=== PATIENT | male | born 1950 | race Caucasian/White ===

== ENCOUNTER 2020-07-20 08:09 | Outpatient (REF) | payer MEDICARE, SELFPAY ==
[2020-07-20 11:44] LABS: Alanine Aminotransferase 23 U/L (0-40); Albumin Level 4.3 g/dL (3.5-5.0); Alkaline Phosphatase 72 U/L (39-117); Anion Gap 12 (12-20); Aspartate Amino Transferase 20 U/L (5-37); Bilirubin Total 1.1 mg/dL (0.0-1.0); Blood Urea Nitrogen 13 mg/dL (9-16); Calcium 8.8 mg/dL (8.4-10.2); Carbon Dioxide 29 mmol/L (22-29); Chloride 104 mmol/L (96-108); Cholesterol 161 mg/dL; Estimated Glomerular Filt Rate > 60; Glucose Fasting 90 mg/dL (60-99); HDL Cholesterol 49 mg/dL; LDL Cholesterol Calculated 91 mg/dl; Potassium 4.4 mmol/l (3.3-5.1); Sodium 141 mmol/L (135-145); Triglycerides 107 mg/dL
== END 2020-07-20 08:10 | disposition home or self-care (01) ==
LOC: HO.HMGCLDS 08:09
PROVIDERS: PCP Nurse Practitioner Family; Visit Provider Nurse Practitioner Family
DX: Z00.00 Encounter for general adult medical examination without abnormal findings (principal)
CPT/HCPCS: 80053; 80061; 84443

== ENCOUNTER → 2020-11-26 09:51 | Outpatient (BNVA) | payer MEDICARE, SELFPAY | PROVIDERS: PCP Nurse Practitioner Family; Visit Provider Surgery Vascular Surgery | DX: I73.9 Peripheral vascular disease, unspecified (principal); I73.00 Raynaud's syndrome without gangrene | CPT/HCPCS: 99212 ==

== ENCOUNTER 2020-12-07 10:54 | Outpatient (REF) | payer MEDICARE, SELFPAY ==
--- NOTE | ~2020-12-07 | US_ITS ---
EXAMINATION: NONINVASIVE ASSESSMENT OF THE ARTERIES OF BOTH LOWER EXTREMITIES WITH PVR EXAM AND BILATERAL LOWER EXTREMITY DUPLEX CLINICAL INFORMATION: Peripheral vascular disease TECHNIQUE: Ankle pulse volume recordings, ankle pressure measurements and ankle brachial indices were obtained of the lower extremity arterial system bilaterally in addition to duplex Doppler techniques with wave form analysis and measurement of velocities in the common femoral, profunda femoral, superficial femoral, popliteal and tibial arteries. The study was performed only at rest. COMPARISON: None FINDINGS: a) AT REST: RIGHT LE. The right ankle-brachial index is: 1.27 2. Right ankle pressure: normal. 3. Right ankle PVR waveform: normal. 4. Right direct duplex Doppler findings: Normal * Common femoral artery: 89 cm/s, Diastolic flow reversal: Yes * Superficial femoral artery (proximal, mid, distal): 96, 105 and 75 cm/s, Diastolic flow reversal: Yes * Popliteal artery: 71 cm/s, Diastolic flow reversal: Yes * Posterior tibial artery: 82 cm/s, Diastolic flow reversal: Yes LEFT LE. The left ankle-brachial index is: 1.31 2. Left ankle pressure: normal. 3. Left ankle PVR waveform: normal. 4. Left direct duplex Doppler findings: Normal * Common femoral artery: 102 cm/s, Diastolic flow reversal: Yes * Superficial femoral artery (proximal, mid, distal): 90, 88 and 66 cm/s, Diastolic flow reversal: Yes * Popliteal artery: 66 cm/s, Diastolic flow reversal: Yes * Posterior tibial artery: 72 cm/s, Diastolic flow reversal: Yes DIONE Reference: * >0.97-1.25 = normal - no significant arterial disease * 0.75-0.96 = mild peripheral arterial disease * 0.5-0.74 = moderate peripheral arterial disease * <0.50 = severe peripheral arterial disease US/US arterial duplex LE BI IMPRESSION: Normal exam. There is no evidence of any hemodynamically significant lower extremity arterial disease by pressure, waveform or duplex Doppler criteria at rest.
--- NOTE | ~2020-12-07 | US_ITS ---
EXAMINATION: NONINVASIVE ASSESSMENT OF THE ARTERIES OF BOTH LOWER EXTREMITIES WITH PVR EXAM AND BILATERAL LOWER EXTREMITY DUPLEX CLINICAL INFORMATION: Peripheral vascular disease TECHNIQUE: Ankle pulse volume recordings, ankle pressure measurements and ankle brachial indices were obtained of the lower extremity arterial system bilaterally in addition to duplex Doppler techniques with wave form analysis and measurement of velocities in the common femoral, profunda femoral, superficial femoral, popliteal and tibial arteries. The study was performed only at rest. COMPARISON: None FINDINGS: a) AT REST: RIGHT LE. The right ankle-brachial index is: 1.27 2. Right ankle pressure: normal. 3. Right ankle PVR waveform: normal. 4. Right direct duplex Doppler findings: Normal * Common femoral artery: 89 cm/s, Diastolic flow reversal: Yes * Superficial femoral artery (proximal, mid, distal): 96, 105 and 75 cm/s, Diastolic flow reversal: Yes * Popliteal artery: 71 cm/s, Diastolic flow reversal: Yes * Posterior tibial artery: 82 cm/s, Diastolic flow reversal: Yes LEFT LE. The left ankle-brachial index is: 1.31 2. Left ankle pressure: normal. 3. Left ankle PVR waveform: normal. 4. Left direct duplex Doppler findings: Normal * Common femoral artery: 102 cm/s, Diastolic flow reversal: Yes * Superficial femoral artery (proximal, mid, distal): 90, 88 and 66 cm/s, Diastolic flow reversal: Yes * Popliteal artery: 66 cm/s, Diastolic flow reversal: Yes * Posterior tibial artery: 72 cm/s, Diastolic flow reversal: Yes DIONE Reference: * >0.97-1.25 = normal - no significant arterial disease * 0.75-0.96 = mild peripheral arterial disease * 0.5-0.74 = moderate peripheral arterial disease * <0.50 = severe peripheral arterial disease US/US DIONE complete IMPRESSION: Normal exam. There is no evidence of any hemodynamically significant lower extremity arterial disease by pressure, waveform or duplex Doppler criteria at rest.
== END 2020-12-07 10:55 | disposition home or self-care (01) ==
LOC: HO.US 10:54
PROVIDERS: Visit Provider Surgery Vascular Surgery
DX: I70.213 Atherosclerosis of native arteries of extremities with intermittent claudication, bilateral legs (principal)
CPT/HCPCS: 93923; 93925

== ENCOUNTER → 2020-12-22 09:13 | Outpatient (BNVA) | payer MEDICARE, SELFPAY | PROVIDERS: PCP Nurse Practitioner Family; Visit Provider Surgery Vascular Surgery | DX: I73.9 Peripheral vascular disease, unspecified (principal); I73.00 Raynaud's syndrome without gangrene | CPT/HCPCS: 99212 ==

== ENCOUNTER 2021-02-09 06:51 | Day surgery (SDC) | payer MEDICARE, SELFPAY ==
[2021-02-04 08:51] VITALS: BMI 29.9
--- NOTE | 2021-02-08 10:14 | HO.ANESPROP2 ---
Documented by User: Amanda De La Vega 02/08/21 10:26 HPI - Anesthesia Eval Consult details Narrative: 70yo M for Colonoscopy Eliquis for afib Loop recorder in situ PMFSH Active Problems Active Problems: All Active Problems (Updated 02/04/21 @ 08:50 by Meghan Mena) Physical exam (Acute) Dyslipidemia (Acute) Vascular disease, peripheral (Acute) Raynaud disease (Acute) Past Medical History Medical History (Updated 02/09/21 @ 07:40 by Maeve Reis) Cardiomyopathy COVID-19 vaccine administered Eczema NSVT (nonsustained ventricular tachycardia) Paroxysmal A-fib Syncope Family History Family History Father CAD (coronary artery disease) Type 2 diabetes mellitus Myocardial infarction Mother Breast cancer Surgical History Surgical History H/O colonoscopy History of carpal tunnel release History of colon resection History of loop recorder History of total hip replacement Melanoma Social History Social History Alcohol intake: never Smoking Status: Never smoker Use of substances other than those prescribed or required for medical reasons: No Have you been hit, kicked, punched, or otherwise hurt by someone within the past year? If so, by whom?: No Advance Directives Information Provided: No Recently lost weight without trying: No Eating poorly because of decreased appetite: No Nutrition Risks: No Nutritional Risk Poor oral hygiene: No Meds Allergies Allergy/AdvReac Type Severity Reaction Status Date / Time No Known Allergies Allergy Verified 02/09/21 07:01 Home Medications Medication Instructions Recorded Confirmed Last Taken Type apixaban 5 mg tablet 5 mg PO BID 07/13/20 02/03/21 02/06/21 History coenzyme Q10 100 mg capsule 100 mg PO DAILY 07/13/20 02/03/21 Unknown History metoprolol succinate 25 mg 25 mg PO DAILY 07/13/20 02/03/21 02/09/21 05:30 History tablet,extended release 24 hr omega 5-egu-qtn-fish oil 100 1 cap PO DAILY 07/13/20 02/03/21 02/04/21 History mg-160 mg-1,000 mg capsule Exam Exam Date and Time: February 08, 2021 1014 Height,Weight and Vital Signs: Height 5 ft 7 in Weight 86.636 kg Narrative Narrative: Per cardiology note 12/2020: EKG 01/07/21 SB @ 50 1* AV block marked LAD c/w LAFB Pharm stress test negative for ischemia, EF was normal Echo 12/2019 asymmetric septal hypertrophy no recorded gradient in the LV outflow tract either at rest or with valsava no systolic anterior motion of MV noted Mild MR Assessment and Plan Assessment Anesthesia Assessment: Chart Reviewed Documented by User: Maeve Reis 02/09/21 07:40 [facility] Past Medical History Medical History (Updated 02/09/21 @ 07:40 by Maeve Reis) Cardiomyopathy COVID-19 vaccine administered Eczema NSVT (nonsustained ventricular tachycardia) Paroxysmal A-fib Syncope Family History Family History Father CAD (coronary artery disease) Type 2 diabetes mellitus Myocardial infarction Mother Breast cancer Surgical History Surgical History H/O colonoscopy History of carpal tunnel release History of colon resection History of loop recorder History of total hip replacement Melanoma Social History Social History Alcohol intake: never Smoking Status: Never smoker Use of substances other than those prescribed or required for medical reasons: No Have you been hit, kicked, punched, or otherwise hurt by someone within the past year? If so, by whom?: No Advance Directives Information Provided: No Recently lost weight without trying: No Eating poorly because of decreased appetite: No Nutrition Risks: No Nutritional Risk Poor oral hygiene: No Meds Allergies Allergy/AdvReac Type Severity Reaction Status Date / Time No Known Allergies Allergy Verified 02/09/21 07:01 Home Medications Medication Instructions Recorded Confirmed Last Taken Type apixaban 5 mg tablet 5 mg PO BID 07/13/20 02/03/21 02/06/21 History coenzyme Q10 100 mg capsule 100 mg PO DAILY 07/13/20 02/03/21 Unknown History metoprolol succinate 25 mg 25 mg PO DAILY 07/13/20 02/03/21 02/09/21 05:30 History tablet,extended release 24 hr omega 7-xzu-qfz-fish oil 100 1 cap PO DAILY 07/13/20 02/03/21 02/04/21 History mg-160 mg-1,000 mg capsule Exam Height,Weight and Vital Signs: Vital Signs Temp Pulse Resp BP Pulse Ox 02/09/21 07:03 97.6 F 59 16 121/67 98 Airway Mallampati Class: III TM Dist: >3cm Neck ROM: Full Heart: RRR+ murmur Lungs: CTAB Assessment and Plan Assessment Anesthesia Assessment: Anesthesia Plan Discussed and Chart Reviewed Final Anesthetic Review NPO: Yes ASA Class: III Final Preanesthetic Review: No Changes in Pt Med Stat, Meds/Allgs Chart Reviewed, Consent Obtained/Reviewed and Anes Risks/Benef Reviewed Patient Risk: Intermediate Procedure Risk: Low Assessment/Block/Sedation in SS: Assess/Block/Sedation-SS Anesthetic Plan Anesthetic Plan: MAC: Disposition: Standard PACU
[2021-02-09 07:03] VITALS: BP 121/67; PULSE 59; RESP 16; TEMP 36.4; O2SAT 98
[2021-02-09] MEDS: Lactated Ringers 1,000 ML 50 ML IV (07:23)
--- NOTE | 2021-02-09 07:52 | MHC.SHP ---
Pre-Procedural Eval Section B Chief Complaint: screening Details of Present Illness: see h&p no changes Relevant Family History (Specify if Yes): No Relevant Social History: None Present Medications: see Short Stay Collaborative assessment Medical History: No relevant PMH History of Previous Operations: No relevant previous surgery Allergies: Allergies Allergy/AdvReac Type Severity Reaction Status Date / Time No Known Allergies Allergy Verified 02/09/21 07:01 Review of Systems Sugical H&P ROS: Negative: Constitution, Cardiovascular, Respiratory, Neurological, Psychiatric, Hem-Onc, Allergic/Immunologic, Gastrointestinal, Genitourinary, Musculoskeletal, Integumentary, Endocrine and Eyes/Ears/Nose/Throat Exam Surgical H&P Exam: Normal: HEENT, Normal: Heart, Normal: Lungs, Normal: Extremities, Normal: Abdomen, Normal: Skin and Normal: Neurological Plan Diagnosis/Plan: Unchanged I have reviewed the history and physical and performed a pertinent physical examination on my patient. No changes have occurred unless specified.
--- NOTE | 2021-02-09 08:22 | PM.OP ---
Brief Operative Note Date of Service: 02/09/21 Pre-op diagnosis: screening Post-op diagnosis: same Procedure: colonoscopy Surgeon: Celso Ferrell Anesthesia: MAC Was an Acupuncture Physician used for this Procedure?: No Estimated blood loss (mL): 0 Pathology: none sent Condition: stable Disposition: PACU
[2021-02-09 08:25] VITALS: BP 93/47; PULSE 56; RESP 16; TEMP 36.8; O2SAT 98
[2021-02-09 08:40] VITALS: BP 103/84; PULSE 59; RESP 17; TEMP 36.7; O2SAT 99
--- NOTE | 2021-02-09 08:57 | OP_ITS ---
SURGEON: Celso Ferrell MD INDICATIONS: Colon cancer screening and prior history of carcinoid tumor, requiring low anterior resection. PREOPERATIVE DIAGNOSIS: POSTOPERATIVE DIAGNOSIS: PROCEDURE PERFORMED: Colonoscopy to the terminal ileum. ESTIMATED BLOOD LOSS: COMPLICATIONS: ANESTHESIA: ASSISTANTS: SPECIMENS: MEDICATIONS: Monitored anesthesia care. DESCRIPTION OF PROCEDURE: History and physical performed. The risks and benefits of the procedure were explained to the patient. Informed consent was obtained. The patient was placed in the left lateral decubitus position. A digital rectal exam was performed and was found to be normal. The Olympus pediatric video colonoscope was introduced into the rectum and advanced to the cecum without difficulty. The cecum was identified by transillumination, palpation, and identification of ileocecal valve. Examination was performed and the scope was removed. He tolerated the procedure well and was taken to recovery area in stable condition. FINDINGS: The terminal ileum was examined and appeared normal. The visualized colonic mucosa was within normal limits without evidence of masses or ulcers. No polyps were identified. There was scattered diverticulosis. The quality of the prep was good. There appeared to be a low anterior anastomosis at approximately 15 cm with no evidence of recurrent carcinoid tumor. Retroflexed examination showed small internal hemorrhoids. IMPRESSION: Normal colonoscopy. RECOMMENDATIONS: 1. Follow up as needed. 2. Repeat colonoscopy could be considered in 5 years, however, this is optional based on age. MD JANICE Cee/CARRIE / [id number]
== END 2021-02-09 09:23 | disposition home or self-care (01) ==
PROVIDERS: PCP Nurse Practitioner Family; Visit Provider Internal Medicine Gastroenterology
PROC: 0DJD8ZZ Inspection of Lower Intestinal Tract, Via Natural or Artificial Opening Endoscopic (ICD-10-PCS; CPT 45378; principal; 2021-02-09 08:10)
DX: Z12.11 Encounter for screening for malignant neoplasm of colon (principal); Z85.030 Personal history of malignant carcinoid tumor of large intestine; Z98.0 Intestinal bypass and anastomosis status; K57.30 Diverticulosis of large intestine without perforation or abscess without bleeding; K64.8 Other hemorrhoids; I47.2 Ventricular tachycardia; I48.0 Paroxysmal atrial fibrillation; Z79.899 Other long term (current) drug therapy; Z85.820 Personal history of malignant melanoma of skin
CPT/HCPCS: G0105

== ENCOUNTER 2021-03-24 09:26 | Outpatient (REF) | payer MEDICARE, SELFPAY ==
[2021-03-24 11:14] LABS: Alanine Aminotransferase 23 U/L (0-40); Albumin Level 4.2 g/dL (3.5-5.0); Alkaline Phosphatase 72 U/L (39-117); Anion Gap 14 (12-20); Aspartate Amino Transferase 20 U/L (5-37); Bilirubin Total 1.1 mg/dL (0.0-1.0); Blood Urea Nitrogen 22 mg/dL (9-16); Calcium 9.2 mg/dL (8.4-10.2); Carbon Dioxide 24 mmol/L (22-29); Chloride 106 mmol/L (96-108); Cholesterol 152 mg/dL; Estimated Glomerular Filt Rate > 60; Glucose Fasting 95 mg/dL (60-99); HDL Cholesterol 50 mg/dL; LDL Cholesterol Calculated 92 mg/dl; Potassium 4.5 mmol/L (3.3-5.1); Sodium 139 mmol/L (135-145); Total Protein 6.9 g/dL (6.5-8.0); Triglycerides 52 mg/dL
[2021-03-24 11:24] LABS: TSH reflex Free T4 0.93 uIU/mL (0.32-4.0)
== END 2021-03-24 09:27 | disposition home or self-care (01) ==
LOC: HO.WFDLDS 09:26
PROVIDERS: Visit Provider Nurse Practitioner Family
DX: E78.5 Hyperlipidemia, unspecified (principal)
CPT/HCPCS: 36415; 80053; 80061; 84443

== ENCOUNTER 2021-05-18 12:05 | Outpatient (REF) | payer MEDICARE, SELFPAY ==
[2021-05-18 14:35] LABS: Prostate Specific Antigen 2.49 ng/mL (<0.05-4.0)
== END 2021-05-18 12:06 | disposition home or self-care (01) ==
LOC: HO.WFDLDS 12:05
PROVIDERS: Visit Provider Urology
DX: Z12.5 Encounter for screening for malignant neoplasm of prostate (principal); R39.12 Poor urinary stream; R39.11 Hesitancy of micturition; N32.0 Bladder-neck obstruction
CPT/HCPCS: 36415; 84153

== ENCOUNTER → 2021-06-01 08:42 | Outpatient (BNVA) | payer MEDICARE, SELFPAY | PROVIDERS: PCP Nurse Practitioner Family; Visit Provider Urology | DX: N32.0 Bladder-neck obstruction (principal); R39.11 Hesitancy of micturition | CPT/HCPCS: 99212 ==

== ENCOUNTER 2021-08-31 09:47 | Outpatient (REF) | payer MEDICARE, SELFPAY ==
[2021-08-31 12:10] LABS: Alanine Aminotransferase 29 U/L (0-40); Albumin Level 4.2 g/dL (3.5-5.0); Alkaline Phosphatase 78 U/L (39-117); Anion Gap 13 (12-20); Aspartate Amino Transferase 26 U/L (5-37); Bilirubin Total 1.3 mg/dL (0.0-1.0); Blood Urea Nitrogen 18 mg/dL (9-16); Calcium 9.2 mg/dL (8.4-10.2); Carbon Dioxide 26 mmol/L (22-29); Chloride 106 mmol/L (96-108); Cholesterol 161 mg/dL; Estimated Glomerular Filt Rate > 60; Glucose Fasting 92 mg/dL (60-99); HDL Cholesterol 50 mg/dL; LDL Cholesterol Calculated 94 mg/dl; Potassium 4.5 mmol/L (3.3-5.1); Sodium 140 mmol/L (135-145); Total Protein 7.1 g/dL (6.5-8.0); Triglycerides 86 mg/dL
[2021-08-31 12:11] LABS: TSH reflex Free T4 1.21 uIU/mL (0.32-4.0)
== END 2021-08-31 09:48 | disposition home or self-care (01) ==
LOC: HO.WFDLDS 09:47
PROVIDERS: Visit Provider Nurse Practitioner Family
DX: Z00.00 Encounter for general adult medical examination without abnormal findings (principal)
CPT/HCPCS: 36415; 80053; 80061; 84443

== ENCOUNTER 2022-05-20 08:39 | Outpatient (REF) | payer MEDICARE, SELFPAY ==
[2022-05-20 12:04] LABS: PSA,Total (Free>4and<10) 2.87 ng/mL (0.00-4.00)
== END 2022-05-20 08:40 | disposition home or self-care (01) ==
LOC: HO.WFDLDS 08:39
PROVIDERS: Visit Provider Urology
DX: Z12.5 Encounter for screening for malignant neoplasm of prostate (principal); N13.8 Other obstructive and reflux uropathy; N32.0 Bladder-neck obstruction; N40.1 Benign prostatic hyperplasia with lower urinary tract symptoms
CPT/HCPCS: 36415; 84153

== ENCOUNTER → 2022-06-01 08:36 | Outpatient (BNVA) | payer MEDICARE, SELFPAY | PROVIDERS: PCP Nurse Practitioner Family; Visit Provider Urology | DX: R39.12 Poor urinary stream (principal); R39.11 Hesitancy of micturition; N32.0 Bladder-neck obstruction | CPT/HCPCS: 51798; 99212 ==

== ENCOUNTER 2022-11-28 09:39 | Outpatient (REF) | payer MEDICARE, SELFPAY ==
[2022-11-28 11:34] LABS: MANUAL DIFF FLAG NO
[2022-11-28 11:44] LABS: Basophils Absolute Auto 0.1 X10*3/uL (0.0-0.2); Basophils Percent Auto 0.8 % (0-2); Eosinophils Absolute Auto 0.2 X10*3/uL (0.0-0.4); Eosinophils Percent Auto 2.8 % (0-4); Hematocrit 47.5 % (42.0-52.0); Hemoglobin 16.1 g/dl (14.0-18.0); Imm Gran Abs Auto 0.05 X10*3/uL (0.00-0.03); Imm Gran Pct Auto 0.8 % (0.0-0.4); Lymphocytes Absolute Auto 1.5 X10*3/uL (1.2-4.9); Lymphocytes Percent Auto 24.1 % (20-40); Mean Corpuscular HGB Conc 33.9 g/dl (31.0-36.0); Mean Corpuscular Hemoglobin 33.1 pg (27.0-33.0); Mean Corpuscular Volume 97.5 fL (80.0-98.0); Monocytes Absolute Auto 0.4 X10*3/uL (0.1-1.2); Monocytes Percent Auto 6.7 % (2-11); Neutrophils Percent Auto 64.8 % (45-73); Platelet Count 148 X10*3/uL (160-400); Red Blood Count 4.87 X10*6/uL (4.60-5.80); Red Cell Distribution Width 12.6 % (11.0-16.0); White Blood Count 6.1 X10*3/uL (4.8-10.8)
[2022-11-28 12:22] LABS: Appearance Urine Clear; Color Urine Yellow; Glucose Urine UA Negative (Negative); Leukocyte Esterase Urine Negative (Negative); Nitrite Urine Negative (Negative); PH 5.5 (5.0-9.0); Specific Gravity - Urine 1.025 (1.005-1.025); Urine Blood Negative (Negative); Urine Ketones Negative (Negative); Urine Protein Negative (Neg-Trace)
[2022-11-28 12:36] LABS: Alanine Aminotransferase 39 U/L (0-40); Albumin Level 4.4 g/dL (3.5-5.0); Alkaline Phosphatase 83 U/L (39-117); Anion Gap 11 (12-20); Aspartate Amino Transferase 26 U/L (5-37); Bilirubin Total 1.9 mg/dL (0.0-1.0); Blood Urea Nitrogen 19 mg/dL (9-16); Calcium 9.2 mg/dL (8.4-10.2); Carbon Dioxide 30 mmol/L (22-29); Chloride 106 mmol/L (96-108); Cholesterol 119 mg/dL; Estimated Glomerular Filt Rate > 60; Glucose Fasting 99 mg/dL (60-99); HDL Cholesterol 49 mg/dL; LDL Cholesterol Calculated 59 mg/dl; Potassium 4.7 mmol/L (3.3-5.1); Sodium 142 mmol/L (135-145); TSH reflex Free T4 1.75 uIU/mL (0.32-4.0); Total Protein 7.2 g/dL (6.5-8.0); Triglycerides 57 mg/dL
== END 2022-11-28 09:40 | disposition home or self-care (01) ==
LOC: HO.HMGCLDS 09:39
PROVIDERS: PCP Nurse Practitioner Family; Visit Provider Nurse Practitioner Family
DX: Z00.00 Encounter for general adult medical examination without abnormal findings (principal); I10 Essential (primary) hypertension
CPT/HCPCS: 36415; 80053; 80061; 81003; 84443; 85025

== ENCOUNTER 2023-01-30 09:48 | Outpatient (REF) | payer MEDICARE, SELFPAY ==
[2023-01-30 11:22] LABS: MANUAL DIFF FLAG NO
[2023-01-30 11:35] LABS: Immature Retic Fraction 11.6 % (2.3-13.4); Retic HGB Equivalent 38.9 pg (30.0-35.0); Reticulocyte Percent 1.5 % (0.5-1.8); Reticulocytes Absolute 0.067 X10*6/uL (0.026-0.095)
[2023-01-30 11:40] LABS: Basophils Percent Auto 0.8 % (0-2); Hematocrit 43.3 % (42.0-52.0); Hemoglobin 14.8 g/dl (14.0-18.0); Imm Gran Abs Auto 0.01 X10*3/uL (0.00-0.03); Imm Gran Pct Auto 0.3 % (0.0-0.4); Lymphocytes Absolute Auto 0.9 X10*3/uL (1.2-4.9); Mean Corpuscular HGB Conc 34.2 g/dl (31.0-36.0); Mean Corpuscular Hemoglobin 32.7 pg (27.0-33.0); Mean Corpuscular Volume 95.8 fL (80.0-98.0); Mean Platelet Volume 10.3 fL (9.4-12.4); Monocytes Absolute Auto 0.7 X10*3/uL (0.1-1.2); Monocytes Percent Auto 16.6 % (2-11); Neutrophils Absolute Auto 2.3 x10*3/uL (2.0-8.3); Neutrophils Percent Auto 58.3 % (45-73); Platelet Count 118 X10*3/uL (160-400); Red Blood Count 4.52 X10*6/uL (4.60-5.80); Red Cell Distribution Width 12.8 % (11.0-16.0); White Blood Count 3.9 X10*3/uL (4.8-10.8)
[2023-01-30 12:03] LABS: Bilirubin Direct 0.4 mg/dL (0.0-0.5); Bilirubin Total 1.5 mg/dL (0.0-1.0)
[2023-01-31 17:33] LABS: Haptoglobin 181 mg/dL (43-212)
[2023-02-08 12:48] LABS: Transglutaminase Ab IgG 1.4 U/mL; Transglutaminase IgA <1.0 U/mL
== END 2023-01-30 09:49 | disposition home or self-care (01) ==
LOC: HO.WFDLDS 09:48
PROVIDERS: Visit Provider Nurse Practitioner Family
DX: D69.6 Thrombocytopenia, unspecified (principal); R17 Unspecified jaundice
CPT/HCPCS: 36415; 82247; 82248; 83010; 85025; 85045; 86364

== ENCOUNTER 2023-02-22 09:29 | Outpatient (REF) | payer MEDICARE, SELFPAY ==
[2023-02-22 11:11] LABS: MANUAL DIFF FLAG NO
[2023-02-22 11:21] LABS: Basophils Percent Auto 0.7 % (0-2); Eosinophils Absolute Auto 0.1 X10*3/uL (0.0-0.4); Eosinophils Percent Auto 1.7 % (0-4); Hematocrit 43.6 % (42.0-52.0); Hemoglobin 14.8 g/dl (14.0-18.0); Imm Gran Abs Auto 0.02 X10*3/uL (0.00-0.03); Imm Gran Pct Auto 0.3 % (0.0-0.4); Immature Retic Fraction 10.9 % (2.3-13.4); Lymphocytes Percent Auto 33.9 % (20-40); Mean Corpuscular HGB Conc 33.9 g/dl (31.0-36.0); Mean Corpuscular Hemoglobin 33.2 pg (27.0-33.0); Mean Corpuscular Volume 97.8 fL (80.0-98.0); Mean Platelet Volume 10.9 fL (9.4-12.4); Monocytes Absolute Auto 0.4 X10*3/uL (0.1-1.2); Monocytes Percent Auto 7.4 % (2-11); Neutrophils Absolute Auto 3.3 x10*3/uL (2.0-8.3); Platelet Count 146 X10*3/uL (160-400); Red Blood Count 4.46 X10*6/uL (4.60-5.80); Red Cell Distribution Width 12.5 % (11.0-16.0); Retic HGB Equivalent 39.2 pg (30.0-35.0); Reticulocyte Percent 1.5 % (0.5-1.8); Reticulocytes Absolute 0.068 X10*6/uL (0.026-0.095); White Blood Count 5.8 X10*3/uL (4.8-10.8)
== END 2023-02-22 09:30 | disposition home or self-care (01) ==
LOC: HO.WFDLDS 09:29
PROVIDERS: Visit Provider Nurse Practitioner Family
DX: D72.819 Decreased white blood cell count, unspecified (principal); D69.6 Thrombocytopenia, unspecified
CPT/HCPCS: 36415; 85025; 85045

== ENCOUNTER 2023-03-08 11:50 | Outpatient (REF) | payer MEDICARE, SELFPAY ==
[2023-03-08 13:59] LABS: MANUAL DIFF FLAG NO
[2023-03-08 14:14] LABS: Basophils Absolute Auto 0.1 X10*3/uL (0.0-0.2); Basophils Percent Auto 0.8 % (0-2); Eosinophils Absolute Auto 0.1 X10*3/uL (0.0-0.4); Eosinophils Percent Auto 2.1 % (0-4); Hematocrit 45.5 % (42.0-52.0); Hemoglobin 15.3 g/dl (14.0-18.0); Imm Gran Abs Auto 0.01 X10*3/uL (0.00-0.03); Imm Gran Pct Auto 0.2 % (0.0-0.4); Lymphocytes Absolute Auto 1.8 X10*3/uL (1.2-4.9); Lymphocytes Percent Auto 28.4 % (20-40); Mean Corpuscular HGB Conc 33.6 g/dl (31.0-36.0); Mean Corpuscular Volume 98.1 fL (80.0-98.0); Mean Platelet Volume 10.2 fL (9.4-12.4); Monocytes Absolute Auto 0.4 X10*3/uL (0.1-1.2); Monocytes Percent Auto 6.2 % (2-11); Neutrophils Absolute Auto 3.9 x10*3/uL (2.0-8.3); Neutrophils Percent Auto 62.3 % (45-73); Platelet Count 148 X10*3/uL (160-400); Red Blood Count 4.64 X10*6/uL (4.60-5.80); Red Cell Distribution Width 13.2 % (11.0-16.0); White Blood Count 6.3 X10*3/uL (4.8-10.8)
[2023-03-08 14:21] LABS: Alanine Aminotransferase 29 U/L (0-40); Albumin Level 4.2 g/dL (3.5-5.0); Alkaline Phosphatase 73 U/L (39-117); Anion Gap 13 (12-20); Aspartate Amino Transferase 25 U/L (5-37); Bilirubin Total 1.1 mg/dL (0.0-1.0); Blood Urea Nitrogen 21 mg/dL (9-16); Calcium 10.2 mg/dL (8.4-10.2); Carbon Dioxide 29 mmol/L (22-29); Chloride 106 mmol/L (96-108); Estimated Glomerular Filt Rate > 60; Glucose Random 101 mg/dL (60-115); Potassium 4.8 mmol/L (3.3-5.1); Sodium 143 mmol/L (135-145); Total Protein 7.6 g/dL (6.5-8.0)
[2023-03-08 14:53] LABS: Folate 17.3 ng/mL (> or = 4.0); Vitamin B12 453 pg/mL (200-900)
[2023-03-14 14:54] LABS: Vitamin B6 22.9 ng/mL (2.1-21.7)
== END 2023-03-08 11:51 | disposition home or self-care (01) ==
LOC: HO.HMGCLDS 11:50
PROVIDERS: PCP Nurse Practitioner Family; Visit Provider Nurse Practitioner Family
DX: D69.6 Thrombocytopenia, unspecified (principal); R53.1 Weakness
CPT/HCPCS: 36415; 80053; 82607; 82746; 84207; 85025

== ENCOUNTER 2023-05-19 07:59 | Outpatient (REF) | payer MEDICARE, SELFPAY | END 2023-05-19 08:00 | disposition home or self-care (01) | LOC: HO.WFDLDS 07:59 | PROVIDERS: Visit Provider Urology | DX: Z12.5 Encounter for screening for malignant neoplasm of prostate (principal) | CPT/HCPCS: 36415; 84153 ==

== ENCOUNTER 2023-06-01 08:41 | Outpatient (AMB) | payer MEDICARE, SELFPAY ==
--- NOTE | 2023-06-01 08:47 | MHC.OFFVIS ---
Intake Intake Visit Reasons: 1Y PSA(set) Intake Note: Patient is present for Follow Up PSA/PVR Urology Med: Finasteride Antibiotic Allergy: None Blood Thinner: Apixaban Pharmacy: [facility] PVR: 269ml Allergies No Known Allergies Allergy (Verified 06/01/23 08:48) HPI HPI Comments History of Present Illness Details Rolo SCHUMACHER is a very pleasant male. They are a patient of Dr Walsh. They are seen in the office today for the following urologic conditions. - Lower urinary tract symptoms Increasing PVR 240 cc Shy bladder in office Does describe double voiding now on a consistent basis Remain on finasteride daily Used to work the [employer] at the [employer] bethanechol Elevated PSA/Abnormal JONI:? He presents for ?further evaluation of elevated PSA.? Current management is?Finasteride ? Laboratory investigations include?04/05 4.9 ?12/05 2.2, 05/08 2.5, 06/09 2.9 ? Prostate Cancer Risk Calculator?5-10% high risk, Discussed use of 5AR to help differentiate prostate cancer from benign disease. He would like to try this and understands the small risk associated with a delay in diagnosis.? Symptoms include?06/06 , weak stream, straining, nocturia, x 1, and are worsening ?01/05 Improved stream.? Overall symptoms are?moderate.? Therapeutic plan will be?Review PSA 1 year.? PFSH Medical History Bladder outlet obstruction Cardiomyopathy COVID-19 vaccine administered Eczema Hypertrophic cardiomyopathy NSVT (nonsustained ventricular tachycardia) Paroxysmal A-fib Syncope Syncope and collapse Urinary hesitancy Weak urinary stream Surgical History H/O colonoscopy History of carpal tunnel release History of colon resection History of loop recorder History of total hip replacement Melanoma Family History Father CAD (coronary artery disease) Type 2 diabetes mellitus Myocardial infarction Mother Breast cancer Social History Housing: House Alcohol intake: never Patient Tobacco Use Status: Never used Tobacco e-Cigarette/Vaping Use: Never Used Second Hand Smoke Exposure: No service: Yes Current occupational status: retired Cognitive needs: No Hearing needs: Yes Vision needs: No Review of Systems Const Denies chills and Denies fever(s) Card Reports no additional complaints and Denies syncope Resp Denies cough GI Denies abdominal pain and Denies heartburn Reports as per HPI and Denies change in libido Neuro Denies syncope Psych Denies change in libido Endo Denies change in libido Physical Exam Const General: cooperative, healthy appearing, comfortable and no acute distress Orientation/consciousness: patient oriented x3 HEENT Face and sinus: Yes normal facial exam Mouth: moist mucous membranes Neck Neck: Yes normal visual inspection, Yes full ROM and Yes trachea midline Chest Chest palpation & inspection: normal inspection of the chest Resp Effort & Inspection: normal respiratory effort, able to speak in complete sentences and no respiratory distress GI Inspection: Yes normal to inspection Back/Spine/Pelvis Cervical Spine: normal cervical lordosis Thoracic/Lumbar Spine: thoracic and lumbar spine normal to inspection Skin General skin exam: no rashes or lesions noted Neuro General: patient oriented x3, gait normal, tone normal and moves all extremities Extrem General: Yes normal to inspection and Yes capillary refill normal Office Procedures Post Void Residual Post Residual Void Post Void Residual (PVR): 269 [id number]-Axuw Void Residual by ultrasound Results AMB Urinalysis, Automated UA Leukoctes 0 Margaret/uL Last Edit by ROSINA Jeff on 06/01/23 09:00 UA Nitrite Negative Last Edit by ROSINA Jeff on 06/01/23 09:00 UA Urobilinogen 0.2 mg/dL Last Edit by ROSINA Jeff on 06/01/23 09:00 UA Protein 0 mg/dL Last Edit by ROSINA Jeff on 06/01/23 09:00 UA pH 6.0 Last Edit by ROSINA Jeff on 06/01/23 09:00 UA Blood 0 Ranjeet/uL Last Edit by ROSINA Jeff on 06/01/23 09:00 UA Specific [place] 1.010 Last Edit by Lyly Greenwood, RMA on 06/01/23 09:00 UA Ketone Negative Last Edit by Lyly Greenwood, RMA on 06/01/23 09:00 UA Bilirubin 0 mg/dL Last Edit by Lyly Greenwood, RMA on 06/01/23 09:00 UA Glucose 0 mg/dL Last Edit by Lyly Greenwood, RMA on 06/01/23 09:00 Assessment & Plan Assessment & Plan (1) Incomplete emptying of bladder due to benign prostatic hyperplasia: Code(s): N40.1 - Benign prostatic hyperplasia with lower urinary tract symptoms; R33.9 - Retention of urine, unspecified (2) Bladder outlet obstruction: Code(s): N32.0 - Bladder-neck obstruction Plan Bethanechol trial Orders: Orders AMB Urinalysis Automated Today Z13.9 - Encounter for screening, unspecified AMB Post Void Residual by ultrasound Today N32.0 - Bladder-neck obstruction Prostate Specific Antigen 05/19/23 Z12.5 - Encounter for screening for malignant neoplasm of prostate Medications: New bethanechol chloride 50 mg PO BID 180 tabs 0RF 90 days N40.1 - Benign prostatic hyperplasia with lower urinary tract symptoms, R33.9 - Retention of urine, unspecified Patient Instructions: Imaging studies, laboratory and physical exam results were discussed and reviewed in detail. No major barriers to patient understanding were identified. An opportunity to ask questions regarding the treatment plan was provided. All questions were answered. The patient expressed understanding and agreement with the above treatment plan. The patient is aware they should contact our office by phone for worsening of their current condition or the appearance of new urologic symptoms. Compliance is encouraged with any medications and followup testing that is ordered. It is a privilege to participate in the urologic care of your patient. If you have any questions or concerns regarding treatment for the above conditions, or other urologic issues, please do not hesitate to contact me. The office telephone contact is [phone]. This note is constructed using voice recognition software. While every effort has been made to ensure accuracy counseling specialist errors may have been included. Yours sincerely, Dr Benjamin Rao MD, BETH [facility] - Urology Providers of Expert, Compassionate Care for the Genitourinary System Coding Level of Care Code Est Pt Level 4 (05878) Diagnoses Incomplete emptying of bladder due to benign prostatic hyperplasia N40.1; R33.9 Bladder outlet obstruction N32.0 CPT Codes Post Residual Void - PVR CPT Code: 68822-Gial Void Residual by ultrasound ([id number])
== END 2023-06-01 09:03 | disposition home or self-care (01) ==
PROVIDERS: PCP Nurse Practitioner Family; Visit Provider Urology
DX: N40.1 Benign prostatic hyperplasia with lower urinary tract symptoms (principal); R33.9 Retention of urine, unspecified; N32.0 Bladder-neck obstruction
CPT/HCPCS: 99214

== ENCOUNTER → 2023-06-01 08:41 | Outpatient (BNVA) | payer MEDICARE, SELFPAY | PROVIDERS: PCP Nurse Practitioner Family; Visit Provider Urology | DX: N40.1 Benign prostatic hyperplasia with lower urinary tract symptoms (principal); N13.8 Other obstructive and reflux uropathy; R33.8 Other retention of urine | CPT/HCPCS: 51798; 81003; 99212 ==

== ENCOUNTER 2023-06-08 12:42 | Outpatient (AMB) | payer MEDICARE, SELFPAY ==
[2023-06-08 13:05] VITALS: BP 112/74; PULSE 59; O2SAT 95; BMI 29.2
--- NOTE | 2023-06-08 13:05 | A.OFFPC_ITS ---
Vital Signs 06/08/23 13:05 Height 5 ft 7 in Weight 186 lb 6 oz BMI 29.2 BP 112/74 Blood Pressure Location Rt brachial Position Sitting Pulse 59 Pulse Source Pulse Oximeter Pulse Oximetry (%) 95 Oxygen Delivery Method Room Air Intake Visit Reasons: 3 Month F/u Allergies No Known Allergies Allergy (Verified 06/01/23 08:48) Medication List - Last Reconciled 06/08/23 by SHYAM Prasad apixaban 5 mg PO BID bethanechol chloride 50 mg PO BID 90 days coenzyme Q10 (CoQ-10) 100 mg PO DAILY ezetimibe 10 mg PO DAILY finasteride 5 mg PO DAILY 90 days metoprolol succinate ER 25 mg PO DAILY omega 1-ikp-xgt-fish oil 100-160-1,000 mg (Fish Oil) 1 cap PO DAILY pravastatin 20 mg PO DAILY sildenafil 100 mg PO DAILY PRN 30 days Tobacco use date assessed: 06/08/23 Fall risk assessment: No Falls in past year Last assessed Fall Risk: 06/08/23 Dental Screening Dental Screen Date: 06/08/23 Did you have a dental visit in the last 12 months?: No Did you have a dental problem in the last 6 months where you did not have access to dental care?: No Was dental information given to patient?: Patient has dentist HPI 3 Month F/u HPI Details Pt is going to PT due to shuffling gait and weakness. He reports noticing some improvement since starting PT. He reports some unsteadiness but he does not fall. Pt will be following up with neurology in the near future. Dyslipidemia: On zetia 10mg and pravastatin 20mg. Will order labs. Denies chest pain, shortness of breath, and dizziness. [facility] Medical History Syncope and collapse Hypertrophic cardiomyopathy Bladder outlet obstruction Urinary hesitancy Weak urinary stream COVID-19 vaccine administered Syncope Eczema NSVT (nonsustained ventricular tachycardia) Paroxysmal A-fib Cardiomyopathy Surgical History History of total hip replacement History of carpal tunnel release History of loop recorder H/O colonoscopy Melanoma History of colon resection Family History Father CAD (coronary artery disease) Type 2 diabetes mellitus Myocardial infarction Mother Breast cancer Social History Housing: House Alcohol intake: never Patient Tobacco Use Status: Never used Tobacco e-Cigarette/Vaping Use: Never Used Second Hand Smoke Exposure: No service: Yes Current occupational status: retired Cognitive needs: No Hearing needs: Yes Vision needs: No Questionnaire Thrive Questionnaire Date Thrive assessed: 11/28/22 BRETT-7 AMB Questionnaire BRTET-7 Date BRETT - 7 assessed: 11/28/22 Source: Developed by Drs. Nik Donnelly, Tracey Allen, Adalberto Paredes and colleagues, with an educational robert from [employer]. Review of Systems Const Reports as per HPI Physical exam (Primary Care) Vital Signs: Last Vital Signs Pulse 59 06/08/23 13:05 BP 112/74 06/08/23 13:05 Pulse Ox 95 06/08/23 13:05 Oxygen Delivery Method Room Air 06/08/23 13:05 BMI result Body Mass Index 29.2 Tobacco/Smoking Status: Tobacco use Status Tobacco use date assessed 06/08/23 06/08/23 13:11 Patient Tobacco Use Status Never used Tobacco 06/08/23 13:11 e-Cigarette/Vaping Use Never Used 06/08/23 13:11 Thrive Assessment: Date of Thrive Assessment Date Thrive assessed 11/28/22 06/08/23 13:11 Const General: cooperative Orientation/consciousness: patient oriented x3 Resp Effort & Inspection: normal respiratory effort Auscultation: clear to auscultation bilaterally Cardio Rate: regular rate Rhythm: regular rhythm Heart sounds: S1 normal heart sound present and S2 normal heart sound present Neuro General: patient oriented x3 Extrem Right lower extremity: edema (trace) Left lower extremity: edema (trace) Psych Appearance: grossly normal Mental Status: mental status grossly normal Speech and movement: Normal speech and movement present Affect: normal affect Attitude: cooperative Thought process: Normal thought process present Thought content: Normal thought content present Insight: Good insight present (Psych) Judgement: Good judgement present (Psych) Assessment and Plan Assessment & Plan (1) Dyslipidemia: Code(s): E78.5 - Hyperlipidemia, unspecified Plan: Labs ordered (2) Shuffling gait: Code(s): R26.89 - Other abnormalities of gait and mobility Plan: Following up with PT and neuro Plan The patient agreed to the use of a medical instructor for this encounter. Scribed for JACQUELINE Bourne-BC by Leah Quiroz medical instructor, on 06/08/2023 at 13:15 EST. Orders: Orders Complete Blood Count Auto Diff Today E78.5 - Hyperlipidemia, unspecified, R26.89 - Other abnormalities of gait and mobility Comprehensive [place]. Panel Fast Today E78.5 - Hyperlipidemia, unspecified, R26.89 - Other abnormalities of gait and mobility TSH reflex Free T4 Today E78.5 - Hyperlipidemia, unspecified, R26.89 - Other abnormalities of gait and mobility UA CC w/rflx Micro + Cult Today E78.5 - Hyperlipidemia, unspecified, R26.89 - Other abnormalities of gait and mobility Lipid Panel Today E78.5 - Hyperlipidemia, unspecified, R26.89 - Other abnormalities of gait and mobility Medications: New sildenafil administer 30 minutes to 4 hours before activity 100 mg PO DAILY 30 days PRN 30 tabs 0RF sexual activity Coding Level of Care Code Est Pt Level 3 (82887) Diagnoses Dyslipidemia E78.5 Shuffling gait R26.89
== END 2023-06-08 14:42 | disposition home or self-care (01) ==
PROVIDERS: PCP Nurse Practitioner Family; Visit Provider Nurse Practitioner Family
DX: E78.5 Hyperlipidemia, unspecified (principal); R26.89 Other abnormalities of gait and mobility
CPT/HCPCS: 99213

== ENCOUNTER 2023-08-09 09:16 | Outpatient (AMB) | payer MEDICARE, SELFPAY ==
--- NOTE | 2023-08-09 09:30 | MHC.OFFVIS ---
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 Pt reports his balance has been an issue for the past 3 years. This started after getting a left hip replacement. He states i shuffle my feet a lot, but PT has helped with that. I still have problems with stability . He denies dizziness. 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 He had a left hip replacement in 2019 - he did well for about 1 year and after that started noticing that his balance was not as good and he was shuffling his feet. No falls.He has occasional near falls. He likes to work in his yard a lot and has had a few near falls. He denies memory issues ,denies tremors, denies weakness, change in speech etc. He has h/o lower back stiffness SHe denies any urinary issues. He denies any neck issues He has h/o CAROLEE on CPAP He did PT and [facility] and has noticed [facility]. [facility] Medical History (Updated 08/09/23 @ 10:17 by Alyssa Cage MD) Gait disorder Back pain Syncope and collapse Hypertrophic cardiomyopathy Bladder outlet obstruction Urinary hesitancy Weak urinary stream COVID-19 vaccine administered Syncope Eczema NSVT (nonsustained ventricular tachycardia) Paroxysmal A-fib Cardiomyopathy Surgical History History of total hip replacement History of carpal tunnel release History of loop recorder H/O colonoscopy Melanoma History of colon resection Family History Father CAD (coronary artery disease) Type 2 diabetes mellitus Myocardial infarction Mother Breast cancer Household Members: Spouse Housing: House Alcohol intake: never Patient Tobacco Use Status: Never used Tobacco e-Cigarette/Vaping Use: Never Used Second Hand Smoke Exposure: No service: Yes Current occupational status: retired Cognitive needs: No Hearing needs: Yes Vision needs: No Review of Systems Const Reports as per HPI Physical Exam Vital Signs: Last Vital Signs Pulse 60 08/09/23 09:33 Resp 16 08/09/23 09:33 BP 112/70 08/09/23 09:33 Pulse Ox 97 08/09/23 09:33 Oxygen Delivery Method Room Air 08/09/23 09:33 BMI result Body Mass Index 29.8 Const General: cooperative, healthy appearing, comfortable and no acute distress Nutritional Appearance: average body habitus Orientation/consciousness: patient oriented x3 Eyes Pupils: Equal, round and reactive pupils present Neuro Other: gait- wide based decreased arm swing on the left Mild off balance and stiffness in his back Mild decreased blink and facial expression General: patient oriented x3, tone normal, moves all extremities and no focal motor deficits Cranial nerves: Yes Facial sensation intact/muscles of mastication intact, Yes Equal, round and reactive pupils present, Yes Bilaterally intact EOM present, Yes Nystagmus not present, Yes Normal facial strength present and Yes Midline tongue present Cognition (Neuro): normal cognition Gait exam (Neuro): Ataxic gait present Motor exam (neuro): 5/5 motor strength present throughout and Normal motor muscle tone present throughout Deep tendon reflexes (DTR's): Right triceps reflex intensity grade: 2+, Left triceps reflex intensity grade: 2+, Rt Biceps (C5, C6): 2+, Left biceps reflex intensity grade: 2+, Right brachioradialis reflex intensity grade: 2+, Left brachioradialis reflex intensity grade: 2+, Right patellar reflex intensity grade: 2+, Left patellar reflex intensity grade: 2+, Right ankle reflex intensity grade: 2+ and Left ankle reflex intensity grade: 2+ Coordination: [id number] test normal Assessment & Plan Assessment & Plan (1) Gait disorder: Comment: Frontal gait disorder with musculoskeletal component No evidence of parkinsons disease Code(s): R26.9 - Unspecified abnormalities of gait and mobility Plan I will evaluate him with MRI brain - to evaluate volume loss , white matter changes , ventricle size Continue PT Check his Vit B 12 , TSH , Vit D Lumbar spine X ray Orders: Orders MR head/brain wo con Today R26.89 - Other abnormalities of gait and mobility XR lumbar spine 2-3V Today M54.9 - Dorsalgia, unspecified, R26.89 - Other abnormalities of gait and mobility Vitamin D 25-OH (D2 and D3) Today R26.89 - Other abnormalities of gait and mobility, R53.1 - Weakness TSH reflex Free T4 Today R26.89 - Other abnormalities of gait and mobility, R53.1 - Weakness Vitamin B12 and Folate Today R26.89 - Other abnormalities of gait and mobility, R53.1 - Weakness Coding Level of Care Code New Pt Level 4 (80026) Diagnoses Gait disorder R26.9
[2023-08-09 09:33] VITALS: BP 112/70; PULSE 60; RESP 16; O2SAT 97; BMI 29.8
== END 2023-08-09 10:12 | disposition home or self-care (01) ==
PROVIDERS: PCP Nurse Practitioner Family; Visit Provider Psychiatry & Neurology Neurology
DX: R26.9 Unspecified abnormalities of gait and mobility (principal)
CPT/HCPCS: 99204

== ENCOUNTER → 2023-08-09 09:16 | Outpatient (BNVA) | payer MEDICARE, SELFPAY | PROVIDERS: PCP Nurse Practitioner Family; Visit Provider Psychiatry & Neurology Neurology | DX: R26.9 Unspecified abnormalities of gait and mobility (principal); R53.1 Weakness; Z96.642 Presence of left artificial hip joint | CPT/HCPCS: 99202 ==

== ENCOUNTER 2023-08-17 10:30 | Outpatient (REF) | payer MEDICARE, SELFPAY ==
--- NOTE | ~2023-08-17 | XR_ITS ---
EXAMINATION: XR LUMBOSACRAL SPINE CLINICAL INFORMATION: Abnormalities of gait and motility. COMPARISON: Radiographs dated 09/03/2018. TECHNIQUE: AP and lateral views of the lumbar spine and lateral view of the lumbosacral junction. FINDINGS: There is bony demineralization. Vertebral body heights are normal. At L2-L3, there is a 3 mm retrolisthesis. At L4-L5 and L5-S1, there is moderately severe disc space narrowing. The remaining disc spaces are well-maintained. No acute fracture or spondylolisthesis is seen. There is multi-level thoracolumbar spondylosis. The posterior elements are intact. There is multi-level lumbar facet arthropathy. There are aortoiliac atherosclerotic calcifications. A left hip arthroplasty is noted. There is degenerative change of the right hip. XR/XR lumbar spine 2-3V IMPRESSION: 1. There is moderately severe degenerative disc disease at L4-L5 and L5-S1, and mild degenerative disc disease at L2-L3. 2. There is multi-level lumbar spondylosis and facet arthropathy.
[2023-08-17 14:08] LABS: TSH reflex Free T4 1.74 uIU/mL (0.32-4.0)
[2023-08-17 14:10] LABS: Folate 15.3 ng/mL (> or = 4.0); Vitamin B12 502 pg/mL (200-900)
[2023-08-21 15:19] LABS: Vitamin D 25-OH, D2 <4 ng/mL; Vitamin D 25-OH, D3 30 ng/mL; Vitamin D 25-OH, Total 30 ng/mL (30-100)
== END 2023-08-17 10:31 | disposition home or self-care (01) ==
LOC: HO.HMGCX 10:30
PROVIDERS: PCP Nurse Practitioner Family; Visit Provider Psychiatry & Neurology Neurology
DX: R53.1 Weakness (principal); R26.89 Other abnormalities of gait and mobility; M54.9 Dorsalgia, unspecified
CPT/HCPCS: 36415; 72100; 82306; 82607; 82746; 84443

== ENCOUNTER 2023-08-29 10:46 | Outpatient (AMB) | payer MEDICARE, SELFPAY ==
--- NOTE | 2023-08-29 11:21 | MHC.OFFVIS ---
Intake Intake Visit Reasons: 3m/PVR Intake Note: Patient is Present for Follow Up PVR Urology Medication: Finasteride, Sildenafil Antibiotic Allergies: None Blood Thinners: Apixaban PVR: 12ml Allergies No Known Allergies Allergy (Verified 08/29/23 11:29) Medication List - Last Reconciled 08/29/23 by Benjamin Rao MD apixaban 5 mg PO BID coenzyme Q10 (CoQ-10) 100 mg PO DAILY ezetimibe 10 mg PO DAILY finasteride 5 mg PO DAILY 90 days metoprolol succinate ER 25 mg PO DAILY omega 5-lot-blx-fish oil 100-160-1,000 mg (Fish Oil) 1 cap PO DAILY pravastatin 20 mg PO DAILY sildenafil 100 mg PO DAILY PRN 30 days HPI HPI Comments History of Present Illness Details Rolo SCHUMACHER is a very pleasant male. They are a patient of Dr Walsh. They are seen in the office today for the following urologic conditions. - Lower urinary tract symptoms PVR 12 cc. Significant improvement Bethanechol follow-up Did not actually notice much benefit from bethanechol Will discontinue on finasteride Twelve month follow-up with repeat PSA Prior Shy bladder in office - PVR 270 cc Does describe double voiding now on a consistent basis Remain on finasteride daily Used to work the [employer] at the [employer] Elevated PSA/Abnormal JONI:? He presents for ?further evaluation of elevated PSA.? Current management is?Finasteride ? Laboratory investigations include?04/05 4.9 ?12/05 2.2, 05/08 2.5, 06/09 2.9, 06/10 4.5 ? Prostate Cancer Risk Calculator?5-10% high risk, Discussed use of 5AR to help differentiate prostate cancer from benign disease. He would like to try this and understands the small risk associated with a delay in diagnosis.? Symptoms include?06/06 , weak stream, straining, nocturia, x 1, and are worsening ?01/05 Improved stream.? Overall symptoms are?moderate.? Therapeutic plan will be?Review PSA 1 year.? [facility] Medical History Gait disorder Back pain Syncope and collapse Hypertrophic cardiomyopathy Bladder outlet obstruction Urinary hesitancy Weak urinary stream COVID-19 vaccine administered Syncope Eczema NSVT (nonsustained ventricular tachycardia) Paroxysmal A-fib Cardiomyopathy Surgical History History of total hip replacement History of carpal tunnel release History of loop recorder H/O colonoscopy Melanoma History of colon resection Family History Father CAD (coronary artery disease) Type 2 diabetes mellitus Myocardial infarction Mother Breast cancer Social History Household Members: Spouse Housing: House Alcohol intake: never Patient Tobacco Use Status: Never used Tobacco e-Cigarette/Vaping Use: Never Used Second Hand Smoke Exposure: No service: Yes Current occupational status: retired Cognitive needs: No Hearing needs: Yes Vision needs: No Review of Systems Const Denies chills and Denies fever(s) Card Reports no additional complaints and Denies syncope Resp Denies cough GI Denies abdominal pain and Denies heartburn Reports as per HPI and Denies change in libido Neuro Denies syncope Psych Denies change in libido Endo Denies change in libido Physical Exam Const General: cooperative, healthy appearing, comfortable and no acute distress Orientation/consciousness: patient oriented x3 HEENT Face and sinus: Yes normal facial exam Mouth: moist mucous membranes Neck Neck: Yes normal visual inspection, Yes full ROM and Yes trachea midline Chest Chest palpation & inspection: normal inspection of the chest Resp Effort & Inspection: normal respiratory effort, able to speak in complete sentences and no respiratory distress GI Inspection: Yes normal to inspection Back/Spine/Pelvis Cervical Spine: normal cervical lordosis Thoracic/Lumbar Spine: thoracic and lumbar spine normal to inspection Skin General skin exam: no rashes or lesions noted Neuro General: patient oriented x3, gait normal, tone normal and moves all extremities Extrem General: Yes normal to inspection and Yes capillary refill normal Office Procedures Post Void Residual Post Residual Void Post Void Residual (PVR): 12 [id number] Void Residual by ultrasound Results AMB Urinalysis, Automated UA Leukoctes 0 Margaret/uL Last Edit by ROSINA Jeff on 08/29/23 11:48 UA Nitrite Negative Last Edit by Lyly Greenwood, RMA on 08/29/23 11:48 UA Urobilinogen 0.2 mg/dL Last Edit by Lyly [place], RMA on 08/29/23 11:48 UA Protein 0 mg/dL Last Edit by Lyly [place], RMA on 08/29/23 11:48 UA pH 5.0 Last Edit by Lyly Green[place], RMA on 08/29/23 11:48 UA Blood 0 Ranjeet/uL Last Edit by Lyly [place], RMA on 08/29/23 11:48 UA Specific Hodges 1.015 Last Edit by Lyly [place], RMA on 08/29/23 11:48 UA Ketone Negative Last Edit by Lyly Greenwood, RMA on 08/29/23 11:48 UA Bilirubin 0 mg/dL Last Edit by Lyly Greenwood, RMA on 08/29/23 11:48 UA Glucose 0 mg/dL Last Edit by Lyly Greenwood, A on 08/29/23 11:48 Results Reviewed Results Reviewed: Laboratory Last Values Urine pH (Auto) 5.0 08/29/23 11:30 Specific Hodges (Auto) 1.015 08/29/23 11:30 Urine Protein (Auto) 0 mg/dL 08/29/23 11:30 Glucose (UA)(Auto) 0 mg/dL 08/29/23 11:30 Urine Ketones (Auto) Negative 08/29/23 11:30 Urine Blood (Auto) 0 Ranjeet/uL 08/29/23 11:30 Urine Nitrite (Auto) Negative 08/29/23 11:30 Urine Bilirubin (Auto) 0 mg/dL 08/29/23 11:30 Urine Urobilinogen (Auto) 0.2 mg/dL 08/29/23 11:30 Leukocyte Esterase (Auto) 0 Margaret/uL 08/29/23 11:30 Assessment & Plan Assessment & Plan (1) Incomplete emptying of bladder due to benign prostatic hyperplasia: Code(s): N40.1 - Benign prostatic hyperplasia with lower urinary tract symptoms; R33.9 - Retention of urine, unspecified (2) Weak urinary stream: Code(s): R39.12 - Poor urinary stream Plan Twelve month follow-up PSA and PVR Orders: Orders AMB Post Void Residual by ultrasound Today R39.11 - Hesitancy of micturition PSA,Total (Free>4and<10) 364 Days R39.12 - Poor urinary stream AMB Urinalysis Automated Today Z13.9 - Encounter for screening, unspecified Patient Instructions: Imaging studies, laboratory and physical exam results were discussed and reviewed in detail. No major barriers to patient understanding were identified. An opportunity to ask questions regarding the treatment plan was provided. All questions were answered. The patient expressed understanding and agreement with the above treatment plan. The patient is aware they should contact our office by phone for worsening of their current condition or the appearance of new urologic symptoms. Compliance is encouraged with any medications and followup testing that is ordered. It is a privilege to participate in the urologic care of your patient. If you have any questions or concerns regarding treatment for the above conditions, or other urologic issues, please do not hesitate to contact me. The office telephone contact is [phone]. This note is constructed using voice recognition software. While every effort has been made to ensure accuracy technician preventative medicine errors may have been included. Yours sincerely, Dr Benjamin Rao MD, [facility] - Urology Providers of Expert, Compassionate Care for the Genitourinary System Coding Level of Care Code Est Pt Level 3 (73101) Diagnoses Incomplete emptying of bladder due to benign prostatic hyperplasia N40.1; R33.9 Weak urinary stream R39.12 CPT Codes Post Residual Void - PVR CPT Code: 50772-[id number] Void Residual by ultrasound ([id number])
== END 2023-08-29 12:02 | disposition home or self-care (01) ==
PROVIDERS: PCP Nurse Practitioner Family; Visit Provider Urology
DX: N40.1 Benign prostatic hyperplasia with lower urinary tract symptoms (principal); R33.9 Retention of urine, unspecified; R39.12 Poor urinary stream; Z13.9 Encounter for screening, unspecified
CPT/HCPCS: 99213

== ENCOUNTER → 2023-08-29 10:46 | Outpatient (BNVA) | payer MEDICARE, SELFPAY | PROVIDERS: PCP Nurse Practitioner Family; Visit Provider Urology | DX: N40.1 Benign prostatic hyperplasia with lower urinary tract symptoms (principal); R33.9 Retention of urine, unspecified; R39.12 Poor urinary stream | CPT/HCPCS: 51798; 81003; 99212 ==

== ENCOUNTER 2023-10-04 10:31 | Outpatient (REF) | payer MEDICARE, SELFPAY ==
--- NOTE | ~2023-10-04 | MR_ITS ---
EXAMINATION: MRI brain. INDICATION: Cerebral vascular disease, gauge and mobility disorder, loss of balance for 3 years. TECHNIQUE: Examination was performed in a high field strength MRI scanner. Multiplanar multisequence MR imaging of the brain was performed without IV contrast enhancement. . FINDINGS: Ventricles, sulci and cisterns are dilated, with moderate disproportional ventriculomegaly. Small T2 hyperintense focal lesions are seen in bilateral frontal deep white matter, subcortical white matter and left anterior parietal subcortical white matter. No focal brainstem or cerebellar lesions with abnormal signal can be seen. Diffusion weighted images show no abnormal regional decrease in diffusion. Normal flow voids of major intracerebral blood vessels are seen in the visualized portion. The pituitary gland is normal. Optic chiasm is not displaced. Cerebellar tonsils position is normal. MR/MR head/brain wo con IMPRESSION: 1. Age-related cerebral atrophy and Moderate disproportional ventriculomegaly, suspicious of communicating hydrocephalus. 2. Small T2 hyperintense focal lesions in bilateral frontal deep white matter, subcortical white matter and left anterior parietal subcortical white matter. These are nonspecific but may represent chronic small vessel ischemic disease. Demyelinating disease cannot be excluded. 3. No evidence of acute territorial infarct or intracranial hemorrhage.
== END 2023-10-04 10:32 | disposition home or self-care (01) ==
LOC: HO.MRI 10:31
PROVIDERS: PCP Nurse Practitioner Family; Visit Provider Psychiatry & Neurology Neurology
DX: R26.89 Other abnormalities of gait and mobility (principal)
CPT/HCPCS: 70551

== ENCOUNTER 2023-10-25 09:00 | Outpatient (AMB) | payer MEDICARE, SELFPAY ==
[2023-10-25 09:11] VITALS: BP 114/70; PULSE 64; RESP 13; TEMP 36.6; O2SAT 99; BMI 30.3
--- NOTE | 2023-10-25 09:12 | MHC.OFFWIV ---
Intake Vital Signs 10/25/23 09:11 Height 5 ft 7 in Weight 193 lb 8 oz BMI 30.3 BP 114/70 Blood Pressure Location Rt brachial Position Sitting Respiration 13 Pulse 64 Pulse Source Pulse Oximeter Temp 97.8 F Temp Source Temporal Artery Scan Pulse Oximetry (%) 99 Oxygen Delivery Method Room Air Intake Visit Reasons: ? [place] Patient Tobacco Use Status: Never used Tobacco Wash Driller Required: No Accompanied by: Spouse Allergies No Known Allergies Allergy (Verified 10/25/23 09:46) Medication List - Last Reconciled 10/25/23 by Jennifer Wooten, [facility]- apixaban 5 mg PO BID coenzyme Q10 (CoQ-10) 100 mg PO DAILY ezetimibe 10 mg PO DAILY finasteride 5 mg PO DAILY 90 days metoprolol succinate ER 25 mg PO DAILY omega 1-cdf-qkn-fish oil 100-160-1,000 mg (Fish Oil) 1 cap PO DAILY pravastatin 20 mg PO DAILY sildenafil 100 mg PO DAILY PRN 30 days Do you need a note to return to daycare/school/sports/work: No HPI HPI Comments History of Present Illness Details Here today w/ c/o pink eye sx that started yesterday Yellow crusting, unable to open eyes upon waking mild itch Denies headache Wears glasses, no contact lenses Denies fever, chills, trauma to eyes. [facility] Medical History Gait disorder Back pain Syncope and collapse Hypertrophic cardiomyopathy Bladder outlet obstruction Urinary hesitancy Weak urinary stream COVID-19 vaccine administered Syncope Eczema NSVT (nonsustained ventricular tachycardia) Paroxysmal A-fib Cardiomyopathy Surgical History History of total hip replacement History of carpal tunnel release History of loop recorder H/O colonoscopy Melanoma History of colon resection Family History Father CAD (coronary artery disease) Type 2 diabetes mellitus Myocardial infarction Mother Breast cancer Social History Household Members: Spouse Housing: House Alcohol intake: never Patient Tobacco Use Status: Never used Tobacco e-Cigarette/Vaping Use: Never Used Second Hand Smoke Exposure: No service: Yes Current occupational status: retired Cognitive needs: No Hearing needs: Yes Vision needs: No Review of Systems Const All systems reviewed & are unremarkable except as noted in HPI and below Physical Exam Vital Signs: Last Vital Signs Temp 97.8 F 10/25/23 09:11 Pulse 64 10/25/23 09:11 Resp 13 10/25/23 09:11 BP 114/70 10/25/23 09:11 Pulse Ox 99 10/25/23 09:11 Oxygen Delivery Method Room Air 10/25/23 09:11 BMI result Body Mass Index 30.3 Const Other: awake alert atraumatic accompanied by VITALY, conjunctival injection bilat with thick yellow discharge bilat, crusting of eye lashes, no periorbital edema or photophobia Assessment & Plan Assessment & Plan (1) Acute bacterial conjunctivitis of both eyes: Code(s): H10.33 - Unspecified acute conjunctivitis, bilateral Plan: . Medications: New polymyxin B sulf-trimethoprim 10,000 unit- 1 mg/mL APPLY TO BOTH EYES while awake; do not exceed 6 doses in 24 hours 1 drp ophthalmic (eye) QID 5 days 10 mL 0RF Patient Instructions: Put cold or warm wet cloths on your eye a few times a day if the eye hurts. Do not wear contact lenses or eye makeup until the pink eye is gone. Throw away any eye makeup you were using when you got pink eye. Clean your contacts and storage case. Wash bed linen after 24 hours of antibiotic eye drop use. Do not share eye drops. Use a clean towel to wash your face each day until symptoms are gone. This will help prevent recurrence. What is pink eye? [place] eye is a term people use to describe an infection or irritation of the eye. The medical term for pink eye is conjunctivitis. If you have pink eye, your eye (or eyes) might: ?Turn pink or red ?Weep or ooze a gooey liquid ?Become itchy or burn ?Get stuck shut, especially when you first wake up [place] eye can be caused by an infection, allergies, or an unknown irritation. Can you catch pink eye from someone else? Yes. When pink eye is caused by an infection, it can spread easily. Usually, people catch it from touching something that has been in contact with an infected person's eye. It can also be spread when an infected person touches someone else, and then that person touches their eye. If someone you know has pink eye, avoid touching their pillowcases, towels, or other personal items. When should I see a doctor or nurse? See your doctor or nurse if your eye hurts, or if you still have trouble seeing clearly after blinking. If you do not have these problems, but think you might have pink eye, your doctor or nurse might be able to give you advice over the phone. Can pink eye be treated? Most cases of pink eye go away on their own without treatment. But some types of pink eye can be treated. When pink eye is caused by infection, it is usually caused by a virus, so antibiotics will not help. Still, pink eye caused by a virus can last several days. ?[place] eye caused by an infection with bacteria can be treated with antibiotic eye drops, gel, or ointment. ?[place] eye caused by other problems can be treated with eye drops normally used to treat allergies. These drops will not cure the pink eye, but they can help with itchiness and irritation. When using eye drops for infection, do not touch your healthy eye after touching your infected eye. Also, do not touch the bottle or dropper directly onto 1 eye and then use it in the other. These things can cause the infection to spread from 1 eye to the other. If your eyelids feel swollen, it might also help to hold a cool wet cloth on the area. What if I wear contact lenses? If you wear contact lenses and you have symptoms of pink eye, it is really important to have a doctor look at your eyes. In people who wear contacts, the symptoms of pink eye can be caused by corneal abrasion. Corneal abrasion is a scratch on the eye and can be a serious problem. During treatment for eye infections, you might need to stop wearing your contacts for a short time. If your contacts are disposable, throw them away and use new ones. If your contacts are not disposable, you need to carefully clean them. You should also throw away your contact lens case and get a new one. When can I go back to work or school? If you have pink eye caused by an infection, remember that it can spread very easily. The best way to avoid spreading it is to stay away from other people until you no longer have symptoms. If this is not possible, wash your hands often (figure 1). It's also important to avoid touching your eyes and sharing items that could spread the infection. Schools and day cares usually have rules about when a child with pink eye can return. If a child has a bacterial infection, they will probably need to stay home until they have gotten antibiotic eye drops or ointment for 24 hours. Can pink eye be prevented? To keep from getting or spreading pink eye caused by an infection: ?Wash your hands often with soap and water. ?Try not to touch your eyes. ?Avoid sharing towels, bedding, or other personal items with a person who has pink eye. If your pink eye is caused by allergies, it might help to stay inside with the windows shut as much as possible during peak allergy seasons. What problems should I watch for? Call your doctor or nurse if: ?You have trouble seeing clearly after blinking. ?Your eye is still red or has drainage after 3 days. ?You have eye pain that is getting worse. Coding Level of Care Code Est Pt Level 3 (32095) Diagnoses Acute bacterial conjunctivitis of both eyes H10.33
== END 2023-10-25 10:47 | disposition home or self-care (01) ==
PROVIDERS: PCP Nurse Practitioner Family; Visit Provider Nurse Practitioner Family
DX: H10.33 Unspecified acute conjunctivitis, bilateral (principal)
CPT/HCPCS: 99213

== ENCOUNTER 2023-11-24 08:00 | Outpatient (RCR) | payer MEDICARE, SELFPAY ==
[2023-03-31 11:03] VITALS: BP 130/78; PULSE 59; O2SAT 98
--- NOTE | 2023-04-04 07:57 | MHC.PT.EP ---
[facility] [place] Office [place] Office [place] Office [address] Jose Mora [address] [phone] F: [phone] F: [phone] F: [phone] F: [phone] Physical Therapy Plan of Care Date of Evaluation: Date of Surgery: Diagnosis: R53.1 Weakness, R 26.89 Other abnormaltiies of gait and mobility, R29.898 other symptoms and signs involving the musculokeletal system, weakness of both legs, shuffling gait referred to PT by Rolo Dawson NP-BC Assessment: Mr. Enriquez is a LHD 72 y/o male with PMH significant for history of syncope, hypertrophic cardiomyopathy, NSVT (non-sustained ventricular tachycardia) paroxysmal A-fib, syncope, syncope and collapse, urinary hesitancy, weak urinary stream, and L YANETH ~2019 referred to PT from PCP Rolo Dawson NP, BC, for treatment of R53.1 Weakness, R 26.89 Other abnormalities of gait and mobility, R29.898 other symptoms and signs involving the musculoskeletal system, weakness of both legs, shuffling gait referred to PT by Rolo Dawson NP-BC. Pt exhibits short step length, increased trunk flexion, reports history of past falls with trend of losing his balance fwd/anteriorly. Pt exhibits decreased ankle flexibility, grossly DF to neutral, tight calf musculature, impaired strength of core, impaired static and dynamic balance. Pt expressing his primary goals are to improve his ambulation quality/endurance, improve static/dynamic balance, and improve confidence for things like walking stairs when no railings are available. Pt to be seen in PT at a frequency of 1x/week x 4-6 weeks. Frequency and Duration: The patient will be seen 1x/week Short Term Goals: 1. Improve endurance and eccentric control with sit<>stand 30 second screening. 2. Improve R ankle DF AROM by five degrees. 3. Improve strength R quadriceps by one grade as evidenced by good control with SLR. 4. Strength hip abduction to improve by one grade. 5. Demonstrate improved self care/HEP program. Care Home Goals: 1. I HEP for self care. 2. Strength R flexion 5/5 B. 3. Strength hip extension /5. 4. Rise from floor with good dynamic balance and confidence from either LE. 5. Demonstrate good dynamic balance with SLS stability. Treatment Plan: Modalities to reduce pain, spasms and effusion. Manual therapy to restore motion and function. Therapeutic exercise to improve strength and flexibility. Neuromuscular re-education for posture and balance. Therapeutic activities to return to functional activities of daily living. Electronically signed by: Meghan Hernandez PT, DPT Please sign and return to therapist. Thank you for your referral.
== END 2024-03-11 07:25 ==
LOC: HO.PTWFD 08:00
PROVIDERS: PCP Nurse Practitioner Family; Visit Provider Nurse Practitioner Family
DX: R53.1 Weakness (principal); R26.89 Other abnormalities of gait and mobility
CPT/HCPCS: 97110; 97116; 97140; 97162; 97164; 97530; 97535

== ENCOUNTER 2023-12-13 08:47 | Outpatient (AMB) | payer MEDICARE, SELFPAY ==
[2023-12-13 08:50] VITALS: BP 118/70; PULSE 60; O2SAT 95; BMI 30.1
--- NOTE | 2023-12-13 08:50 | MHC.PC.OV ---
Vital Signs 12/13/23 08:50 Height 5 ft 7 in Weight 192 lb BMI 30.1 BP 118/70 Blood Pressure Location Lt brachial Position Sitting Pulse 60 Pulse Source Pulse Oximeter Pulse Oximetry (%) 95 Oxygen Delivery Method Room Air Intake Visit Reasons: Annual PE - see comments Intake Note: pt is here for annual exam Teletype Or Var[place]pe Keyboard Operator Required: No Accompanied by: Self / Same As Patient Allergies No Known Allergies Allergy (Verified 12/13/23 08:51) Medication List - Last Reconciled 12/13/23 by JACQUELINE Prasad-JANICE apixaban 5 mg PO BID coenzyme Q10 (CoQ-10) 100 mg PO DAILY ezetimibe 10 mg PO DAILY finasteride 5 mg PO DAILY 90 days metoprolol succinate ER 25 mg PO DAILY omega 2-mvh-wvy-fish oil 100-160-1,000 mg (Fish Oil) 1 cap PO DAILY pravastatin 40 mg PO DAILY sildenafil 100 mg PO DAILY PRN 30 days Tobacco use date assessed: 12/13/23 Fall risk assessment: No Falls in past year Last assessed Fall Risk: 12/13/23 Dental Screening Dental Screen Date: 12/13/23 Did you have a dental visit in the last 12 months?: Yes Did you have a dental problem in the last 6 months where you did not have access to dental care?: No Was dental information given to patient?: Patient has dentist HPI Annual PE - see comments HPI Details Pt is here for a PE. Will order labs. Colon screen is up to date, no further colon screens needed according to pt. PSA is up to date, sees urology. Pt is seeing pulmonology, ortho, dermatology, and cardiology. Pt reports hearing loss, though does wear hearing aides. Will refer to audiology. [facility]END[facility] SALE TO [facility] Medical History Gait disorder Back pain Syncope and collapse Hypertrophic cardiomyopathy Bladder outlet obstruction Urinary hesitancy Weak urinary stream COVID-19 vaccine administered Syncope Eczema NSVT (nonsustained ventricular tachycardia) Paroxysmal A-fib Cardiomyopathy Surgical History History of total hip replacement History of carpal tunnel release History of loop recorder H/O colonoscopy Melanoma History of colon resection Family History Father CAD (coronary artery disease) Type 2 diabetes mellitus Myocardial infarction Mother Breast cancer Social History Household Members: Spouse Housing: House Alcohol intake: never Patient Tobacco Use Status: Never used Tobacco e-Cigarette/Vaping Use: Never Used Second Hand Smoke Exposure: No service: Yes Current occupational status: retired Cognitive needs: No Hearing needs: Yes Vision needs: No Questionnaire PHQ-9 Over the last 2 weeks, how often have you been bothered by any of the following problems? 1. Little interest or pleasure in doing things: not at all 2. Feeling down, depressed, or hopeless: not at all 3. Trouble falling or staying asleep, or sleeping too much: nearly every day 4. Feeling tired or having little energy: more than half the days 5. Poor appetite or overeating: not at all 6. Feeling bad about yourself - or that you are a failure or have let yourself or your family down: not at all 7. Trouble concentrating on things, such as reading the newspaper or watching television: not at all 8. Moving or speaking so slowly that other people could have noticed. Or the opposite - being so fidgety or restless that you have been moving around a lot more than usual: nearly every day 9. Thoughts that you would be better off or of hurting yourself in some way: not at all Total score: 8 Depression Screening Interpretation: Negative Depression Screening Done: Yes 12949 - PHQ-9 Billing: Yes Source: Developed by Drs. Nik Donnelly, Tracey Allen, Adalberto Paredes and colleagues, with an educational robert from [employer]. Thrive Questionnaire Date Thrive assessed: 11/28/22 AUDIT C Alcohol Use Questionnaire (AUDIT-C) 1. How often do you have a drink containing alcohol?: Monthly or less 2. How many drinks containing alcohol do you have on a typical day when you are drinking?: 1 or 2 3. How often do you have six or more drinks on one occasion?: Never Total Score: 1 Score Reviewed/Action Taken: Yes BRETT-7 AMB Questionnaire BRETT-7 Date BRETT - 7 assessed: 12/13/23 Feeling nervous, anxious, or on edge: 0 = Not at all Not being able to stop or control worryin = Not at all Worrying too much about different things: 0 = Not at all Trouble relaxin = Not at all Being so restless that it is hard to sit still: 0 = Not at all Becoming easily annoyed or irritable: 0 = Not at all Feeling afraid as if something awful might happen: 0 = Not at all Total BRETT-7 score (0-4 normal; 5-9 mild; 10-14 moderate; 15-21 severe): 0 Source: Developed by Drs. Nik Donnelly, Tracey Allen, Adalberto Paredes and colleagues, with an educational robert from [employer]. BRETT-7 Assessment Billing BRETT-7 Assessment Tool: BRETT-7 Assessment 27569 Review of Systems Const Denies chills and Denies fever(s) Eyes Denies blurry vision ENT Denies vertigo, Denies dizziness and Denies sore throat Card Denies chest pain at rest, Denies chest pain with activity, Denies diaphoresis, Denies dyspnea and Denies dyspnea on exertion Resp Denies cough, Denies dyspnea, Denies dyspnea on exertion and Denies wheezing GI Denies abdominal pain, Denies melena, Denies hematochezia, Denies constipation, Denies diarrhea and Denies loose stools Denies hematuria Musc Denies numbness and Denies tingling Skin/Breast Denies lesions Neuro Denies vertigo, Denies dizziness, Denies numbness and Denies tingling Psych Denies anxiety, Denies depression, Denies homicidal ideation, Denies suicidal ideation and Denies other (substance abuse) Aller/Immun Denies wheezing Physical exam (Primary Care) Vital Signs: Last Vital Signs Pulse 60 12/13/23 08:50 BP 118/70 12/13/23 08:50 Pulse Ox 95 12/13/23 08:50 Oxygen Delivery Method Room Air 12/13/23 08:50 BMI result Body Mass Index 30.1 Tobacco/Smoking Status: Tobacco use Status Tobacco use date assessed 12/13/23 12/13/23 08:56 Patient Tobacco Use Status Never used Tobacco 12/13/23 08:56 e-Cigarette/Vaping Use Never Used 12/13/23 08:56 PHQ-9: PHQ-9 Score PHQ-9: Total score 8 12/13/23 09:23 Depression Screening Interpretation: Negative Thrive Assessment: Date of Thrive Assessment Date Thrive assessed 11/28/22 12/13/23 08:56 Const General: cooperative Nutritional Appearance: well nourished Orientation/consciousness: patient oriented x3 HENMT Head: Yes normal to inspection, Yes normocephalic and Yes atraumatic Ears: TM's normal bilaterally Eyes General: appearance normal, both eyes and all related structures Alignment and Position: alignment normal and position normal Neck Neck: Yes normal visual inspection and Yes no lymphadenopathy Thyroid: Thyroid normal Resp Effort & Inspection: normal respiratory effort Auscultation: clear to auscultation bilaterally Cardio Rate: regular rate Rhythm: regular rhythm Heart sounds: S1 normal heart sound present, S2 normal heart sound present and Murmur heart sound present systolic GI Palpation (GI): Soft to palpation and nontender Auscultation: normal bowel sounds Male General Exam: Yes normal external exam Penis: normal penis Scrotum: scrotum normal, testes descended bilaterally and no inguinal hernias Testes: no testicular mass Skin Other: fair skinned, freckles throughout Rashes: no rashes Neuro General: patient oriented x3, moves all extremities, no focal motor deficits and deep tendon reflexes 2+ bilaterally Romberg Test: Negative Psych Appearance: grossly normal Mental Status: mental status grossly normal Speech and movement: Normal speech and movement present Affect: normal affect Attitude: cooperative Thought process: Normal thought process present Thought content: Normal thought content present Insight: Good insight present (Psych) Judgement: Good judgement present (Psych) Assessment and Plan Assessment & Plan (1) Physical exam: Code(s): Z00.00 - Encounter for general adult medical examination without abnormal findings Plan: Labs ordered (2) Loss of hearing: Code(s): H91.90 - Unspecified hearing loss, unspecified ear Plan: Referred to audiology Plan The patient agreed to the use of a medical apparatus model maker for this encounter. Scribed for SHYAM Bourne by Leah Quiroz medical apparatus model maker, on 12/13/2023 at 09:25 EST. Orders: Orders Comprehensive [place]. Panel Fast Today Z00.00 - Encounter for general adult medical examination without abnormal findings TSH reflex Free T4 Today Z00.00 - Encounter for general adult medical examination without abnormal findings UA CC w/rflx Micro + Cult Today Z00.00 - Encounter for general adult medical examination without abnormal findings Lipid Panel Today Z00.00 - Encounter for general adult medical examination without abnormal findings Complete Blood Count Auto Diff Today Z00.00 - Encounter for general adult medical examination without abnormal findings Referrals Audiology Referral H91.90 - Unspecified hearing loss, unspecified ear Coding Level of Care Code Est Pt Prev Care >65y(52316) Diagnoses Physical exam Z00.00 Loss of hearing H91.90 Additional Codes BRETT-7 Assessment Billing - BRETT-7 Assessment Tool: BRETT-7 Assessment 20848 ([id number])
== END 2023-12-13 09:44 | disposition home or self-care (01) ==
PROVIDERS: PCP Nurse Practitioner Family; Visit Provider Nurse Practitioner Family
DX: Z00.00 Encounter for general adult medical examination without abnormal findings (principal); H91.93 Unspecified hearing loss, bilateral
CPT/HCPCS: 99397

== ENCOUNTER 2024-01-18 09:01 | Outpatient (AMB) | payer MEDICARE, SELFPAY ==
--- NOTE | 2024-01-18 09:09 | A.OFFVIS_ITS ---
Vital Signs 01/18/24 09:10 Height 5 ft 7 in Weight 191 lb 4 oz BMI 30.0 BP 118/70 Blood Pressure Location Rt brachial Position Sitting Respiration 16 Pulse 68 Pulse Source Palpation Intake Visit Reasons: 5 mo f/u -Weakness/abnorm-CONF/w Address Intake Note: Pt presents to the office for a 6 month follow up for gait disorder. Hogshead Opener Required: No Allergies No Known Allergies Allergy (Verified 01/18/24 09:09) [facility] [place] Medical History Gait disorder Back pain Syncope and collapse Hypertrophic cardiomyopathy Bladder outlet obstruction Urinary hesitancy Weak urinary stream COVID-19 vaccine administered Syncope Eczema NSVT (nonsustained ventricular tachycardia) Paroxysmal A-fib Cardiomyopathy Surgical History History of total hip replacement History of carpal tunnel release History of loop recorder H/O colonoscopy Melanoma History of colon resection Family History Father CAD (coronary artery disease) Type 2 diabetes mellitus Myocardial infarction Mother Breast cancer Social History Household Members: Spouse Housing: House Alcohol intake: never Patient Tobacco Use Status: Never used Tobacco e-Cigarette/Vaping Use: Never Used Second Hand Smoke Exposure: No service: Yes Current occupational status: retired Cognitive needs: No Hearing needs: Yes Vision needs: No Physical Exam Vital Signs: Last Vital Signs Pulse 68 01/18/24 09:10 Resp 16 01/18/24 09:10 BP 118/70 01/18/24 09:10 BMI result Body Mass Index 30.0 Const General: cooperative, healthy appearing, comfortable and no acute distress Nutritional Appearance: average body habitus Orientation/consciousness: patient oriented x3 Eyes Pupils: Equal, round and reactive pupils present Neuro Other: gait- mild wide based - better than last visit Mild off balance and stiffness in his back Mild decreased blink and facial expression General: patient oriented x3, tone normal, moves all extremities and no focal motor deficits Cranial nerves: Yes Facial sensation intact/muscles of mastication intact, Yes Equal, round and reactive pupils present, Yes Bilaterally intact EOM present, Yes Nystagmus not present, Yes Normal facial strength present and Yes Midline tongue present Cognition (Neuro): normal cognition Gait exam (Neuro): Ataxic gait present Motor exam (neuro): 5/5 motor strength present throughout and Normal motor muscle tone present throughout Coordination: [id number] test normal Results Reviewed Results Reviewed: .10/04/23 MRI Brain- Age-related cerebral atrophy and Moderate disproportional ventriculomegaly, suspicious of communicating hydrocephalus. 2. Small T2 hyperintense focal lesions in bilateral frontal deep white matter, subcortical white matter and left anterior parietal subcortical white matter. These are nonspecific but may represent chronic small vessel ischemic disease. Demyelinating disease cannot be excluded. 3. No evidence of acute territorial infarct or intracranial hemorrhage. 08/10 Lumbar spine X Ray1. There is moderately severe degenerative disc disease at L4-L5 and L5-S1, and mild degenerative disc disease at L2-L3. 2. There is multi-level lumbar spondylosis and facet arthropathy. Assessment & Plan Assessment & Plan (1) Gait disorder: Comment: Frontal gait disorder with musculoskeletal component No evidence of parkinsons disease. MRI brain showed extensive white matter changes , mildly enlarged ventricles Lumbar X ray- extensive deg changes Code(s): R26.9 - Unspecified abnormalities of gait and mobility Category: Medical Plan MRI brain - reviewed extensively with patient and his Continue exercises Vit B 12 , TSH , Vit D- normal Lumbar spine X ray- reviewed Coding Level of Care Code Est Pt Level 4 (22438) Diagnoses Gait disorder R26.9
[2024-01-18 09:10] VITALS: BP 118/70; PULSE 68; RESP 16
== END 2024-01-18 09:30 | disposition home or self-care (01) ==
PROVIDERS: PCP Nurse Practitioner Family; Visit Provider Psychiatry & Neurology Neurology
DX: R26.9 Unspecified abnormalities of gait and mobility (principal)
CPT/HCPCS: 99214

== ENCOUNTER → 2024-01-18 09:01 | Outpatient (BNVA) | payer MEDICARE, SELFPAY | PROVIDERS: PCP Nurse Practitioner Family; Visit Provider Psychiatry & Neurology Neurology | DX: R26.9 Unspecified abnormalities of gait and mobility (principal) | CPT/HCPCS: 99212 ==

== ENCOUNTER 2024-02-05 08:43 | Outpatient (REF) | payer MEDICARE, SELFPAY | END 2024-02-05 08:44 | disposition home or self-care (01) | LOC: HO.SH 08:43 | PROVIDERS: Visit Provider Nurse Practitioner Family | DX: Z01.118 Encounter for examination of ears and hearing with other abnormal findings (principal); H90.3 Sensorineural hearing loss, bilateral | CPT/HCPCS: 92557; 92567 ==

== ENCOUNTER 2024-02-19 09:29 | Outpatient (REF) | payer MEDICARE, SELFPAY ==
[2024-02-19 11:13] LABS: MANUAL DIFF FLAG NO
[2024-02-19 11:45] LABS: Basophils Percent Auto 0.5 % (0-2); Eosinophils Absolute Auto 0.1 X10*3/uL (0.0-0.4); Hematocrit 43.7 % (42.0-52.0); Imm Gran Abs Auto 0.02 X10*3/uL (0.00-0.03); Imm Gran Pct Auto 0.3 % (0.0-0.4); Lymphocytes Absolute Auto 0.8 X10*3/uL (1.2-4.9); Lymphocytes Percent Auto 11.5 % (20-40); Mean Corpuscular HGB Conc 34.3 g/dl (31.0-36.0); Mean Corpuscular Hemoglobin 33.5 pg (27.0-33.0); Mean Corpuscular Volume 97.5 fL (80.0-98.0); Mean Platelet Volume 10.7 fL (9.4-12.4); Monocytes Absolute Auto 0.4 X10*3/uL (0.1-1.2); Monocytes Percent Auto 5.6 % (2-11); Neutrophils Absolute Auto 5.3 x10*3/uL (2.0-8.3); Neutrophils Percent Auto 80.1 % (45-73); Platelet Count 142 X10*3/uL (160-400); Red Blood Count 4.48 X10*6/uL (4.60-5.80); Red Cell Distribution Width 12.8 % (11.0-16.0); White Blood Count 6.6 X10*3/uL (4.8-10.8)
[2024-02-19 11:49] LABS: Appearance Urine Clear; Color Urine Yellow; Glucose Urine UA Negative (Negative); Leukocyte Esterase Urine Negative (Negative); Nitrite Urine Negative (Negative); PH 5.5 (5.0-9.0); Specific Gravity - Urine 1.015 (1.005-1.025); Urine Blood Negative (Negative); Urine Ketones Negative (Negative); Urine Protein Negative (Neg-Trace)
[2024-02-19 12:23] LABS: Alanine Aminotransferase 34 U/L (0-40); Albumin Level 4.1 g/dL (3.5-5.0); Alkaline Phosphatase 69 U/L (39-117); Anion Gap 11 (12-20); Aspartate Amino Transferase 29 U/L (5-37); Bilirubin Total 1.3 mg/dL (0.0-1.0); Blood Urea Nitrogen 16 mg/dL (9-16); Calcium 9.4 mg/dL (8.4-10.2); Carbon Dioxide 25 mmol/L (22-29); Chloride 108 mmol/L (96-108); Cholesterol 150 mg/dL (<200); Estimated Glomerular Filt Rate > 60; Glucose Fasting 102 mg/dL (60-99); HDL Cholesterol 57 mg/dL (>40); LDL Cholesterol Calculated 80 mg/dL (<100); Sodium 140 mmol/L (135-145); Total Protein 7.1 g/dL (6.5-8.0); Triglycerides 65 mg/dL (<150)
[2024-02-19 12:24] LABS: TSH reflex Free T4 1.29 uIU/mL (0.32-4.0)
== END 2024-02-19 09:30 | disposition home or self-care (01) ==
LOC: HO.WFDLDS 09:29
PROVIDERS: Visit Provider Nurse Practitioner Family
DX: Z00.00 Encounter for general adult medical examination without abnormal findings (principal); R26.89 Other abnormalities of gait and mobility; E78.5 Hyperlipidemia, unspecified
CPT/HCPCS: 36415; 80053; 80061; 81003; 84443; 85025

== ENCOUNTER 2024-06-10 08:13 | Outpatient (AMB) | payer MEDICARE, SELFPAY ==
[2024-06-10 08:24] VITALS: BP 118/72; PULSE 68; O2SAT 97; BMI 28.8
--- NOTE | 2024-06-10 08:24 | A.OFFPC_ITS ---
Vital Signs 06/10/24 08:24 Height 5 ft 7 in Weight 184 lb 2 oz BMI 28.8 BP 118/72 Blood Pressure Location Rt brachial Position Sitting Pulse 68 Pulse Source Pulse Oximeter Pulse Oximetry (%) 97 Intake Visit Reasons: 6 mon f/u Intake Note: pt is here for 6 month follow up Classroom Coordinator Required: No Accompanied by: Self / Same As Patient Allergies No Known Allergies Allergy (Verified 06/10/24 09:03) Medication List - Last Reconciled 06/10/24 by SHYAM Prasad apixaban 5 mg PO BID coenzyme Q10 (CoQ-10) 100 mg PO DAILY ezetimibe 10 mg PO DAILY finasteride 5 mg PO DAILY 90 days metoprolol succinate ER 25 mg PO DAILY omega 7-eli-wlu-fish oil 100-160-1,000 mg (Fish Oil) 1 cap PO DAILY pravastatin 80 mg PO DAILY sildenafil 100 mg PO DAILY PRN 30 days Tobacco use date assessed: 12/13/23 Fall risk assessment: No Falls in past year Last assessed Fall Risk: 06/10/24 Dental Screening Dental Screen Date: 12/13/23 HPI 6 mon f/u HPI Details Pt had a brain MRI in September 2023 which showed: Age-related cerebral atrophy and Moderate disproportional ventriculomegaly, suspicious of communicating hydrocephalus. Small T2 hyperintense focal lesions in bilateral frontal deep white matter, subcortical white matter and left anterior parietal subcortical white matter. These are nonspecific but may represent chronic small vessel ischemic disease. Demyelinating disease cannot be excluded. No evidence of acute territorial infarct or intracranial hemorrhage. Pt reports shuffling gait. He sees neurology who does not think this is due to parkinsons. He reports that this is worse at the end of the day when he is tired. Will order EMG/nerve conduction testing. Will repeat MRI of brain at 1 year [place]. Will send these reports to pt's neurologist. Denies fever, chills, and dizziness. [facility] Medical History Gait disorder (~12/2023) Back pain Syncope and collapse Hypertrophic cardiomyopathy Bladder outlet obstruction Urinary hesitancy Weak urinary stream COVID-19 vaccine administered Syncope Eczema NSVT (nonsustained ventricular tachycardia) Paroxysmal A-fib Cardiomyopathy Surgical History History of total hip replacement History of carpal tunnel release History of loop recorder H/O colonoscopy Melanoma History of colon resection Family History Father CAD (coronary artery disease) Type 2 diabetes mellitus Myocardial infarction Mother Breast cancer Social History Household Members: Spouse Housing: House Alcohol intake: never Patient Tobacco Use Status: Never used Tobacco e-Cigarette/Vaping Use: Never Used Second Hand Smoke Exposure: No service: Yes Current occupational status: retired Cognitive needs: No Hearing needs: Yes Vision needs: No Questionnaire PHQ-9 Over the last 2 weeks, how often have you been bothered by any of the following problems? 1. Little interest or pleasure in doing things: not at all 2. Feeling down, depressed, or hopeless: not at all 3. Trouble falling or staying asleep, or sleeping too much: more than half the days 4. Feeling tired or having little energy: more than half the days 5. Poor appetite or overeating: not at all 6. Feeling bad about yourself - or that you are a failure or have let yourself or your family down: not at all 7. Trouble concentrating on things, such as reading the newspaper or watching television: not at all 8. Moving or speaking so slowly that other people could have noticed. Or the opposite - being so fidgety or restless that you have been moving around a lot more than usual: more than half the days 9. Thoughts that you would be better off or of hurting yourself in some way: not at all Total score: 6 Depression Screening Interpretation: Negative Depression Screening Done: Yes 94121 - PHQ-9 Billing: Yes Source: Developed by Drs. Nik Donnlely, Tracey Allen, Adalberto Paredes and colleagues, with an educational robert from [employer]. Thrive Questionnaire Date Thrive assessed: 06/10/24 I am a: Patient What is your living situation today?: I have a steady place to live Within the past 12 months, did the food you bought not last and you didn't have the money to get more?: Never true Within the past 12 months, did you worry whether your food would run out before you got money to buy more?: Never true Do you have trouble paying for medicines?: No Do you have trouble getting transportation to medical appointments?: No Do you have trouble paying your heating and electricity bill?: No Do you have trouble taking care of your child, family member or friend?: No Do you have trouble with day-to-day activities such as bathing, preparing meals, shopping, managing finances, etc.?: No Are you currently unemployed and looking for a job?: No Are you interested in more education?: No Please select the resources that you would like help with: None Currently or been in a relationship where the following occur: No concerns reported THRIVE Score: 0 AUDIT C Alcohol Use Questionnaire (AUDIT-C) 1. How often do you have a drink containing alcohol?: Monthly or less 2. How many drinks containing alcohol do you have on a typical day when you are drinking?: 1 or 2 3. How often do you have six or more drinks on one occasion?: Never Total Score: 1 Score Reviewed/Action Taken: Yes BRETT-7 AMB Questionnaire BRETT-7 Date BRETT - 7 assessed: 06/10/24 Feeling nervous, anxious, or on edge: 0 = Not at all Not being able to stop or control worryin = Not at all Worrying too much about different things: 0 = Not at all Trouble relaxin = Not at all Being so restless that it is hard to sit still: 0 = Not at all Becoming easily annoyed or irritable: 0 = Not at all Feeling afraid as if something awful might happen: 0 = Not at all Total BRETT-7 score (0-4 normal; 5-9 mild; 10-14 moderate; 15-21 severe): 0 Source: Developed by Drs. Nik Donnelly, Tracey Allen, Adalberto Paredes and colleagues, with an educational robert from [employer]. BRETT-7 Assessment Billing BRETT-7 Assessment Tool: BRETT-7 Assessment 20921 Review of Systems Const Reports as per HPI Physical exam (Primary Care) Vital Signs: Last Vital Signs Pulse 68 06/10/24 08:24 BP 118/72 06/10/24 08:24 Pulse Ox 97 06/10/24 08:24 BMI result Body Mass Index 28.8 Tobacco/Smoking Status: Tobacco use Status Tobacco use date assessed 12/13/23 06/10/24 08:25 Patient Tobacco Use Status Never used Tobacco 06/10/24 08:25 e-Cigarette/Vaping Use Never Used 06/10/24 08:25 PHQ-9: PHQ-9 Score PHQ-9: Total score 6 06/10/24 08:35 Depression Screening Interpretation: Negative Thrive Assessment: Date of Thrive Assessment Date Thrive assessed 06/10/24 06/10/24 08:25 Currently or been in a relationship where the following occur: No concerns reported Const General: cooperative Orientation/consciousness: patient oriented x3 Resp Effort & Inspection: normal respiratory effort Auscultation: clear to auscultation bilaterally Cardio Rate: regular rate Rhythm: regular rhythm Heart sounds: S1 normal heart sound present and S2 normal heart sound present Neuro Other: slight swaying with romberg, difficulty performing heel to muller test, arm pull test negative, cervantes to thumb intact, difficult tandem walking General: patient oriented x3 Cranial nerves: Yes CN's II-XII intact bilaterally Psych Appearance: grossly normal Mental Status: mental status grossly normal Speech and movement: Normal speech and movement present Affect: normal affect Attitude: cooperative Thought process: Normal thought process present Thought content: Normal thought content present Insight: Good insight present (Psych) Judgement: Good judgement present (Psych) Assessment and Plan Assessment & Plan (1) Gait disorder: Onset Date: ~12/2023 Comment: Frontal gait disorder with musculoskeletal component No evidence of parkinsons disease. MRI brain showed extensive white matter changes , mildly enlarged ventricles Lumbar X ray- extensive deg changes Code(s): R26.9 - Unspecified abnormalities of gait and mobility Plan: MRI and EMG/nerve conduction testing ordered (2) Hydrocephalus: Code(s): G91.9 - Hydrocephalus, unspecified (3) Hydrocephalus: Code(s): G91.9 - Hydrocephalus, unspecified (4) Shuffling gait: Code(s): R26.89 - Other abnormalities of gait and mobility Plan The patient agreed to the use of a medical educator for this encounter. Scribed for SHYAM Bourne by Leah Quiroz medical educator, on 06/10/2024 at 08:35 EST. Orders: Orders NE nerve conduction velocity Today G91.9 - Hydrocephalus, unspecified, R26.89 - Other abnormalities of gait and mobility MR head/brain wo con 4 Months G91.9 - Hydrocephalus, unspecified, R26.9 - Unspecified abnormalities of gait and mobility NE electromyogram (EMG) Today G91.9 - Hydrocephalus, unspecified, R26.89 - Other abnormalities of gait and mobility Coding Level of Care Code Est Pt Level 3 (19615) Diagnoses Gait disorder R26.9 Hydrocephalus G91.9 Shuffling gait R26.89 Additional Codes BRETT-7 Assessment Billing - BRETT-7 Assessment Tool: BRETT-7 Assessment 65310 ([id number])
== END 2024-06-10 10:53 | disposition home or self-care (01) ==
PROVIDERS: PCP Nurse Practitioner Family; Visit Provider Nurse Practitioner Family
DX: R26.9 Unspecified abnormalities of gait and mobility (principal); G91.9 Hydrocephalus, unspecified; R26.89 Other abnormalities of gait and mobility

== ENCOUNTER → 2024-06-10 08:13 | Outpatient (BNVA) | payer MEDICARE, SELFPAY | PROVIDERS: PCP Nurse Practitioner Family; Visit Provider Nurse Practitioner Family | DX: G91.9 Hydrocephalus, unspecified (principal); R26.9 Unspecified abnormalities of gait and mobility; R26.89 Other abnormalities of gait and mobility | CPT/HCPCS: 96127; 99212 ==

== ENCOUNTER 2024-06-13 08:32 | Outpatient (REF) | payer MEDICARE, SELFPAY ==
[2024-06-13 10:05] LABS: MANUAL DIFF FLAG NO
[2024-06-13 10:09] LABS: Basophils Percent Auto 0.7 % (0-2); Eosinophils Absolute Auto 0.1 X10*3/uL (0.0-0.4); Eosinophils Percent Auto 2.2 % (0-4); Hematocrit 43.4 % (42.0-52.0); Hemoglobin 15.2 g/dl (14.0-18.0); Imm Gran Abs Auto 0.01 X10*3/uL (0.00-0.03); Imm Gran Pct Auto 0.2 % (0.0-0.4); Lymphocytes Absolute Auto 1.6 X10*3/uL (1.2-4.9); Lymphocytes Percent Auto 26.8 % (20-40); Mean Corpuscular Hemoglobin 33.7 pg (27.0-33.0); Mean Corpuscular Volume 96.2 fL (80.0-98.0); Mean Platelet Volume 10.1 fL (9.4-12.4); Monocytes Absolute Auto 0.4 X10*3/uL (0.1-1.2); Monocytes Percent Auto 6.5 % (2-11); Neutrophils Absolute Auto 3.8 x10*3/uL (2.0-8.3); Neutrophils Percent Auto 63.6 % (45-73); Platelet Count 152 X10*3/uL (160-400); Red Blood Count 4.51 X10*6/uL (4.60-5.80); Red Cell Distribution Width 12.6 % (11.0-16.0)
[2024-06-13 10:26] LABS: Alanine Aminotransferase 22 U/L (0-40); Albumin Level 4.1 g/dL (3.5-5.0); Alkaline Phosphatase 90 U/L (39-117); Anion Gap 9 (12-20); Aspartate Amino Transferase 20 U/L (5-37); Bilirubin Total 0.9 mg/dL (0.0-1.0); Blood Urea Nitrogen 17 mg/dL (9-16); Calcium 9.7 mg/dL (8.4-10.2); Carbon Dioxide 28 mmol/L (22-29); Chloride 106 mmol/L (96-108); Cholesterol 139 mg/dL (<200); Estimated Glomerular Filt Rate > 60; Glucose Fasting 97 mg/dL (60-99); HDL Cholesterol 50 mg/dL (>40); LDL Cholesterol Calculated 71 mg/dL (<100); Potassium 4.2 mmol/L (3.3-5.1); Sodium 139 mmol/L (135-145); Total Protein 7.3 g/dL (6.5-8.0); Triglycerides 93 mg/dL (<150)
[2024-06-13 10:30] LABS: Appearance Urine Clear; Color Urine Yellow; Glucose Urine UA Negative (Negative); Leukocyte Esterase Urine Negative (Negative); Nitrite Urine Negative (Negative); Urine Blood Negative (Negative); Urine Ketones Negative (Negative); Urine Protein Negative (Neg-Trace)
[2024-06-13 10:45] LABS: TSH reflex Free T4 1.37 uIU/mL (0.32-4.0)
== END 2024-06-13 08:33 | disposition home or self-care (01) ==
LOC: HO.HMGCLDS 08:32
PROVIDERS: PCP Nurse Practitioner Family; Visit Provider Nurse Practitioner Family
DX: Z00.00 Encounter for general adult medical examination without abnormal findings (principal); E78.5 Hyperlipidemia, unspecified; R26.89 Other abnormalities of gait and mobility
CPT/HCPCS: 36415; 80053; 80061; 81003; 84443; 85025

== ENCOUNTER 2024-06-25 08:30 | Outpatient (AMB) | payer MEDICARE, SELFPAY ==
--- NOTE | 2024-06-25 08:37 | MHC.OFFWIV ---
Intake Vital Signs 06/25/24 08:39 Height 5 ft 7 in Weight 185 lb BMI 29.0 BP 128/80 Blood Pressure Location Lt brachial Position Sitting Pulse 60 Pulse Source Pulse Oximeter Pulse Oximetry (%) 98 Oxygen Delivery Method Room Air Intake Visit Reasons: EP back pain Intake Note: Patient here for lower back pain that radiates across which has been present for about 1 week. Patient Tobacco Use Status: Never used Tobacco Allergies No Known Allergies Allergy (Verified 06/25/24 08:39) Medication List - Last Reconciled 06/25/24 by Luisa Raya MD apixaban 5 mg PO BID coenzyme Q10 (CoQ-10) 100 mg PO DAILY ezetimibe 10 mg PO DAILY finasteride 5 mg PO DAILY 90 days metoprolol succinate ER 25 mg PO DAILY omega 5-vec-uxf-fish oil 100-160-1,000 mg (Fish Oil) 1 cap PO DAILY pravastatin 80 mg PO DAILY sildenafil 100 mg PO DAILY PRN 30 days Do you need a note to return to daycare/school/sports/work: No HPI EP back pain HPI Details Rolo is 73-year-old gentleman, who is fairly active Goes to [employer] for exercises He had a new instructor last week who had him do some different exercises And after that his lower back became sore Lumbar spine x-ray done 08/07/2023 showed moderately severe degenerative disc disease at L4-L5 and L5-S1, and mild degenerative disc disease at L2-L3. multi-level lumbar spondylosis and facet arthropathy. His pain is local across lumbar spine both sides No radiation No new bowel or bladder issues Patient says that sitting down in laying down relieves the pain He has been using lidocaine patches at home and Tylenol which has not helped Patient is on blood thinners I am prescribing prednisone for 5 days Patient was also instructed to use back belt during the day to support back muscles Local heat will help relax the muscles. Small dose of muscle relaxer also sent to be taken at night. Follow up with primary care [facility] Medical History Gait disorder (~12/2023) Back pain Syncope and collapse Hypertrophic cardiomyopathy Bladder outlet obstruction Urinary hesitancy Weak urinary stream COVID-19 vaccine administered Syncope Eczema NSVT (nonsustained ventricular tachycardia) Paroxysmal A-fib Cardiomyopathy Surgical History History of total hip replacement History of carpal tunnel release History of loop recorder H/O colonoscopy Melanoma History of colon resection Family History Father CAD (coronary artery disease) Type 2 diabetes mellitus Myocardial infarction Mother Breast cancer Social History Household Members: Spouse Housing: House Alcohol intake: never Patient Tobacco Use Status: Never used Tobacco e-Cigarette/Vaping Use: Never Used Second Hand Smoke Exposure: No service: Yes Current occupational status: retired Cognitive needs: No Hearing needs: Yes Vision needs: No Review of Systems Const All systems reviewed & are unremarkable except as noted in HPI and below Physical Exam Vital Signs: Last Vital Signs Pulse 60 06/25/24 08:39 BP 128/80 06/25/24 08:39 Pulse Ox 98 06/25/24 08:39 Oxygen Delivery Method Room Air 06/25/24 08:39 BMI result Body Mass Index 29.0 Const General: no acute distress Orientation/consciousness: patient oriented x3 Eyes General: appearance normal, both eyes and all related structures Resp Effort & Inspection: normal respiratory effort and able to speak in complete sentences Back/Spine/Pelvis Back/spine/pelvis image: 1. Site of pain, no pain with percussion, range of motion intact in flexion, straight leg negative bilateral. Neuro General: patient oriented x3 Psych Mental Status: mental status grossly normal Assessment & Plan Assessment & Plan (1) Strain of lumbar paraspinal muscle: Code(s): S39.012A - Strain of muscle, fascia and tendon of lower back, initial encounter Qualifiers: Encounter type: initial encounter Qualified Code(s): S39.012A - Strain of muscle, fascia and tendon of lower back, initial encounter Plan Rolo is 73-year-old gentleman, who is fairly active Goes to [employer] for exercises He had a new instructor last week who had him do some different exercises And after that his lower back became sore Lumbar spine x-ray done 08/07/2023 showed moderately severe degenerative disc disease at L4-L5 and L5-S1, and mild degenerative disc disease at L2-L3. multi-level lumbar spondylosis and facet arthropathy. His pain is local across lumbar spine both sides No radiation No new bowel or bladder issues Patient says that sitting down in laying down relieves the pain He has been using lidocaine patches at home and Tylenol which has not helped Patient is on blood thinners I am prescribing prednisone for 5 days Patient was also instructed to use back belt during the day to support back muscles Local heat will help relax the muscles. Small dose of muscle relaxer also sent to be taken at night. Follow up with primary care Medications: New prednisone 20 mg PO DAILY 5 days 5 tabs 0RF cyclobenzaprine 5 mg PO BEDTIME PRN 7 tabs 0RF muscle spasm Coding Level of Care Code Est Pt Level 3 (66724) Diagnoses Strain of lumbar paraspinous muscle, initial encounter S39.012A Encounter type: initial encounter
[2024-06-25 08:39] VITALS: BP 128/80; PULSE 60; O2SAT 98; BMI 29.0
== END 2024-06-25 08:53 | disposition home or self-care (01) ==
PROVIDERS: PCP Nurse Practitioner Family; Visit Provider Internal Medicine
DX: S39.012A Strain of muscle, fascia and tendon of lower back, initial encounter (principal)

== ENCOUNTER → 2024-06-25 08:30 | Outpatient (BNVA) | payer MEDICARE, SELFPAY | PROVIDERS: PCP Nurse Practitioner Family; Visit Provider Internal Medicine | DX: S39.012A Strain of muscle, fascia and tendon of lower back, initial encounter (principal) | CPT/HCPCS: 99212 ==

== ENCOUNTER 2024-07-05 08:55 | Outpatient (REF) | payer MEDICARE, SELFPAY ==
--- NOTE | 2024-07-05 08:57 | EMG_ITS ---
Chief complaint: Shuffling gait, cold sensation on feet, even hands No weakness. No numbness or tingling. Lower back pain. Spondylosis on x-ray. On Eliquis for atrial fibrillation. Been ruled out for Parkinsons. Reviewed notes from Neurology and MRI brain. Denies history of diabetes, thyroid, chronic infections or alcohol drinking. Reason for referral: Evaluate for neuropathy Referred by: Rolo Hurtado NP Procedure done: Bilateral lower extremity NCS/EMG Precautions and/or limitations: On Eliquis The limb temperature was monitored continuously and remained between 32-36 degrees C during the performance of the NCS. Nerve Conduction Studies Anti Sensory Summary Table ?Stim Site NR Onset (ms) Norm Onset (ms) Peak (ms) Norm Peak (ms) O-P Amp (?V) Norm O-P Amp Site1 Site2 Delta-0 (ms) Dist (cm) Jonathon (m/s) Norm Jonathon (m/s) Left Sural Anti Sensory (Lat Mall) Calf NR <4.0 >5.0 Calf Lat Mall 14.0 Right Sural Anti Sensory (Lat Mall) Calf NR <4.0 >5.0 Calf Lat Mall 14.0 Motor Summary Table ?Stim Site NR Onset (ms) Norm Onset (ms) O-P Amp (mV) Norm O-P Amp iAmp (mV) Amp (1st) (%) Site1 Site2 Delta-0 (ms) Dist (cm) Jonathon (m/s) Norm Jonathon (m/s) Right Peroneal Motor (Ext Dig Brev) Ankle ? 8.8 <4.0 2.3 >2.5 2.9 100.0 Ankle Ext Dig Brev 8.8 0.0 B Fib ? 16.7 2.3 2.8 100.0 B Fib Ankle 7.9 31.0 39 >40 Poplt ? 17.5 2.2 2.6 95.7 Poplt B Fib 0.8 4.0 50 >40 Left Tibial Motor (Abd Csepedes Brev) Ankle ? 7.3 <5 1.0 >2.5 1.0 100.0 Ankle Abd Cespedes Brev 7.3 0.0 Knee ? 19.1 0.9 1.1 90.0 Knee Ankle 11.8 40.0 34 >40 Right Tibial Motor (Abd Cespedes Brev) Ankle ? 6.3 <5 1.9 >2.5 2.2 100.0 Ankle Abd Cespedes Brev 6.3 0.0 Knee ? 16.1 1.6 2.1 84.2 Knee Ankle 9.8 41.0 42 >40 EMG ?Side Muscle Nerve Root Ins Act Fibs Psw Amp Dur Poly Recrt Int Pat Comment Right AbdHallucis MedPlantar S1-2 Nml Nml Nml Nml Nml 0 Nml Complete Right AntTibialis Dp Br Peron L4-5 Nml Nml Nml Nml Nml 0 Nml Complete Right PostTibialis Tibial L5, S1 Nml Nml Nml Nml Nml 0 Nml Complete Right MedGastroc Tibial S1-2 Nml Nml Nml Nml Nml 0 Nml Complete Right VastusMed Femoral L2-4 Nml Nml Nml Nml Nml 0 Nml Complete Left AbdHallucis MedPlantar S1-2 Nml Nml Nml Nml Nml 0 Nml Complete Left AntTibialis Dp Br Peron L4-5 Nml Nml Nml Nml Nml 0 Nml Complete Left PostTibialis Tibial L5, S1 Nml Nml Nml Nml Nml 0 Nml Complete Left MedGastroc Tibial S1-2 Nml Nml Nml Nml Nml 0 Nml Complete Left VastusMed Femoral L2-4 Nml Nml Nml Nml Nml 0 Nml Complete FINDINGS: Right peroneal nerve showed prolonged distal latency, very small amplitude and slow conduction velocity distally. No conduction block across fibular neck. Right tibial nerve showed prolonged distal latency, small amplitude and normal conduction velocity. Left tibial nerve showed prolonged distal latency, small amplitude and slow conduction velocity. Question temporal dispersion seen on tibial nerves. Bilateral sural nerves no response. Concentric needle EMG was performed in selected muscles of the bilateral lower extremity. Study did not reveal signs of electric abnormalities as shown in the table above. No myopathic looking units. No fasciculations. IMPRESSION: 1. This is an abnormal study. 2. 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 3. There is no electrodiagnostic evidence for lumbosacral plexopathy or lumbar radiculopathy. CLINICAL COMMENT: Took the liberty of reviewing MRI brain. Suggest consideration of cervical spine MRI to rule out other demyelinating or increased T2 signal findings. Thank you for your kind referral. Esmer Garcia MD, BETH Board Certified, [place] [employer] and Rehabilitation (ABPMR) Board Certified, [place] [employer] Electrodiagnostic [employer] (ABEM) CODIN 63024 x 2 MTDD
== END 2024-07-05 08:56 | disposition home or self-care (01) ==
LOC: HO.NEURO 08:55
PROVIDERS: PCP Nurse Practitioner Family; Visit Provider Nurse Practitioner Family
DX: G91.9 Hydrocephalus, unspecified (principal); R26.89 Other abnormalities of gait and mobility
CPT/HCPCS: 95886; 95909

== ENCOUNTER → 2024-07-05 08:57 | Outpatient (BNV) | payer MEDICARE, SELFPAY | PROVIDERS: PCP Nurse Practitioner Family; Visit Provider Physical Medicine & Rehabilitation | DX: G62.89 Other specified polyneuropathies (principal) | CPT/HCPCS: 95886; 95909 ==

== ENCOUNTER 2024-07-26 07:49 | Outpatient (REF) | payer MEDICARE, SELFPAY | END 2024-07-26 07:50 | disposition home or self-care (01) | LOC: HO.MRI 07:49 | PROVIDERS: PCP Nurse Practitioner Family; Visit Provider Nurse Practitioner Family | DX: R26.9 Unspecified abnormalities of gait and mobility (principal); R53.1 Weakness; G37.9 Demyelinating disease of central nervous system, unspecified | CPT/HCPCS: 72141 ==

== ENCOUNTER 2024-08-28 09:18 | Outpatient (AMB) | payer MEDICARE, SELFPAY ==
--- NOTE | 2024-08-28 09:28 | MHC.OFFVIS ---
Intake Visit Reasons: 1Y PVR Intake Note: Patient is Present for Follow Up PVR Urology Medication: Finasteride, Sildenafil Antibiotic Allergies: None Blood Thinners: Apixaban PVR: 12ml TODAY'S PVR:26ML'S Foreman/Project Manager Required: No Allergies No Known Allergies Allergy (Verified 08/28/24 09:31) HPI Comments Details: Rolo SCHUMACHER is a very pleasant male. He is a patient of Dr. Hurtado. He is seen in the office today for the following urologic conditions. - Lower urinary tract symptoms - primarily incomplete bladder emptying 12 month follow-up PSA not completed PSA ordered PVR low Current medications include finasteride and sildenafil Prior Shy bladder in office - PVR 270 cc Does describe double voiding now on a consistent basis Used to work the [employer] at the [employer] Lower urinary tract symptoms Primarily incomplete emptying Previously had been on bethanechol without much effect Elevated PSA/Abnormal JONI:? He presents for ?further evaluation of elevated PSA.? Current management is?Finasteride ? Laboratory investigations include?04/05 4.9 ?12/05 2.2, 05/08 2.5, 06/09 2.9, 06/10 4.5 ? Prostate Cancer Risk Calculator?5-10% high risk, Discussed use of 5AR to help differentiate prostate cancer from benign disease. He would like to try this and understands the small risk associated with a delay in diagnosis.? Symptoms include?06/06 , weak stream, straining, nocturia, x 1, and are worsening ?01/05 Improved stream.? Overall symptoms are?moderate.? Therapeutic plan will be?Review PSA 1 year.? [facility] Medical History Gait disorder (~12/2023) Back pain Syncope and collapse Hypertrophic cardiomyopathy Bladder outlet obstruction Urinary hesitancy Weak urinary stream COVID-19 vaccine administered Syncope Eczema NSVT (nonsustained ventricular tachycardia) Paroxysmal A-fib Cardiomyopathy Surgical History History of total hip replacement History of carpal tunnel release History of loop recorder H/O colonoscopy Melanoma History of colon resection Family History Father CAD (coronary artery disease) Type 2 diabetes mellitus Myocardial infarction Mother Breast cancer Social History Household Members: Spouse Housing: House Alcohol intake: never Patient Tobacco Use Status: Never used Tobacco e-Cigarette/Vaping Use: Never Used Second Hand Smoke Exposure: No service: Yes Current occupational status: retired Cognitive needs: No Hearing needs: Yes Vision needs: No Review of Systems Const Denies chills and Denies fever(s) Card Reports no additional complaints and Denies syncope Resp Denies cough GI Denies abdominal pain and Denies heartburn Reports as per HPI and Denies change in libido Neuro Denies syncope Psych Denies change in libido Endo Denies change in libido Physical Exam Const General: cooperative, healthy appearing, comfortable and no acute distress Orientation/consciousness: patient oriented x3 HEENT Face and sinus: Yes normal facial exam Mouth: moist mucous membranes Neck Neck: Yes normal visual inspection, Yes full ROM and Yes trachea midline Chest Chest palpation & inspection: normal inspection of the chest Resp Effort & Inspection: normal respiratory effort, able to speak in complete sentences and no respiratory distress GI Inspection: Yes normal to inspection Back/Spine/Pelvis Cervical Spine: normal cervical lordosis Thoracic/Lumbar Spine: thoracic and lumbar spine normal to inspection Skin General skin exam: no rashes or lesions noted Neuro General: patient oriented x3, gait normal, tone normal and moves all extremities Extrem General: Yes normal to inspection and Yes capillary refill normal Office Procedures Post Void Residual Post Residual Void Post Void Residual (PVR): 26 [id number]-[id number] Void Residual by ultrasound Results AMB Urinalysis, Automated UA Leukoctes 0 Margaret/uL Last Edit by JODIE Stafford on 08/28/24 09:44 UA Nitrite Negative Last Edit by JODIE Stafford on 08/28/24 09:44 UA Urobilinogen 0.2 mg/dL Last Edit by JODIE Stafford on 08/28/24 09:44 UA Protein 0 mg/dL Last Edit by JODIE Stafford on 08/28/24 09:44 UA pH 6.5 Last Edit by JODIE Stafford on 08/28/24 09:44 UA Blood 0 Ranjeet/uL Last Edit by JODIE Stafford on 08/28/24 09:44 UA Specific [place] 1.015 Last Edit by JODIE Stafford on 08/28/24 09:44 UA Ketone Negative Last Edit by JODIE Stafford on 08/28/24 09:44 UA Bilirubin 0 mg/dL Last Edit by JODIE Stafford on 08/28/24 09:44 UA Glucose 0 mg/dL Last Edit by JODIE Stafford on 08/28/24 09:44 Assessment & Plan Assessment & Plan (1) Weak urinary stream: Code(s): R39.12 - Poor urinary stream Category: Medical (2) Bladder outlet obstruction: Code(s): N32.0 - Bladder-neck obstruction Category: Medical Plan Twelve month follow-up PSA Orders: Orders AMB Urinalysis Automated Today Z13.9 - Encounter for screening, unspecified Prostate Specific Antigen 364 Days N32.0 - Bladder-neck obstruction Patient Instructions: Imaging studies, laboratory and physical exam results were discussed and reviewed in detail. No major barriers to patient understanding were identified. An opportunity to ask questions regarding the treatment plan was provided. All questions were answered. The patient expressed understanding and agreement with the above treatment plan. The patient is aware they should contact our office by phone for worsening of their current condition or the appearance of new urologic symptoms. Compliance is encouraged with any medications and followup testing that is ordered. It is a privilege to participate in the urologic care of your patient. If you have any questions or concerns regarding treatment for the above conditions, or other urologic issues, please do not hesitate to contact me. The office telephone contact is [phone]. This note is constructed using voice recognition software. While every effort has been made to ensure accuracy brick and blocker aid labor errors may have been included. Yours sincerely, Dr Benjamin Rao MD, [facility] - Urology Providers of Expert, Compassionate Care for the Genitourinary System Coding Level of Care Code Est Pt Level 4 (43220) Diagnoses Weak urinary stream R39.12 Bladder outlet obstruction N32.0 CPT Codes Post Residual Void - PVR CPT Code: 71846-[id number] Void Residual by ultrasound ([id number])
--- OUTSIDE RECORDS SUMMARY | 2024-08-28 23:40 | XMS_ITS | Encounter Summary ---
Author Name [facility] Organization [facility] [place] Address [address] [place] [address] Care Team Providers Care Electrophysiology Technician Name Role Phone RACHEL MATA Primary Care Provider Graciela hatch Insurance Providers: All historical and current Section Date Range: From patient's date of to the date document was created. This section includes the names of all active insurance providers for the patient. Insurance Provider Type of Coverage Plan Name Start of Policy Coverage End of Policy Coverage Group Number Member ID Insurance Provider's Telephone Number Policy Alvarez's Name Patient's Relationship to Policy Alvarez [facility] ([facility]) MEDICARE ADVANTAGE [facility] ([facility]) Sep 18, 2019 [id number] [phone] Ana María SCHUMACHER PATIENT [facility] ([facility]) MEDICARE ADVANTAGE [facility] ([facility]) Nov 16, 2014 [id number] Ana María SCHUMACHER PATIENT Selected Encounter This section includes the information on record at [place] for the Encounter. Date/Time Encounter Type Encounter Description Reason Pro vider Source 2023 12:53 PM Outpatient Encounter PRIMARY CARE/MEDICINE I[facility] Encounter Template Text not used by [place] Social History: Smoking Status (Most current) and Tobacco Use (All prior to encounter date) This section includes the most current, and the historical, smoking and tobacco- related health factors from the [place] facility where the Encounter took place. Current Smoking Status This section includes the most current smoking, or tobacco-related health factor, from the [place] facility where the Encounter took place. Date/Time Current Smoking Status Comment Reema cota Sep 28, 2020 01:54 PM VA-TOBACCO FORMER USER [facility] Tobacco Use History This section includes a history of the smoking, or tobacco-related health factors, that were collected on or before the date of the Encounter. The data comes from the [place] facility where the Encounter took place. Date/Time Smoking Status/Tobacco Use Comment F acility Sep 28, 2020 01:54 PM VA-TOBACCO QUIT 15 YRS OR MORE [facility] January 31, 2018 01:18 PM LIFETIME NON-TOBACCO USER [facility] Advance Directives: All historical and current Section Date Range: From patient's date of to the date document was created. This section includes ALL of a patient's completed or amended [place] Advance and Rescinded Directives. The entries below indicate that a directive exists for the patient, but an actual copy is not included with this document. The data comes from all [place] facilities. Date Advance Directives Provider Source Oct 10, 2019 ADVANCE DIRECTIVE DYLON ABBOTT [facility] Encounter Notes: All associated encounter notes This section contains the clinical notes associated to the Encounter. Date/Time Encounter Note(s) Provider Source 2023 12:53 PM NURSING ADMINISTRA TIVE NOTE: LOCAL TITLE: NON-VA PRESCRIPTION STANDARD TITLE: NURSING ADMINISTRATIVE NOTE DATE OF NOTE: 2023@12:53 ENTRY DATE: 2023@12:53:11 AUTHOR: PRIYANKA DAI EXP COSIGNER: URGENCY: STATUS: COMPLETED NON VA Prescription Date: Nov Prescriber Name/Tel/Fax :Carson Jernigan MD PH: [phone] RX : Apixaban 5 mg tablet Sig: Take 1 tablet by mouth twice a day QTY: 180 Refills: 3 Mail to patient Waiting? No [facility] RX? No - ([facility] Primary Payer) Requested office notes from prescriber - Not applicable Active Outpatient Medications (including Supplies): Issue Date Status Last Fill Active Outpatient Medications Refills Expiration = 1) APIXABAN 5MG TAB Qty: 180 for 90 days ACTIVE Issu:12-13-22 Sig: TAKE ONE TABLET BY MOUTH TWICE Refills: 0 Last:09-20-23 DAILY Expr:12-14-23 Start Date Active Non-VA Medications Refills Expiration = 1) Non-VA COENZYME Q10 CAP/TAB Sig: BY ACTIVE MOUTH 2) Non-VA EZETIMIBE 10MG TAB SiMG BY ACTIVE MOUTH ONCE DAILY 3) Non-VA FINASTERIDE 5MG TAB SiMG BY ACTIVE MOUTH ONCE DAILY 4) Non-VA FISH OIL 1000MG (500MG DHA/EPA) ACTIVE CAP SiMG BY MOUTH 5) Non-VA METOPROLOL SUCCINATE 25MG SA TAB ACTIVE SiMG BY MOUTH ONCE DAILY 6) Non-VA PRAVASTATIN NA 40MG TAB Sig: ACTIVE 40MG BY MOUTH ONCE DAILY 7 Total Medications Medication (Local) Status No local medications found. Medication (Remote) Status No remote medications found. /es/ PIRYANKA DAI RN REGISTERED NURSE Signed: 2023 12:55 Receipt Acknowledged By: 12/05/2023 05:50 /es/ RACHEL MATA MD Primary Care Physician PRIYANKA DAI
--- OUTSIDE RECORDS SUMMARY | 2024-08-28 23:40 | XMS_ITS | Encounter Summary ---
Author Name [facility] Organization [facility] [place] [place] Address [address] [place] [address] Care Team Providers Care Health And Social Care Teacher Name Role Phone RACHEL MATA Primary Care [...] Alvarez's Name Patient's Relationship to Policy Alvarez [facility] ([facility]) MEDICARE ADVANTAGE [facility] ([facility]) Sep 18, 2019 [id number] [phone] Ana María SCHUMACHER PATIENT [facility] ([facility]) MEDICARE ADVANTAGE [facility] ([facility]) Nov 16, 2014 [id number] Ana María SCHUMACHER PATIENT Selected Encounter This section includes the information on record at [place] for the Encounter. Date/Time Encounter Type Encounter Description Reason Pro vider Source IHE Encounter Template Text not used by [place] Advance Directives: All historical and current Section Date Range: From patient's date of to the date document was created. This section includes ALL of a patient's completed or amended [place] and [place]cinded Directives. The entries below indicate that a directive exists for the patient, but an actual copy is not included with this document. The data comes from all [place] facilities. Date Advance Directives Provider Source Oct 10, 2019 ADVANCE DIRECTIVE [facility]OTT [facility]
--- OUTSIDE RECORDS SUMMARY | 2024-08-28 23:40 | XMS_ITS | Encounter Summary ---
Author Name [facility] Organization [facility] Address [address] [place] [address] Care Team Providers Care Power Reactor Operator Name Role Phone RACHEL MATA Primary Care Provider Unavaildawna hatch Insurance Providers: All historical and current [...] Alvarez's Name Patient's Relationship to Policy Alvarez [employer] [facility] [facility]) MEDICARE ADVANTAGE [facility] ([facility]) Sep 18, 2019 [id number] Ana María SCHUMACHER PATIENT [facility] ([facility]) MEDICARE ADVANTAGE [facility] ([facility]) Nov 16, 2014 [id number] Ana María SCHUMACHER PATIENT Selected Encounter This section includes the information on record at ID for the Encounter. Date/Time Encounter Type Encounter Description Reason Provider Source Oct 05, 2023 10:30 AM OFFICE O/P EST MOD 30 MIN PRIMARY CARE/MEDICINE ICD-10-CM I48.91 Unspecified atrial fibrillation RACHEL MATA Encounter Template Text not used by ID Assessments - Encounter Diagnoses This section includes the primary and secondary diagnoses documented for the Encounter. Date/Time Primary/Secondary Diagnosis Diagnosis Name Provider Source Oct 05, 2023 10:42 AM PRIMARY Unspecified atrial fibrillation RACHEL MATA Oct 05, 2023 10:42 AM SECONDARY Benign prostatic hyperplasia with lower urinary tract symp RACHEL MATA Oct 05, 2023 10:42 AM SECONDARY Essential (primary) hypertension RACHEL MATA Oct 05, 2023 10:42 AM SECONDARY Hyperlipidemia, unspecified RACHEL MATA Oct 05, 2023 10:42 AM SECONDARY long term acute care registered nurse (current) use of anticoagulants RACHEL MATA Oct 05, 2023 10:42 AM SECONDARY Obstructive sleep apnea (adult) (pediatric) RACHEL MATA Lab Results: +/- 30 days of the encounter This section includes the Chemistry and Hematology Lab Results on record with ID for the patient. Radiology Reports and Pathology Reports are provided separately, in subsequent sections. Lab Results This section contains the Chemistry/Hematology Results that were resulted 30 days before or 30 daysafter the date of the Encounter. Date/Time Source Result Type Result - Unit Interpretation Reference Range Comment Oct 05, 2023 11:07 AM [facility] CREATININE (eGFR 2020) Specimen Type: SERUM No comment entered. Ordering Provider: RACHEL MATA Report Released Date/Time: Oct 05, 2023 11:03 AM Reporting Lab: [facility] [address] [address] Performing Lab: [facility] [address] CREATININE, Serum 0.84 mg/dL 0.50-1.40 eGFR(CKD-EPI 2020) >90 mL/min >60 Oct 05, 2023 11:07 AM [facility] CBC Specimen Type: BLOOD No comment entered. Ordering Provider: RACHEL MATA Report Released Date/Time: Oct 05, 2023 11:03 AM Reporting Lab: [facility] [address] [address] Performing Lab: [facility] [address] [address] WBC 6.62 10*3/uL 4.50-11.00 RBC 4.74 10*6/uL 4.23-5.66 HGB 15.6 g/dL 12.8-17 HCT 45.2 39.2-50.4 MCV 95.4 fL 82-99 MCHC 34.5 g/dL 30.8-35.1 PLT 154 10*3/uL 140-360 RDW-CV 12.3 12.0-16.0 MCH 32.9 pg H 26.2-32.6 Social History: Smoking Status (Most current) and Tobacco Use (All prior to encounter date) This section includes the most current, and the historical, smoking and tobacco- related health factors from the ID facility where the Encounter took place. Current Smoking Status This section includes the most current smoking, or tobacco-related health factor, from the ID facility where the Encounter took place. Date/Time Current Smoking Status Comment Facil ity Oct 05, 2023 10:30 AM ID-TOBACCO NEVER USED BLESSING Tobacco Use History This section includes a history of the smoking, or tobacco-related health factors, that were collected on or before the date of the Encounter. The data comes from the ID facility where the Encounter took place. Date/Time Smoking Status/Tobacco Use Comment F acility Oct 05, 2022 11:00 AM ID-TOBACCO NEVER USED BLESSING Oct 06, 2021 09:00 AM ID-TOBACCO NEVER USED BLESSING Nov 23, 2018 10:43 AM ID-TOBACCO NEVER USED BLESSING Advance Directives: All historical and current Section Date Range: From patient's date of to the date document was created. This section includes ALL of a patient's completed or amended ID Advance and Rescinded Directives. The entries below indicate that a directive exists for the patient, but an actual copy is not included with this document. The data comes from all ID facilities. Date Advance Directives Provider Source Oct 10, 2019 ADVANCE DIRECTIVE DYLON ABBOTT ID Jackie NTRMarie [facility] Encounter Notes: All associated encounter notes This section contains the clinical notes associated to the Encounter. Date/Time Encounter Note(s) Provider Source Oct 05, 2023 10:35 AM PREVENTIVE MEDICIN E NURSING NOTE: LOCAL TITLE: CLINICAL REMINDERS/NURSING STANDARD TITLE: PREVENTIVE MEDICINE NURSING NOTE DATE OF NOTE: OCT 05, 2023@10:35 ENTRY DATE: OCT 05, 2023@10:35:43 AUTHOR: JAN WADDELL COSIGNER: URGENCY: STATUS: COMPLETED Advance Directive Screen MH AD: Patient has an Advance Directive on file at this [facility]. No updates are needed at this time. The patient received education about Advance Directives and written notification of his/her rights. Suicide Screen: C-SSRS Screening [place] Suicide Severity Rating Scale (C-SSRS) screener 1. Over the past month, have you wished you were or wished you could go to sleep and not wake up? No 2. Over the past month, have you had any actual thoughts of killing yourself? No 3. Over the past month, have you been thinking about how you might do this? Response not required due to responses to other questions. 4. Over the past month, have you had these thoughts and had some intention of acting on them? Response not required due to responses to other questions. 5. Over the past month, have you started to work out or worked out the details of how to kill yourself? Response not required due to responses to other questions. 6. If yes, at any time in the past month did you intend to carry out this plan? Response not required due to responses to other questions. 7. In your lifetime, have you ever done anything, started to do anything, or prepared to do anything to end your life (for example, collected pills, obtained a gun, gave away valuables, went to the roof but didn't jump)? No 8. If YES, was this within the past 3 months? Response not required due to responses to other questions. Depression Screening: Perform PHQ-2 A PHQ-2 screen was performed. The score was 0 which is a negative screen for depression. Over the past two weeks, how often have you been bothered by the following problems? 1. Little interest or pleasure in doing things Not at all 2. Feeling down, depressed, or hopeless Not at all PTSD Screening: PC-PTSD-5 A PTSD screening test (PC-PTSD-5) was negative (score=0). IN THE PAST MONTH, have you ever had any experience that was so frightening, horrible or traumatic. For example: A serious accident or fire a physical or sexual assault or abuse An earthquake or flood A war Seeing someone be killed or seriously injured Having a loved one through homicide or suicide 1. Have you ever experienced this kind of event? NO 2. Had nightmares about the event(s) or thought about the event(s) when you did not want to? Response not required due to responses to other questions. 3. Tried hard not to think about the event(s) or went out of your way to avoid situations that reminded you of the event(s)? Response not required due to responses to other questions. 4. Been constantly on guard, watchful, or easily startled? Response not required due to responses to other questions. 5. Holloway numb or detached from people, activities, or your surroundings? Response not required due to responses to other questions. 6. Holloway guilty or unable to stop blaming yourself or others for the event(s) or any problems the event(s) may have caused? Response not required due to responses to other questions. Tobacco Use Screening: The patient has never used tobacco. Influenza Immunization: The patient has received the seasonal influenza vaccine for the current season at another location. Documented: INFLUENZA, UNSPECIFIED FORMULATION Historical Date Administered: Jun 27, 2023 Outside Location: Outside Healthcare Provider Information Source: SOURCE UNSPECIFIED Alcohol Use Screen (AUDIT-C): Alcohol Screen: SCREEN FOR ALCOHOL (AUDIT-C) An alcohol screening test (AUDIT-C) was negative (score=1). 1. How often did you have a drink containing alcohol in the past year? Consider a drink to be a 12 ounce can or bottle of regular beer, 8 ounces of malt liquor, a 5 ounce glass of table wine, or a 1.5 ounce shot of liquor (like scotch, gin, or vodka). Monthly or less 2. How many drinks containing alcohol did you have on a typical day when you were drinking in the past year? One or two drinks 3. How often did you have six or more drinks on one occasion in the past year? Never COVID-19 Immunization: Defer vaccine, reassess in 1 year Reason: decline Sexual Orientation: The patient thinks of their sexual orientation as: Straight or Heterosexual /luis/ XIN COLEMANT 10 Signed: 10/05/2023 10:38 JAN WADDELL Oct 05, 2023 06:20 AM PHYSICIAN NOTE: LOCAL TITLE: NOTE STANDARD TITLE: PHYSICIAN NOTE DATE OF NOTE: OCT 05, 2023@06:20 ENTRY DATE: OCT 05, 2023@06:20:28 AUTHOR: RACHEL MATA EXP COSIGNER: URGENCY: STATUS: COMPLETED HISTORY OF PRESENT ILLNESS: TANISHA SCHUMACHER, is a 72 yo MALE , accompanied by his Veronica (retired RN), who presents at the [facility] for his annual visit. Vet maintains a nonVA PCP: Mr Lizandro FLORENTINO (Dr [facility] practice) in [place], [place]. Pt utilizes optometry, audiology, and pharmacy services at the ID. Active problems - Computerized Problem List is the source for the followin. Obstructive sleep apnea 2. Long-term current use of anticoagulant 3. Atrial fibrillation 4. Hypertension 5. History of total replacement of left hip joint 6. Benign prostatic hypertrophy 7. Skin cancer 8. History of shingles 9. Colonoscopy Screening 10. History of Carcinoid Tumor 11. NON VA Providers 12. Hyperlipidemia The following VA and Non-VA meds were reconciled with patient: Active Outpatient Medications (including Supplies): Issue Date Status Last Fill Active Outpatient Medications Refills Expiration ======= 1) APIXABAN 5MG TAB Qty: 180 for 90 days ACTIVE Issu:12-13-22 Sig: TAKE ONE TABLET BY MOUTH TWICE Refills: 0 Last:09-20-23 DAILY Expr:12-14-23 Start Date Active Non-VA Medications Refills Expiration ======= 1) Non-VA ATORVASTATIN CALCIUM 20MG TAB ACTIVE SiMG BY MOUTH 2) Non-VA COENZYME Q10 CAP/TAB Sig: BY ACTIVE MOUTH 3) Non-VA EZETIMIBE 10MG TAB SiMG BY ACTIVE MOUTH ONCE DAILY 4) Non-VA FINASTERIDE 5MG TAB SiMG BY ACTIVE MOUTH ONCE DAILY 5) Non-VA FISH OIL 1000MG (500MG DHA/EPA) ACTIVE CAP SiMG BY MOUTH 6) Non-VA METOPROLOL SUCCINATE 25MG SA TAB ACTIVE SiMG BY MOUTH ONCE DAILY 7 Total Medications ALLERGIES: ========= Patient has answered NKA LAB HISTORY: CHEM 7 TREND Collection DT Spec CREATIN 12/05/2022 07:44 SERUM 0.82 10/18/2021 10:22 SERUM 0.86 10/07/2020 13:13 SERUM 0.89 CBC TREND Collection DT Spec WBC RBC HGB HCT MCV MCH PLT 12/05/2022 07:44 BLOOD 5.93 4.54 14.8 44.3 97.6 32.6 136 L 10/18/2021 10:22 BLOOD 5.76 4.53 14.9 43.7 96.5 32.9 H 165 10/07/2020 13:13 BLOOD 6.93 4.91 16.0 47.6 96.9 32.6 151 HISTORY: PERIOD OF SERVICE - [facility] FROM May TO May COMBAT SERVICE INDICATED: No VITAL SIGNS: Blood Pressure 122/72 (10/05/2023 10:34) Pulse 64 (10/05/2023 10:34) Respiration 18 (10/05/2023 10:34) Pulse Oximetry 96% (10/05/2023 10:34) Temperature 98.4 F [36.9 C] (10/05/2023 10:34) Pain 0 (10/05/2023 10:34) Height 66 in [167.6 cm] (10/05/2023 10:34) Weight 181.4 lb [82.28 kg] (10/05/2023 10:34) BMI BMI: 29.3 REVIEW OF SYSTEMS: CARDIOVASCULAR: No chest pain, no palpitations RESPIRATORY: No SOB, no wheezing GASTROINTESTINAL: No abd pain, no N/V/D GENITOURINARY: No dysuria, no hematuria MUSCULOSKELETAL: No joint pain, no joint swelling PSYCHIATRIC: No anxiety, no trouble sleeping, no depression NEUROLOGIC: No H/A, no numbness, no weakness, no tingling EXAMINATION: GENERAL: WD/WN , pleasant & in NAD HEENT: Moist mucosa NECK: Supple, no carotid bruits HEART: RRR, S1-S2, no murmurs LUNGS: CTA B/L, no wheezes ABDOMEN: Soft, NT/ND, + BS x 4 Quads PERIPH PULSES: 2+ B/L EXTREMITIES: FROM x 4, no edema, gait slow/shuffling NEUROLOGIC: AAO x3, no focal findings PSYCHIATRIC: Good eye contact, affect normal ASSESSMENT/PLAN: 1. Paroxysmal Atrial Fibrillation: dxed December 2019, on eliquis 5mg BID, managed by feather washer Dr Carson [place] 2. Hypertension: well controlled on metoprolol succinate 25mg/day 3. Hyperlipidemia: on pravastatin 40mg/QHS, zetia 10mg/day, Fish Oil 2 caps/day, and CoQ10 200mg/day 4. Colonoscopy Screening: completed 02/09/21, advised no more screenings necessary 5. Hx of Skin Cancer: both melanoma & BCC, followed by [facility]/Dr Page 6. BPH: on finasteride 5mg/day 7. Sleep Apnea: on CPAP 8. S/P Left Hip Replacement 06/2019: ever since the surgery he walks with a shuffle and has a slow gait, denies any pain preventing him from walking better, feels he has full ROM, will refer him to PT to see if they can improve his stride/gait FOLLOW UP: 1 year - Annual - vet to bring PCP labs ========= UPCOMING APPOINTMENTS: 06/18/2024 08:00 NHM/OPTOMETRY/STEPHEN/ No barriers; Patient understands and agrees to current treatment plan. If pt has any questions, concerns, or changes in current health status he/she will call or come in to the VA. Medication Reconciliation: Outpatient: Has the patient been taking medications as documented in the EMLR? YES: The patient has been taking medications as documented in the EMLR. Essential Medication List for Review used to complete this medication reconciliation. INCLUDED IN THIS LIST: Alphabetical list of active outpatient prescriptions dispensed from this VA (local) and dispensed from another VA or DoD facility (remote) as well as inpatient orders (local, pending and active), local clinic medications, locally documented non-VA medications, and local prescriptions that have or been discontinued in the past 90 days. - All changes in medications, including all non-VA/Herbal/OTC medications were entered into CPRS. - If there were any medications the patient should no longer take, they were discontinued. - The patient/caregiver was instructed to update this list, discard old lists, and take this list to the next appointment, whether with a VA or non-VA provider. JLV Link Data on this list may not be complete. Please check JLV. Allergies/ADRs (Tool #5) FACILITY ALLERGY/ADR -------- No Remote Allergy/ADR Data available for this patient [facility] [place] [facility] No Known Allergies Med Recon NoGlossary (Tool #1) INCLUDED IN THIS LIST: Alphabetical list of active outpatient prescriptions dispensed from this VA (local) and dispensed from another VA or DoD facility (remote) as well as inpatient orders (local pending and active), local clinic medications, locally documented non-VA medications, and local prescriptions that have or been discontinued in the past 90 days. Non-VA Meds Last Documented On: Oct 05, 2022 NOTE The display of VA prescriptions dispensed from another ID or [facility] facility (remote) is limited to active outpatient prescription entries matched to National Drug File at the originating site and may not include some items such as investigational drugs, compounds, etc. NOT INCLUDED IN THIS LIST: Medications self-entered by the patient into personal health records (i.e. [employer]) are NOT included in this list. Non-VA medications documented outside this ID, remote inpatient orders (regardless of status) and remote clinic medications are NOT included in this list. The patient and provider must always discuss medications the patient is taking, regardless of where the medication was dispensed or obtained. ------ OUTPT APIXABAN 5MG TAB (Status = Active) TAKE ONE TABLET BY MOUTH TWICE DAILY Rx# [id number] Last Released: 09/25/23 Qty/Days Supply: 180/90 Rx Expiration Date: 12/14/23 Refills Remainin Indication: FOR PREVENTION OF BLOOD CLOTS Non-VA COENZYME Q10 CAP/TAB TAKE BY MOUTH Non-VA medication not recommended by VA provider. Non-VA EZETIMIBE 10MG TAB TAKE ONE TABLET BY MOUTH ONCE DAILY Non-VA medication not recommended by VA provider. Non-VA medication recommended by VA provider. Non-VA FINASTERIDE 5MG TAB TAKE ONE TABLET BY MOUTH ONCE DAILY Medication prescribed by Non-VA provider. Non-VA FISH OIL 1000MG (500MG DHA/EPA) CAP TAKE 2 CAPSULES BY MOUTH Non-VA medication not recommended by VA provider. Non-VA METOPROLOL SUCCINATE 25MG SA TAB TAKE ONE TABLET BY MOUTH ONCE DAILY Medication prescribed by Non-VA provider. ------ SUPPLIES ------ Lipid Screening: Patient was educated about cardiac risk factors related to cholesterol control, which includes, all elements of the Lipid Panel including HDL, LDL and Triglycerides. The Topping declined testing at this time. Homelessness/Food Insecurity Screen: In the past 2 months, have you been living in stable housing that you own, rent, or stay in as part of a household? Yes - Living in stable housing. Are you worried or concerned that in the next 2 months you may NOT have stable housing that you own, rent, or stay in as part of a household? No - Not worried about housing near future The reports the following: Within the past 12 months, you worried whether your food would run out before you got money to buy more. Never true Within the past 12 months, the food you bought just didn't last and you didn't have money to get more. Never true /es/ RACHEL MATA MD Primary Care Physician Signed: 10/05/2023 11:07 RACHEL MATA
--- OUTSIDE RECORDS SUMMARY | 2024-08-28 23:40 | XMS_ITS ---
Author Name [facility] Organization [facility] Address [address] [place] [address] Care Team Providers Care Door Installer Name Role Phone RACHEL MATA Primary Care [...] Alvarez's Name Patient's Relationship to Policy Alvarez [facility] ([facility]) MEDICARE ADVANTAGE M[facility] ([facility]) Sep 18, 2019 [id number] Ana María SCHUMACHER PATIENT [facility] ([facility]) MEDICARE ADVANTAGE [facility] ([facility]) Nov 16, 2014 [id number] [phone] Ana María SCHUMACHER PATIENT Selected Encounter This section includes the information on record at ID for the Encounter. Date/Time Encounter Type Encounter Description Reason Pro vider Source Nov 27, 2023 12:42 PM Outpatient Encounter ADMIN PAT ACTIVTIES (MASNONCT) IHE Encounter Template Text not used by ID Social History: Smoking Status (Most current) and Tobacco Use (All prior to encounter date) This section includes the most current, and the historical, smoking and tobacco- related health factors from the ID facility where the Encounter took place. Current Smoking Status This section includes the most current smoking, or tobacco-related health factor, from the VA facility where the Encounter took place. Date/Time Current Smoking Status Comment eRema cota Sep 28, 2020 01:54 PM VA-TOBACCO FORMER USER [facility] Tobacco Use History This section includes a history of the smoking, or tobacco-related health factors, that were collected on or before the date of the Encounter. The data comes from the ID facility where the Encounter took place. Date/Time Smoking Status/Tobacco Use Comment F accresencio Sep 28, 2020 01:54 PM VA-TOBACCO QUIT 15 YRS OR MORE [facility] January 31, 2018 01:18 PM LIFETIME NON-TOBACCO USER [facility] Advance Directives: All historical and current [...] Oct 10, 2019 ADVANCE DIRECTIVE DYLON ABBOTT [facility] Encounter Notes: All associated encounter notes This section contains the clinical notes associated to the Encounter. Date/Time Encounter Note(s) Provider Source Nov 27, 2023 12:42 PM ADMINISTRATIVE NOT E: LOCAL TITLE: CCC: SCHEDULING ADMINISTRATION STANDARD TITLE: ADMINISTRATIVE NOTE DATE OF NOTE: NOV 27, 2023@12:42:22 ENTRY DATE: NOV 27, 2023@12:42:22 AUTHOR: MARLENE SEGURA EXP COSIGNER: URGENCY: STATUS: COMPLETED CCC: SCHEDULING ADMINISTRATION Has ADDENDA Patient Demographics Patient Name: TANISHA SCHUMACHER Patient Primary Phone: [phone] Patient Primary [address]: [address] [place] [id number] Patient : 1950 Patient Age: 72 Caller/Recipient Relation to Patient: Self Administrative Administrative Note Reason: Returned Call Administrative Note Comments: Patient called to check on the status of the Apixaban. 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 Please assist /luis/ MARLENE SEGURA Signed: 11/27/2023 12:42 Receipt Acknowledged By: 11/27/2023 14:25 /luis/ PRIYANKA DAI RN REGISTERED NURSE 11/27/2023 14:26 /luis/ JAN WADDELL LPN PACT 10 11/27/2023 ADDENDUM STATUS: COMPLETED Spoke with the and made him aware that we still have not received the script. 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 /luis/ PRIYANKA DAI RN REGISTERED NURSE Signed: 11/27/2023 14:39 MARLENE SEGURA [facility]
--- OUTSIDE RECORDS SUMMARY | 2024-08-28 23:40 | XMS_ITS | Encounter Summary ---
Author Name [facility] Address [address] [place] [address] Care Team Providers Care Air Brush Artist Name Role Phone RACHEL MATA Primary Care [...] Alvarez's Name Patient's Relationship to Policy Alvarez [facility] ([facility]) MEDICARE [facility] ([facility]) Sep 18, 2019 [id number] Ana María SCHUMACHER PATIENT [facility] (R) MEDICARE ADVANTAGE [facility] ([facility]) Nov 16, 2014 [id number] [phone] Ana María SCHUMACHER PATIENT Selected Encounter This section includes the information on record at [place] for the Encounter. Date/Time Encounter Type Encounter Description Reason Pro vider Source Nov 24, 2023 04:38 PM Outpatient Encounter ADMIN PAT ACTIVTIES (MASNONCT) I[facility] Encounter Template Text not used by [place] Social History: Smoking Status (Most current) and Tobacco Use (All prior to encounter date) This section includes the most current, and the historical, smoking and tobacco- related health factors from the [place] facility where the Encounter took place. Current Smoking Status This section includes the most current smoking, or tobacco-related health factor, from the [facility] facility where the Encounter took place. Date/Time Current Smoking Status Comment Reema cota Sep 28, 2020 01:54 PM VA-TOBACCO FORMER USER [facility] Tobacco Use History This section includes a history of the smoking, or tobacco-related health factors, that were collected on or before the date of the Encounter. The data comes from the [place] facility where the Encounter took place. Date/Time Smoking Status/Tobacco Use Comment F accresencio Sep 28, 2020 01:54 PM VA-TOBACCO QUIT 15 YRS OR MORE [facility] January 31, 2018 01:18 PM LIFETIME NON-TOBACCO USER [facility] Advance Directives: All historical and current Section Date Range: From patient's date of to the date document was created. This section includes ALL of a patient's completed or amended [place] Advance and Rescinded Directives. The entries below indicate that a directive exists for the patient, but an actual copy is not included with this document. The data comes from all [place] facilities. Date Advance Directives Provider Source Oct 10, 2019 ADVANCE DIRECTIVE DYLON ABBOTT [facility] Encounter Notes: All associated encounter notes This section contains the clinical notes associated to the Encounter. Date/Time Encounter Note(s) Provider Source Nov 27, 2023 06:02 AM ADDENDUM: LOCAL TITLE: Addendum STANDARD TITLE: ADDENDUM DATE OF NOTE: NOV 27, 2023@06:02:04 ENTRY DATE: NOV 27, 2023@06:02:05 AUTHOR: RACHEL MATA EXP COSIGNER: URGENCY: STATUS: COMPLETED Please notify we will need a new Rx for apixaban. 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 Defer to primary care provider To be picked up. Please review and renew if appropriate. *This note was generated by [facility] Pharmacy Customer Care. If you have any questions or need assistance, do not contact this author. Please refer all questions to your local, on-site pharmacy departments. /franky MCLEOD CPhT [employer] Rec[employer] Manager, [place]/Pharmacy Customer Care Signed: 11/24/2023 16:38 Receipt Acknowledged By: 11/27/2023 09:22 /luis/ PRIYANKA DAI RN REGISTERED NURSE 11/27/2023 06:01 /luis/ RACHEL MATA MD Primary Care Physician 11/27/2023 ADDENDUM STATUS: UNSIGNED You may not VIEW this UNSIGNED Addendum. 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 Defer to primary care provider To be picked up. Please review and renew if appropriate. *This note was generated by [facility] Pharmacy Customer Care. If you have any questions or need assistance, do not contact this author. Please refer all questions to your local, on-site pharmacy departments. /franky MCLEOD CPhT [employer] Manager, [place]/Pharmacy Customer Care Signed: 11/24/2023 16:38 Receipt Acknowledged By: 11/27/2023 09:22 /franky DAI RN REGISTERED NURSE 11/27/2023 06:01 /luis/ RACHEL MATA MD Primary Care Physician 11/27/2023 ADDENDUM STATUS: COMPLETED Please notify we will need a new Rx for apixaban. Thank you /luis/ RACHEL MATA MD Primary Care Physician Signed: 11/27/2023 06:02 Receipt Acknowledged By: 11/27/2023 09:24 /franky DAI RN REGISTERED NURSE 11/27/2023 ADDENDUM STATUS: COMPLETED Left a VM on an identified machine to contact his Liquor Bridge Operator to fax over a new script for his Apixaban. /franky DAI RN REGISTERED NURSE Signed: 11/27/2023 09:26 VADIM MCLEOD [place] [facility]
--- OUTSIDE RECORDS SUMMARY | 2024-08-28 23:40 | XMS_ITS | Continuity of Care Document ---
Author Name [facility] Organization [facility] Care Team Providers Care Credit Resolution Representative Name Role Phone [facility] Unavailable Unavailable Problems Combined list of problems from Department of Defense and Veterans Affairs facilities. It does not include entries that were removed or entered in error. Problem Status Onset Date Problem Type Date of Resolution Comments Source Atrial fibrillation Active Condition Sep 29, 2020 Entered By: RACHEL MATA Comment: Dxed 2020 Entered By: RACHEL MATA Comment: Dr Carson Jernigan - [place] [facility] Benign prostatic hypertrophy Active Condition [facility] Colonoscopy Screening Active Condition February 01, 2018 Entered By: RACHEL MATA Comment: 12/09/15Sep 29, 2020 Entered By: RACHEL MATA Comment: Scheduled for 11/2020 [facility] History of Carcinoid Tumor Active Condition February 01, 2018 Entered By: RACHEL MATA Comment: s/p colon resection 09/2008 [facility] History of shingles Active Condition [facility] 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 Sep 29, 2020 Entered By: RACHEL MATA Comment: 06/2019 [facility] Hyperlipidemia Active Condition [facility] Hypertension Active Condition [facility] Long-term current use of anticoagulant Active Condition [facility] NON [facility] Providers Active Condition Oct 06, 2021 Entered By: RACHEL MATA Comment: PCP - Dr Tavares 2020 Entered By: RACHEL MATA Comment: Dermatololgy - Dr Page ([facility])January 31, 2018 Entered By: RACHEL MATA Comment: Optometry - Dr Zarate 2020 Entered By: RACHEL MATA Comment: Cardiology - Dr Carson Jernigan (in [place]) [facility] [place] [facility] Obstructive sleep apnea Active Condition Oct 05, 2022 Entered By: RACHEL MATA Comment: Dxed 2021 [facility] Skin cancer (SNOMED CT [id number]) Active Condition February 01, 2018 Entered By: RACHEL MATA Comment: Melanoma - backMay 2017 Entered By: RACHEL MATA Comment: BCC - right shoulder & [facility] [place] [facility] Diagnosis: ICD-10-CM Z46.1 Encounter for fitting and adjustment of hearing aid Active Diagnosis [facility] Diagnosis: ICD-10-CM Z46.0 Encounter for fit/adjst of spectacles and contact lenses Active Diagnosis [facility] Diagnosis: ICD-10-CM H25.813 Combined forms of age-related cataract, bilateral Active Diagnosis [facility] Diagnosis: ICD-10-CM I48.91 Unspecified atrial fibrillation Active Diagnosis [facility] Diagnosis: ICD-10-CM Z02.89 Encounter for other administrative examinations Active [facility] [place] [facility] Diagnosis: ICD-10-CM D23.122 Other benign neoplasm skin/ left lower eyelid, inc canthus Active [facility] [place] [facility] Medications Combined list of outpatient medications from Department of Defense and Veterans Affairs facilities.Medications provided include 1) outpatient medications from the last 15 months, and 2) patient-reported medications. Medication Details Route Status Patient Instructions Prescription Expires Prescription Number Last Dispense Date Ordering Provider Order Date Order Qty Source APIXABAN 5MG TAB TAKE ONE TABLET BY MOUTH TWICE DAILY FOR PREVENTI ON OF BLOOD CLOTS ORAL ACTIVE 12/05/2024 [id number] ROXANA MATA SA 2023 180 [place] APIXABAN 5MG TAB TAKE ONE TABLET BY MOUTH TWICE DAILY ORAL DISCONT INUED (EDIT) 12/14/2023 [id number] ROXANA MATA SA 2022 180 [place] COENZYME Q10 CAP/TAB TAKE BY MOUTH ORAL ACTIVE ROXANA MATA SA 2017 [place] EZETIMIBE 10MG TAB TAKE ONE TABLET BY MOUTH ONCE DAILY ORAL ACTIVE ROXANA MATA SA BETSEY 2022 [facility] FINASTERIDE 5MG TAB TAKE ONE TABLET BY MOUTH ONCE DAILY ORAL ACTIVE ROXANA MATA SA BETSEY 2020 [facility] FISH OIL 1000MG (500MG DHA/EPA) CAP,ORAL TAKE 2 CAPSULES BY MOUTH ORAL ACTIVE ROXANA MATA SA BETSEY 2017 [facility] IELD METOPROLOL SUCCINATE 25MG TAB,SA TAKE ONE TABLET BY MOUTH ONCE DAILY ORAL ACTIVE ROXANA MATA SA BETSEY2020 [facility] [facility] PRAVASTATIN NA 40MG TAB TAKE ONE TABLET BY MOUTH ONCE DAILY ORAL ACTIVE ROXANA MATA SA 2023 [facility] IELD Immunizations Combined list of available immunizations from the Department of Defense and Veterans Affairs facilities. Immunization Series Date Given Administered By Site Reaction Lot Number CVX Code Drug Registered Account Administrator Status Comments Source INFLUENZA, UNSPECIFIED FORMULATION 2022 88 complet ed [facility] INFLUENZA, UNSPECIFIED FORMULATION 2021 88 complet ed [facility] COVID-19 (PFIZER), MRNA, LNP-S, BIVALENT BOOSTER, PF, 30 MCG/0.3 ML DOSE 2021 300 complet ed [facility] INFLUENZA, UNSPECIFIED FORMULATION 2020 88 complet ed [facility] COVID-19 (MODERNA), MRNA, LNP-S, PF, 100 MCG OR 50 MCG DOSE 3 2020 207 complet ed [facility] COVID-19 (MODERNA), MRNA, LNP-S, PF, 100 MCG OR 50 MCG DOSE 2 2020 207 complet ed [facility] COVID-19 (MODERNA), MRNA, LNP-S, PF, 100 MCG OR 50 MCG DOSE 1 2020 207 complet ed [facility] INFLUENZA, UNSPECIFIED FORMULATION 2019 88 complet ed [facility] ZOSTER RECOMBINANT 2 2019 187 complet ed [place] ZOSTER RECOMBINANT 1 2019 187 complet ed [place] INFLUENZA, SEASONAL, INJECTABLE 2018 141 complet ed [facility] INFLUENZA, SEASONAL, INJECTABLE 2017 141 complet ed Outside Provider [facility] INFLUENZA, SEASONAL, INJECTABLE 2016 141 complet ed [facility] PNEUMOCOCCAL POLYSACCHARID E PPV23 2016 33 complet ed [facility] TDAP 2016 115 complet ed [facility] PNEUMOCOCCAL CONJUGATE PCV 13 2015 133 complet ed yes [facility] ZOSTER LIVE 2015 121 complet ed yes [facility] Results Combined list of recent chemistry, hematology and other laboratory results from Department of Defense and Veterans Affairs, ranging from 15 months to all on record, depending upon the facility. Order Name Results Value Reference Range Date Interpretation Specimen Comments Source CBC LEUKOCYTES [#/VOLUME] IN BLOOD BY AUTOMATED COUNT 6.62 10*3/u L 4.50 - 11.00 10/05 Specimen Type: BLOOD No comment entered. Ordering Provider: RACHEL MATA Report Released Date/Time: Oct 05, 2023 11:03 AM Reporting Lab: [facility] [address] [facility] [address] Performing Lab: [facility] [address] [facility] [address] [facility] CBC ERYTHROCYTE S [#/VOLUME] IN BLOOD BY AUTOMATED COUNT 4.74 10*6/u L 4.23 - 5.66 10/05 Specimen Type: BLOOD No comment entered. Ordering Provider: RACHEL MATA Report Released Date/Time: Oct 05, 2023 11:03 AM Reporting Lab: [facility] [place] [facility] [address] [facility] [address] Performing Lab: [facility] [place] [facility] [address] [facility] [address] [facility] [facility] CBC HEMOGLOBIN [MASS/VOLUM E] IN BLOOD 15.6 g/dL 12.8 - 17 10/05 Specimen Type: BLOOD No comment entered. Ordering Provider: RACHEL MATA Report Released Date/Time: Oct 05, 2023 11:03 AM Reporting Lab: [facility] [place] [facility] [address] [facility] [address] Performing Lab: [facility] [address] [facility] [address] [facility] [facility] CBC HEMATOCRIT [VOLUME FRACTION] OF BLOOD BY AUTOMATED COUNT 45.2 39.2 - 50.4 10/05 Specimen Type: BLOOD No comment entered. Ordering Provider: RACHEL MATA Report Released Date/Time: Oct 05, 2023 11:03 AM Reporting Lab: [facility] [place] [facility] [address] [facility] [address] Performing Lab: [facility] [place] [facility] [address] [facility] [address] [facility] [place] [facility] CBC MCV [ENTITIC VOLUME] BY AUTOMATED COUNT 95.4 fL 82 - 99 10/05 Specimen Type: BLOOD No comment entered. Ordering Provider: RACHEL MATA Report Released Date/Time: Oct 05, 2023 11:03 AM Reporting Lab: [facility] [place] [facility] [address] [facility] [address] Performing Lab: [facility] [place] [facility] [address] [facility] [address] [facility] [place] [facility] CBC MCHC [MASS/VOLUM E] BY AUTOMATED COUNT 34.5 g/dL 30.8 - 35.1 10/05 Specimen Type: BLOOD No comment entered. Ordering Provider: RACHEL MATA Report Released Date/Time: Oct 05, 2023 11:03 AM Reporting Lab: [facility] [place] [facility] [address] [facility] [address] Performing Lab: [facility] [address] [facility] [address] [facility] [place] [facility] CBC PLATELETS [#/VOLUME] IN BLOOD BY AUTOMATED COUNT 154 10*3/u L 140 - 360 10/05 Specimen Type: BLOOD No comment entered. Ordering Provider: RACHEL MATA Report Released Date/Time: Oct 05, 2023 11:03 AM Reporting Lab: [facility] [address] [facility] [address] Performing Lab: [facility] [address] [facility] [address] [facility] [place] [facility] CBC ERYTHROCYTE DISTRIBUTIO N WIDTH [RATIO] BY AUTOMATED COUNT 12.3 12.0 - 16.0 10/05 Specimen Type: BLOOD No comment entered. Ordering Provider: RACHEL MATA Report Released Date/Time: Oct 05, 2023 11:03 AM Reporting Lab: [facility] [address] [facility] [address] Performing Lab: [facility] [address] [facility] [address] [facility] [place] [facility] CBC MCH [ENTITIC MASS] BY AUTOMATED COUNT 32.9 pg 26.2 - 32.6 10/05 H Specimen Type: BLOOD No comment entered. Ordering Provider: RACHEL MATA Report Released Date/Time: Oct 05, 2023 11:03 AM Reporting Lab: [facility] [address] [facility] [address] Performing Lab: [facility] [address] [facility] [address] [facility] [place] [facility] CREATININ E (eGFR 2020) CREATININE [MASS/VOLUM E] IN SERUM OR PLASMA 0.84 mg/dL 0.50 - 1.40 10/05 Specimen Type: SERUM No comment entered. Ordering Provider: RACHEL MATA Report Released Date/Time: Oct 05, 2023 11:03 AM Reporting Lab: [facility] [address] [facility] [address] Performing Lab: [facility] [place] [facility] [address] [facility] [address] [facility] [place] [facility] CREATININ E (eGFR 2020) GLOMERULAR FILTRATION RATE/1.73 SQ M.PREDICTED [VOLUME RATE/AREA] IN SERUM, PLASMA OR BLOOD BY CREATININE- BASED FORMULA (CKD-EPI 2020) >90mL/ min 60 10/05 Specimen Type: SERUM No comment entered. Ordering Provider: RACHEL MATA Report Released Date/Time: Oct 05, 2023 11:03 AM Reporting Lab: [facility] [place] [facility] [address] [facility] [address] Per[facility] Lab: [facility] [address] [address] [facility] [facility] CBC LEUKOCYTES [#/VOLUME] IN BLOOD BY AUTOMATED COUNT 5.93 10*3/u L 4.50 - 11.00 12/05 Specimen Type: BLOOD No comment entered. Ordering Provider: HARINI DOMINIQUE Report Released Date/Time: Nov 17, 2022 02:31 PM Reporting Lab: [facility] [place] [address] [address] Performing Lab: [facility] [place] [facility] [address] [facility] [address] [facility] [place] [facility] CBC ERYTHROCYTE S [#/VOLUME] IN BLOOD BY AUTOMATED COUNT 4.54 10*6/u L 4.23 - 5.66 12/05 Specimen Type: BLOOD No comment entered. Ordering Provider: HARINI DOMINIQUE Report Released Date/Time: Nov 17, 2022 02:31 PM Reporting Lab: [facility] [place] [facility] [address] [facility] [address] Performing Lab: [facility] [place] [address] [address] [facility] [place] [facility] CBC HEMOGLOBIN [MASS/VOLUM E] IN BLOOD 14.8 g/dL 12.8 - 17 12/05 Specimen Type: BLOOD No comment entered. Ordering Provider: HARINI DOMINIQUE Report Released Date/Time: Nov 17, 2022 02:31 PM Reporting Lab: [facility] [address] [facility] [address] Performing Lab: [facility] [address] [facility] [address] [facility] [place] [facility] CBC HEMATOCRIT [VOLUME FRACTION] OF BLOOD BY AUTOMATED COUNT 44.3 39.2 - 50.4 12/05 Specimen Type: BLOOD No comment entered. Ordering Provider: HARINI DOMINIQUE Report Released Date/Time: Nov 17, 2022 02:31 PM Reporting Lab: [facility] [place] [facility] [address] [facility] [address] Performing Lab: [facility] [place] [facility] [address] [facility] [address] [facility] [place] [facility] CBC MCV [ENTITIC VOLUME] BY AUTOMATED COUNT 97.6 fL 82 - 99 12/05 Specimen Type: BLOOD No comment entered. Ordering Provider: HARINI DOMINIQUE Report Released Date/Time: Nov 17, 2022 02:31 PM Reporting Lab: [facility] [place] [facility] [address] [facility] [address] Performing Lab: [facility] [place] [facility] [address] [facility] [address] [facility] [place] [facility] CBC MCHC [MASS/VOLUM E] BY AUTOMATED COUNT 33.4 g/dL 30.8 - 35.1 12/05 Specimen Type: BLOOD No comment entered. Ordering Provider: HARINI DOMINIQUE Report Released Date/Time: Nov 17, 2022 02:31 PM Reporting Lab: [facility] [place] [facility] [address] [facility] [address] Performing Lab: [facility] [place] [facility] [address] [facility] [address] [facility] [place] [facility] CBC PLATELETS [#/VOLUME] IN BLOOD BY AUTOMATED COUNT 136 10*3/u L 140 - 360 12/05 L Specimen Type: BLOOD No comment entered. Ordering Provider: HARINI DOMINIQUE Report Released Date/Time: Nov 17, 2022 02:31 PM Reporting Lab: [facility] [place] [facility] [address] [facility] [address] Performing Lab: [facility] [place] [facility] [address] [facility] [address] [facility] [place] [facility] CBC ERYTHROCYTE DISTRIBUTIO N WIDTH [RATIO] BY AUTOMATED COUNT 12.2 12.0 - 16.0 12/05 Specimen Type: BLOOD No comment entered. Ordering Provider: HARINI DOMINIQUE Report Released Date/Time: Nov 17, 2022 02:31 PM Reporting Lab: [facility] [place] [facility] [address] [facility] [address] Performing Lab: [facility] [place] [facility] [address] [facility] [address] [facility] [place] [facility] CBC MCH [ENTITIC MASS] BY AUTOMATED COUNT 32.6 pg 26.2 - 32.6 12/05 Specimen Type: BLOOD No comment entered. Ordering Provider: HARINI DOMINIQUE Report Released Date/Time: Nov 17, 2022 02:31 PM Reporting Lab: [facility] [place] [facility] [address] [facility] [address] Performing Lab: [facility] [place] [facility] [address] [facility] [address] [facility] CREATININ E (eGFR 2020) CREATININE [MASS/VOLUM E] IN SERUM OR PLASMA 0.82 mg/dL 0.50 - 1.40 12/05 Specimen Type: SERUM No comment entered. Ordering Provider: HARINI DOMINIQUE Report Released Date/Time: Nov 17, 2022 02:31 PM Reporting Lab: [facility] [place] [facility] [address] [facility] [address] Performing Lab: [facility] [place] [facility] [address] [facility] [address] [facility] [place] [facility] CREATININ E (eGFR 2020) GLOMERULAR FILTRATION RATE/1.73 SQ M.PREDICTED [VOLUME RATE/AREA] IN SERUM, PLASMA OR BLOOD BY CREATININE- BASED FORMULA (CKD-EPI) >90mL/ min 60 12/05 Specimen Type: SERUM No comment entered. Ordering Provider: HARINI DOMINIQUE Report Released Date/Time: Nov 17, 2022 02:31 PM Reporting Lab: [facility] [place] [facility] [address] [facility] [address] Performing Lab: [facility] [place] [facility] [address] [facility] [address] [facility] [place] [facility] Vital Signs Combined list of inpatient and outpatient Vital Signs from Department of Defense and Veterans Affairs, ranging from 12 months to all on record, depending upon the facility. Vital Sign Value Date Comments Source SYSTOLIC BLOOD PRESSURE 122 10/05/19 24 10:34:56 [facility] DIASTOLIC BLOOD PRESSURE 72 024 10:34:56 [facility] [place] [facility] PULSE OXIMETRY 96% 10/05/2023 10:34:56 [facility] WEIGHT 181.4 10/05/2023 10:34:56 [facility] BMI 29kg/m2 10/05/2023 10:34:56 [facility] PAIN 0 10/05/2023 10:34:56 [facility] HEIGHT 66 10/05/2023 10:34:56 [facility] TEMPERATURE 98.4 10/05/2023 10:34:56 [facility] PULSE 64 10/05/2023 10:34:56 [facility] RESPIRATION 18 10/05/2023 10:34:56 [facility] Encounters Combined list of: 1) Encounters from Department of Veterans Affairs facilities going back up to thelast 18 months. 2) Encounters from the Department of Defense facilities going back up to 280 months. Location Location Details Encounter Type Encounter Number Reason For Visit Attending Provider ADM Date DC Date Status Disposition Source [facility] Out[facility] Encounter [id number] 04/03 [facility] EYE EXAM&TX ESTAB PT 1/>VST [id number] Diagnos is: ICD-10- CM D23.122 Other benign neoplas m skin/ left lower eyelid, inc canthus
STEPHEN,LACE Y J 06/13 [facility] Outpatient Encounter [id number] 06/27 [facility] Outpatient Encounter [id number] Diagnos is: ICD-10- CM Z02.89 Encount er for other adminis trative examina tions<b r/> MICHAEL MUHAMMAD L 07/05 [facility] HEARING AID REPAIR/MOD IFYING [id number] Diagnos is: ICD-10- CM Z46.1 Encount er for fitting and adjustm ent of hearing aid<br/ > MICHAEL MUHAMMADN L 07/05 [facility] [place] [facility] Outpatient Encounter [id number] 09/28 [facility] [place] [facility] OFFICE O/P EST MOD 30 MIN [id number] Diagnos is: ICD-10- CM I48.91 Unspeci fied atrial fibrill ation<b r/> NATE MATA 10/05 [place] [facility] Out[facility] Encounter [id number] 11/23 [facility] Outpatient Encounter [id number] 11/26 [facility] Out[facility] Encounter [id number] 11/29 [facility] Out[facility] Encounter [id number] 12/03 [facility] [place] [id number] Diagnos is: ICD-10- CM H25.813 Combine d forms of age-rel ated catarac t, bilater al
MARIXA STEPHEN 06/26 [facility] HEARING AID REPAIR/MOD IFYING [id number] Diagnos is: ICD-10- CM Z46.1 Encount er for fitting and adjustm ent of hearing aid<br/ > MICHAEL MUHAMMAD 06/26 [facility] FIT SPECTACLES MONOFOCAL [id number] Diagnos is: ICD-10- CM Z46.0 Encount er for fit/adj st of spectac les and contact lenses< br/> MARIXA STEPHEN 06/26 [facility] HEARING AID FITTING/CH ECKING [id number] Diagnos is: ICD-10- CM Z46.1 Encount er for fitting and adjustm ent of hearing aid<br/ > KEVIN SOSA 08/23 [facility] [place] Social History Combined list of available smoking, tobacco, and other social history from Department of Defense and Veterans Affairs facilities. Social History Type Response Date Comment Sourc e Tobacco smoking status NHIS VA-TOBACCO NEVER USED 10/05/2023 [facility] D History of tobacco use VA-TOBACCO NEVER USED 10/05/2022 [facility] D History of tobacco use VA-TOBACCO NEVER USED 10/06/2021 [facility] D History of tobacco use VA-TOBACCO FORMER USER 09/28/2020 [facility] History of tobacco use VA-TOBACCO NEVER USED 11/23/2018 [facility] D History of tobacco use LIFETIME NON-TOBACCO USER 01/31/2018 [facility] Plan of Care List of future care activities from [facility] facilities. Additional future care activities may be listed in the Assessment and Plan section. Date/Time Care Activity Care Activity Detail Facili ty 10/08/2024 AMBULATORY - MEDICINE AMBULATORY - MEDICI NE [facility] Advance Directives List of completed, amended, or rescinded Advance Directives on record at Department [facility] facilities. An actual copy of the Directive is not included. Date Advance Directive Provider Source 10/10/2019 ADVANCE DIRECTIVE [facility]
--- OUTSIDE RECORDS SUMMARY | 2024-08-28 23:41 | XMS_ITS | Patient Health Record ---
Author Organization [facility] Address [address] [place] [address] Care Team Providers Care Towboat Engineer Name Role Phone TANISHA WHARTON Primary Care Provider Celso Sequeira Jr Unavailable REASON FOR REFERRAL No Information MEDICATIONS Medication SIG (Take, Route, Frequency, Duration) Notes Start Date End Date Status Fish Oil 1000 MG 1 capsule Orally Onc e a day Active MiraLax (colon prep) 8.3 ounce ((238) grams mixed with Gatorade or Crystal Light orally begin at 5:00 p.m. the day before the procedure for 1 day 01/11/2021 Active Eliquis 5 MG Orally Active Tamsulosin HCl 0.4 MG Orally Active Finasteride 1 MG Orally Act sandee Metoprolol Succinate ER 25 MG Orally Active CoQ10 100 MG 1 capsule with a sommer l Orally Once a day Active Lipitor 10 MG 1 tablet Orally Once a day Active IMMUNIZATIONS Vaccine Route Administration Date Status Comme nts Influenza Unknown 01/11/2021 Administered SOCIAL HISTORY Sex Assigned At : Social History Observation Description Sex Assigned At Unknown PROBLEMS Problem Type ICD Code Onset Dates Problem Status W/U Status Risk SNOMED Code Notes Problem 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 861067061 Problem Colon cancer screening (Z12.11) Active confirmed 931314130 Problem snf current use of aspirin (Z79.82) Active confirmed 174842964 Problem 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 confirmed [id number] PLAN OF TREATMENT Future Test Test Name Order Date COLONOSCOPY 10/01/2015 COLONOSCOPY 01/11/2021 Insurance Providers Payer Name Payer Address Payer Phone Subscriber Number Group Number Insured Name Patient Relationship to Insured Coverage Start Date Coverage End Date [facility] [address] [address] [place] [address] [id number] TANISHA SCHUMACHER Self - patient is the insured MEDICAL (GENERAL) HISTORY Medical History History ICD Code colonoscopy 12/09/15, diverti culosis, patent low anterior anastomosis at 10 cm, five-year followup carcinoid tumor of the rectum requiring low anterior resection 09/2008 melanoma, back elevated cholesterol hypertrophic cardiomyopathy Atrial fibrillation 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
--- OUTSIDE RECORDS SUMMARY | 2024-08-28 23:41 | XMS_ITS ---
Author Name [facility] Organization [facility] [facility] [place] Address [address] [place] [address] Care Team Providers Care Capital Project Engineer Name Role Phone RACHEL MATA Primary Care [...] Alvarez's Name Patient's Relationship to Policy Alvarez [facility] ([facility]) MEDICARE ADVANTAGE [facility] ([facility]) Sep 18, 2019 [id number] [phone] Ana María SCHUMACHER PATIENT [facility] ([facility]) MEDICARE ADVANTAGE [facility] ([facility]) Nov 16, 2014 [id number] Ana María SCHUMACHER PATIENT Selected Encounter This section includes the information on record at [place] for the Encounter. Date/Time Encounter Type Encounter Description Reason Provider Source Jun 26, 2024 02:30 PM HEARING AID REPAIR/MODIFYIN G AUDIOLOGY ICD-10-CM Z46.1 Encounter for fitting and adjustment of hearing aid HENRIK MUHAMMAD Encounter Template Text not used by [place] Assessments - Encounter Diagnoses This section includes the primary and secondary diagnoses documented for the Encounter. Date/Time Primary/Secondary Diagnosis Diagnosis Name Provider Source Jun 26, 2024 02:50 PM PRIMARY Encounter for fitting and adjustment of hearing aid MIGDALIA MUHAMMAD [facility] Jun 26, 2024 02:50 PM SECONDARY Sensorineural hearing loss, bilateral MIGDALIA MUHAMMAD [facility] Plan of Treatment: Future Appointments (+ 6 months) and Future Tests (+/- 45 days) The Plan of Treatment section includes future care activities for the patient from all [place] treatmentfacilities. This section includes future appointments and future orders which are active, pending or scheduled. Future Appointments This section includes appointments that were scheduled to occur 6 months from the date of the Encounter, up to a maximum of 20 appointments. The data comes from all [place] treatment facilities. Appointment Date/Time Appointment Type Appointme nt Facility Name Aug 23, 2024 11:30 AM AMBULATORY - REHAB MEDICIN E [facility] Oct 08, 2024 10:30 AM AMBULATORY - MEDICINE [facility] Social History: Smoking Status (Most current) and Tobacco Use (All prior to encounter date) This section includes the most current, and the historical, smoking and tobacco- related health factors from the [place] facility where the Encounter took place. Current Smoking Status This section includes the most current smoking, or tobacco-related health factor, from the [place] facility where the Encounter took place. Date/Time Current Smoking Status Comment Reema ity Sep 28, 2020 01:54 PM [place]-TOBACCO FORMER USER [facility] Tobacco Use History This section includes a history of the smoking, or tobacco-related health factors, that were collected on or before the date of the Encounter. The data comes from the [place] facility where the Encounter took place. Date/Time Smoking Status/Tobacco Use Comment F acility Sep 28, 2020 01:54 PM [place]-TOBACCO QUIT 15 YRS OR MORE [facility] January 31, 2018 01:18 PM LIFETIME NON-TOBACCO USER [facility] Advance Directives: All historical and current Section Date Range: From patient's date of to the date document was created. This section includes ALL of a patient's completed or amended [place] Advance and Rescinded Directives. The entries below indicate that a directive exists for the patient, but an actual copy is not included with this document. The data comes from all [place] facilities. Date Advance Directives Provider Source Oct 10, 2019 ADVANCE DIRECTIVE DYLON ABBOTT [facility] Encounter Notes: All associated encounter notes This section contains the clinical notes associated to the Encounter. Date/Time Encounter Note(s) Provider Source Jun 26, 2024 02:47 PM AUDIOLOGY E & M NO TE: LOCAL TITLE: AUDIOLOGY CLINIC STANDARD TITLE: AUDIOLOGY E & M NOTE DATE OF NOTE: JUN 26, 2024@14:47 ENTRY DATE: JUN 26, 2024@14:47:36 AUTHOR: HENRIK MUHAMMAD EXP COSIGNER: URGENCY: STATUS: COMPLETED Dx: Sensorineural hearing loss, bilateral was seen today for a hearing aid follow-up appointment. He was accompanied by his given his verbal consent. [place] is currently wearing bilateral Amado Evolv AI micro RICs he was issued on 01/27/23. He reports he has been having more trouble hearing the TV and conversations lately. Both hearing aids were cleaned and checked. Initial listening check revealed the right aid was weak. All debris was removed from the microphones and the microphone covers and batteries were replaced. The left wax guard and dome were replaced. The right alliance manager and dome were replaced. Listening check post maintenance was positive for both hearing aids. will contact the clinic as needed. /luis/ Branden Mcneal, CCC-A Pocket Closer Signed: 06/26/2024 14:53 HENRIK MUHAMMAD [place] [facility]
--- OUTSIDE RECORDS SUMMARY | 2024-08-28 23:41 | XMS_ITS | Encounter Summary ---
Author Name [facility] [place] [facility] [place] Address [address] [place] [address] Care Team Providers Care Security Administrator Name Role Phone RACHEL MATA Primary Care [...] Alvarez's Name Patient's Relationship to Policy Alvarez [facility] ([facility]) MEDICARE ADVANTAGE [facility] ([facility]) Sep 18, 2019 [id number] Ana María SCHUMACHER PATIENT [facility] ([facility]) MEDICARE ADVANTAGE [facility] ([facility]) Nov 16, 2014 [id number] [phone] Ana María SCHUMACHER PATIENT Selected Encounter This section includes the information on record at [place] for the Encounter. Date/Time Encounter Type Encounter Description Reason Pro vider Source Sep 28, 2023 12:00 AM Outpatient Encounter EVENT (HISTORICAL) [facility] Encounter Template Text not used by [facility] Plan of Treatment: Future Appointments (+ 6 months) and Future Tests (+/- 45 days) The Plan of Treatment section includes future care activities for the patient from all [place] treatment[place]ilities. This section includes future appointments and future orders which are active, pending or scheduled. Future Appointments This section includes appointments that were scheduled to occur 6 months from the date of the Encounter, up to a maximum of 20 appointments. The data comes from all [place] treatment facilities. Appointment Date/Time Appointment Type Appointme nt Facility Name Oct 05, 2023 10:30 AM AMBULATORY - MEDICINE [facility] Lab Results: +/- 30 days of the encounter This section includes the Chemistry and Hematology Lab Results on record with [place] for the patient. Radiology Reports and Pathology Reports are provided separately, in subsequent sections. Lab Results This section contains the Chemistry/Hematology Results that were resulted 30 days before or 30 daysafter the date of the Encounter. Date/Time Source Result Type Result - Unit Interpretation Reference Range Comment Oct 05, 2023 11:07 AM [facility] CREATININE (eGFR 2020) Specimen Type: SERUM No comment entered. Ordering Provider: RACHEL MATA Report Released Date/Time: Oct 05, 2023 11:03 AM Reporting Lab: [address] [address] Performing Lab: [facility] [address] [address] CREATININE, Serum 0.84 mg/dL 0.50-1.40 eGFR(CKD-EPI 2020) >90 mL/min >60 Oct 05, 2023 11:07 AM [facility] CBC Specimen Type: BLOOD No comment entered. Ordering Provider: RACHEL MATA Report Released Date/Time: Oct 05, 2023 11:03 AM Reporting Lab: [address] [address] Performing Lab: [facility] [address] WBC 6.62 10*3/uL 4.50-11.00 RBC 4.74 10*6/uL [...] and tobacco- related health factors from the [place] facility where the Encounter took place. Current Smoking Status This section includes the most current smoking, or tobacco-related health factor, from the [place] facility where the Encounter took place. Date/Time Current Smoking Status Comment Reema ity Sep 28, 2020 01:54 PM VA-TOBACCO FORMER USER [facility] Tobacco Use History This section includes a history of the smoking, or tobacco-related health factors, that were collected on or before the date of the Encounter. The data comes from the [place] facility where the Encounter took place. Date/Time Smoking Status/Tobacco Use Comment F acility Sep 28, 2020 01:54 PM [place]-TOBACCO QUIT 15 YRS OR MORE [facility] January 31, 2018 01:18 PM LIFETIME NON-TOBACCO USER [facility] Advance Directives: All historical and current Section Date Range: From patient's date of to the date document was created. This section includes ALL of a patient's completed or amended [place] Advance and Rescinded Directives. The entries below indicate that a directive exists for the patient, but an actual copy is not included with this document. The data comes from all [place] facilities. Date Advance Directives Provider Source Oct 10, 2019 ADVANCE DIRECTIVE DYLON ABBOTT [facility] Encounter Notes: All associated encounter notes This section contains the clinical notes associated to the Encounter. Date/Time Encounter Note(s) Provider Source Sep 28, 2023 12:00 AM NONVA NOTE: LOCAL TITLE: NON-VA OUTPATIENT NOTES STANDARD TITLE: NONVA NOTE DATE OF NOTE: SEP 28, 2023 ENTRY DATE: 2023@16:22:14 AUTHOR: MILE VELEZ EXP COSIGNER: URGENCY: STATUS: COMPLETED VistA Imaging - Scanned Document SCANNED DOCUMENT SIGNATURE NOT REQUIRED Electronically Filed: 2023 by: MILE ALICIA [facility]
--- OUTSIDE RECORDS SUMMARY | 2024-08-28 23:41 | XMS_ITS | Encounter Summary ---
Author Name [facility] [place] Address [address] [place] [address] Care Team Providers Care Salesperson Children'S Shoes Name Role Phone RACHEL MAAT Primary Care Provider Graciela hatch Insurance Providers: [...] Alvarez's Name Patient's Relationship to Policy Alvarez [facility] ([facility]) MEDICARE ADVANTAGE [facility] ([facility]) Sep 18, 2019 [id number] Ana María SCHUMACHER PATIENT [facility] ([facility]) MEDICARE ADVANTAGE [facility] ([facility]) Nov 16, 2014 [id number] Ana María SCHUMACHER PATIENT Selected Encounter This section includes the information on record at [place] for the Encounter. Date/Time Encounter Type Encounter Description Reason Provider Source Jun 26, 2024 01:30 PM COMPRE OPH EXAM EST PT 1/> OPTOMETRY ICD-10-CM H25.813 Combined forms of age-related cataract, bilateral STEPHEN,TIBURCIO J IHE Encounter Template Text not used by VA Assessments - Encounter Diagnoses This section includes the primary and secondary diagnoses documented for the Encounter. Date/Time Primary/Secondary Diagnosis Diagnosis Name Provider Source Jun 26, 2024 02:00 PM PRIMARY Combined forms of age-related cataract, bilateral TIBURCIO STEPHEN [facility] Jun 26, 2024 02:00 PM SECONDARY Presbyopia TIBURCIO STEPHEN [facility] Plan of Treatment: Future Appointments (+ 6 months) and Future Tests (+/- 45 days) The Plan of Treatment section includes future care activities for the patient from all [place] treatmentfacilities. This section includes future appointments and future orders which are active, pending or scheduled. Future Appointments This section includes appointments that were scheduled to occur 6 months from the date of the Encounter, up to a maximum of 20 appointments. The data comes from all [place] treatment facilities. Appointment Date/Time Appointment Type Appointme nt Facility Name Aug 23, 2024 11:30 AM AMBULATORY - REHAB MEDICIN E [facility] Oct 08, 2024 10:30 AM [facility]ORY - MEDICINE [facility] Social History: Smoking Status (Most current) and Tobacco Use (All prior to encounter date) This section includes the most current, and the historical, smoking and tobacco- related health factors from the [place] facility where the Encounter took place. Current Smoking Status This section includes the most current smoking, or tobacco-related health factor, from the [place] facility where the Encounter took place. Date/Time Current Smoking Status Comment Reema haquey Sep 28, 2020 01:54 PM VA-TOBACCO FORMER USER [facility] Tobacco Use History This section includes a history of the smoking, or tobacco-related health factors, that were collected on or before the date of the Encounter. The data comes from the [place] facility where the Encounter took place. Date/Time Smoking Status/Tobacco Use Comment F acility Sep 28, 2020 01:54 PM VA-TOBACCO QUIT 15 YRS OR MORE [facility] January 31, 2018 01:18 PM LIFETIME NON-TOBACCO USER [facility] Advance Directives: All historical and current Section Date Range: From patient's date of to the date document was created. This section includes ALL of a patient's completed or amended VA Advance and Rescinded Directives. The entries below indicate that a directive exists for the patient, but an actual copy is not included with this document. The data comes from all [place] facilities. Date Advance Directives Provider Source Oct 10, 2019 ADVANCE DIRECTIVE DYLON ABBOTT [place] [facility] Encounter Notes: All associated encounter notes This section contains the clinical notes associated to the Encounter. Date/Time Encounter Note(s) Provider Source Jun 26, 2024 10:00 AM OPTOMETRY NOTE: LOCAL TITLE: OPTOMETRY NOTE STANDARD TITLE: OPTOMETRY NOTE DATE OF NOTE: JUN 26, 2024@10:00 ENTRY DATE: JUN 26, 2024@10:00:26 AUTHOR: TIBURCIO STEPHEN EXP COSIGNER: URGENCY: STATUS: COMPLETED Eye Examination for: TANISHA SCHUMACHER, 73 year old WHITE MALE JOEY: 9.26.23 Reason for Visit/CC: Patient here for CEE. Denies changes in vision or other complaints. Current Ocular Meds: OHx/HPI: 1. Verruca LLL 2. Combined cataract OU 3. RE, P OU (-) Pain: (-) FELTON: (-) Diplopia: (-) Flashes: (-) Floaters: (-) Amaurosis Fugax/Tia's: (-) Eye Injury: (+) Eye Surgery: poked OS playing volleyball (-) TBI FOHx: (-) Glaucoma (-) ARMD (-) Blindness MHx: Code Description G47.33 Obstructive sleep apnea ([facility] [id number]) Z79.01 Long-term current use of anticoagulant ([facility] [id number]) I48.91 Atrial fibrillation ([facility] [id number]) I10. Hypertension ([facility] [id number]) R69. History of total replacement of left hip joint ([facility] [id number]) N40.1 Benign prostatic hypertrophy ([facility] [id number]) C44.99 Skin cancer ([facility] [id number]) R69. History of shingles ([facility] [id number]) R69. Colonoscopy Screening (ICD-10-CM R69.) R69. History of Carcinoid Tumor (ICD-10-CM R69.) R69. NON VA Providers (ICD-10-CM R69.) E78.5 Hyperlipidemia ([facility] [id number]) SYSTEMIC MEDICATIONS/OCULAR MEDICATIONS: Active Outpatient Medications (including Supplies): Active Outpatient Medications Status 1) APIXABAN 5MG TAB TAKE ONE TABLET BY MOUTH TWICE DAILY ACTIVE FOR PREVENTION OF BLOOD CLOTS Active Non-VA Medications Status 1) Non-VA COENZYME Q10 CAP/TAB BY MOUTH ACTIVE 2) Non-VA EZETIMIBE 10MG TAB 10MG BY MOUTH ONCE DAILY ACTIVE 3) Non-VA FINASTERIDE 5MG TAB 5MG BY MOUTH ONCE DAILY ACTIVE 4) Non-VA FISH OIL 1000MG (500MG DHA/EPA) CAP 2000MG BY ACTIVE MOUTH 5) Non-VA METOPROLOL SUCCINATE 25MG SA TAB 25MG BY MOUTH ACTIVE ONCE DAILY 6) Non-VA PRAVASTATIN NA 40MG TAB 40MG BY MOUTH ONCE ACTIVE DAILY 7 Total Medications ALLERGIES: Patient has answered NKA VITALS (most recent, as listed in the electronic record): B/P: 122/72 (10/05/2023 10:34) Pulse: 64 (10/05/2023 10:34) Temperature: 98.4 F [36.9 C] (10/05/2023 10:34) Weight: 181.4 lb [82.28 kg] (10/05/2023 10:34) Height: 66 in [167.6 cm] (10/05/2023 10:34) BMI: BMI: 29.3 PERTINENT LABS: HEMOGLOBIN A1C TREND No data available Current Rx with last BCVA: OD: -1.75-1.85f519 -2 OS: -2.00-2.84f295 +2 Add: +2.25 DVA ( )sc ( x )cc - [x]phoropter []specs []CL OD: -2 OS: -1 Entrance Testing: Pupil: PERRL (-)APD EOM: SAFE OU, (-)Pain/Diplopia CVF: FTFC OU Subjective Refraction: OD: -1.75-1.14u707 20/20-1 OS: -2.25-2.87n887 20/20-2 Add: +2.25 SLE: Lids/Lashes: MGD OU Conjunctiva: white and quiet bulbar conj OU quiet palpebral conj OU Corneas: clear OU, arcus OU Iris: flat and clear OU, (+)TID 10:00 OS AC: D & Q OU Angles: 4x4 OU TAP @ 1:34pm OD 17 mmHg OS 17 mmHg [x][place] []iCare []GAT Last IOP: OD: 20 OS: 19 Dilating Drops: 1GTT 1 % Tropicamide OU & 1GTT 2.5% Phenylephrine OU (Pt. ed. on side effects, dilation warning given and verbal consent obtained) Patient advised not to drive if they feel they have any symptoms which could affect their ability to drive safely. Patient advised not to engage in any activities which could put themselves or others at risk if they feel they have any symptoms which could affect their ability to perform those activities safely. Dilated Fundus Exam: Vit: syneresis OU Lens: 1+ NSC OU, tr+ ACC OU C/D (Size and Rim Description) OD 0.30 pink and healthy OS 0.30 pink and healthy PPole OD clear OS clear Macula OD flat and clear OS flat and clear A/V: normal caliber OU Periphery: flat and intact (-)holes, tears, detachments 360 OU Assessment/Plan: 1. Combined Cataracts OU - not visually significant at present -Pt ed re today's findings and the importance of UV protection -Pt ed cataracts may cause reduction of BCVA and symptoms of glare -RTC sooner if vision declines or interferes with ADLs -[place] repeated back the plan and education. -Monitor 2. Refractive Error and Presbyopia OU -Rx updated and ordered per pt request SVx1 -Monitor RTC 2 years or earlier PRN Glasses adjusted/repaired in office: () Yes (x) No If yes, how many pairs: Medication Reconciliation: Outpatient: Has the patient been taking medications as documented in the EMLR? YES: The patient has been taking medications as documented in the EMLR. Essential Medication List for Review used to complete this medication reconciliation. INCLUDED IN THIS LIST: Alphabetical list of active outpatient prescriptions dispensed from this [place] (local) and dispensed from another [place] or [facility] facility (remote) as well as inpatient orders [...] whether with a VA or non-VA provider. Medication List: JLV Link Data on this list may not be complete. Please check JLV. Allergies/ADRs (Tool #5) FACILITY ALLERGY/ADR -------- No Remote Allergy/ADR Data available for this patient [facility] No Known Allergies Med. Reconciliation (Tool #1) INCLUDED IN THIS LIST: Alphabetical list of active outpatient prescriptions dispensed from this [place] (local) and dispensed from another [place] or [facility] facility (remote) as well as inpatient orders (local pending and active), local clinic medications, locally documented non-VA medications, and local prescriptions that have or been discontinued in the past 90 days. Non-VA Meds Last Documented On: Oct 05, 2023 NOTE The display of VA prescriptions dispensed from another [place] or [facility] facility (remote) is limited to active outpatient prescription entries matched to National Drug File at the originating site and may not include some items such as investigational drugs, compounds, etc. NOT INCLUDED IN THIS LIST: Medications self-entered by the patient into personal health records (i.e. Xpreso) are NOT included in this list. Non-VA medications documented outside this [place], remote inpatient orders (regardless of status) and remote clinic medications are NOT included in this list. The patient and provider must always discuss medications the patient is taking, regardless of where the medication was dispensed or obtained. OUTPT APIXABAN 5MG TAB (Status = Active) TAKE ONE TABLET BY MOUTH TWICE DAILY FOR PREVENTION OF BLOOD CLOTS Rx# [id number] Last Released: 06/06/24 Qty/Days Supply: 180/90 Rx Expiration Date: 12/05/24 Refills Remainin Indication: FOR PREVENTION OF BLOOD [...] DAILY Medication prescribed by Non-VA provider. Non-VA PRAVASTATIN NA 40MG TAB TAKE ONE TABLET BY MOUTH ONCE DAILY Patient wants to buy from Non-VA pharmacy. Medication prescribed by Non-VA provider. SUPPLIES PHARMACY TERMS AND POSSIBLE PATIENT ACTIONS INPT = [place] inpatient order IV = [place] intravenous medication OUTPT = [place] outpatient prescription PHARMACY POSSIBLE PATIENT TERMS EXPLANATION ACTIONS -------- ----- ACTIVE A prescription that can be If you have refills, filled at the local [place] pharmacy. you may request a refill of this prescription from your [place] pharmacy. CLINIC A medication you received during If you have questions a visit to a [place] clinic or about this medication emergency department. contact your [place] healthcare team. DISCONTINUED A prescription your provider has Contact your [place] stopped. It is no longer healthcare team if you available to be sent to you or need more of this picked up at the [place] pharmacy medication. window. A prescription which is too old Contact your VA to fill. This does not refer to healthcare team if you the expiration date of the need more of this medication in the container. medication. NON-VA A medication that came from If this medication someplace other than a VA information is pharmacy. This may be a incorrect or out of prescription from either the VA date, please tell your or non VA providers that was VA healthcare team. filled outside the VA. Or, it may be an goyq-txp-ypyekhl (OTC), herbal, dietary supplements or sample medication. ON HOLD An active prescription that will Contact your VA not be filled until pharmacy pharmacy when you need resolves the issue. more of this medication. PARKED An active prescription that will Contact your VA not be filled until the patient pharmacy when you need requests it. this medication. PENDING This prescription order has been If you have been sent to the pharmacy for review instructed to start and is not ready yet. this medication now, contact your VA pharmacy. SUSPENDED An active prescription that is Contact your VA not scheduled to be filled yet. pharmacy if you need You should receive it before this medication now. you run out. (x) Printed Medication Reconciliation List Offered and Declined by () Medication Reconciliation List Printed for at Exam () Optometry HT Please Print and Mail Copy of Medication Reconciliation List () AMSA Please Print and Mail Copy of Medication Reconciliation List /es/ TIBURCIO STEPHEN OD RESEARCH BIOSTATISTICIAN Signed: 06/26/2024 14:01 TIBURCIO STEPHEN [place] [facility]
--- OUTSIDE RECORDS SUMMARY | 2024-08-28 23:41 | XMS_ITS | Encounter Summary ---
Author Name [facility] [place] Organization [place] Address [address] [place] [address] Care Team Providers Care Laboratory Technologist Name Role Phone RACHEL MATA Primary Care [...] Alvarez's Name Patient's Relationship to Policy Alvarez [facility] ([facility]) MEDICARE ADVANTAGE [facility] ([facility]) Sep 18, 2019 [id number] [phone] Ana María SCHUMACHER PATIENT [facility] ([facility]) MEDICARE ADVANTAGE [facility] ([facility]) Nov 16, 2014 [id number] Ana María SCHUMACHER PATIENT Selected Encounter This section includes the information on record at [place] for the Encounter. Date/Time Encounter Type Encounter Description Reason Pro vider Source Nov 30, 2023 12:00 AM Outpatient Encounter EVENT (HISTORICAL) IHE Encounter Template Text not used by VA Social History: Smoking Status (Most current) and Tobacco Use (All prior to encounter date) This section includes the most current, and the historical, smoking and tobacco- related health factors from the [place] facility where the Encounter took place. Current Smoking Status This section includes the most current smoking, or tobacco-related health factor, from the [place] facility where the Encounter took place. Date/Time Current Smoking Status Comment Reema cota Sep 28, 2020 01:54 PM VA-TOBACCO FORMER USER [facility] Tobacco Use History This section includes a history of the smoking, or tobacco-related health factors, that were collected on or before the date of the Encounter. The data comes from the [place] facility where the Encounter took place. Date/Time Smoking Status/Tobacco Use Comment F accresencio Sep 28, 2020 01:54 PM VA-TOBACCO QUIT 15 YRS OR MORE [facility] January 31, 2018 01:18 PM LIFETIME NON-TOBACCO USER [facility] Advance Directives: All historical and current Section Date Range: From patient's date of to the date document was created. This section includes ALL of a patient's completed or amended [place] Advance and Rescinded Directives. The entries below indicate that a directive exists for the patient, but an actual copy is not included with this document. The data comes from all [place] facilities. Date Advance Directives Provider Source Oct 10, 2019 ADVANCE DIRECTIVE DYLON ABBOTT [facility] Encounter Notes: All associated encounter notes This section contains the clinical notes associated to the Encounter. Date/Time Encounter Note(s) Provider Source Nov 30, 2023 12:00 AM NURSING ADMINISTRA TIVE NOTE: LOCAL TITLE: NON-VA PRESCRIPTION STANDARD TITLE: NURSING ADMINISTRATIVE NOTE DATE OF NOTE: NOV 30, 2023 ENTRY DATE: DEC 08, 2023@10:16:41 AUTHOR: MARYCRUZ TAPIA EXP COSIGNER: URGENCY: STATUS: COMPLETED VistA Imaging - Scanned Document SCANNED DOCUMENT SIGNATURE NOT REQUIRED Electronically Filed: 12/08/2023 by: MARYCRUZ GATICA [facility]
--- OUTSIDE RECORDS SUMMARY | 2024-08-28 23:41 | XMS_ITS ---
Author Name [facility] [place] Organization [place] Address [address] [place] [address] Care Team Providers Care Drama Professor Name Role Phone RACHEL MATA Primary Care [...] Alvarez's Name Patient's Relationship to Policy Alvarez [facility] ([facility]) MEDICARE ADVANTAGE [facility] ([facility]) Sep 18, 2019 [id number] Ana María SCHUMACHER PATIENT [facility] ([facility]) MEDICARE ADVANTAGE [facility] ([facility]) Nov 16, 2014 [id number] Ana María SCHUMACHER PATIENT Selected Encounter This section includes the information on record at [place] for the Encounter. Date/Time Encounter Type Encounter Description Reason Provider Source Jun 26, 2024 02:56 PM FIT SPECTACLES MONOFOCAL OPTOMETRY ICD-10-CM Z46.0 Encounter for fit/adjst of spectacles and contact lenses TIBURCIO STEPHEN Encounter Template Text not used by VA Assessments - Encounter Diagnoses This section includes the primary and secondary diagnoses documented for the Encounter. Date/Time Primary/Secondary Diagnosis Diagnosis Name Provider Source Jun 26, 2024 02:56 PM PRIMARY Encounter for fit/adjst of spectacles and contact lenses MARSHADEBBIE Kayleigh [facility] Plan of Treatment: Future Appointments (+ 6 months) and Future Tests (+/- 45 days) The Plan of Treatment section includes future care activities for the [facility] [place] [facility] This section includes future appointments and future orders which are active, pending or scheduled. Future Appointments This section includes appointments that were scheduled to occur 6 months from the date of the Encounter, up to a maximum of 20 appointments. The data comes from all [place] treatment facilities. Appointment Date/Time Appointment Type Appointme nt Facility Name Aug 23, 2024 11:30 AM AMBULATORY - REHAB MEDICIN E [facility] Oct 08, 2024 10:30 AM AMBULATORY - MEDICINE [facility] Social History: Smoking Status (Most current) and Tobacco Use (All prior to encounter date) This section includes the most current, and the historical, smoking and tobacco- related health factors from the [place] facility where the Encounter took place. Current Smoking Status This section includes the most current smoking, or tobacco-related health factor, from the [place] facility where the Encounter took place. Date/Time Current Smoking Status Comment Facil ity Sep 28, 2020 01:54 PM [place]-TOBACCO FORMER USER [facility] Tobacco Use History This section includes a history of the smoking, or tobacco-related health factors, that were collected on or before the date of the Encounter. The data comes from the [place] facility where the Encounter took place. Date/Time Smoking Status/Tobacco Use Comment F acility Sep 28, 2020 01:54 PM [place]-TOBACCO QUIT 15 YRS OR MORE [facility] January 31, 2018 01:18 PM LIFETIME NON-TOBACCO USER [facility] Advance Directives: All historical and current Section Date Range: From patient's date of to the date document was created. This section includes ALL of a patient's completed or amended [place] Advance and Rescinded Directives. The entries below indicate that a directive exists for the patient, but an actual copy is not included with this document. The data comes from all [place] facilities. Date Advance Directives Provider Source Oct 10, 2019 ADVANCE DIRECTIVE DYLON ABBOTT [facility] Encounter Notes: All associated encounter notes This section contains the clinical notes associated to the Encounter. Date/Time Encounter Note(s) Provider Source Jun 26, 2024 02:56 PM OPTOMETRY NOTE: LOCAL TITLE: OPTOMETRY NOTE STANDARD TITLE: OPTOMETRY NOTE DATE OF NOTE: JUN 26, 2024@14:56 ENTRY DATE: JUN 26, 2024@14:56:19 AUTHOR: PERLITA BALDERAS EXP COSIGNER: URGENCY: STATUS: COMPLETED OPTOMETRY NOTE Has ADDENDA The quote provided below is for informational purposes only. Please verify prior to the creation of a purchase order. TANISHA SCHUMACHER [id number] RX INFORMATION OD -1.75 -1.00 X105 Add:0.00 Pzm:0.00 Dir: Prz2:0.00 Dir2: OS -2.25 -2.25 X65 Add:0.00 Pzm:0.00 Dir: Prz2:0.00 Dir2: FITTING INFORMATION FPD:76 NPD:73 [place]:R: L: SEG HT:R: L: Tint:None Shade:None VA Billable Items FRAME: [address] [id number] Right Lens: POLY SINGLE VISION PHOTOCHROMATIC EDGE 1.586 POLY Left Lens: POLY SINGLE VISION PHOTOCHROMATIC EDGE 1.586 POLY KLEAR ANTI-REFLECTIVE COATING CLIN items [employer] - AR Coating 0001 - Single Vision - Glass Plastic Poly 0005 - Transition /luis/ PERLITA BALDERAS SIZER MACHINE Signed: 06/26/2024 14:56 Receipt Acknowledged By: 06/26/2024 15:13 /luis/ Debbie Benjamin LPN Licensed Practical Nurse 06/26/2024 ADDENDUM STATUS: COMPLETED PDS geospatial program management officer fit 1 SV eyeglasses on 06/26/2024. OPT HT entered consult(s) as requested for provider signature. /luis/ Debbie Benjamin LPN Licensed Practical Nurse Signed: 06/26/2024 15:15 PERLITA BALDERAS CN[facility]L [facility]
--- OUTSIDE RECORDS SUMMARY | 2024-08-28 23:41 | XMS_ITS | Encounter Summary ---
Author Name [facility] [place] Organization [place] Address [address] [place] [address] Care Team Providers Care Allied Health Teacher Name Role Phone RACHEL MATA Primary [...] Patient's Relationship to Policy Alvarez [facility] ([facility] MEDICARE ADVANTAGE [facility] ([facility] Sep 18, 2019 [id number] [phone] Ana María SCHUMACHER PATIENT [facility] ([facility] MEDICARE ADVANTAGE [facility] ([facility] Nov 16, 2014 [id number] [phone] Ana María SCHUMACHER PATIENT Selected Encounter This section includes the information on record at [place] for the Encounter. Date/Time Encounter Type Encounter Description Reason Provider Source Aug 23, 2024 11:30 AM HEARING AID FITTING/CHECKIN G AUDIOLOGY ICD-10-CM Z46.1 Encounter for fitting and adjustment of hearing aid KIAN SOSA Encounter Template Text not used by [place] Assessments - Encounter Diagnoses This section includes the primary and secondary diagnoses documented for the Encounter. Date/Time Primary/Secondary Diagnosis Diagnosis Name Provider Source Aug 23, 2024 11:50 AM PRIMARY Encounter for fitting and adjustment of hearing aid [facility]PHANE SOSA [facility] Aug 23, 2024 11:50 AM SECONDARY Sensorineural hearing loss, bilateral STEPHANE SOSA [facility] Plan of Treatment: Future Appointments (+ 6 months) and Future Tests (+/- 45 days) The Plan of Treatment section includes future care activities for the patient from all [place] treatmentfacilities. This section includes future appointments and future orders which are active, pending or scheduled. Future Appointments This section includes appointments that were scheduled to occur 6 months from the date of the Encounter, up to a maximum of 20 appointments. The data comes from all [place] treatment facilities. Appointment Date/Time Appointment Type Appointme nt Facility Name Oct 08, 2024 10:30 AM AMBULATORY - MEDICINE [facility] Social History: Smoking Status (Most current) and Tobacco Use (All prior to encounter date) This section includes the most current, and the historical, smoking and tobacco- related health factors from the [place] facility where the Encounter took place. Current Smoking Status This section includes the most current smoking, or tobacco-related health factor, from the [place] facility where the Encounter took place. Date/Time Current Smoking Status Comment Facil ity Sep 28, 2020 01:54 PM [place]-TOBACCO FORMER USER [facility] Tobacco Use History This section includes a history of the smoking, or tobacco-related health factors, that were collected on or before the date of the Encounter. The data comes from the [place] facility where the Encounter took place. Date/Time Smoking Status/Tobacco Use Comment F acility Sep 28, 2020 01:54 PM HI-TOBACCO QUIT 15 YRS OR MORE [facility] January 31, 2018 01:18 PM LIFETIME NON-TOBACCO USER [facility] Advance Directives: All historical and current Section Date Range: From patient's date of to the date document was created. This section includes ALL of a patient's completed or amended [place] Advance and Rescinded Directives. The entries below indicate that a directive exists for the patient, but an actual copy is not included with this document. The data comes from all [place] facilities. Date Advance Directives Provider Source Oct 10, 2019 ADVANCE DIRECTIVE DYLON ABBOTT [facility] Encounter Notes: All associated encounter notes This section contains the clinical notes associated to the Encounter. Date/Time Encounter Note(s) Provider Source Aug 23, 2024 07:32 AM AUDIOLOGY E & M NOTE: LOCAL TITLE: AUDIOLOGY CLINIC STANDARD TITLE: AUDIOLOGY E & M NOTE DATE OF NOTE: AUG 23, 2024@07:32 ENTRY DATE: AUG 23, 2024@07:33:01 AUTHOR: KIAN SOSA COSIGNER: URGENCY: STATUS: COMPLETED Dx CODE: Z46.1-Encounter for Fitting/Adjusting Hearing Aid(s); H90.3- Sensorineural Hearing Loss, Bilateral APPOINTMENT TYPE: Hearing Aid Programming HISTORY/BACKGROUND: The patient was seen for a hearing aid follow-up appointment, unaccompanied. He was fit with [employer]ol[employer] AI micro RICs on 01/27/23. He reports he is getting static from the right hearing aid. After discussion, it was determined is getting feedback rather than static from the device. HEARING AID CHECK: The hearing aids were cleaned and checked. Switched to a size 9mm occluded dome bilaterally. HEARING AID PROGRAMMING: Connected hearing aids to software which indicated right hearing aid settings needed to be cleared and reset. Once this was completed, user settings were restored and feedback clinical education manager was completed. No feedback was heard in clinic. A [facility] repair box was mailed to should he hear static after today's adjustments. PLAN/RECOMMENDATION(S): 1. Follow up as needed. * Patient Education Education provided on the following topics: Hearing aids Education provided to: P Response to Education: VU Trent Patient P Family F Significant Other SO Verbalizes Understanding VU Returns Demonstration RD Performs Independently PI Lacks Comprehension LC Refused Education RE Not Applicable NA * /luis/ KIAN SOSA STAFF APPLIQUE SEWER Signed: 08/23/2024 11:50 KIAN SOSA [facility] [place] [facility]
--- OUTSIDE RECORDS SUMMARY | 2024-08-28 23:41 | XMS_ITS ---
Author Name [facility] Organization Unknown History of Medication Use Medication Directions Dispensed Refills Start Date End Date Stat metoprolol succinate (TOPROL-XL) 24 hr tablet 25 mg TAKE 1 TABLET BY MOUTH DAILY 07/16/2024 09/17/9999 active Coenzyme Q10 (CO Q 10) 100 MG CAPS Take 2 caplet by mouth every evening. 07/16/2024 09/17/9999 active sildenafil (VIAGRA) 100 MG tablet Take 1 tablet (100 mg total) by mouth daily as needed. 07/16/2024 09/17/9999 active Forman-3 Fatty Acids (FISH OIL) 1000 MG CAPS Take 2 caplet by mouth daily. 07/16/2024 09/17/9999 active atorvastatin (LIPITOR) tablet 10 mg Take 1 tablet (10 mg total) by mouth every evening. 07/16/2024 09/17/9999 active apixaban (ELIQUIS) 5 MG TABS tablet Take 1 tablet (5 mg total) by mouth every 12 (twelve) hours. 07/16/2024 09/17/9999 active finasteride (PROSCAR) 5 MG tablet Take 1 tablet (5 mg total) by mouth daily. New medication started by urologist 06/20/2019 07/16/2024 09/17/9999 active Aspirin 81MG Oral Tablet Delayed Release Aspirin 81 MG Oral Tablet Delayed Release QTY: 0 tablet Days: 0 Refills: 0 Written: 12/03/18 Patient Instructions: 07/06/2024 09/17/9999 aborted Forman-3 Fatty Acids (FISH OIL) 1000 MG CAPS Take 2 caplet by mouth daily. 07/11/2024 09/17/9999 active Eliquis 5 MG Oral Tablet Eliquis 5 MG Oral Tablet QTY: 0 tablet Days: 0 Refills: 0 Written: 07/04/24 Patient Instructions: 07/06/2024 09/17/9999 active oxyCODONE HCl 5 MG Oral Tablet oxyCODONE HCl 5 MG Oral Tablet QTY: 15 tablet Days: 7 Refills: 0 Written: 07/14/19 Patient Instructions: 1 tab every 12 hours as needed 07/06/2024 09/17/9999 completed Metoprolol Succinate ER 25 MG Oral Tablet Extended Release 24 Hour Metoprolol Succinate ER 25 MG Oral Tablet Extended Release 24 Hour QTY: 30 tablet Days: 30 Refills: 0 Written: 10/01/19 Patient Instructions: 07/06/2024 09/17/9999 aborted Metoprolol Succinate ER 25 MG Oral Tablet Extended Release 24 Hour Metoprolol Succinate ER 25 MG Oral Tablet Extended Release 24 Hour QTY: 100 tablet Days: 100 Refills: 0 Written: 05/15/24 Patient Instructions: 07/06/2024 09/17/9999 active tamsulosin (FLOMAX) 0.4 MG CAPS Take 1 capsule (0.4 mg total) by mouth daily. 07/11/2024 09/17/9999 aborted atorvastatin (LIPITOR) tablet 10 mg Take 1 tablet (10 mg total) by mouth every evening. 07/11/2024 09/17/9999 active Lipitor 10MG Oral Tablet Lipitor 10 MG Oral Tablet QTY: 0 tablet Days: 0 Refills: 0 Written: 12/03/18 Patient Instructions: 07/06/2024 09/17/9999 aborted Eliquis 5 MG Oral Tablet Eliquis 5 MG Oral Tablet QTY: 0 tablet Days: 0 Refills: 0 Written: 07/01/21 Patient Instructions: 07/06/2024 09/17/9999 aborted apixaban (ELIQUIS) 5 MG TABS tablet Take 1 tablet (5 mg total) by mouth every 12 (twelve) hours. 07/11/2024 09/17/9999 active Amoxicillin 500 MG Oral Capsule Amoxicillin 500 MG Oral Capsule QTY: 8 capsule Days: 2 Refills: 1 Written: 10/31/19 Patient Instructions: Take four capsules one hour prior to procedure 07/06/2024 09/17/9999 aborted Mupirocin 2% External Ointment Mupirocin 2% External Ointment QTY: 1 tube Days: 5 Refills: 0 Written: 06/04/19 Patient Instructions: Beginning five days before surgery, apply to both nares (nostrils) twice a day 07/06/2024 09/17/9999 aborted finasteride (PROSCAR) 5 MG tablet Take 1 tablet (5 mg total) by mouth daily. New medication started by urologist 06/20/2019 07/11/2024 09/17/9999 active Fish Oil Oral Capsule Fish Oil Oral Capsule QTY: 0 capsule Days: 0 Refills: 0 Written: 12/03/18 Patient Instructions: 07/06/2024 09/17/9999 aborted Pravastatin Sodium 80 MG Oral Tablet Pravastatin Sodium 80 MG Oral Tablet QTY: 100 tablet Days: 100 Refills: 0 Written: 06/09/24 Patient Instructions: 07/06/2024 09/17/9999 active sildenafil (VIAGRA) 100 MG tablet Take 1 tablet (100 mg total) by mouth daily as needed. 07/11/2024 09/17/9999 active Coenzyme Q10 (CO Q 10) 100 MG CAPS Take 2 caplet by mouth every evening. 07/11/2024 09/17/9999 active metoprolol succinate (TOPROL-XL) 24 hr tablet 25 mg TAKE 1 TABLET BY MOUTH DAILY 07/11/2024 09/17/9999 active Ezetimibe 10 MG Oral Tablet Ezetimibe 10 MG Oral Tablet QTY: 100 tablet Days: 100 Refills: 0 Written: 05/15/24 Patient Instructions: 07/06/2024 09/17/9999 active Atorvastatin Calcium 10MG Oral Tablet Atorvastatin Calcium 10 MG Oral Tablet QTY: 90 tablet Days: 90 Refills: 0 Written: 11/23/18 Patient Instructions: 07/06/2024 09/17/9999 aborted Finasteride 5 MG Oral Tablet Finasteride 5 MG Oral Tablet QTY: 0 tablet Days: 0 Refills: 0 Written: 11/21/19 Patient Instructions: 07/06/2024 09/17/9999 aborted amoxicillin (AMOXIL) 500 MG capsule TAKE 4 CAPSULES BY MOUTH ONE HOUR PRIOR TO PROCEDURE 07/11/2024 09/17/9999 aborted Finasteride 5 MG Oral Tablet Finasteride 5 MG Oral Tablet QTY: 100 tablet Days: 100 Refills: 0 Written: 04/09/24 Patient Instructions: 07/06/2024 09/17/9999 active amLODIPine-Atorvas tatin 10-10MG Oral Tablet amLODIPine-Atorvas tatin 10-10 MG Oral Tablet QTY: 90 tablet Days: 90 Refills: 0 Written: 11/23/18 Patient Instructions: 07/06/2024 09/17/9999 aborted Tamsulosin HCl 0.4 MG Oral Capsule Tamsulosin HCl 0.4 MG Oral Capsule QTY: 90 capsule Days: 90 Refills: 0 Written: 12/20/19 Patient Instructions: 07/06/2024 09/17/9999 aborted Multiple Vitamins-Minerals (MULTIVITAMIN ADULT, MINERALS, PO) Take by mouth. 06/02/2024 active pravastatin (PRAVACHOL) 80 MG tablet Take 1 tablet (80 mg total) by mouth daily. 12/07/2023 active ezetimibe (ZeTIA) 10 MG tablet Take 1 tablet (10 mg total) by mouth daily. 09/01/2022 active sildenafil (VIAGRA) 100 MG tablet Take 1 tablet (100 mg total) by mouth daily as needed for erectile dysfunction. 07/01/2022 active coenzyme Q10 (CO Q 10) 100 MG capsule Take by mouth. 12/07/2022 ac tive finasteride (PROSCAR) 5 MG tablet Take 1 tablet (5 mg total) by mouth. 07/01/2022 active metoPROLOL SUCCINATE (TOPROL-XL) 25 MG 24 hr tablet TAKE 1 TABLET BY MOUTH DAILY 07/01/2022 aborted coenzyme Q10 (CO Q 10) 100 MG capsule Take by mouth. 07/01/2022 ac tive amoxicillin (AMOXIL) 500 MG capsule Take 1 capsule (500 mg total) by mouth as needed (pre dental). 07/01/2022 active pravastatin (PRAVACHOL) 40 MG tablet Take 1 tablet (40 mg total) by mouth daily. 09/30/2023 active atorvastatin (LIPITOR) 40 MG tablet Take 1 tablet (40 mg total) by mouth daily. 07/01/2022 aborted atorvastatin (LIPITOR) 20 MG tablet Take 1 tablet (20 mg total) by mouth daily. 07/01/2022 active metoPROLOL SUCCINATE (TOPROL-XL) 25 MG 24 hr tablet Take 1 tablet (25 mg total) by mouth daily. 08/13/2022 active omega-3 fatty acids (FISH OIL) 1000 MG Cap capsule Take by mouth. 07/01/2022 active pravastatin (PRAVACHOL) 20 MG tablet Take 1 tablet (20 mg total) by mouth daily. 02/09/2023 aborted apixaban (Eliquis) 5 MG tablet Take 1 tablet (5 mg total) by mouth 2 (two) times a day. 07/01/2022 active atorvastatin (LIPITOR) 40 MG tablet Take 0.5 tablets (20 mg total) by mouth daily. 09/01/2022 aborted Problems Problem Status Onset Date Problem Type Date of Resolution Source Hyperlipidemia active 2019-12-[address] BPH (benign prostatic hyperplasia) active 2019-12-29 ProblemAct [facility] Hypertrophic cardiomyopathy active 2021-01-07 ProblemAct [facility] Lumbar spondylosis active 2024-07-09 ProblemAct [facility] Hypertensive disorder, systemic arterial (disorder) active ProblemAct [facility] Snoring active 2021-11-29 ProblemAct [facility] Fatigue active 2021-11-29 ProblemAct [facility] PAF (paroxysmal atrial fibrillation) active 2021-01-07 ProblemAct [facility] NSVT (nonsustained ventricular tachycardia) active 2021-01-07 ProblemAct [facility] Hyperlipidemia (disorder) active ProblemAct [facility] Syncope and collapse active 2019-12-29 ProblemAct [facility] Hip Joint Replacement Other Means; Hip Joint Replacement By active ProblemAct [facility] Osteoarthritis of left hip active 2019-07-08 ProblemAct [facility] Elevated coronary artery calcium score active EncounterDiagnosisAct [facility] CAROLEE (obstructive sleep apnea) active 2021-11-29 ProblemAct [facility] Back muscle spasm active 2024-08-01 ProblemAct [facility] Low back pain active 2024-08-01 ProblemAct [facility] Degeneration of intervertebral disc of lumbar region with discogenic back pain active 2024-07-09 ProblemAct [facility] Atrial fibrillation (disorder) active ProblemAct [facility] Hypertrophic cardiomyopathy (disorder) active ProblemAct [facility]
== END 2024-08-28 10:07 | disposition home or self-care (01) ==
PROVIDERS: PCP Nurse Practitioner Family; Visit Provider Urology
DX: R39.12 Poor urinary stream (principal); N32.0 Bladder-neck obstruction; Z13.9 Encounter for screening, unspecified
CPT/HCPCS: 99214

== ENCOUNTER → 2024-08-28 09:18 | Outpatient (BNVA) | payer MEDICARE, SELFPAY | PROVIDERS: PCP Nurse Practitioner Family; Visit Provider Urology | DX: R39.12 Poor urinary stream (principal); N32.0 Bladder-neck obstruction | CPT/HCPCS: 51798; 81003; 99212 ==

== ENCOUNTER 2024-10-08 07:25 | Outpatient (REF) | payer MEDICARE, SELFPAY ==
--- NOTE | ~2024-10-08 | MR_ITS ---
EXAMINATION: MR LUMBAR SPINE WITHOUT IV CONTRAST History: G37.9 - Demyelinating disease of central nervous system, unspecified Technique: Sagittal T1, T2 and STIR, and axial T1 and T2 weighted images of the lumbar spine were obtained per departmental protocol. Comparison: Correlation is made with plain films of the lumbar spine dated 08/17/2023. Findings: The vertebral bodies maintain normal height and marrow signal intensity. There is slight anterolisthesis of L4 on L5. There is severe degenerative disc disease at this level with disc desiccation, loss of disc height and endplate changes. Milder changes are noted at the remaining levels. At T12-L1,there is a minimal disc bulge. There is no evidence of disc herniation, central spinal stenosis, or neural foraminal narrowing. At L1-2, there is moderate osteoarthritis of the facet joints without evidence of disc herniation, central spinal stenosis, or neural foraminal narrowing. At L2-3, there is mild endplate spurring. There is facet and ligament flavum hypertrophy causing narrowing of the inferior recesses of the bilateral neural foramen, left greater than right. There is no central spinal stenosis. At L3-4, there is a mild disc bulge. There is facet osteoarthritis causing left neural foraminal stenosis and narrowing of the inferior recesses of the right neural foramen. At L4-5, there is osteoarthritis of the facet joints causing left neural foraminal stenosis and narrowing of the inferior recess of the right neural foramen. At L5-S1, there is osteoarthritis of the facet joints without central spinal or neural foraminal stenosis. The conus terminates at the T12-L1 level and demonstrates normal signal intensity. The visualized paraspinal soft tissues are unremarkable. MR/MR lumbar spine wo con Impression: Degenerative changes of the lumbar spine as described. Electronically signed by: Nik Carlisle MD 10/08/2024 09:17 AM EST
--- NOTE | ~2024-10-08 | MR_ITS ---
EXAMINATION: MR BRAIN WITHOUT IV CONTRAST HISTORY: R26.9 - Unspecified abnormalities of gait and mobility TECHNIQUE: Sagittal T1, and axial T1, FLAIR, T2, gradient echo, and diffusion weighted MR images of the brain were obtained. COMPARISON: Comparison is made with the prior examination dated 10/04/2023. FINDINGS: There is diffuse prominence of the ventricular system and cortical sulci, consistent with atrophy. This appears to involve the frontal and temporal lobes more than the parietal lobes. Periventricular and subcortical white matter hyperintensities are noted on the FLAIR and T2-weighted images which are nonspecific, but often seen in the setting of small vessel ischemic disease. There is no mass effect or midline shift. No intra or extra-axial fluid collections are identified. There are no foci of restricted diffusion. Normal vascular flow voids are noted in the basilar and carotid arteries. There is mucosal thickening in the bilateral maxillary sinuses. MR/MR head/brain wo con IMPRESSION: Diffuse cerebral atrophy, greatest involving the frontal and temporal lobes. Findings consistent with small vessel ischemic disease of the white matter as described. No acute intracranial abnormality. Electronically signed by: Nik Carlisle MD 10/08/2024 08:40 AM EST
--- OUTSIDE RECORDS SUMMARY | 2024-10-08 07:28 | XMS_ITS ---
Author Name [facility] [place] Organization [place] Address [address] [place] [address] Care Team Providers Care Flight Manager Name Role Phone RACHEL MATA Primary Care [...] Alvarez's Name Patient's Relationship to Policy Alvarez [facility] ([facility]) MEDICARE ADVANTAGE [facility] ([facility]) Sep 18, 2019 [id number] [phone] Ana María SCHUMACHER PATIENT [facility] ([facility]) MEDICARE ADVANTAGE [facility] ([facility]) Nov 16, 2014 [id number] Ana María SCHUMACHER PATIENT Selected Encounter This section includes the information on record at [place] for the Encounter. Date/Time Encounter Type Encounter Description Reason Provider Source Aug 23, 2024 11:30 AM HEARING AID FITTING/CHECKIN G AUDIOLOGY ICD-10-CM Z46.1 Encounter for fitting and adjustment of hearing aid KIAN SOSA Encounter Template Text not used by [place] Assessments - Encounter Diagnoses This section includes the primary and secondary diagnoses documented for the Encounter. Date/Time Primary/Secondary Diagnosis Diagnosis Name Provider Source Aug 23, 2024 11:50 AM PRIMARY Encounter for fitting and adjustment of hearing aid [facility] Aug 23, 2024 11:50 AM SECONDARY Sensorineural hearing loss, bilateral STEPHANE SOSA [facility] Plan of Treatment: Future Appointments (+ 6 months) and Future Tests (+/- 45 days) The Plan of Treatment section includes future care activities for the patient from all [place] treatmentfacilities. This section includes future appointments and future orders which are active, pending or scheduled. Future Appointments This section includes appointments that were scheduled to occur 6 months from the date of the Encounter, up to a maximum of 20 appointments. The data comes from all [place] treatment facilities. Appointment Date/Time Appointment Type Appointme nt Facility Name Oct 08, 2024 10:30 AM AMBULATORY - MEDICINE [facility] Social History: Smoking Status (Most current) and Tobacco Use (All prior to encounter date) This section includes the most current, and the historical, smoking and tobacco- related health factors from the [place] facility where the Encounter took place. Current Smoking Status This section includes the most current smoking, or tobacco-related health factor, from the [place] facility where the Encounter took place. Date/Time Current Smoking Status Comment Facil ity Sep 28, 2020 01:54 PM [place]-TOBACCO FORMER USER [facility] Tobacco Use History This section includes a history of the smoking, or tobacco-related health factors, that were collected on or before the date of the Encounter. The data comes from the [place] facility where the Encounter took place. Date/Time Smoking Status/Tobacco Use Comment F acility Sep 28, 2020 01:54 PM IN-TOBACCO QUIT 15 YRS OR MORE [facility] January 31, 2018 01:18 PM LIFETIME NON-TOBACCO USER [facility] Advance Directives: All historical and current Section Date Range: From patient's date of to the date document was created. This section includes ALL of a patient's completed or amended [place] Advance and Rescinded Directives. The entries below indicate that a directive exists for the patient, but an actual copy is not included with this document. The data comes from all [place] facilities. Date Advance Directives Provider Source Oct 10, 2019 ADVANCE DIRECTIVE DYLON ABBOTT [facility] Encounter Notes: All associated encounter notes This [...] follow-up appointment, unaccompanied. He was fit with [employer] AI micro RICs on 01/27/23. He [...] completed, user settings were restored and feedback pricing manager was completed. No feedback was heard in clinic. A [facility] repair box was mailed to should he [...] Applicable NA * /luis/ KIAN SOSA STAFF HYDRAULIC PRESS TENDER Signed: 08/23/2024 11:50 KIAN SOSA [facility] [place] [facility]
--- OUTSIDE RECORDS SUMMARY | 2024-10-08 07:28 | XMS_ITS ---
Author Name [facility] [place] Organization [place] Address [address] [place] [address] Care Team Providers Care Accordion Repairer Name Role Phone RACHEL MATA Primary Care [...] Name Patient's Relationship to Policy Alvarez [facility] ([facility]) MEDICARE ADVANTAGE [facility] ([facility]) Sep 18, 2019 [id number] Ana María SCHUMACHER PATIENT [facility] ([facility]) MEDICARE ADVANTAGE [facility] ([facility]) Nov 16, 2014 [id number] [phone] Ana María SCHUMACHER PATIENT Selected Encounter This section includes the information on record at [place] for the Encounter. Date/Time Encounter Type Encounter Description Reason Pro vider Source Nov 30, 2023 12:00 AM Outpatient Encounter EVENT (HISTORICAL) [facility] Encounter Template Text not used by [facility] Social History: Smoking Status (Most current) and Tobacco Use (All prior to encounter date) This section includes the most current, and the historical, smoking and tobacco- related health factors from the [place] facility where the Encounter took place. Current Smoking Status This section includes the most current smoking, or tobacco-related health factor, from the [place] facility where the Encounter took place. Date/Time Current Smoking Status Comment Reema cota Sep 28, 2020 01:54 PM VA-TOBACCO FORMER USER [facility] Tobacco Use History This section includes a history of the smoking, or tobacco-related health factors, that were collected on or before the date of the Encounter. The data comes from the [place] facility where the Encounter took place. Date/Time Smoking Status/Tobacco Use Comment F accresencio Sep 28, 2020 01:54 PM VA-TOBACCO QUIT 15 YRS OR MORE [facility] January 31, 2018 01:18 PM LIFETIME NON-TOBACCO USER [facility] Advance Directives: All historical and current Section Date Range: From patient's date of to the date document was created. This section includes ALL of a patient's completed or amended CT Advance and Rescinded Directives. The entries below indicate that a directive exists for the patient, but an actual copy is not included with this document. The data comes from all [place] facilities. Date Advance Directives Provider Source Oct 10, 2019 ADVANCE DIRECTIVE DYLON ABBOTT [facility] Encounter Notes: All associated encounter notes [...] REQUIRED Electronically Filed: 12/08/2023 by: MARYCRUZ GATICA [facility]
--- OUTSIDE RECORDS SUMMARY | 2024-10-08 07:28 | XMS_ITS ---
Author Name Department of Vetera Affairs [place] Organization [place] Address [address] [place] [address] Care Team Providers Care Production Machine Tender Name Role Phone RACHEL MATA Primary Care [...] Alvarez's Name Patient's Relationship to Policy Alvarez [facility] ([facility]) MEDICARE ADVANTAGE MCR ([facility]) Sep 18, 2019 [id number] Ana María SCHUMACHER PATIENT [facility] ([facility]) MEDICARE ADVANTAGE [facility] ([facility]) Nov 16, 2014 [id number] Ana María SCHUMACHER PATIENT Selected Encounter This section includes the information on record at [place] for the Encounter. Date/Time Encounter Type Encounter [...] forms of age-related cataract, bilateral [facility]CIO STEPHEN [facility] Jun 26, 2024 02:00 PM SECONDARY Presbyopia TIBURCIO STEPHEN [facility] Plan of Treatment: Future Appointments (+ 6 months) and Future Tests (+/- 45 days) The Plan of Treatment section includes future care activities for the patient from all [place] treatmentfacilities. This section includes future appointments and future orders which are active, pending or scheduled. Future Appointments This section includes appointments that were scheduled to occur 6 months from the date of the Encounter, up to a maximum of 20 appointments. The data comes from all [place] treatment facilities. Appointment Date/Time Appointment Type Appointme nt Facility Name Aug 23, 2024 11:30 AM AMBULATORY - REHAB MEDICIN E [facility] Oct 08, 2024 10:30 AM AMBULATORY - MEDICINE [facility] Social History: Smoking Status (Most current) and Tobacco Use (All prior to encounter date) This section includes the most current, and the historical, smoking and tobacco- related health factors from the [place] facility where the Encounter took place. Current Smoking Status This section includes the most current smoking, or tobacco-related health factor, from the [place] facility where the Encounter took place. Date/Time Current Smoking Status Comment Reema haquey Sep 28, 2020 01:54 PM VA-TOBACCO FORMER USER [facility] Tobacco Use History This section includes a history of the smoking, or tobacco-related health factors, that were collected on or before the date of the Encounter. The data comes from the [place] facility where the Encounter took place. Date/Time Smoking Status/Tobacco Use Comment F acility Sep 28, 2020 01:54 PM VA-TOBACCO QUIT 15 YRS OR MORE [facility] January 31, 2018 01:18 PM LIFETIME NON-TOBACCO USER [facility] Advance Directives: All historical and current Section Date Range: From patient's date of to the date document was created. This section includes ALL of a patient's completed or amended VA Advance and Rescinded Directives. The entries below indicate that a directive exists for the patient, but an actual copy is not included with this document. The data comes from all [place] facilities. Date Advance Directives Provider Source Oct 10, 2019 ADVANCE DIRECTIVE DYLON ABBOTT [place] Jackie NTRL [facility] Encounter Notes: All associated encounter notes This [...] MHx: Code Description G47.33 Obstructive sleep apnea ([facility] [id number]) Z79.01 Long-term current use of anticoagulant ([facility] [id number]) I48.91 Atrial fibrillation ([facility] [id number]) I10. 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 History of shingles ([facility] [id number]) R69. Colonoscopy Screening (ICD-10-CM R69.) R69. History of Carcinoid Tumor (ICD-10-CM R69.) R69. NON VA Providers (ICD-10-CM R69.) E78.5 Hyperlipidemia ([facility] [id number]) SYSTEMIC MEDICATIONS/OCULAR MEDICATIONS: Active Outpatient Medications (including [...] available Current Rx with last BCVA: OD: -1.75-1.83b914 -2 OS: -2.00-2.76t134 +2 Add: +2.25 DVA ( )sc ( x )cc - [x]phoropter []specs []CL OD: -2 OS: -1 Entrance Testing: Pupil: PERRL (-)APD EOM: SAFE OU, (-)Pain/Diplopia CVF: FTFC OU Subjective Refraction: OD: -1.75-1.64p603 20/20-1 OS: -2.25-2.57k042 20/20-2 Add: +2.25 SLE: Lids/Lashes: MGD OU [...] if vision declines or interferes with ADLs -[place] repeated back the plan and education. -Monitor [...] of active outpatient prescriptions dispensed from this PR (local) and dispensed from another PR or [facility] facility (remote) as well as inpatient orders [...] Remote Allergy/ADR Data available for this patient [facility] [place] [facility] No Known Allergies Med. Reconciliation (Tool #1) INCLUDED IN THIS LIST: Alphabetical list of active outpatient prescriptions dispensed from this PR (local) and dispensed from another [place] or [facility] facility (remote) as well as inpatient orders (local pending and active), local clinic medications, locally documented non-VA medications, and local prescriptions that have or been discontinued in the past 90 days. Non-VA Meds Last Documented On: Oct 05, 2023 NOTE The display of VA prescriptions dispensed from another PR or [facility] facility (remote) is limited to active outpatient prescription entries matched to National Drug File at the originating site and may not include some items such as investigational drugs, compounds, etc. NOT INCLUDED IN THIS LIST: Medications self-entered by the patient into personal health records (i.e. [facility]) are NOT included in this list. Non-VA medications documented outside this PR, remote inpatient orders (regardless of status) and remote clinic medications are NOT included in this list. The patient and provider must always discuss medications the patient is taking, regardless of where the medication was dispensed or obtained. OUTPT APIXABAN 5MG TAB (Status = Active) TAKE ONE TABLET BY MOUTH TWICE DAILY FOR PREVENTION OF BLOOD CLOTS Rx# [id number] Last Released: 06/06/24 Qty/Days Supply: 180/90 Rx [...] TERMS AND POSSIBLE PATIENT ACTIONS INPT = PR inpatient order IV = PR intravenous medication OUTPT = PR outpatient prescription PHARMACY POSSIBLE PATIENT TERMS EXPLANATION ACTIONS -------- ----- ACTIVE A prescription that can be If you have refills, filled at the local [place] pharmacy. you may request a refill of this prescription from your PR pharmacy. CLINIC A medication you received during If you have questions a visit to a PR clinic or about this medication emergency department. contact your PR healthcare team. DISCONTINUED A prescription your provider has Contact your [place] stopped. It is no longer healthcare team if you available to be sent to you or need more of this picked up at the PR pharmacy medication. window. A prescription which is [...] the VA. Or, it may be an gfoy-iaj-oammasp (OTC), herbal, dietary supplements or sample medication. [...] Medication Reconciliation List /es/ TIBURCIO STEPHEN OD PRODUCE SHIPPER Signed: 06/26/2024 14:01 TIBURCIO STEPHEN [place] [facility]
--- OUTSIDE RECORDS SUMMARY | 2024-10-08 07:28 | XMS_ITS | Encounter Summary ---
Author Name Department of Vetera Affairs [place] Organization Department of Vetera [place] Address [address] [place] [address] Care Team Providers Care Selvage Machine Operator Name Role Phone RACHEL MATA Primary [...] Alvarez's Name Patient's Relationship to Policy Alvarez [facility] ([facility]) MEDICARE ADVANTAGE MCR ([facility]) Sep 18, 2019 [id number] Ana María SCHUMACHER PATIENT [facility] ([facility]) MEDICARE ADVANTAGE [facility] ([facility]) Nov 16, 2014 [id number] 11 Ana María SCHUMACHER PATIENT Selected Encounter This section includes the information on record at [place] for the Encounter. Date/Time Encounter Type Encounter Description Reason Pro vider Source IHE Encounter Template Text not used by [place] Advance Directives: All historical and current Section Date Range: From patient's date of to the date document was created. This section includes ALL of a patient's completed or amended VA Advance and Rescinded Directives. The entries below indicate that a directive exists for the patient, but an actual copy is not included with this document. The data comes from all [place] facilities. Date Advance Directives Provider Source Oct 10, 2019 ADVANCE DIRECTIVE DYLON ABBOTT [place] C [facility]
--- OUTSIDE RECORDS SUMMARY | 2024-10-08 07:28 | XMS_ITS ---
Author Name Department of [place]a [place] Organization Department [place] Address [address] [place] [address] Care Team Providers Care Dip Lube Operator Name Role Phone RACHEL MATA Primary [...] Patient's Relationship to Policy Alvarez [facility] ([facility]) MEDICARE ADVANTAGE MCR ([facility]) Sep 18, 2019 [id number] [phone] Ana María SCHUMACHER PATIENT [facility] (R) MEDICARE ADVANTAGE [facility] ([facility]) Nov 16, 2014 [id number] [phone] Ana María SCHUMACHER PATIENT Selected Encounter This section includes the information on record at [place] for the Encounter. Date/Time Encounter Type Encounter Description Reason Pro vider Source Nov 24, 2023 04:38 PM Outpatient Encounter ADMIN PAT ACTIVTIES (MASNONCT) IHE Encounter Template Text not used by [place] Social History: Smoking Status (Most current) and Tobacco Use (All prior to encounter date) This section includes the most current, and the historical, smoking and tobacco- related health factors from the [place] facility where the Encounter took place. Current Smoking Status This section includes the most current smoking, or tobacco-related health factor, from the [place] facility where the Encounter took place. Date/Time Current Smoking Status Comment Reema cota Sep 28, 2020 01:54 PM VA-TOBACCO FORMER USER [facility] Tobacco Use History This section includes a history of the smoking, or tobacco-related health factors, that were collected on or before the date of the Encounter. The data comes from the [place] facility where the Encounter took place. Date/Time Smoking Status/Tobacco Use Comment F accresencio Sep 28, 2020 01:54 PM VA-TOBACCO QUIT 15 YRS OR MORE [facility] January 31, 2018 01:18 PM LIFETIME NON-TOBACCO USER [facility] Advance Directives: All historical and current Section Date Range: From patient's date of to the date document was created. This section includes ALL of a patient's completed or amended [place] Advance and Rescinded Directives. The entries below indicate that a directive exists for the patient, but an actual copy is not included with this document. The data comes from all [place] facilities. Date Advance Directives Provider Source Oct 10, 2019 ADVANCE DIRECTIVE DYLON ABBOTT [facility] Encounter Notes: All associated encounter notes This [...] CUSTOMER CARE MEDICATION RENEWAL: Date: Nov Division: [facility] referred by Pharmacy Call Center for medication renewal: Non-controlled/maintenan ce medication Medications requested: [id number]$ APIXABAN 5MG TABLET WOULD LIKE TO DIRECTOR OF ENTERPRISE ARCHITECTURE AT [facility] WHEN READY. Defer to primary care provider To be picked up. Please review and renew if appropriate. *This note was generated by [facility] Pharmacy Customer Care. If you have any questions or need assistance, do not contact this author. Please refer all questions to your local, on-site pharmacy departments. /franky MCLEOD CPhT [place], [place]/Pharmacy Customer Care Signed: 11/24/2023 16:38 Receipt Acknowledged By: 11/27/2023 09:22 /luis/ PRIYANKA DAI RN REGISTERED NURSE 11/27/2023 06:01 /luis/ RACHEL MATA MD Primary Care Physician 11/27/2023 ADDENDUM STATUS: UNSIGNED You may not VIEW this UNSIGNED Addendum. RACHEL MATA [place] [facility] [facility] Nov 24, 2023 04:38 PM PHARMACY NOTE: LOCAL TITLE: V1 PHARMACY CUSTOMER CARE MEDICATION RENEWAL STANDARD TITLE: PHARMACY NOTE DATE OF NOTE: NOV 24, 2023@16:38 ENTRY DATE: NOV 24, 2023@16:38:17 AUTHOR: VADIM MCLEOD COSIGNER: URGENCY: STATUS: COMPLETED V1 PHARMACY CUSTOMER CARE MEDICATION RENEWAL Has ADDENDA Date: Nov Division: [facility] referred by Pharmacy Call Center for medication renewal: Non-controlled/maintenan ce medication Medications requested: [id number]$ APIXABAN 5MG TABLET WOULD LIKE TO DIRECTOR OF ENTERPRISE ARCHITECTURE AT [facility] WHEN READY. Defer to primary care provider To be picked up. Please review and renew if appropriate. *This note was generated by [facility] Pharmacy Customer Care. If you have any questions or need assistance, do not contact this author. Please refer all questions to your local, on-site pharmacy departments. /franky MCLEOD CPhT [place], [place]/Pharmacy Customer Care Signed: 11/24/2023 16:38 Receipt Acknowledged [...] on an identified machine to contact his Journeyman Press Operator to fax over a new script for his Apixaban. /franky DAI RN REGISTERED NURSE Signed: 11/27/2023 09:26 VADIM MCLEOD [place] [facility]
--- OUTSIDE RECORDS SUMMARY | 2024-10-08 07:28 | XMS_ITS | Encounter Summary ---
Author Name Department of [place] Organization [place] Address [address] [place] [address] Care Team Providers Care Computerized Table Cutter Name Role Phone RACHEL MATA Primary Care [...] Alvarez's Name Patient's Relationship to Policy Alvarez [facility] ([facility]) MEDICARE ADVANTAGE MCR ([facility]) Sep 18, 2019 [id number] Ana María SCHUMACHER PATIENT [facility] ([facility]) MEDICARE ADVANTAGE [facility] ([facility]) Nov 16, 2014 [id number] [phone] Ana María SCHUMACHER PATIENT Selected Encounter This section includes the information on record at [place] for the Encounter. Date/Time Encounter Type Encounter Description Reason Pro vider Source Nov 27, 2023 12:42 PM Outpatient Encounter ADMIN PAT ACTIVTIES (MASNONCT) IHE Encounter Template Text not used by [place] Social History: Smoking Status (Most current) and Tobacco Use (All prior to encounter date) This section includes the most current, and the historical, smoking and tobacco- related health factors from the [place] facility where the Encounter took place. Current Smoking Status This section includes the most current smoking, or tobacco-related health factor, from the [place] facility where the Encounter took place. Date/Time Current Smoking Status Comment Reema cota Sep 28, 2020 01:54 PM VA-TOBACCO FORMER USER [facility] Tobacco Use History This section includes a history of the smoking, or tobacco-related health factors, that were collected on or before the date of the Encounter. The data comes from the [place] facility where the Encounter took place. Date/Time Smoking Status/Tobacco Use Comment F accresencio Sep 28, 2020 01:54 PM VA-TOBACCO QUIT 15 YRS OR MORE [facility] January 31, 2018 01:18 PM LIFETIME NON-TOBACCO USER [facility] Advance Directives: All historical and current Section Date Range: From patient's date of to the date document was created. This section includes ALL of a patient's completed or amended [place] Advance and Rescinded Directives. The entries below indicate that a directive exists for the patient, but an actual copy is not included with this document. The data comes from all [place] facilities. Date Advance Directives Provider Source Oct 10, 2019 ADVANCE DIRECTIVE DYLON ABBOTT [facility] Encounter Notes: All associated encounter notes [...] Patient Name: TANISHA SCHUMACHER Patient Primary Phone: [phone] Patient Primary Address: [address] [place] [id number] Patient : 1950 Patient Age: 72 Caller/Recipient Relation to Patient: Self Administrative Administrative Note Reason: Returned Call Administrative Note Comments: Patient called to check on the status of the Apixaban. Patient stated he wanted to have it sent VIA mail once the senior consulting manager sends the prescription via fax. Please assist /luis/ MARLENE SEGURA Signed: 11/27/2023 12:42 Receipt Acknowledged By: 11/27/2023 14:25 /luis/ PRIYANKA DAI RN REGISTERED NURSE 11/27/2023 14:26 /luis/ JAN WADDELL LPN PACT 10 11/27/2023 ADDENDUM STATUS: COMPLETED Spoke with the and made him aware that we still have not received the script. [place] will contact his senior consulting manager. /luis/ PRIYANKA DAI RN REGISTERED NURSE Signed: 11/27/2023 14:39 MARLENE SEGURA [place] [facility]
--- OUTSIDE RECORDS SUMMARY | 2024-10-08 07:28 | XMS_ITS ---
Author Name Department [place] Organization [place] Address [address] [place] [address] Care Team Providers Care Natural Gas Engineer Name Role Phone RACHEL MATA Primary [...] Alvarez's Name Patient's Relationship to Policy Alvarez [facility] ([facility]) MEDICARE ADVANTAGE [facility] ([facility]) Sep 18, 2019 [id number] Ana María SCHUMACHER PATIENT [facility] ([facility]) MEDICARE ADVANTAGE [facility] ([facility]) Nov 16, 2014 [id number] 11 Ana María SCHUMACHER PATIENT Selected Encounter This section includes the information on record at [place] for the Encounter. Date/Time Encounter Type Encounter [...] of spectacles and contact lenses MARSHADEBBIE Kayleigh [facility] Plan of Treatment: Future Appointments (+ 6 months) and Future Tests (+/- 45 days) The Plan of Treatment section includes future care activities for the [facility] This section includes future appointments and future orders which are active, pending or scheduled. Future Appointments This section includes appointments that were scheduled to occur 6 months from the date of the Encounter, up to a maximum of 20 appointments. The data comes from all [place] treatment facilities. Appointment Date/Time Appointment Type Appointme nt Facility Name Aug 23, 2024 11:30 AM AMBULATORY - REHAB MEDICIN E [facility] Oct 08, 2024 10:30 AM AMBULATORY - MEDICINE [facility] Social History: Smoking Status (Most current) and Tobacco Use (All prior to encounter date) This section includes the most current, and the historical, smoking and tobacco- related health factors from the [place] facility where the Encounter took place. Current Smoking Status This section includes the most current smoking, or tobacco-related health factor, from the [place] facility where the Encounter took place. Date/Time Current Smoking Status Comment Facil ity Sep 28, 2020 01:54 PM [place]-TOBACCO FORMER USER [facility] Tobacco Use History This section includes a history of the smoking, or tobacco-related health factors, that were collected on or before the date of the Encounter. The data comes from the [place] facility where the Encounter took place. Date/Time Smoking Status/Tobacco Use Comment F acility Sep 28, 2020 01:54 PM [place]-TOBACCO QUIT 15 YRS OR MORE [facility] January 31, 2018 01:18 PM LIFETIME NON-TOBACCO USER [facility] Advance Directives: All historical and current Section Date Range: From patient's date of to the date document was created. This section includes ALL of a patient's completed or amended [place] Advance and Rescinded Directives. The entries below indicate that a directive exists for the patient, but an actual copy is not included with this document. The data comes from all [place] facilities. Date Advance Directives Provider Source Oct 10, 2019 ADVANCE DIRECTIVE DYLON ABBOTT [facility] Encounter Notes: All associated encounter notes [...] Dir: Prz2:0.00 Dir2: FITTING INFORMATION FPD:76 NPD:73 Weld:R: L: SEG HT:R: L: Tint:None Shade:None [place] Billable Items FRAME: [address] [id number] Right Lens: POLY SINGLE VISION PHOTOCHROMATIC EDGE 1.586 POLY Left Lens: POLY SINGLE VISION PHOTOCHROMATIC EDGE 1.586 POLY KLEAR ANTI-REFLECTIVE COATING CLIN items [employer] - [place] Coating 0001 - Single Vision - Glass Plastic Poly 0005 - Transition /luis/ PERLITA BALDERAS COMPLIANCE PROFESSIONAL Signed: 06/26/2024 14:56 Receipt Acknowledged By: 06/26/2024 15:13 /luis/ Debbie Benjamin LPN Licensed Practical Nurse 06/26/2024 ADDENDUM STATUS: COMPLETED PDS hyperion essbase developer fit 1 SV eyeglasses on 06/26/2024. OPT HT entered consult(s) as requested for provider signature. /luis/ Debbie Benjamin LPN Licensed Practical Nurse Signed: 06/26/2024 15:15 PERLITA BALDERAS CNTRL [facility]
--- OUTSIDE RECORDS SUMMARY | 2024-10-08 07:28 | XMS_ITS ---
Author Name Department [place] Organization [place] Address [address] [place] [address] Care Team Providers Care Associate Data Scientist Name Role Phone RACHEL MATA Primary Care [...] Alvarez's Name Patient's Relationship to Policy Alvarez [facility] ([facility]) MEDICARE ADVANTAGE [facility] ([facility]) Sep 18, 2019 [id number] Ana María SCHUMACHER PATIENT [facility] (R) MEDICARE ADVANTAGE [facility] ([facility]) Nov 16, 2014 [id number] Ana María SCHUMACHER PATIENT Selected Encounter This section includes the information on record at [place] for the Encounter. Date/Time Encounter Type Encounter Description Reason Pro vider Source 2023 12:53 PM Outpatient Encounter PRIMARY CARE/MEDICINE IHE Encounter Template Text not used by [place] Social History: Smoking Status (Most current) and Tobacco Use (All prior to encounter date) This section includes the most current, and the historical, smoking and tobacco- related health factors from the [place] facility where the Encounter took place. Current Smoking Status This section includes the most current smoking, or tobacco-related health factor, from the [place] facility where the Encounter took place. Date/Time Current Smoking Status Comment Reema cota Sep 28, 2020 01:54 PM VA-TOBACCO FORMER USER [facility] Tobacco Use History This section includes a history of the smoking, or tobacco-related health factors, that were collected on or before the date of the Encounter. The data comes from the [place] facility where the Encounter took place. Date/Time Smoking Status/Tobacco Use Comment F acility Sep 28, 2020 01:54 PM VA-TOBACCO QUIT 15 YRS OR MORE [facility] January 31, 2018 01:18 PM LIFETIME NON-TOBACCO USER [facility] Advance Directives: All historical and current Section Date Range: From patient's date of to the date document was created. This section includes ALL of a patient's completed or amended [place] Advance and Rescinded Directives. The entries below indicate that a directive exists for the patient, but an actual copy is not included with this document. The data comes from all [place] facilities. Date Advance Directives Provider Source Oct 10, 2019 ADVANCE DIRECTIVE DYLON ABBOTT [facility] Encounter Notes: All associated encounter [...] Nov Prescriber Name/Tel/Fax :Carson Jernigan MD PH: [phone] RX : Apixaban 5 mg tablet Sig: [...] (Remote) Status No remote medications found. /es/ PRIYANKA DAI RN REGISTERED NURSE Signed: 2023 12:55 Receipt Acknowledged By: 12/05/2023 05:50 /es/ RACHEL MATA MD Primary Care Physician PRIYANKA DAI
--- OUTSIDE RECORDS SUMMARY | 2024-10-08 07:28 | XMS_ITS ---
Author Name [facility] [place] Address [address] [place] [address] Care Team Providers Care Spot Remover Name Role Phone RACHEL MATA Primary Care [...] Alvarez's Name Patient's Relationship to Policy Alvarez [facility] ([facility]) MEDICARE ADVANTAGE [facility] ([facility]) Sep 18, 2019 [id number] Ana María SCHUMACHER PATIENT [facility] ([facility]) MEDICARE ADVANTAGE [facility] ([facility]) Nov 16, 2014 [id number] [phone] Ana María SCHUMACHER PATIENT Selected Encounter This section includes the information on record at [place] for the Encounter. Date/Time Encounter Type Encounter Description Reason Provider Source Jun 26, 2024 02:30 PM HEARING AID REPAIR/MODIFYIN G AUDIOLOGY ICD-10-CM Z46.1 Encounter for fitting and adjustment of hearing aid HENRIK MUHAMMAD Encounter Template Text not used by CT Assessments - Encounter Diagnoses This section includes the primary and secondary diagnoses documented for the Encounter. Date/Time Primary/Secondary Diagnosis Diagnosis Name Provider Source Jun 26, 2024 02:50 PM PRIMARY Encounter for fitting and adjustment of hearing aid MIGDALIA MUHAMMAD Jayshree Marie [facility] Jun 26, 2024 02:50 PM SECONDARY Sensorineural hearing loss, bilateral MIGDALIA MUHAMMAD [facility] Plan of Treatment: Future Appointments (+ 6 months) and Future Tests (+/- 45 days) The Plan of Treatment section includes future care activities for the patient from all [place] treatmentfacilities. This section includes future appointments and future orders which are active, pending or scheduled. Future Appointments This section includes appointments that were scheduled to occur 6 months from the date of the Encounter, up to a maximum of 20 appointments. The data comes from all [place] treatment facilities. Appointment Date/Time Appointment Type Appointme nt Facility Name Aug 23, 2024 11:30 AM AMBULATORY - REHAB MEDICIN E [facility] Oct 08, 2024 10:30 AM AMBULATORY - MEDICINE [facility] Social History: Smoking Status (Most [...] 28, 2020 01:54 PM VA-TOBACCO FORMER USER [facility] Tobacco Use History This section includes a history of the smoking, or tobacco-related health factors, that were collected on or before the date of the Encounter. The data comes from the [place] facility where the Encounter took place. Date/Time Smoking Status/Tobacco Use Comment F acility Sep 28, 2020 01:[address]-TOBACCO QUIT 15 YRS OR MORE [facility] January 31, 2018 01:18 PM LIFETIME NON-TOBACCO USER [facility] Advance Directives: All historical and current [...] Oct 10, 2019 ADVANCE DIRECTIVE DYLON ABBOTT [facility] Encounter Notes: All associated encounter notes This [...] STATUS: COMPLETED Dx: Sensorineural hearing loss, bilateral [place] was seen today for a hearing aid follow-up appointment. He was accompanied by his given his verbal consent. is currently wearing bilateral Amado Evolv AI [...] guard and dome were replaced. The right owner professional engineer and dome were replaced. Listening check post maintenance was positive for both hearing aids. will contact the clinic as needed. /luis/ Branden Mcneal, CCC-A Tin Can Laborer Signed: 06/26/2024 14:[address] [facility]
--- OUTSIDE RECORDS SUMMARY | 2024-10-08 07:29 | XMS_ITS | Encounter Summary ---
Author Name [place] Address [address] [place] [address] Care Team Providers Care Customer Strategy Manager Name Role Phone RACHEL MATA Primary [...] Alvarez's Name Patient's Relationship to Policy Alvarez [facility] ([facility]) MEDICARE ADVANTAGE [facility] ([facility]) Sep 18, 2019 [id number] Ana María SCHUMACHER PATIENT [facility] ([facility]) MEDICARE ADVANTAGE [facility] ([facility]) Nov 16, 2014 [id number] [phone] Ana María SCHUMACHER PATIENT Selected Encounter This section includes the information on record at [place] for the Encounter. Date/Time Encounter Type Encounter Description Reason Pro vider Source Oct 01, 2024 03:13 PM Outpatient Encounter PRIMARY CARE/MEDICINE IHE Encounter Template Text not used by [place] Plan of Treatment: Future Appointments (+ 6 [...] 20 appointments. The data comes from all [place] treatment facilities. Appointment Date/Time Appointment Type Appointme nt Facility Name Oct 08, 2024 10:30 AM AMBULATORY - MEDICINE [facility] Social History: Smoking Status (Most current) and Tobacco Use (All prior to encounter date) This section includes the most current, and the historical, smoking and tobacco- related health factors from the [place] facility where the Encounter took place. Current Smoking Status This section includes the most current smoking, or tobacco-related health factor, from the [place] facility where the Encounter took place. Date/Time Current Smoking Status Comment Facil ity Sep 28, 2020 01:54 PM [place]-TOBACCO FORMER USER [facility] Tobacco Use History This section includes a history of the smoking, or tobacco-related health factors, that were collected on or before the date of the Encounter. The data comes from the [place] facility where the Encounter took place. Date/Time Smoking Status/Tobacco Use Comment F acility Sep 28, 2020 01:54 PM [place]-TOBACCO QUIT 15 YRS OR MORE [facility] January 31, 2018 01:18 PM LIFETIME NON-TOBACCO USER [facility] Advance Directives: All historical and current Section Date Range: From patient's date of to the date document was created. This section includes ALL of a patient's completed or amended [place] Advance and Rescinded Directives. The entries below indicate that a directive exists for the patient, but an actual copy is not included with this document. The data comes from all [place] facilities. Date Advance Directives Provider Source Oct 10, 2019 ADVANCE DIRECTIVE DYLON ABBOTT [facility] Encounter Notes: All associated encounter notes This section contains the clinical notes associated to the Encounter. Date/Time Encounter Note(s) Provider Source Oct 01, 2024 03:13 PM PRIMARY CARE TELEP JOCELYN ENCOUNTER NOTE: LOCAL TITLE: TELEPHONE NOTE/PRIMARY CARE STANDARD TITLE: PRIMARY CARE TELEPHONE ENCOUNTER NOTE DATE OF NOTE: OCT 01, 2024@15:13 ENTRY DATE: OCT 01, 2024@15:13:28 AUTHOR: GARYR ORELLANA COSIGNER: URGENCY: STATUS: COMPLETED This is a reminder call for your upcoming PCP appt with RACHEL MATA and the need for a lab appointment for bloodwork prior to your upcoming appt. Fasting blood work NON fasting blood work (X)NO BLOODWORK needed for appt Bloodwork already completed Action taken: [ ] Called , left voice message Sep [X ] Called , unable to leave voice mail [ ] Spoke to /nurse wound care to remind them of upcoming appt/bloodwork Upcoming Appointments: 10/08/2024 10:30 CWM/SO/PACT 10 // GARRY ORELLANA ADVANCED MAJOR APPLIANCE ASSEMBLY SUPERVISOR Signed: 10/01/2024 15:15 GARRY ORELLANA
--- OUTSIDE RECORDS SUMMARY | 2024-10-08 07:29 | XMS_ITS | Encounter Summary ---
Author Name [facility] [place] Organization [place] Address [address] [place] [id number] Care Team Providers Care Public Relations Studies Director Name Role Phone RACHEL MATA Primary Care [...] Alvarez's Name Patient's Relationship to Policy Alvarez [facility] ([facility]) MEDICARE ADVANTAGE [facility] ([facility]) Sep 18, 2019 [id number] [phone] Ana María SCHUMACHER PATIENT [facility] ([facility]) MEDICARE ADVANTAGE [facility] ([facility]) Nov 16, 2014 [id number] Ana María SCHUMACHER PATIENT Selected Encounter This section includes the information on record at [place] for the Encounter. Date/Time Encounter Type Encounter Description Reason Pro vider Source Oct 08, 2024 10:30 AM Outpatient Encounter PRIMARY CARE/MEDICINE IHE Encounter Template [...] Facil ity Oct 05, 2023 10:30 AM VA-TOBACCO NEVER USED [facility] Tobacco Use History This section includes a history of the smoking, or tobacco-related health factors, that were collected on or before the date of the Encounter. The data comes from the [place] facility where the Encounter took place. Date/Time Smoking Status/Tobacco Use Comment F acility Oct 05, 2022 11:00 AM VA-TOBACCO NEVER USED [facility] Oct 06, 2021 09:00 AM VA-TOBACCO NEVER USED [facility] Nov 23, 2018 10:43 AM [place]-TO[place]CO NEVER USED [facility] Advance Directives: All historical and current Section [...] Oct 10, 2019 ADVANCE DIRECTIVE DYLON [facility]BBOTT [place] [facility]i [facility]
== END 2024-10-08 07:26 | disposition home or self-care (01) ==
LOC: HO.MRI 07:25
PROVIDERS: PCP Nurse Practitioner Family; Visit Provider Nurse Practitioner Family
DX: G37.9 Demyelinating disease of central nervous system, unspecified (principal); R26.9 Unspecified abnormalities of gait and mobility; R53.1 Weakness; M54.50 Low back pain, unspecified; G89.29 Other chronic pain; G91.9 Hydrocephalus, unspecified
CPT/HCPCS: 70551; 72148

== ENCOUNTER → 2024-10-08 07:58 | Outpatient (BNV) | payer MEDICARE, SELFPAY | PROVIDERS: PCP Nurse Practitioner Family; Visit Provider Radiology Diagnostic Radiology | DX: M51.369 Other intervertebral disc degeneration, lumbar region without mention of lumbar back pain or lower extremity pain (principal); G31.89 Other specified degenerative diseases of nervous system | CPT/HCPCS: 70551; 72148 ==

== ENCOUNTER 2025-01-15 10:04 | Outpatient (AMB) | payer MEDICARE, SELFPAY ==
--- NOTE | 2025-01-15 10:15 | MHC.PC.OV ---
Vital Signs 01/15/25 10:16 Height 5 ft 7 in Weight 188 lb BMI 29.4 BP 110/68 Blood Pressure Location Lt brachial Position Sitting Pulse 62 Pulse Source Pulse Oximeter Pulse Oximetry (%) 97 Intake Visit Reasons: Annual PE - see comments Underwriting Clerks Supervisor Required: No Accompanied by: Spouse Allergies No Known Allergies Allergy (Verified 01/15/25 10:16) Tobacco use date assessed: 01/15/25 Fall risk assessment: 2 + Falls in past year Last assessed Fall Risk: 01/15/25 Dental Screening Dental Screen Date: 01/15/25 Did you have a dental visit in the last 12 months?: Yes Did you have a dental problem in the last 6 months where you did not have access to dental care?: No Was dental information given to patient?: Patient has dentist HPI Annual PE - see comments HPI Details History of Present Illness The patient is a 74-year-old male presenting with concerns regarding lower extremity weakness and an abnormal gait. He has a pertinent history of cardiomyopathy and has been experiencing ongoing weakness in his lower extremities. Neurological symptoms, primarily the weakness, have led to an abnormal gait, for which he requires the aid of a cane. He has undergone various diagnostic tests, including MRIs and EMG, that delineated cerebral atrophy with ischemic disease and polyneuropathy. Cervical spine imaging has shown multilevel spondylosis. The patient denies several systemic symptoms but reports intermittent edema in lower extremities. Despite various evaluations, the mobility issues remain a significant concern for the patient. Health Maintenance seeing urology, cardiology, dermatology, neurology, referring to physiatry Social History - The patient is currently using a cane for ambulation due to gait abnormalities and lower extremity weakness. Review of Systems - Neurological: Reports ongoing lower extremity weakness, abnormal gait. - Psychiatric: Denies suicidal or homicidal ideations. - Cardiovascular: Denies chest pain, shortness of breath. - Gastrointestinal: Denies abdominal pain, blood in stools, diarrhea, constipation. - Musculoskeletal: Reports difficulty with mobility, using a cane. - Dermatological: Reports macular lesions on the scalp. - Vascular: Reports intermittent trace edema of the lower extremities. Physical Exam General: Cooperative, healthy appearing, comfortable, no acute distress and well developed Orientation: Patient oriented x3 Limitations: No limitations Head: Normal to inspection Ears: Hearing grossly normal bilaterally Nose: Normal external nose present Face and sinus: Normal facial exam Eyes: Appearance normal, both eyes and all related structures Neck: Normal visual inspection and Yes full ROM Respiratory: Normal respiratory effort and able to speak in complete sentences. Fairly clear to auscultation bilaterally Cardiovascular: Regular rate and rhythm. Normal S1 and S2 GI: Normal to inspection. Soft to palpation and nontender Skin: Several macular lesions noted, especially on the scalp. Slight bluish hue to the lateral aspect of the left foot noted Neuro: Patient oriented x3 Extremities: Abnormal gait, difficulty finding pedal pulses or dorsalis pedis pulses, trace edema in lower extremities, slight bluish hue to the lateral aspect of the left foot noted Results - MRI: Diffuse cerebral atrophy greatest involving the frontal and temporal lobes, consistent with small vessel ischemic disease; showed multilevel cervical spondylosis without significant spinal canal stenosis. 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 - Lumbar MRI: Degenerative changes in lower spine, no spinal canal stenosis. Plan The management focuses on the neurological and vascular aspects highlighted by the lower extremity weakness and gait abnormalities. Given the history and diagnostic findings, we are pursuing further imaging studies to assess peripheral vascular contributions to symptoms. A referral to a clinical data manager will allow a detailed evaluation and rehabilitation planning. The dermatological findings require ongoing monitoring through dermatology consultations to ensure no malignant changes. This will form a comprehensive approach to addressing the multifaceted issues presented. t is restarting PT in the near furture for BLE weakness. Discussion Notes I discussed with the patient the challenges related to the lower extremity weakness and abnormal gait, which has been emotionally taxing for him. We reviewed his neurological history, including previous MRI and EMG findings, and I explained the significance of ischemic changes and polyneuropathy findings. Emphasis was placed on multidisciplinary management, including the planned arterial and venous imaging to further evaluate the vascular contribution to his symptoms. I highlighted the need for ongoing neurology consultations and dermatology follow-ups due to scalp lesions. We also discussed the potential benefits of a clinical data manager referral for additional therapeutic options focusing on mobility improvement and emotional support. Patient Instructions - Continue using cane for stability until further evaluation. - Follow up with neurology and dermatology as advised. - Undergo the recommended arterial and venous imaging studies. - Attend the scheduled appointment with the referred clinical data manager. - Monitor any new or worsening symptoms and report them promptly. [facility] Medical History Disc degeneration, lumbar White matter disease Gait disorder (~12/2023) Back pain Syncope and collapse Hypertrophic cardiomyopathy Bladder outlet obstruction Urinary hesitancy Weak urinary stream COVID-19 vaccine administered Syncope Eczema NSVT (nonsustained ventricular tachycardia) Paroxysmal A-fib Cardiomyopathy Surgical History History of total hip replacement History of carpal tunnel release History of loop recorder H/O colonoscopy Melanoma History of colon resection Family History Father CAD (coronary artery disease) Type 2 diabetes mellitus Myocardial infarction Mother Breast cancer Social History Household Members: Spouse Housing: House Alcohol intake: never Patient Tobacco Use Status: Never used Tobacco e-Cigarette/Vaping Use: Never Used Second Hand Smoke Exposure: No service: Yes Current occupational status: retired Cognitive needs: No Hearing needs: Yes Vision needs: No Questionnaire PHQ-9 Over the last 2 weeks, how often have you been bothered by any of the following problems? 1. Little interest or pleasure in doing things: not at all 2. Feeling down, depressed, or hopeless: several days 3. Trouble falling or staying asleep, or sleeping too much: not at all 4. Feeling tired or having little energy: more than half the days 5. Poor appetite or overeating: not at all 6. Feeling bad about yourself - or that you are a failure or have let yourself or your family down: not at all 7. Trouble concentrating on things, such as reading the newspaper or watching television: not at all 8. Moving or speaking so slowly that other people could have noticed. Or the opposite - being so fidgety or restless that you have been moving around a lot more than usual: nearly every day 9. Thoughts that you would be better off or of hurting yourself in some way: not at all Total score: 6 Depression Screening Interpretation: Negative Depression Screening Done: Yes 72378 - PHQ-9 Billing: Yes Source: Developed by Drs. Nik Donnelly, Tracey Allen, Adalberto Paredes and colleagues, with an educational robert from [employer]. Thrive Questionnaire Date Thrive assessed: 01/15/25 I am a: Patient What is your living situation today?: I have a steady place to live Within the past 12 months, did the food you bought not last and you didn't have the money to get more?: Never true Within the past 12 months, did you worry whether your food would run out before you got money to buy more?: Never true Do you have trouble paying for medicines?: No Do you have trouble getting transportation to medical appointments?: No Do you have trouble paying your heating and electricity bill?: No Do you have trouble taking care of your child, family member or friend?: No Do you have trouble with day-to-day activities such as bathing, preparing meals, shopping, managing finances, etc.?: No Are you currently unemployed and looking for a job?: No Are you interested in more education?: No Please select the resources that you would like help with: None Currently or been in a relationship where the following occur: No concerns reported THRIVE Score: 0 AUDIT C Alcohol Use Questionnaire (AUDIT-C) 1. How often do you have a drink containing alcohol?: Monthly or less 2. How many drinks containing alcohol do you have on a typical day when you are drinking?: 1 or 2 3. How often do you have six or more drinks on one occasion?: Never Total Score: 1 Score Reviewed/Action Taken: Yes BRETT-7 AMB Questionnaire BRETT-7 Date BRETT - 7 assessed: 01/15/25 Feeling nervous, anxious, or on edge: 0 = Not at all Not being able to stop or control worryin = Not at all Worrying too much about different things: 0 = Not at all Trouble relaxin = Not at all Being so restless that it is hard to sit still: 0 = Not at all Becoming easily annoyed or irritable: 0 = Not at all Feeling afraid as if something awful might happen: 0 = Not at all Total BRETT-7 score (0-4 normal; 5-9 mild; 10-14 moderate; 15-21 severe): 0 Source: Developed by Drs. Nik Donnelly, Tracey Allen, Adalberto Paredes and colleagues, with an educational robert from [employer]. BRETT-7 Assessment Billing BRETT-7 Assessment Tool: BRETT-7 Assessment 90857 Physical exam (Primary Care) Vital Signs: Last Vital Signs Pulse 62 01/15/25 10:16 BP 110/68 01/15/25 10:16 Pulse Ox 97 01/15/25 10:16 BMI result Body Mass Index 29.4 Tobacco/Smoking Status: Tobacco use Status Tobacco use date assessed 01/15/25 01/15/25 10:17 Patient Tobacco Use Status Never used Tobacco 01/15/25 10:17 e-Cigarette/Vaping Use Never Used 01/15/25 10:17 PHQ-9: PHQ-9 Score PHQ-9: Total score 6 01/15/25 10:29 Depression Screening Interpretation: Negative Thrive Assessment: Date of Thrive Assessment Date Thrive assessed 01/15/25 01/15/25 10:17 Currently or been in a relationship where the following occur: No concerns reported Coding Level of Care Code Est Pt Prev Care >65y(70027) Diagnoses Gait disorder R26.9 Physical exam Z00.00 Decreased pedal pulses R09.89 Edema of both legs R60.0 Additional Codes BRETT-7 Assessment Billing - BRETT-7 Assessment Tool: BRETT-7 Assessment 69642 ([id number]) PHQ-9 - 65038 - PHQ-9 Billing: Yes ([id number]) Assessment & Plan Assessment & Plan (1) Gait disorder: Onset Date: ~12/2023 Comment: Frontal gait disorder with musculoskeletal component No evidence of parkinsons disease. MRI brain showed extensive white matter changes , mildly enlarged ventricles Lumbar X ray- extensive deg changes Code(s): R26.9 - Unspecified abnormalities of gait and mobility Category: Medical Plan: . (2) Physical exam: Code(s): Z00.00 - Encounter for general adult medical examination without abnormal findings Category: Medical (3) Decreased pedal pulses: Code(s): R09.89 - Other specified symptoms and signs involving the circulatory and respiratory systems Category: Medical (4) Edema of both legs: Code(s): R60.0 - Localized edema Category: Medical Plan . Orders: Orders Complete Blood Count Auto Diff Today Z00.00 - Encounter for general adult medical examination without abnormal findings Comprehensive Corinne. Panel Fast Today Z00.00 - Encounter for general adult medical examination without abnormal findings UA CC w/rflx Micro + Cult Today Z00.00 - Encounter for general adult medical examination without abnormal findings Lipid Panel Today Z00.00 - Encounter for general adult medical examination without abnormal findings TSH reflex Free T4 Today Z00.00 - Encounter for general adult medical examination without abnormal findings US arterial duplex LE BI Today R09.89 - Other specified symptoms and signs involving the circulatory and respiratory systems, R26.9 - Unspecified abnormalities of gait and mobility US venous insuf bilat Today R60.0 - Localized edema Referrals Physiatry Referral R26.9 - Unspecified abnormalities of gait and mobility
[2025-01-15 10:16] VITALS: BP 110/68; PULSE 62; O2SAT 97; BMI 29.4
--- OUTSIDE RECORDS SUMMARY | 2025-01-15 11:03 | XMS_ITS | Clinical Summary ---
Author Organization [facility] Address [address] [place] [address] Care Team Providers Care Enterprise Integration Developer Name Role Phone Mita Rosales MD Primary Care Provider [phone] Allergies No known active allergies Medications Medication Sig Dispensed Refills Start Date End Date Status atorvastatin (LIPITOR) tablet 10 mg Take 1 tablet (10 mg total) by mouth every evening. 0 11/23/2018 Active [place]-3 Fatty Acids (FISH OIL) 1000 MG CAPS Take 2 caplet by mouth daily. 0 Active Coenzyme Q10 (CO Q 10) 100 MG CAPS Take 2 caplet by mouth every evening. 0 Active finasteride (PROSCAR) 5 MG tablet Take 1 tablet (5 mg total) by mouth daily. New medication started by urologist 06/20/2019 0 Active sildenafil (VIAGRA) 100 MG tablet Take 1 tablet (100 mg total) by mouth daily as needed. 0 12/03/2019 Active apixaban (ELIQUIS) 5 MG TABS tablet Take 1 tablet (5 mg total) by mouth every 12 (twelve) hours. 180 tablet 3 06/09/2020 Active metoprolol succinate (TOPROL-XL) 24 hr tablet 25 mg TAKE 1 TABLET BY MOUTH DAILY 90 tablet 3 10/20/2020 Active Active Problems Problem Noted Date Diagnosed Date Degeneration of intervertebr al disc of lumbar region with discogenic back pain 07/09/2024 Lumbar spondylosis 07/09/2024 PAF (paroxysmal atrial fibrillation) 01/07/2021 NSVT (nonsustained ventricular tachycardia) 12/18 Hypertrophic cardiomyopathy 01/07/2021 Syncope and collapse 12/29/2019 BPH (benign prostatic hyperplasia) 12/29/2019 Hyperlipidemia 12/29/2019 Osteoarthritis of left hip 07/08/2019 Family History Medical History Relation Name Comments Coronary artery disease Brother 3 Deep vein thrombosis Brother 3 Diabetes Brother 3 Heart attack Brother 3 Heart disease Brother 3 Coronary artery disease Father Diabetes Father Heart disease Father Cancer Mother BREAST Diabetes Sister Relation Name Status Comments Brother 3 Alive Father (Age 66) CARDIAC AR REST Mother (Age 64) BREAST CA Sister Alive Social History Tobacco Use Types Packs/Day Years Used Date Smoking Tobacco: Never Smokeless Tobacco: Never Tobacco Cessation:Counseling Given: Not Answered Alcohol Use Standard Drinks/Week Comments Yes 0 (1 standard drink = 0.6 oz pur e alcohol) MONTHLY Sex and Gender Information Value Date Recorded Sex Assigned at Male 06/17/2019 9:24 AM EDT Gender Identity Male 06/17/2019 9:24 AM EDT Sexual Orientation Straight 07/08/2019 5: 30 AM EDT Job Start Date Occupation Industry Not on file Not on file Not on file Last Filed Vital Signs Vital Sign Reading Time Taken Comments Blood Pressure 126/77 07/09/2024 11:15 AM EDT Pulse 57 07/09/2024 11:15 AM EDT Temperature 36.6 ??C (97.8 ??F) 12/30/2019 12:41 PM E DT Respiratory Rate 21 12/30/2019 12:41 PM EDT Oxygen Saturation 99% 12/30/2019 12:41 PM EDT Inhaled Oxygen Concentration - - Weight 82.7 kg (182 lb 4.8 oz) 07/09/2024 11:15 AM EDT Height 167.6 cm (5' 6 ) 07/09/2024 11:15 AM EDT Body Mass Index 29.42 07/09/2024 11:15 AM EDT Plan of Treatment Health Maintenance Due Date Last Done Comments Hepatitis C Screening 1949 Depression Screening 1961 BMI Counseling 12/05/1967 Preventative Health Evaluation 12/05/1967 Colon Cancer Screening (Colonoscopy) 1994 Fall Risk Assessment 2014 COVID-19 Vaccine ( season) 2024 06/24/2022 Influenza Vaccine (#1) 2024 , 06/18/2019, 06/18/2018, Additional history exists RSV Adult > 60+ Yrs or (1 - -dose 75+ series) 2024 DTap / Tdap / Td (2 - Td or Tdap) 09/23/2026 09/23/2016 Pneumococcal Vaccine Completed 06/26/2017, 08/16/20 16 Shingrix-Zoster Vaccine Completed 11/28/2019, 09/27 Hepatitis B Vaccines Aged Out No long er eligible based on patient's age to complete this topic RSV Ped < 20 months Aged Out No longe r eligible based on patient's age to complete this topic Medical Devices Implanted Type Area General Accounting Clerk Device Identifier Shelf Expiration Date Model / Serial / Lot Screw Trident Ii 25mm 6.5mm Low Profile Hexagonal Bone - [id number] - [id number] Implanted:Qty: 1 on 07/08/2019 by Nik Corona MD at [facility] Left: Hip [employer] 02/19/2024 [id number] / / [id number] Screw Trident Ii 25mm 6.5mm Low Profile Hexagonal Bone - [id number] - [id number] Implanted:Qty: 1 on 07/08/2019 by Nik Corona MD at [facility] Left: Hip [employer] 03/05/2024 [id number] / / [id number] Shell Trident Ii E 54mm 5 Screw Hole Cluster Tritanium - [id number] - [id number] Implanted:Qty: 1 on 07/08/2019 by Nik Corona MD at [facility] Left: Hip [employer] 03/05/2024 [id number] / / [id number] Insert Trident 0d E 36mm X3 Acetabular Hip - [id number] - [id number] Implanted:Qty: 1 on 07/08/2019 by Nik Corona MD at [facility] Left: Hip [employer] 04/09/2024 [id number] / / [id number] Stem Hip Neck Angle 127 Degree Accolade Ii Sz7 - [id number] - [id number] Implanted:Qty: 1 on 07/08/2019 by Nik Corona MD at [facility] Left: Hip [employer] 03/18/2024 [id number] / / [id number] Head V40 +5mm 36mm Delta Femoral Hip - [id number] - [id number] Implanted:Qty: 1 on 07/08/2019 by Nik Corona MD at [facility] Left: Hip [employer] 05/19/2024 [id number] / / [id number] Advance Directives For more information, please contact: [phone] Latest Code Status on File Code Status Date Activated Date Inactivated Comments Full Code 12/29/2019 10:36 PM 12/30/2019 11:27 PM Thi s code status was ascertained in the following way: discussion with patient . Code Status History Code Status Date Activated Date Inactivated Comments Full Code 07/08/2019 7:06 AM 07/09/2019 5:53 PM Thi s code status was ascertained in the following way: discussion with patient . Full Code 07/08/2019 5:17 AM 07/08/2019 7:06 AM Thi s code status was ascertained in the following way: discussion with patient . Care Teams Enterprise Integration Developer Relationship Specialty Start Date End Date Mita Rosales MD [address] [place] [address] PCP - General Internal Medicine 06/28/19
--- OUTSIDE RECORDS SUMMARY | 2025-01-15 11:03 | XMS_ITS | Encounter Summary ---
Author Organization [facility] Address [address] [place] [address] Care Team Providers Care Harbor Master Name Role Phone Mita Rosales MD Primary Care Provider [phone] Carson Jernigan MD Unavailable [phone] Rolo Dawson MD Primary Care Provider [phone] Reason for Visit * Reason Comments Advice Only Encounter Details Date Type Department Care Team (Late st Contact Info) Description 08/31/2022 Telephone [facility] [address] [address] Carson Jernigan MD [address] [place] [address] Advice Only Social History Tobacco Use Types Packs/Day Years Used Date Smoking Tobacco: Never Smokeless Tobacco: Never Alcohol Use Standard Drinks/Week Comments Not Currently 0 (1 standard drink = 0.6 oz pur e alcohol) Sex and Gender Information Value Date Recorded Sex Assigned at Male 12/29/2022 10:53 AM EDT Legal Sex Male 4:57 PM EDT Gender Identity Male 12/29/2022 10:53 AM EDT Sexual Orientation Heterosexual (straight) 12/29 10:53 AM EDT documented as of this encounter Plan of Treatment Upcoming Encounters Date Type Department Care Team (Late st Contact Info) Description 06/26/2025 9:20 AM EDT Office Visit [facility] [address] [address] Carson Jernigan MD [address] [place] [address] documented as of this encounter Visit Diagnoses Not on filedocumented in this encounter Care Teams Harbor Master Relationship Specialty Start Date End Date Mita Rosales MD [address] [place] [address] PCP - General Internal Medicine 04/06/21 01/13/25 Rolo Dawson MD [address] [place] [address] PCP - General Family Medicine 01/14/25 Carson Jernigan MD [address] [place] [id number] Primary Vacuum Cleaner Mechanic Cardiovascular Disease 06/21/22 documented as of this encounter
--- OUTSIDE RECORDS SUMMARY | 2025-01-15 11:03 | XMS_ITS | Encounter Summary ---
Author Organization [facility] Address [address] [place] [address] Care Team Providers Care Face And Fill Packer Name Role Phone Mita Rosales MD Primary Care Provider [phone] Carson Jernigan MD Unavailable [phone] Rolo Dawson MD Primary Care Provider [phone] Encounter Details Date Type Department Care Team (Late st Contact Info) Description 12/09/2021 Scanned Document [facility] [address] [address] Cardiology, Scan Social History Tobacco Use Types Packs/Day Years [...] Orientation Heterosexual (straight) 12/29 10:53 AM EDT COVID-19 Exposure Response Date Recorded In the last month, have you been in contact with someone who was confirmed or suspected to have Coronavirus / COVID-19? No / Unsure 11/29/2021 10:50 AM EDT documented as of this encounter Plan of Treatment Upcoming Encounters Date Type Department Care Team (Late st Contact Info) Description 06/26/2025 9:20 AM EDT Office Visit [facility] [address] [address] Carson Jernigan MD [address] [place] [address] documented as of this encounter Visit Diagnoses Not on filedocumented in this encounter Care Teams Face And Fill Packer Relationship Specialty Start Date End Date Mita Rosales MD [address] [place] [address] PCP - General Internal Medicine 04/06/21 01/13/25 Rolo Dawson MD [address] [place] [address] PCP - General Family Medicine 01/14/25 Carson Jernigan MD [address] [place] [address] Primary Laser/Electro Optics Technician Cardiovascular Disease 06/21/22 documented as of this encounter
--- OUTSIDE RECORDS SUMMARY | 2025-01-15 11:03 | XMS_ITS | Encounter Summary ---
Author Organization [facility] Address [address] [place] [address] Care Team Providers Care Awning Assembler Name Role Phone Mita Rosales MD Primary Care Provider [phone] Carson Jernigan MD Unavailable [phone] Rolo Dawson MD Primary Care Provider [phone] Encounter Details Date Type Department Care Team (Late st Contact Info) Description 07/02/2024 Scanned Document [facility] [address] [address] Cardiology, Scan Social History Tobacco [...] Description 06/26/2025 9:20 AM EDT Office Visit [facility] [address] [address] Carson Jernigan MD [address] [place] [id number] documented as of this encounter Visit Diagnoses Not on filedocumented in this encounter Care Teams Awning Assembler Relationship Specialty Start Date End Date Mita Rosales MD [address] [place] [address] PCP - General Internal Medicine 04/06/21 01/13/25 Rolo Dawson MD [address] [place] [address] PCP - General Family Medicine 01/14/25 Carson Jernigan MD [address] [place] [address] Primary Reed Worker Cardiovascular Disease 06/21/22 documented as of this encounter
--- OUTSIDE RECORDS SUMMARY | 2025-01-15 11:03 | XMS_ITS | Clinical Summary ---
Author Organization [facility] [address] [facility] Building Address [address] [place] [address] Phone Care Team Providers Care Outside Salesman Name Role Phone Mita Rosales MD Primary Care Provider [phone] Active Problems Problem Noted Date Diagnosed Date Low back pain 08/01/2024 Back muscle spasm 08/01/2024 Surgical History Surgery Date Site/Laterality Comments HAND SURGERY Bilateral PROCEDURE:HAND SURGERY;COMMENT:CTR BOWEL RESECTION PROCEDURE:BOWEL RESECTION;COMMENT:ANTERIOR SKIN BIOPSY PROCEDURE:SKIN BIOPSY;COMMENT:MALIG MELANOMA REMOVED FROM BACK COLONOSCOPY PROCEDURE:COLONOSCOPY TOTAL HIP ARTHROPLASTY 07/08/2019 Left PROCEDURE:TOTAL HIP ARTHROPLASTY;COMMENT:Procedure: REPLACEMENT TOTAL HIP; Surgeon: Nik Corona MD; [facility] Service: Orthopedics; Laterality: Left; Medical History Medical History Date Comments Osteoarthritis DX:Osteoarthriti s Hyperlipidemia DX:Hyperlipidemi a Trigger finger DX:Trigger finge r;COMMENT:LEFT RING FINGER Family history of deep vein thrombosis DX:Family history of deep vein thrombosis;COMMENT:BROTHER POST OP ANTI COAG TX BPH (benign prostatic hyperplasia) DX:BPH (benign prostatic hyperplasia) Urinary retention DX:Urinary ret ention Cancer (CMS/HCC V24, CMS/HCC V28) DX:Cancer (HCC);COMMENT:MELANOMA ON BACK REMOVED PAF (paroxysmal atrial fibri llation) (CMS/HCC V24, CMS/HCC V28) 01/07/2021 DX:PAF (paroxysmal atrial fibrillation) ([facility]) Syncope DX:Syncope Family History Medical History Relation Name Comments [...] Tobacco: Never Alcohol Use Standard Drinks/Week Comments Yes 0 (1 standard drink = 0.6 oz pur e alcohol) Sex and Gender Information Value Date Recorded Sex Assigned at Not on file Legal Sex Male 4:22 AM EST Gender Identity Not on file Sexual Orientation Not on file Obstetrics History Last Filed Vital Signs Vital Sign Reading Time Taken Comments Blood Pressure 126/77 07/09/2024 11:15 AM EDT Sitting Left arm Pulse 57 07/09/2024 11:15 AM EDT Temperature - - Respiratory Rate - - Oxygen Saturation - - Inhaled Oxygen Concentration - - Weight 82.7 kg (182 lb 4.8 oz) 07/09/2024 11:15 AM EDT Height 167.6 cm (5' 6 ) 07/09/2024 11:1 5 AM EDT Body Mass Index 29.42 07/09/2024 11:15 AM EDT Plan of Treatment Health Maintenance Due Date Last Done Comments Cholesterol Screening (Lipid Panel) 08/21/2022 Colorectal Cancer Screening: Colonoscopy 08/21/2022 Depression Screening 08/21/2022 Falls Risk Assessment 08/21/2022 Hepatitis C Screening 08/21/2022 Medicare Annual Wellness Visit 08/21/2022 Social Influencers of Health Screening 08/21/2022 COVID-19 Vaccine ( season) 2024 06/24/2022, 07/12/2021, 12/11/2020, Additional history exists Hypertension/CHF/CAD Annual BMP Blood Test 08/01/2024 02/14/2023, 01/07/2022, 12/30/2019 RSV Immunization Adult Patients (1 - 1-dose 75+ series) 2024 Influenza Vaccine (Season Ended) 2025 06/27/2023, 07/15/2022, 07/28/2021, Additional history exists DTaP,Tdap,and Td Vaccines (2 - Td or Tdap) 09/23/2026 09/23/2016 Pneumococcal Vaccine: 50+ Years Completed 06/26/2017, 08/16/2016 Zoster Vaccines Completed 11/28/2019, 09/18, 02/04/2016 HIB Vaccines Aged Out No longer eligi ble based on patient's age to complete this topic HPV Vaccines Aged Out No longer eligi ble based on patient's age to complete this topic Hepatitis A Vaccines Aged Out No long er eligible based on patient's age to complete this topic Hepatitis B Vaccines Aged Out No long er eligible based on patient's age to complete this topic IPV Vaccines Aged Out No longer eligi ble based on patient's age to complete this topic MMR Vaccines Aged Out No longer eligi ble based on patient's age to complete this topic Meningococcal ACWY Vaccine Aged Out N o longer eligible based on patient's age to complete this topic Meningococcal B Vaccine Aged Out No l onger eligible based on patient's age to complete this topic RSV Immunization Patients Under 20 months Aged Out No longer eligible based on patient's age to complete this topic Varicella Vaccines Aged Out No longer eligible based on patient's age to complete this topic Medical Devices Implanted Type Area Vice President Education Device Identifier Shelf Expiration Date Model / Serial / Lot Screw Trident Ii 25mm 6.5mm Low Profile Hexagonal Bone - [id number] Implanted:Qty: 1 on 07/08/2019 by Nik Corona MD Left: Hip [employer] 02/19/2024 [id number] / / [id number] Screw Trident Ii 25mm 6.5mm Low Profile Hexagonal Bone - [id number] Implanted:Qty: 1 on 07/08/2019 by Nik Corona MD Left: Hip [employer] 03/05/2024 [id number] / / [id number] Shell Trident Ii E 54mm 5 Screw Hole Cluster Tritanium - [id number] Implanted:Qty: 1 on 07/08/2019 by Nik Corona MD Left: Hip [employer] 03/05/2024 [id number] / / [id number] Insert Trident 0d E 36mm X3 Acetabular Hip - [id number] Implanted:Qty: 1 on 07/08/2019 by Nik Corona MD Left: Hip [employer] 04/09/2024 [id number] / / [id number] Stem Hip Neck Angle 127 Degree Accolade Ii Sz7 - [id number] Implanted:Qty: 1 on 07/08/2019 by Nik Corona MD Left: Hip [employer] 03/18/2024 [id number] / / [id number] Head V40 +5mm 36mm Delta Femoral Hip - [id number] Implanted:Qty: 1 on 07/08/2019 by Nik Corona MD Left: Hip [employer] 05/19/2024 [id number] / / [id number] Insurance [employer] MEDICARE Care Teams Outside Salesman Relationship Specialty Start Date End Date Mita Rosales MD [address] [place] [address] PCP - General Internal Medicine 06/28/19
--- OUTSIDE RECORDS SUMMARY | 2025-01-15 11:03 | XMS_ITS | Encounter Summary ---
Author Organization [facility] Address [address] [place] [address] Care Team Providers Care Wood Type Finisher Name Role Phone Mita Rosales MD Primary Care Provider [phone] Carson Jernigan MD Unavailable [phone] Rolo Dawson MD Primary Care Provider [phone] Encounter Details Date Type Department Care Team (Late st Contact Info) Description 01/08/2024 Scanned Document [facility] Pulmonary [address] [phone] Pulmonary, Scan Social History Tobacco Use Types Packs/Day [...] Description 06/26/2025 9:20 AM EDT Office Visit [facility] [place] [address] [phone] Carson Jernigan MD [address] [place] [phone] documented as of this encounter Visit Diagnoses Not on filedocumented in this encounter Care Teams Wood Type Finisher Relationship Specialty Start Date End Date Mita Rosales MD [address] [place] [address] PCP - General Internal Medicine 04/06/21 01/13/25 Rolo Dawson MD [address] [place] [address] PCP - General Family Medicine 01/14/25 Carson Jernigan MD [address] [place] [address] Primary Acid Painter Cardiovascular Disease 06/21/22 documented as of this encounter
--- OUTSIDE RECORDS SUMMARY | 2025-01-15 11:03 | XMS_ITS | Encounter Summary ---
Author Organization [facility] Address [address] [place] [address] Care Team Providers Care Jigsaw Operator Name Role Phone Mita Rosales MD Primary Care Provider [phone] Carson Jernigan MD Unavailable [phone] Rolo Dawson MD Primary Care Provider [phone] Encounter Details Date Type Department Care Team (Late st Contact Info) Description 12/20/2022 Scanned Document [facility] Vascular [address] [phone] Cardiology, Scan Social History Tobacco [...] 9:20 AM EDT Office Visit [facility] [address] [phone] Carson Jrenigan MD [address] [place] [phone] documented as of this encounter Visit Diagnoses Not on filedocumented in this encounter Care Teams Jigsaw Operator Relationship Specialty Start Date End Date Mita Rosales MD [address] [place] [address] PCP - General Internal Medicine 04/06/21 01/13/25 Rolo Dawson MD [address] [place] [address] PCP - General Family Medicine 01/14/25 Carson Jernigan MD [address] [place] [address] Primary Credit Collections Clerk Cardiovascular Disease 06/21/22 documented as of this encounter
--- OUTSIDE RECORDS SUMMARY | 2025-01-15 11:03 | XMS_ITS | Clinical Summary ---
Author Organization [facility] Address [address] [place] [address] Care Team Providers Care Double Head Machine Operator Name Role Phone Carson Jernigan MD Unavailable [phone] Rolo Dawson MD Primary Care Provider [phone] Allergies No known active allergies Medications coenzyme Q10 (CO Q 10) 100 MG capsule Take by mouth. Active finasteride (PROSCAR) 5 MG tablet Take 1 tablet (5 mg total) by mouth. Active omega-3 fatty acids (FISH OIL) 1000 MG Cap capsule Take by mouth. Active amoxicillin (AMOXIL) 500 MG capsule Take 1 capsule (500 mg total) by mouth as needed (pre dental). Active sildenafil (VIAGRA) 100 MG tablet Take 1 tablet (100 mg total) by mouth daily as needed for erectile dysfunction. Active ezetimibe (ZeTIA) 10 MG tabletIndications: Hyperlipidemia, unspecified hyperlipidemia type TAKE 1 TABLET BY MOUTH DAILY 100 tablet 2 4 Active metoPROLOL SUCCINATE (TOPROL-XL) 25 MG 24 hr tabletIndications: PAF (paroxysmal atrial fibrillation) (HCC) TAKE 1 TABLET BY MOUTH DAILY 100 tablet 2 4 Active Multiple Vitamins-Minerals (MULTIVITAMIN ADULT, MINERALS, PO) Take by mouth. Active pravastatin (PRAVACHOL) 80 MG tabletIndications: Elevated coronary artery calcium score Take 1 tablet (80 mg total) by mouth daily. 100 tablet 3 4 Active apixaban (Eliquis) 5 MG tabletIndications: PAF (paroxysmal atrial fibrillation) (HCC) Take 1 tablet (5 mg total) by mouth 2 (two) times a day. 180 tablet 3 5 Active apixaban (Eliquis) 5 MG tabletIndications: PAF (paroxysmal atrial fibrillation) ([facility]) Take 1 tablet (5 mg total) by mouth 2 (two) times a day. 180 tablet 3 5 025 Discontin ued(Reord er) Active Problems Problem Noted Date Diagnosed Date CAROLEE (obstructive sleep apnea) 11/29/2021 Snoring 11/29/2021 Fatigue 11/29/2021 PAF (paroxysmal atrial fibrillation) 01/07/2021 NSVT (nonsustained ventricular tachycardia) 12/18 Hypertrophic cardiomyopathy 01/07/2021 Hyperlipidemia 12/29/2019 Syncope and collapse 12/29/2019 BPH (benign prostatic hyperplasia) 12/29/2019 Osteoarthritis of left hip 07/08/2019 Encounters Date Type Department Care Team Description 12/23/2024 Refill [facility] V[facility] [address] [phone] Carson Jernigan MD 12/17/2024 Telephone [facility] [address] [phone] Carson Jernigan MD Other 12/17/2024 Refill [facility] [place] [phone] Carson Jernigan MD 12/16/2024 Refill [facility] [address] [phone] Carson Jernigan MD 12/12/2024 10:00 AM EDT Office Visit [facility] [address] [phone] Carson Jernigan MD Pure hypercholesterolemia (Primary Dx); Elevated coronary artery calcium score; Obstructive sleep apnea; Paroxysmal atrial fibrillation (HCC); PINK (dyspnea on exertion); Syncope and collapse; Hypertrophic cardiomyopathy (HCC); PAF (paroxysmal atrial fibrillation) (HCC) 12/11/2024 Travel 11/01/2024 Refill [facility] [address] [phone] Carson Jernigan MD 11/01/2024 Orders Only [address] [phone] Carson Jernigan MD Pure hypercholesterolemia (Primary Dx); Paroxysmal atrial fibrillation (HCC); Hypertrophic cardiomyopathy (HCC) 11/01/[address] [phone] Carson Jernigan MD Other from Last 3 Months Family History Medical History Relation Name Comments Diabetes Brother Sleep apnea Brother Diabetes Sister Relation Name Status Comments Brother Sister Social History Tobacco Use Types Packs/Day Years [...] Orientation Heterosexual (straight) 12/29 10:53 AM EDT Last Filed Vital Signs Vital Sign Reading Time Taken Comments Blood Pressure 130/80 12/12/2024 10:30 AM EDT Pulse 59 12/12/2024 10:30 AM EDT Temperature 36.6 ??C (97.9 ??F) 01/08/2024 1:23 PM ED T Respiratory Rate - - Oxygen Saturation 99% 12/12/2024 10:30 AM EDT Inhaled Oxygen Concentration - - Weight 85.7 kg (189 lb) 12/12/2024 10:30 AM EDT Height 170.2 cm (5' 7 ) 12/12/2024 10:30 AM EDT Body Mass Index 29.6 12/12/2024 10:30 AM EDT Plan of Treatment Upcoming Encounters Date Type Department Care Team (Late st Contact Info) Description 06/26/2025 9:20 AM EDT Office Visit [address] [phone] Carson Jernigan MD [address] [place] [address] Health Maintenance Due Date Last Done Comments Hepatitis C Virus Screening 1950 DTaP/Tdap/Td Vaccines (1 - Tdap) 1968 Colonoscopy 1994 Pneumococcal Vaccines 50+ (1 of 1 - PCV) 12/05/1999 Zoster (Shingles) Vaccine (1 of 2) 12/05/1999 Influenza Vaccine 04/18/2024 06/27/2023, , 07/28/2021, Additional history exists COVID-19 Vaccine ( season) 2024 06/24/2022, 07/12/2021, 12/11/2020, Additional history exists RSV Vaccine 60 years and older and Patients (1 - 1-dose 75+ series) 2024 Hepatitis B Vaccines Aged Out No long er eligible based on patient's age to complete this topic Procedures Procedure Name Priority Date/Time Associated Diagnosis Comments ECG 12-LEAD Routine 12/12/2024 10:37 AM EDT Pure hypercholesterolemia BASIC METABOLIC PANEL Routine 12/11/2024 10:54 AM EDT Paroxysmal atrial fibrillation (HCC) COMPLETE BLOOD COUNT, WITH DIFFERENTIAL Routine 12/11/2024 10:54 AM EDT Paroxysmal atrial fibrillation (HCC) LIPID PANEL REFLEX DIRECT LDL Routine 12/11/2024 10:54 AM EDT Pure hypercholesterolemia ECHOCARDIOGRAM (TTE) COMPREHENSIVE (CONTRAST PRN) Routine 12/11/2024 9:55 AM EDT Hypertrophic cardiomyopathy (HCC) from Last 3 Months Results * ECG 12 lead (12/12/2024 10:37 AM EDT) Ventricular rate 59 BPM EKG [facility] Atrial rate 59 BPM EKG [facility] P-R interval 254 ms EKG [facility] QRS duration 88 ms EKG [facility] Q-T interval 430 ms EKG [facility] QTC calculation (Bazett) 425 ms EKG [facility] P axis 73 degrees EKG [facility] R axis 5 degrees EKG [facility] T axis -83 degrees EKG [facility] 12/12/2024 10:3 7 AM EDT Narrative EKG [facility] - 12/12/2024 10:45 AM EDT Sinus bradycardia with 1st degree A-V block ST & T wave abnormality, consider inferior ischemia ST & T wave abnormality, consider anterolateral ischemia Abnormal ECG When compared with ECG of 30-May-2024 14:49, No significant change was found Confirmed by MD Jernigan Vincent ([id number]) on 12/12/2024 10:45:01 AM Procedure Note Carson Jernigan MD - 12/12/2024 Sinus bradycardia with 1st degree A-V block ST & T wave abnormality, consider inferior ischemia ST & T wave abnormality, consider anterolateral ischemia Abnormal ECG When compared with ECG of 30-May-2024 14:49, No significant change was found Confirmed by MD Jernigan Vincent ([id number]) on 12/12/2024 10:45:01 AM Carson Jernigan MD ECG ORDERABLES Final Result [facility] * Lipid Panel [facility] LDL (12/11/2024 10:54 AM EDT) Cholesterol, Total 139 <200 mg/dL [facility] Cholesterol, HDL 54 > OR = 40 mg/dL [facility] Triglycerides 87 <150 mg/dL [facility] LDL Cholesterol 68 mg/dL (calc) [facility] Comment: Reference range: <100 Desirable range <100 mg/dL for primary prevention; ?? <70 mg/dL for patients with CHD or diabetic patients with > or = 2 CHD risk factors. LDL-C is now calculated using the Barb calculation, which is a validated novel method providing better accuracy than the Friedewald equation in the estimation of LDL-C. Freddy HERNANDEZ et al. CÉSAR. 2013;310(19): 3650-6175 (http://education.LXSN.finalsite/faq/HUR608) Cholesterol/HDL Ratio 2.6 <5.0 (calc) [facility] Non HDL Chol. (LDL+VLDL) 85 <130 mg/dL (calc) [facility] Comment: For patients with diabetes plus 1 major ASCVD risk factor, treating to a non-HDL-C goal of <100 mg/dL (LDL-C of <70 mg/dL) is considered a therapeutic option. Blood Blood specimen / Unknown 12/11/2024 10:54 AM EDT 12/11/2024 10:54 AM EDT Narrative [facility] - 12/11/2024 10:32 PM EDT FASTING:YES FASTING: YES us Carson Jernigan MD LAB BLOOD ORDERABLES Final Res ult [facility] [address] [place] [phone] * Complete Blood Count, with Differential (12/11/2024 10:54 AM EDT) White Blood Cell Count 6.5 3.8 - 10.8 Thousand/u L [facility] Red Blood Cell Count 4.71 4.20 - 5.80 Million/uL [facility] Hemoglobin 15.5 13.2 - 17.1 g/dL [facility] Hematocrit 45.6 38.5 - 50.0 % [facility] MCV 96.8 80.0 - 100.0 fL [facility] MCH 32.9 27.0 - 33.0 pg [facility] MCHC 34.0 32.0 - 36.0 g/dL [facility] Comment: For adults, a slight decrease in the calculated MCHC value (in the range of 30 to 32 g/dL) is most likely not clinically significant; however, it should be interpreted with caution in correlation with other red cell parameters and the patient's clinical condition. RDW 11.9 11.0 - 15.0 % [facility] Platelet Count 155 140 - 400 Thousand/u L [facility] MPV 10.9 7.5 - 12.5 fL [facility] Neutrophils Auto 4,492 1,500 - 7,800 cells/uL [place] Abs Lymphocytes Auto 1,378 850 - 3,900 cells/uL [facility] Monocytes Auto 429 200 - 950 cells/uL [facility] Eosinophils Auto 169 15 - 500 cells/uL [facility] Abs Basophils Auto 33 0 - 200 cells/uL [facility] Neutrophils Auto 69.1 % [facility] Lymphocytes Auto 21.2 % [facility] Monocytes Auto 6.6 % [facility] Eosinophils Auto 2.6 % [facility] Basophils Auto 0.5 % [facility] Blood Blood specimen / Unknown 12/11/2024 10:54 AM EDT 12/11/2024 10:54 AM EDT Narrative [facility] - 12/11/2024 10:32 PM EDT FASTING:YES FASTING: YES us Carson Jernigan MD LAB BLOOD ORDERABLES Final Res ult [facility] [address] [place] [phone] * Basic metabolic panel (12/11/2024 10:54 AM EDT) Pathologist [facility] Glucose 89 65 - 99 mg/dL [facility] Comment: ? Fasting reference interval Blood Urea Nitrogen (BUN) 16 7 - 25 mg/dL [facility] Creatinine 0.76 0.70 - 1.28 mg/dL [facility] Creatinine w/ eGFR 94 > OR = 60 mL/min/1. 73m2 [facility] BUN/Creatinine Ratio SEE NOTE: (calc) [facility] Comment: ?? Not Reported: BUN and Creatinine are within ?? reference range. ? Sodium 140 135 - 146 mmol/L [facility] Potassium 4.5 3.5 - 5.3 mmol/L [facility] Chloride 104 98 - 110 mmol/L [facility] CO2 30 20 - 32 mmol/L [facility] Calcium 9.4 8.6 - 10.3 mg/dL [facility] Blood Blood specimen / Unknown 12/11/2024 10:54 AM EDT 12/11/2024 10:54 AM EDT Narrative [facility] - 12/11/2024 10:32 PM EDT FASTING:YES FASTING: YES us Carson Jernigan MD LAB BLOOD ORDERABLES Final Res ult [facility] [address] [place] [phone] * ECHOCARDIOGRAM COMPREHENSIVE (12/11/2024 9:55 AM EDT) Heart Rate 57 bpm BP Systolic 104 mmHg BP Diastolic 68 mmHg Height 67.00 inches Weight 181.00 lbs BSA 1.94 m2 LA sup-inf (apical 2-ch view) 4.66 cm LA volume 41.5 mL AV mean gradient mean 4.0 mmHg Ao VTI Mean 32.5 cm AV mean gradient 4.0 mmHg Ao VTI 33.5 cm Ao peak jonathon 1.5 m/s Ao peak jonathon mean 1.4 m/s Sinuses of Valsalva 3.9 cm Sinuses of Valsalva Mean 3.9 cm Ascending aorta 3.5 cm Ascending aorta mean 3.5 cm IVS (F:0.6-0.9, M:0.6-1.0) 1.4 cm IVS Mean (F:0.6-0.9, M:0.6-1.0) 1.4 cm LVIDD (F:3.8-5.2, M:4.2-5.8) 4.8 cm LVIDD Mean (F:3.8-5.2, M:4.2-5.8) 4.8 cm LVIDS (F:2.2-3.5, M:2.5-4.0) 2.9 cm LVIDS (F:2.2-3.5, M:2.5-4.0) 2.9 cm LVOT diameter 2.0 cm LVOT diameter mean 2.0 cm LVOT mn grad mean 6.0 mmHg LVOT VTI MEAN 39.6 cm LVOT mn grad 6.0 mmHg LVOT VTI 39.6 cm LVOT peak jonathon 1.8 m/s LVOT peak jonathon mean 1.8 m/s PW (F:0.6-0.9, M:0.6-1.0) 1.2 cm PW Mean (F:0.6-0.9, M:0.6-1.0) 1.2 cm MV E' Lateral Velocity 7.29 cm/s MV E' Lateral Velocity Mean 7.29 cm/s MV E' Septal Velocity 5.44 cm/s MV E' Septal Velocity Mean 5.44 cm/s E wave decelartion time 222 ms E wave decelartion time mean 222 ms MV Peak A-Wave 85.4 cm/s MV Peak A-Wave Mean 85.4 cm/s MV Peak E-Wave 72.8 cm/s MV Peak E-Wave Mean 72.8 cm/s RVID d 3.1 cm RVID d Mean 3.1 cm RV Free wall pk S' 14.9 cm/s RV Free wall pk S' Mean 14.9 cm/s LVOT stroke volume 124 mL SVI 63 mL/m2 Left Ventricular Cardiac Index 3.7 L/min/m2 Left Ventricular Cardiac Output 7.1 L/min LA Volume Index (16-34) 21.4 mL/m2 E/A ratio 0.85 E/E' Lateral 10.0 E/E' Septal 13.4 E/E' Average 11.7 AV LVOT peak gradient 13.0 mmHg LVOT area 3.1 cm2 Sinuses of Valsalva Index 2.0 cm/m2 E/E' ratio 9.99 LVOT SI 64.16 mL/m2 LV mass 245.7 g LV Mass Index (F:43-95, M:49-115) 126.8 g/m2 LV RWT 0.50 AV peak gradient 9.0 mmHg AV area by cont VTI 3.7 cm2 Valve area - Index 1.9 cm2/m2 Dimensionless Index 1.18 Ascending aorta Index 1.8 cm/m2 TR Peak Jonathon 2.0 m/s Est. RA pres 3 mmHg TR Peak Gradient 16 mmHg RVSP 19 mmHg PASP 19.0 mmHg Anatomical Region Laterality Modality Ultrasound Narrative 12/11/2024 10:27 AM EDT ?The left ventricle is normal in size. There is basal septal asymmetric hypertrophy 1.4 cm. No LVOT obstruction Left ventricular systolic function is normal with an estimated ejection fraction of 60-64%. There is abnormal relaxation. ?The right ventricle is normal in size. Right ventricular systolic function is normal. Normal systolic excursion velocity by TDI (>9.5 cm/s). ?Left atrial size is normal. ?The ascending aorta dimension is normal. The aortic root is mildly dilated at 3.9 cm (2.0 cm/m2). ?The aortic valve is tricuspid. The aortic valve leaflets are mildly calcified. ?There is mild mitral regurgitation. ?There is trace tricuspid regurgitation. The estimated right ventricular systolic pressure is normal at 19 mmHg. Technical Details Overall the study quality was fair. The study was difficult due to patient's body habitus. Left Ventricle The left ventricle is normal in size. There is basal septal asymmetric hypertrophy 1.4 cm. No LVOT obstruction Left ventricular systolic function is normal with an estimated ejection fraction of 60-64%. No wall motion abnormalities are present. There is abnormal relaxation. Right Ventricle The right ventricle is normal in size. Right ventricular systolic function is normal. Normal systolic excursion velocity by TDI (>9.5 cm/s). Left Atrium Left atrial size is normal. Right Atrium Right atrial size is normal. Based on IVC diameter and collapse, right atrial pressure is estimated to be normal (3 mmHg). IVC/SVC IVC is normal. Mitral Valve There is systolic bowing of the anterior leaflet without prolapse. There is mild mitral regurgitation.There is no mitral valve stenosis. Tricuspid Valve The tricuspid valve is structurally normal. There is trace tricuspid regurgitation. There is no tricuspid valve stenosis. The estimated right ventricular systolic pressure is normal at 19 mmHg. Aortic Valve The aortic valve is tricuspid. The aortic valve leaflets are mildly calcified. There is no aortic regurgitation or stenosis. Pulmonic Valve The pulmonic valve is structurally normal. There is trace pulmonic regurgitation. Ascending Aorta The ascending aorta dimension is normal. The aortic root is mildly dilated at 3.9 cm (2.0 cm/m2). Pericardium Echogenic material is seen in the anterior pericardial space, consistent with a fat pad. There is no pericardial effusion. Carson Jernigan MD CV ECHO ORDERABLES Final Resul t from Last 3 Months Insurance [facility] MEDICARE Care Teams Double Head Machine Operator Relationship Specialty Start Date End Date Rolo Dawson MD [address] [place] [address] PCP - General Family Medicine 01/14/25 Carson Jernigan MD [address] [place] [address] Primary Supervisor Conditioning Yard Cardiovascular Disease 06/21/22
== END 2025-01-15 11:23 | disposition home or self-care (01) ==
PROVIDERS: PCP Nurse Practitioner Family; Visit Provider Nurse Practitioner Family
DX: R26.9 Unspecified abnormalities of gait and mobility (principal); Z00.00 Encounter for general adult medical examination without abnormal findings; R09.89 Other specified symptoms and signs involving the circulatory and respiratory systems; R60.0 Localized edema

== ENCOUNTER → 2025-01-15 10:04 | Outpatient (BNVA) | payer MEDICARE, SELFPAY | PROVIDERS: PCP Nurse Practitioner Family; Visit Provider Nurse Practitioner Family | DX: Z00.00 Encounter for general adult medical examination without abnormal findings (principal); R26.9 Unspecified abnormalities of gait and mobility; R09.89 Other specified symptoms and signs involving the circulatory and respiratory systems; R60.0 Localized edema | CPT/HCPCS: 96127; 99397 ==

== ENCOUNTER 2025-01-20 08:52 | Outpatient (AMB) | payer MEDICARE, SELFPAY ==
[2025-01-20 08:54] VITALS: BP 110/74; PULSE 69; O2SAT 98; BMI 29.6
--- NOTE | 2025-01-20 08:54 | A.OFFVIS_ITS ---
Vital Signs 01/20/25 08:54 Height 5 ft 7 in Weight 189 lb BMI 29.6 BP 110/74 Blood Pressure Location Rt brachial Position Sitting Pulse 69 Pulse Source Pulse Oximeter Pulse Oximetry (%) 98 Oxygen Delivery Method Room Air Intake Visit Reasons: follow up Weakness-LVM Intake Note: patient presents for follow up Gait disorder. Allergies No Known Allergies Allergy (Verified 01/20/25 08:56) HPI Comments Details: 74y/o male comes for follow up of balance and gait problems after 18 mths . he had 2 falls since last visit- both in the yard. He has chronic back pain . He had a left hip replacement in 2019 - he did well for about 1 year and after that started noticing that his balance was not as good and he was shuffling his feet. No falls.He has occasional near falls. He denies memory issues ,denies tremors, denies weakness, change in speech etc. SHe denies any urinary issues. He denies any neck issues He has h/o CAROLEE on CPAP He did PT and has been exercising at the [facility] [facility] 2times a week and has noticed improvement. [facility] Medical History Disc degeneration, lumbar White matter disease Gait disorder (~12/2023) Back pain Syncope and collapse Hypertrophic cardiomyopathy Bladder outlet obstruction Urinary hesitancy Weak urinary stream COVID-19 vaccine administered Syncope Eczema NSVT (nonsustained ventricular tachycardia) Paroxysmal A-fib Cardiomyopathy Surgical History History of total hip replacement History of carpal tunnel release History of loop recorder H/O colonoscopy Melanoma History of colon resection Family History Father CAD (coronary artery disease) Type 2 diabetes mellitus Myocardial infarction Mother Breast cancer Social History Household Members: Spouse Housing: House Alcohol intake: never Patient Tobacco Use Status: Never used Tobacco e-Cigarette/Vaping Use: Never Used Second Hand Smoke Exposure: No service: Yes Current occupational status: retired Cognitive needs: No Hearing needs: Yes Vision needs: No Physical Exam Vital Signs: Last Vital Signs Pulse 69 01/20/25 08:54 BP 110/74 01/20/25 08:54 Pulse Ox 98 01/20/25 08:54 Oxygen Delivery Method Room Air 01/20/25 08:54 BMI result Body Mass Index 29.6 Const General: cooperative, healthy appearing, comfortable and no acute distress Nutritional Appearance: average body habitus Orientation/consciousness: patient oriented x3 Eyes Pupils: Equal, round and reactive pupils present Neuro Other: gait- mild wide based - small steps , can walk without the cane Mild off balance and stiffness in his back Mild decreased blink and facial expression General: patient oriented x3, tone normal, moves all extremities and no focal motor deficits Cranial nerves: Yes Facial sensation intact/muscles of mastication intact, Yes Equal, round and reactive pupils present, Yes Bilaterally intact EOM present, Yes Nystagmus not present, Yes Normal facial strength present and Yes Midline tongue present Cognition (Neuro): normal cognition Gait exam (Neuro): Ataxic gait present Motor exam (neuro): 5/5 motor strength present throughout and Normal motor muscle tone present throughout Deep tendon reflexes (DTR's): Right triceps reflex intensity grade: 1+, Left triceps reflex intensity grade: 1+, Rt Biceps (C5, C6): 1+, Left biceps reflex intensity grade: 1+, Right brachioradialis reflex intensity grade: 1+, Left brachioradialis reflex intensity grade: 1+, Right patellar reflex intensity grade: 3+ and Left patellar reflex intensity grade: 3+ Coordination: [id number] test normal Results Reviewed Results Reviewed: MRI C spine 10/12 -Multilevel cervical spondylosis without significant spinal canal narrowing. Neural foraminal narrowing is worst and severe bilaterally at C5-6. MRI L spine 09/2024-vertebral bodies maintain normal height and marrow signal intensity. There is slight anterolisthesis of L4 on L5. There is severe degenerative disc disease at this level with disc desiccation, loss of disc height and endplate changes. Milder changes are noted at the remaining levels. At T12-L1,there is a minimal disc bulge. There is no evidence of disc herniation, central spinal stenosis, or neural foraminal narrowing. At L1-2, there is moderate osteoarthritis of the facet joints without evidence of disc herniation, central spinal stenosis, or neural foraminal narrowing. At L2-3, there is mild endplate spurring. There is facet and ligament flavum hypertrophy causing narrowing of the inferior recesses of the bilateral neural foramen, left greater than right. There is no central spinal stenosis. At L3-4, there is a mild disc bulge. There is facet osteoarthritis causing left neural foraminal stenosis and narrowing of the inferior recesses of the right neural foramen. At L4-5, there is osteoarthritis of the facet joints causing left neural foraminal stenosis and narrowing of the inferior recess of the right neural foramen. At L5-S1, there is osteoarthritis of the facet joints without central spinal or neural foraminal stenosis. The conus terminates at the T12-L1 level and demonstrates normal signal intensity. The visualized paraspinal soft tissues are unremarkable. MR/MR lumbar spine wo con Impression: Degenerative changes of the lumbar spine as described. MRI BRain Diffuse cerebral atrophy, greatest involving the frontal and temporal lobes. Findings consistent with small vessel ischemic disease of the white matter as described. No acute intracranial abnormality. Assessment & Plan Assessment & Plan (1) Gait disorder: Onset Date: ~12/2023 Comment: Multifactorial - lumbar cervicla spondylosis , frontal gait disorder No evidence of parkinsons disease. Code(s): R26.9 - Unspecified abnormalities of gait and mobility Category: Medical Plan MRI brain, L spine and C spine - reviewed extensively with patient and his Continue exercises Vit B 12 , TSH , Vit D- normal Continue PT Consider pain management for spondylosis Coding Level of Care Code Est Pt Level 4 (46902) Diagnoses Gait disorder R26.9
--- OUTSIDE RECORDS SUMMARY | 2025-01-20 09:20 | XMS_ITS | Encounter Summary ---
Author Organization [facility] Address [address] [place] [address] Care Team Providers Care Ophthalmic Lens Inspector Name Role Phone Mita Rosales MD Primary Care Provider [phone] Carson Jernigan MD Unavailable [phone] Rolo Dawson MD Primary Care Provider [phone] Encounter Details Date Type Department Care Team (Late st Contact Info) Description 12/20/2022 Scanned Document [facility] Vascular [address] [phone] Cardiology, Scan Social History Tobacco [...] Description 06/26/2025 9:20 AM EDT Office Visit [facility] Vascular [address] [phone] Carson Jernigan MD [address] [place] [address] [phone] documented as of this encounter Visit Diagnoses Not on filedocumented in this encounter Care Teams Ophthalmic Lens Inspector Relationship Specialty Start Date End Date Mita Rosales MD [address] [place] [address] PCP - General Internal Medicine 04/06/21 01/13/25 Rolo Dawson MD [address] [place] [address] PCP - General Family Medicine 01/14/25 Carson Jernigan MD [address] [place] [address] Primary Chief Librarian Extension Department Cardiovascular Disease 06/21/22 documented as of this encounter
--- OUTSIDE RECORDS SUMMARY | 2025-01-20 09:20 | XMS_ITS | Encounter Summary ---
Author Organization [facility] Address [address] [place] [address] Care Team Providers Care Coupon Clerk Name Role Phone Mita Rosales MD Primary Care Provider [phone] Carson Jernigan MD Unavailable [phone] Rolo Dawson MD Primary Care Provider [phone] Encounter Details Date Type Department Care Team (Late st Contact Info) Description 12/09/2021 Scanned Document [facility] [address] [address] Cardiology, Scan Social History Tobacco [...] Description 06/26/2025 9:20 AM EDT Office Visit [facility] Vascular [address] [address] Carson Jernigan MD [address] [place] [address] documented as of this encounter Visit Diagnoses Not on filedocumented in this encounter Care Teams Coupon Clerk Relationship Specialty Start Date End Date Mita Rosales MD [address] [place] [address] PCP - General Internal Medicine 04/06/21 01/13/25 Rolo Dawson MD [address] [place] [address] PCP - General Family Medicine 01/14/25 Carson Jernigan MD [address] [place] [address] Primary Infectious Disease Technician Cardiovascular Disease 06/21/22 documented as of this encounter
--- OUTSIDE RECORDS SUMMARY | 2025-01-20 09:20 | XMS_ITS ---
Author Name [facility] [place] Organization [facility] [place] [facility] [place] Address [address] [place] [address] Care Team Providers Care Dog Breeder Name Role Phone RACHEL MATA Primary Care [...] Relationship to Policy Alvarez [facility] ([facility]) MEDICARE ADVANTAGE [facility] ([facility]) Sep 18, 2019 [id number] Ana María SCHUMACHER PATIENT Selected Encounter This section includes the information on record at [place] for the Encounter. Date/Time Encounter Type Encounter Description Reason Provider Source Aug 23, 2024 11:30 AM HEARING AID FITTING/CHECKIN G AUDIOLOGY ICD-10-CM Z46.1 Encounter for fitting and adjustment of hearing aid KIAN SOSA Diony Encounter Template Text not used by [place] Assessments - Encounter Diagnoses This section includes the primary and secondary diagnoses documented for the Encounter. Date/Time Primary/Secondary Diagnosis Diagnosis Name Provider Source Aug 23, 2024 11:50 AM PRIMARY Encounter for fitting and adjustment of hearing aid STEPHANE SOSA [place] [facility] [place] [facility] Aug 23, 2024 11:50 AM SECONDARY Sensorineural hearing loss, bilateral STEPHANE SOSA [facility] Plan of Treatment: Future Appointments (+ 6 months) and Future Tests (+/- 45 days) The Plan of Treatment section includes future care activities for the patient from all [place] [facility]. This section includes future appointments and future orders which are active, pending or scheduled. Future Appointments This section includes appointments that were scheduled to occur 6 months from the date of the Encounter, up to a maximum of 20 appointments. The data comes from all [place] treatment facilities. Appointment Date/Time Appointment Type Appointme nt Facility Name Oct 08, 2024 10:30 AM AMBULATORY - MEDICINE [facility] Social History: Smoking Status (Most current) and Tobacco Use (All prior to encounter date) This section includes the most current, and the historical, smoking and tobacco- related health factors from the [place] facility where the Encounter took place. Current Smoking Status This section includes the most current smoking, or tobacco-related health factor, from the [place] facility where the Encounter took place. Date/Time Current Smoking Status Comment Reema ity Sep 28, 2020 01:54 PM VA-TOBACCO FORMER USER [facility] Tobacco Use History This section includes a history of the smoking, or tobacco-related health factors, that were collected on or before the date of the Encounter. The data comes from the [place] facility where the Encounter took place. Date/Time Smoking Status/Tobacco Use Comment F accresencio Sep 28, 2020 01:54 PM [place]-TOBACCO QUIT 15 YRS OR MORE [facility] January 31, 2018 01:18 PM LIFETIME NON-TOBACCO USER [facility] Advance Directives: All historical and current Section Date Range: From patient's date of to the date document was created. This section includes ALL of a patient's completed or amended [place] Advance and Rescinded Directives. The entries below indicate that a directive exists for the patient, but an actual copy is not included with this document. The data comes from all [place] facilities. Date Advance Directives Provider Source Oct 10, 2019 ADVANCE DIRECTIVE DYLON ABBOTT [facility] Encounter Notes: All associated encounter notes [...] follow-up appointment, unaccompanied. He was fit with [employer] on 01/27/23. He reports [...] completed, user settings were restored and feedback tire manager was completed. No feedback was heard in clinic. A [facility] repair box was mailed to should he [...] Applicable NA * /luis/ KIAN SOSA STAFF MACHINING SUPERVISOR Signed: 08/23/2024 11:50 KIAN SOSA [facility] [place]
--- OUTSIDE RECORDS SUMMARY | 2025-01-20 09:20 | XMS_ITS | Encounter Summary ---
Author Organization [facility] Address [address] [place] [address] Care Team Providers Care Director Staffing Name Role Phone Mita Rosales MD Primary Care Provider [phone] Carson Jernigan MD Unavailable [phone] Rolo Dawson MD Primary Care Provider [phone] Encounter Details Date Type Department Care Team (Late st Contact Info) Description 01/08/2024 Scanned Document [facility] Pulmonary [address] [phone] Pulmonary, Scan Social History Tobacco Use Types [...] Description 06/26/2025 9:20 AM EDT Office Visit [facility] [place] [address] [phone] Carson Jernigan MD [address] [place] [phone] documented as of this encounter Visit Diagnoses Not on filedocumented in this encounter Care Teams Director Staffing Relationship Specialty Start Date End Date Mita Rosales MD [address] [place] [address] PCP - General Internal Medicine 04/06/21 01/13/25 Rolo Dawson MD [address] [place] [address] PCP - General Family Medicine 01/14/25 Carson Jernigan MD [address] [place] [address] Primary Repairer General Cardiovascular Disease 06/21/22 documented as of this encounter
--- OUTSIDE RECORDS SUMMARY | 2025-01-20 09:20 | XMS_ITS ---
Author Name [facility] [place] Organization [facility] [place] Address [address] [place] [address] Care Team Providers Care Outboard System Operator Name Role Phone RACHEL MATA Primary [...] Alvarez's Name Patient's Relationship to Policy Alvarez [facility] ([facility]) MEDICARE ADVANTAGE [facility] ([facility]) Sep 18, 2019 [id number] Ana María SCHUMACHER PATIENT Selected Encounter This section includes the information on record at [place] for the Encounter. Date/Time Encounter Type Encounter Description Reason Provider Source Jun 26, 2024 01:30 PM COMPRE OPH EXAM EST PT 1/> OPTOMETRY ICD-10-CM H25.813 Combined forms of age-related cataract, bilateral TIBURCIO STEPHEN E Encounter Template Text not used by [place] Assessments - Encounter Diagnoses This section includes the primary and secondary diagnoses documented for the Encounter. Date/Time Primary/Secondary Diagnosis Diagnosis Name Provider Source Jun 26, 2024 02:00 PM PRIMARY Combined forms of age-related cataract, bilateral [facility]URCIO STEPHEN [facility] Jun 26, 2024 02:00 PM SECONDARY Presbyopia TIBURCIO STEPHEN [facility] Plan of Treatment: Future Appointments (+ 6 months) and Future Tests (+/- 45 days) The Plan of Treatment section includes future care activities for the patient from all [place] [facility]. This section includes future appointments and future orders which are active, pending or scheduled. Future Appointments This section includes appointments that were scheduled to occur 6 months from the date of the Encounter, up to a maximum of 20 appointments. The data comes from all [place] treatment facilities. Appointment Date/Time Appointment Type Appointme nt Facility Name Aug 23, 2024 11:30 AM AMBULATORY - REHAB MEDICIN E [facility] Oct 08, 2024 10:30 AM AM[facility]ULATORY - [facility]ICINE [facility] Social History: Smoking Status (Most current) and Tobacco Use (All prior to encounter date) This section includes the most current, and the historical, smoking and tobacco- related health factors from the [place] facility where the Encounter took place. Current Smoking Status This section includes the most current smoking, or tobacco-related health factor, from the [place] facility where the Encounter took place. Date/Time Current Smoking Status Comment Facil ity Sep 28, 2020 01:54 PM VA-TOBACCO FORMER USER [facility] Tobacco Use History This section includes a history of the smoking, or tobacco-related health factors, that were collected on or before the date of the Encounter. The data comes from the [place] facility where the Encounter took place. Date/Time Smoking Status/Tobacco Use Comment F acility Sep 28, 2020 01:54 PM VA-TOBACCO QUIT 15 YRS OR MORE [facility] January 31, 2018 01:18 PM LIFETIME NON-TOBACCO USER [facility] Advance Directives: All historical and current Section Date Range: From patient's date of to the date document was created. This section includes ALL of a patient's completed or amended [place] Advance and Rescinded Directives. The entries below indicate that a directive exists for the patient, but an actual copy is not included with this document. The data comes from all [place] facilities. Date Advance Directives Provider Source Oct 10, 2019 ADVANCE DIRECTIVE DYLON ABBOTT [facility] Encounter Notes: All associated encounter notes [...] MHx: Code Description G47.33 Obstructive sleep apnea ([facility] [id number]) Z79.01 Long-term current use of anticoagulant ([facility] [id number]) I48.91 Atrial fibrillation ([facility] [id number]) I10. Hypertension ([facility] [id number]) R69. History of total replacement of left hip joint ([facility] [id number]) N40.1 Benign prostatic hypertrophy ([facility] [id number]) C44.99 Skin cancer ([facility] [id number]) R69. History of shingles ([facility] [id number]) R69. Colonoscopy Screening (ICD-10-CM R69.) R69. History of Carcinoid Tumor (ICD-10-CM R69.) R69. NON VA Providers (ICD-10-CM R69.) E78.5 Hyperlipidemia ([facility] [id number]) SYSTEMIC MEDICATIONS/OCULAR MEDICATIONS: Active Outpatient Medications (including [...] available Current Rx with last BCVA: OD: -1.75-1.15f290 20/20-2 OS: -2.00-2.95h464 20/25+2 Add: +2.25 [facility] ( )sc ( x )cc - [x]phoropter []specs []CL OD: 20/20-2 OS: 20/30-1 Entrance Testing: Pupil: PERRL (-)APD EOM: SAFE OU, (-)Pain/Diplopia CVF: FTFC OU Subjective Refraction: OD: -1.75-1.18p313 20/20-1 OS: -2.25-2.55n931 20/20-2 Add: +2.25 SLE: Lids/Lashes: MGD OU [...] if vision declines or interferes with ADLs -[place] repeated back the plan and education. -Monitor [...] of active outpatient prescriptions dispensed from this [place] (local) and dispensed from another [place] or [facility] facility (remote) as well as inpatient [...] list may not be complete. Please check JLNavidog. Allergies/ADRs (Tool #5) FACILITY ALLERGY/ADR -------- No Remote Allergy/ADR Data available for this patient [facility] No Known Allergies Med. Reconciliation (Tool #1) [...] display of [place] prescriptions dispensed from another [place] or [facility] facility (remote) is limited to active outpatient prescription entries matched to National Drug File at the originating site and may not include some items such as investigational drugs, compounds, etc. NOT INCLUDED IN THIS LIST: Medications self-entered by the patient into personal health records (i.e. [employer]) are NOT included in this list. Non-VA medications documented outside this [place], remote inpatient orders (regardless of status) and remote clinic medications are NOT included in this list. The patient and provider must always discuss medications the patient is taking, regardless of where the medication was dispensed or obtained. OUTPT APIXABAN 5MG TAB (Status = Active) TAKE ONE TABLET BY MOUTH TWICE DAILY FOR PREVENTION OF BLOOD CLOTS Rx# [id number] Last Released: 06/06/24 Qty/Days Supply: 180/90 Rx [...] TERMS AND POSSIBLE PATIENT ACTIONS INPT = [place] inpatient order IV = [place] intravenous medication OUTPT = [place] outpatient prescription PHARMACY POSSIBLE PATIENT TERMS EXPLANATION ACTIONS -------- ----- ACTIVE A prescription that can be If you have refills, filled at the local [place] pharmacy. you may request a refill of this prescription from your [place] pharmacy. CLINIC A medication you received during If you have questions a visit to a [place] clinic or about this medication emergency department. contact your [place] healthcare team. DISCONTINUED A prescription your provider has Contact your VA stopped. It is no longer healthcare team if you available to be sent to you or need more of this picked up at the [place] pharmacy medication. window. A prescription which is [...] the VA. Or, it may be an uqlt-mdp-wugttoa (OTC), herbal, dietary supplements or sample medication. [...] Medication Reconciliation List Offered and Declined by [place] () Medication Reconciliation List Printed for [place] at Exam () Optometry HT Please Print and Mail Copy of Medication Reconciliation List () AMSA Please Print and Mail Copy of Medication Reconciliation List /es/ TIBURCIO STEPHEN OD ELECTRONIC PARTS SALESPERSON Signed: 06/26/2024 14:01 TIBURCIO STEPHEN [place] [facility]
--- OUTSIDE RECORDS SUMMARY | 2025-01-20 09:20 | XMS_ITS | Patient Health Record ---
Author Organization [facility] Address [address] [place] [phone] Care Team Providers Care Rn First Assist Name Role Phone TANISHA WHARTON Primary Care Provider Celso Sequeira Jr Unavailable Reason For Referral No Information Medications Medication SIG (Take, Route, Frequency, Duration) Notes [...] 1 tablet Orally Once a day Active Immunizations Vaccine Route Administration Date Status Comme nts Influenza Unknown 01/11/2021 Administered Problems Problem Type SNOMED Code ICD Code Onset Dates Problem Status W/U Status Risk Notes Problem 943950878 Colon cancer screening (Z12.11) Active confirmed Problem [id number] coremaker experimental current use of aspirin (Z79.82) Active confirmed Problem 408178706 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 Problem 544506833 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 confirmed Plan Of Treatment Future Test Test Name Order Date COLONOSCOPY 10/01/2015 COLONOSCOPY 01/11/2021 Insurance Providers Payer Name Payer Address Payer Phone Subscriber Number Group Number Insured Name Patient Relationship to Insured Coverage Start Date Coverage End Date [facility] [address] [place] [address] [id number] TANISHA SCHUMACHER Self - patient is the insured Medical (General) History Medical History History ICD Code colonoscopy 12/09/15, diverti culosis, patent low anterior anastomosis at 10 cm, five-year followup carcinoid tumor of the rectum requiring low anterior resection 09/2008 melanoma, back elevated cholesterol hypertrophic cardiomyopathy Atrial fibrillation 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
--- OUTSIDE RECORDS SUMMARY | 2025-01-20 09:20 | XMS_ITS | Encounter Summary ---
Author Organization [facility] Address [address] [place] [address] Care Team Providers Care Vice President Global Digital Marketing Name Role Phone Mita Rosales MD Primary Care Provider [phone] Carson Jernigan MD Unavailable [phone] Rolo Dawson MD Primary Care Provider [phone] Encounter Details Date Type Department Care Team (Late st Contact Info) Description 07/02/[address] [facility] [address] [address] Cardiology, Scan Social History Tobacco [...] 06/26/2025 9:20 AM EDT Office Visit [facility] [address] [address] Carson Jernigan MD [address] [place] [address] [phone] documented as of this encounter Visit Diagnoses Not on filedocumented in this encounter Care Teams Vice President Global Digital Marketing Relationship Specialty Start Date End Date Mita Rosales MD [address] [place] [address] PCP - General Internal Medicine 04/06/21 01/13/25 Rolo Dawson MD [address] [place] [address] PCP - General Family Medicine 01/14/25 Carson Jernigan MD [address] [place] [address] Primary Design Director Cardiovascular Disease 06/21/22 documented as of this encounter
--- OUTSIDE RECORDS SUMMARY | 2025-01-20 09:20 | XMS_ITS | Continuity of Care Document ---
Author Name [facility] Organization [facility] Care Team Providers Care Food Concession Manager Name Role Phone [facility] Unavailable Unavailable Problems Combined list of problems from Department of Defense and Veterans Affairs facilities. It does not include entries that were removed or entered in error. 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 [facility] Entered By: RACHEL MATA Comment: Dermatololgy - Dr Page ([place] D[facility])January 31, 2018 Entered By: RACHEL MATA Comment: Optometry - Dr Zarate 2020 Entered By: RACHEL MATA Comment: Cardiology - Dr Carson Jernigan (in [place]) [facility] Obstructive sleep apnea Active Condition Oct 05, 2022 Entered By: RACHEL MATA Comment: Dxed 2021 [facility] Skin cancer (SNOMED CT [id number]) Active Condition February 01, 2018 Entered By: RACHEL MATA Comment: Melanoma - backMay 2017 Entered By: RACHEL MATA Comment: 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 Diagnosis: ICD-10-CM I10 Essential (primary) hypertension Active Diagnosis [facility] Diagnosis: ICD-10-CM Z46.1 Encounter for fitting and adjustment of hearing aid [facility] Diagnosis: ICD-10-CM Z46.0 Encounter for fit/adjst of spectacles and contact lenses [facility] Diagnosis: ICD-10-CM H25.813 Combined forms of age-related cataract, bilateral Active Diagnosis [facility] [place] [facility] Diagnosis: ICD-10-CM I48.91 Unspecified atrial fibrillation Active Diagnosis [facility] Medications Combined list of outpatient medications from Department of Defense and Veterans Affairs facilities.Medications provided include 1) outpatient medications from the last 15 months, and 2) patient-reported medications. Medication Details Route Status Patient Instructions Prescription Expires Prescription Number Last Dispense Date Ordering Provider Order Date Order Qty Source APIXABAN 5MG TAB TAKE ONE TABLET BY MOUTH EVERY 12 HOURS FOR PREVENTI ON OF BLOOD CLOTS ORAL ACTIVE 12/25/2025 [id number] ROXANA MATA SA 2024 180 [place] APIXABAN 5MG TAB TAKE ONE TABLET BY MOUTH TWICE DAILY FOR PREVENTI ON OF BLOOD CLOTS ORAL DISCONT INUED BY PROVIDE R 12/05/2024 [id number] ROXANA MATA SA 2023 180 [place] COENZYME Q10 CAP/TAB TAKE BY MOUTH ORAL ACTIVE ROXANA MATA SA 2017 [place] EZETIMIBE 10MG TAB TAKE ONE TABLET BY MOUTH ONCE DAILY ORAL ACTIVE ROXANA MATA SA BETSEY 2022 [facility] FINASTERIDE 5MG TAB TAKE ONE TABLET BY MOUTH ONCE DAILY ORAL ACTIVE ROXANA MATA SA BETSEY 2020 [facility] FISH OIL 1000MG (500MG DHA/EPA) CAP,ORAL TAKE 2 CAPSULES BY MOUTH ORAL ACTIVE ROXANA MATA SA BETSEY 2017 [facility] IELD METOPROLOL SUCCINATE 25MG TAB,SA TAKE ONE TABLET BY MOUTH ONCE DAILY ORAL ACTIVE ROXANA MATA SA BETSEY 2020 [facility] PRAVASTATIN NA 80MG TAB TAKE ONE TABLET BY MOUTH ONCE DAILY ORAL ACTIVE ROXANA MATA SA BETSEY 2024 [facility] [place] Immunizations Combined list of available immunizations from the Department of Defense and Veterans Affairs facilities. Immunization Series Date Given Administered By Site Reaction Lot Number CVX Code Drug Mgmt Analyst Status Comments Source INFLUENZA, UNSPECIFIED FORMULATION 2022 88 complet ed HISTORICA L INFORMATI ON - SOURCE UNSPECIFI ED, [facility] INFLUENZA, UNSPECIFIED FORMULATION 2021 88 complet ed HISTORICA L INFORMATI ON - SOURCE UNSPECIFI ED, [facility] COVID-19 (PFIZER), MRNA, LNP-S, BIVALENT BOOSTER, PF, 30 MCG/0.3 ML DOSE 2021 300 complet ed HISTORICA L INFORMATI ON - SOURCE UNSPECIFI ED, [facility] INFLUENZA, UNSPECIFIED FORMULATION 2020 88 complet ed [facility] COVID-19 (MODERNA), MRNA, LNP-S, PF, 100 MCG OR 50 MCG DOSE 3 2020 207 complet ed [facility] COVID-19 (MODERNA), MRNA, LNP-S, PF, 100 MCG OR 50 MCG DOSE 2 2020 207 complet ed [facility] COVID-19 (MODERNA), MRNA, LNP-S, PF, 100 MCG OR 50 MCG DOSE 1 2020 207 complet ed [facility] INFLUENZA, UNSPECIFIED FORMULATION 2019 88 complet ed [facility] ZOSTER RECOMBINANT 2 2019 187 complet ed [place] ZOSTER RECOMBINANT 1 2019 187 complet ed [place] INFLUENZA, SEASONAL, INJECTABLE 2018 141 complet ed [facility] INFLUENZA, [...] Reference Range Date Interpretation Specimen Comments Source CREATININ E (eGFR 2020) CREATININE [MASS/VOLUM E] IN SERUM OR PLASMA 0.75 mg/dL 0.50 - 1.40 12/17 Specimen Type: SERUM No comment entered. Ordering Provider: CHU GALLEGO Report Released Date/Time: Nov 12, 2024 02:18 PM Reporting Lab: [facility] [place] [facility] [address] [facility] [address] Performing Lab: [facility] [place] [facility] [address] [facility] [address] [facility] CREATININ E (eGFR 2020) GLOMERULAR FILTRATION RATE/1.73 SQ M.PREDICTED [VOLUME RATE/AREA] IN SERUM, PLASMA OR BLOOD BY CREATININE- BASED FORMULA (CKD-EPI 2020) >90mL/ min 60 12/17 Specimen Type: SERUM No comment entered. Ordering Provider: CHU GALLEGO Report Released Date/Time: Nov 12, 2024 02:18 PM Reporting Lab: [facility] [address] [facility] [address] Performing Lab: [facility] [address] [facility] [address] [facility] ALT ALANINE AMINOTRANSF ERASE [ENZYMATIC ACTIVITY/VO LUME] IN SERUM OR PLASMA 25 U/L 10/08 Specimen Type: SERUM No comment entered. Ordering Provider: RACHEL MATA Report Released Date/Time: Oct 08, 2024 11:10 AM Reporting Lab: [facility] [address] [facility] [address] Performing Lab: [facility] [place] [facility] [address] [facility] [address] [facility] AST ASPARTATE AMINOTRANSF ERASE [ENZYMATIC ACTIVITY/VO LUME] IN SERUM OR PLASMA 21 U/L 5 - 34 10/08 Specimen Type: SERUM No comment entered. Ordering Provider: RACHEL MATA Report Released Date/Time: Oct 08, 2024 11:10 AM Reporting Lab: [facility] [address] [facility] [address] Performing Lab: [facility] [place] [address] [address] [facility] CBC AND DIFF (AUTO) LEUKOCYTES [#/VOLUME] IN BLOOD BY AUTOMATED COUNT 6.30 10*3/u L 4.50 - 11.00 10/08 Specimen Type: BLOOD No comment entered. Ordering Provider: RACHEL MATA Report Released Date/Time: Oct 08, 2024 11:07 AM Reporting Lab: [facility] [place] [facility] [address] [facility] [address] Performing Lab: [facility] [place] [address] [address] [facility] CBC AND DIFF (AUTO) ERYTHROCYTE S [#/VOLUME] IN BLOOD BY AUTOMATED COUNT 4.60 10*6/u L 4.23 - 5.66 10/08 Specimen Type: BLOOD No comment entered. Ordering Provider: RACHEL MATA Report Released Date/Time: Oct 08, 2024 11:07 AM Reporting Lab: [facility] [place] [facility] [address] [facility] [address] Performing Lab: [facility] [place] [facility] [address] [facility] [address] [facility] CBC AND DIFF (AUTO) HEMOGLOBIN [MASS/VOLUM E] IN BLOOD 15.2 g/dL 12.8 - 17 10/08 Specimen Type: BLOOD No comment entered. Ordering Provider: RACHEL MATA Report Released Date/Time: Oct 08, 2024 11:07 AM Reporting Lab: [facility] [place] [address] [address] Performing Lab: [facility] [place] [address] [address] [facility] CBC AND DIFF (AUTO) HEMATOCRIT [VOLUME FRACTION] OF BLOOD BY AUTOMATED COUNT 44.3 39.2 - 50.4 10/08 Specimen Type: BLOOD No comment entered. Ordering Provider: RACHEL MATA Report Released Date/Time: Oct 08, 2024 11:07 AM Reporting Lab: [facility] [place] [address] [address] Performing Lab: [facility] [place] [facility] [address] [facility] [address] [facility] CBC AND DIFF (AUTO) MCV [ENTITIC VOLUME] BY AUTOMATED COUNT 96.3 fL 82 - 99 10/08 Specimen Type: BLOOD No comment entered. Ordering Provider: RACHEL MATA Report Released Date/Time: Oct 08, 2024 11:07 AM Reporting Lab: [facility] [place] [address] [address] Performing Lab[facility] [place] [address] [address] [facility] CBC AND DIFF (AUTO) MCHC [MASS/VOLUM E] BY AUTOMATED COUNT 34.3 g/dL 30.8 - 35.1 10/08 Specimen Type: BLOOD No comment entered. Ordering Provider: RACHEL MATA Report Released Date/Time: Oct 08, 2024 11:07 AM Reporting Lab: [facility] [place] [facility] [address] [facility] [address] Performing Lab: [facility] [place] [facility] [address] [facility] [address] [facility] [place] CBC AND DIFF (AUTO) PLATELETS [#/VOLUME] IN BLOOD BY AUTOMATED COUNT 156 10*3/u L 140 - 360 10/08 Specimen Type: BLOOD No comment entered. Ordering Provider: RACHEL MATA Report Released Date/Time: Oct 08, 2024 11:07 AM Reporting Lab: [facility] [place] [address] [address] Performing Lab: [facility] [place] [address] [address] [facility] CBC AND DIFF (AUTO) ERYTHROCYTE DISTRIBUTIO N WIDTH [RATIO] BY AUTOMATED COUNT 12.2 12.0 - 16.0 10/08 Specimen Type: BLOOD No comment entered. Ordering Provider: RACHEL MATA Report Released Date/Time: Oct 08, 2024 11:07 AM Reporting Lab: [facility] [place] [facility] [address] [facility] [address] Performing Lab: [facility] [place] [address] [address] [facility] [place] CBC AND DIFF (AUTO) MONOCYTES [#/VOLUME] IN BLOOD BY AUTOMATED COUNT 0.41 10*3/u L 0.30 - 1.10 10/08 Specimen Type: BLOOD No comment entered. Ordering Provider: RACHEL MATA Report Released Date/Time: Oct 08, 2024 11:07 AM Reporting Lab: [facility] [address] [facility] [address] Performing Lab: [facility] [address] [facility] [address] [facility] CBC AND DIFF (AUTO) MCH [ENTITIC MASS] BY AUTOMATED COUNT 33.0 pg 26.2 - 32.6 10/08 H Specimen Type: BLOOD No comment entered. Ordering Provider: RACHEL MATA Report Released Date/Time: Oct 08, 2024 11:07 AM Reporting Lab: [facility] [address] [facility] [address] Performing Lab: [facility] [address] [facility] [address] [facility] CBC AND DIFF (AUTO) NEUTROPHILS /100 LEUKOCYTES IN BLOOD BY AUTOMATED COUNT 66.7 43.7 - 75.8 10/08 Specimen Type: BLOOD No comment entered. Ordering Provider: RACHEL MATA Report Released Date/Time: Oct 08, 2024 11:07 AM Reporting Lab: [facility] [address] [facility] [address] Performing Lab: [facility] [address] [facility] [address] [facility] CBC AND DIFF (AUTO) LYMPHOCYTES /100 LEUKOCYTES IN BLOOD BY AUTOMATED COUNT 23.2 14.0 - 42.3 10/08 Specimen Type: BLOOD No comment entered. Ordering Provider: RACHEL MATA Report Released Date/Time: Oct 08, 2024 11:07 AM Reporting Lab: [facility] [address] [facility] [address] Performing Lab: [facility] [facility] [address] [facility] [address] [facility] CBC AND DIFF (AUTO) MONOCYTES/1 00 LEUKOCYTES IN BLOOD BY AUTOMATED COUNT 6.5 5.1 - 13.7 10/08 Specimen Type: BLOOD No comment entered. Ordering Provider: RACHEL MATA Report Released Date/Time: Oct 08, 2024 11:07 AM Reporting Lab: [facility] [place] [facility] [address] [facility] [address] Performing Lab: [facility] [place] [facility] [address] [facility] [address] [facility] [place] [facility] CBC AND DIFF (AUTO) EOSINOPHILS /100 LEUKOCYTES IN BLOOD BY AUTOMATED COUNT 2.4 0.4 - 6.8 10/08 Specimen Type: BLOOD No comment entered. Ordering Provider: RACHEL MATA Report Released Date/Time: Oct 08, 2024 11:07 AM Reporting Lab: [facility] [place] [facility] [address] [facility] [address] Performing Lab: [facility] [place] [facility] [address] [facility] [address] [facility] [place] [facility] CBC AND DIFF (AUTO) BASOPHILS/1 00 LEUKOCYTES IN BLOOD BY AUTOMATED COUNT 1.0 0.1 - 2.0 10/08 Specimen Type: BLOOD No comment entered. Ordering Provider: RACHEL MATA Report Released Date/Time: Oct 08, 2024 11:07 AM Reporting Lab: [facility] [place] [address] [address] Performing Lab: [facility] [place] [facility] [address] [facility] [address] [facility] [place] [facility] CBC AND DIFF (AUTO) NEUTROPHILS [#/VOLUME] IN BLOOD BY AUTOMATED COUNT 4.21 10*3/u L 2.20 - 7.60 10/08 Specimen Type: BLOOD No comment entered. Ordering Provider: RACHEL MATA Report Released Date/Time: Oct 08, 2024 11:07 AM Reporting Lab: [facility] [place] [facility] [address] [facility] [address] Performing Lab: [facility] [place] [facility] [address] [facility] [address] [facility] [place] [facility] CBC AND DIFF (AUTO) LYMPHOCYTES [#/VOLUME] IN BLOOD BY AUTOMATED COUNT 1.46 10*3/u L 1.00 - 3.20 10/08 Specimen Type: BLOOD No comment entered. Ordering Provider: RACHEL MATA Report Released Date/Time: Oct 08, 2024 11:07 AM Reporting Lab: [facility] [place] [facility] [address] [facility] [address] Performing Lab: [facility] [place] [facility] [address] [facility] [address] [facility] CBC AND DIFF (AUTO) EOSINOPHILS [#/VOLUME] IN BLOOD BY AUTOMATED COUNT 0.15 10*3/u L 0.03 - 0.44 10/08 Specimen Type: BLOOD No comment entered. Ordering Provider: RACHEL MATA Report Released Date/Time: Oct 08, 2024 11:07 AM Reporting Lab: [facility] [place] [facility] [address] [facility] [address] Performing Lab: [facility] [place] [facility] [address] [facility] [address] [facility] [place] [facility] CBC AND DIFF (AUTO) BASOPHILS [#/VOLUME] IN BLOOD BY AUTOMATED COUNT 0.06 10*3/u L 0.01 - 0.13 10/08 Specimen Type: BLOOD No comment entered. Ordering Provider: RACHEL MATA Report Released Date/Time: Oct 08, 2024 11:07 AM Reporting Lab: [facility] [place] [address] [address] Performing Lab: [facility] [place] [facility] [address] [facility] [address] [facility] CBC AND DIFF (AUTO) IMMATURE GRANULOCYTE S/100 LEUKOCYTES IN BLOOD BY AUTOMATED COUNT 0.2 0.0 - 0.7 10/08 Specimen Type: BLOOD No comment entered. Ordering Provider: RACHEL MAAT Report Released Date/Time: Oct 08, 2024 11:07 AM Reporting Lab: [facility] [place] [address] [address] Performing Lab: [facility] [place] [facility] [address] [facility] [address] [facility] [place] [facility] CBC AND DIFF (AUTO) IMMATURE GRANULOCYTE S [#/VOLUME] IN BLOOD 0.01 10*3/u L 0.00 - 0.06 10/08 Specimen Type: BLOOD No comment entered. Ordering Provider: RACHEL MATA Report Released Date/Time: Oct 08, 2024 11:07 AM Reporting Lab: [facility] [place] [address] [address] Performing Lab: [facility] [place] [address] [address] [facility] [place] [facility] CBC AND DIFF (AUTO) NRBC % 0.0 0.0 - 0.0 10/08 Specimen Type: BLOOD No comment entered. Ordering Provider: RACHEL MATA Report Released Date/Time: Oct 08, 2024 11:07 AM Reporting Lab: [facility] [place] [address] [address] Performing Lab: [facility] [place] [address] [address] [facility] [place] [facility] CBC AND DIFF (AUTO) NRBC, ABS 0.00 10*3/u L 0.00 - 0.00 10/08 Specimen Type: BLOOD No comment entered. Ordering Provider: RACHEL MATA Report Released Date/Time: Oct 08, 2024 11:07 AM Reporting Lab: [facility] [place] [address] [address] Performing Lab: [facility] [place] [address] [address] [facility] [place] CBC LEUKOCYTES [#/VOLUME] IN BLOOD BY AUTOMATED COUNT 6.62 10*3/u L 4.50 - 11.00 10/05 Specimen Type: BLOOD No comment entered. Ordering Provider: RACHEL MATA Report Released Date/Time: Oct 05, 2023 11:03 AM Reporting Lab: [facility] [place] [address] [address] Performing Lab: [facility] [place] [facility] [address] [facility] [address] [facility] [place] CBC ERYTHROCYTE S [#/VOLUME] IN BLOOD BY AUTOMATED COUNT 4.74 10*6/u L 4.23 - 5.66 10/05 Specimen Type: BLOOD No comment entered. Ordering Provider: RACHEL MATA Report Released Date/Time: Oct 05, 2023 11:03 AM Reporting Lab: [facility] [place] [facility] [address] [facility] [address] Performing Lab: [facility] [place] [facility] [address] [facility] [address] [facility] [place] [facility] CBC HEMOGLOBIN [MASS/VOLUM E] IN BLOOD 15.6 g/dL 12.8 - 17 10/05 Specimen Type: BLOOD No comment entered. Ordering Provider: RACHEL MATA Report Released Date/Time: Oct 05, 2023 11:03 AM Reporting Lab: [facility] [place] [facility] [address] [facility] [address] Performing Lab: [facility] [place] [facility] [address] [facility] [address] [facility] [place] [facility] CBC HEMATOCRIT [VOLUME FRACTION] OF BLOOD BY AUTOMATED COUNT 45.2 39.2 - 50.4 10/05 Specimen Type: BLOOD No comment entered. Ordering Provider: RACHEL MATA Report Released Date/Time: Oct 05, 2023 11:03 AM Reporting Lab: [facility] [place] [facility] [address] [facility] [address] Performing Lab: [facility] [place] [facility] [address] [facility] [address] [facility] [place] [facility] CBC MCV [ENTITIC VOLUME] BY AUTOMATED COUNT 95.4 fL 82 - 99 10/05 Specimen Type: BLOOD No comment entered. Ordering Provider: RACHEL MATA Report Released Date/Time: Oct 05, 2023 11:03 AM Reporting Lab: [facility] [place] [address] [address] Performing Lab: [facility] [place] [facility] [address] [facility] [address] [facility] [place] CBC MCHC [MASS/VOLUM E] BY AUTOMATED COUNT 34.5 g/dL 30.8 - 35.1 10/05 Specimen Type: BLOOD No comment entered. Ordering Provider: RACHEL MATA Report Released Date/Time: Oct 05, 2023 11:03 AM Reporting Lab: [facility] [address] [facility] [address] Performing Lab: [facility] [facility] [address] [facility] [address] [facility] [place] [facility] CBC PLATELETS [#/VOLUME] IN BLOOD BY AUTOMATED COUNT 154 10*3/u L 140 - 360 10/05 Specimen Type: BLOOD No comment entered. Ordering Provider: RACHEL MATA Report Released Date/Time: Oct 05, 2023 11:03 AM Reporting Lab: [facility] [address] [facility] [address] Per[facility] Lab: [facility] [place] [facility] [address] [facility] [address] [facility] [place] [facility] CBC ERYTHROCYTE DISTRIBUTIO N WIDTH [RATIO] BY AUTOMATED COUNT 12.3 12.0 - 16.0 10/05 Specimen Type: BLOOD No comment entered. Ordering Provider: RACHEL MATA Report Released Date/Time: Oct 05, 2023 11:03 AM Reporting Lab: [facility] [address] [facility] [address] Performing Lab: [facility] [address] [facility] [address] [facility] [place] CBC MCH [ENTITIC MASS] BY AUTOMATED COUNT 32.9 pg 26.2 - 32.6 10/05 H Specimen Type: BLOOD No comment entered. Ordering Provider: RACHEL MATA Report Released Date/Time: Oct 05, 2023 11:03 AM Reporting Lab: [facility] [place] [facility] [address] [facility] [address] Performing Lab: [facility] [place] [facility] [address] [facility] [address] [facility] [place] CREATININ E (eGFR 2020) CREATININE [MASS/VOLUM E] IN SERUM OR PLASMA 0.84 mg/dL 0.50 - 1.40 10/05 Specimen Type: SERUM No comment entered. Ordering Provider: RACHEL MATA Report Released Date/Time: Oct 05, 2023 11:03 AM Reporting Lab: [facility] [place] [facility] [address] [facility] [address] Performing Lab: [facility] [place] [facility] [address] [facility] [address] [facility] [place] [facility] CREATININ E (eGFR 2020) GLOMERULAR FILTRATION RATE/1.73 SQ M.PREDICTED [VOLUME RATE/AREA] IN SERUM, PLASMA OR BLOOD BY CREATININE- BASED FORMULA (CKD-EPI 2020) >90mL/ min 60 10/05 Specimen Type: SERUM No comment entered. Ordering Provider: RACHEL MATA Report Released Date/Time: Oct 05, 2023 11:03 AM Reporting Lab: [facility] [place] [facility] [address] [facility] [address] Performing Lab: [facility] [place] [facility] [address] [facility] [address] [facility] [place] [facility] Vital Signs Combined list of inpatient and outpatient Vital Signs from Department of Defense and Veterans Affairs, ranging from 12 months to all on record, depending upon the facility. Vital Sign Value Date Comments Source SYSTOLIC BLOOD PRESSURE 123 10/08/19 25 10:44:59 [facility] [place] [facility] DIASTOLIC BLOOD PRESSURE 70 025 10:44:59 [facility] [place] [facility] PULSE OXIMETRY 97 10/08/2024 10:44:59 [facility] [place] [facility] WEIGHT 188 10/08/2024 10[facility]44:59 [facility] [place] [facility] [facility] BMI 30 kg/m2 10/08/2024 10:44:59 [facility] [place] [facility] PAIN 0 10/08/2024 10:44:59 [facility] HEIGHT 66 10/08/2024 10:44:59 [facility] TEMPERATURE 98.6 10/08/2024 10:44:59 [facility] PULSE 70 10/08/2024 10:44:59 [facility] RESPIRATION 16 10/08/2024 10:44:59 [facility] Encounters Combined list of: 1) Encounters from Department of Veterans Affairs facilities going backup to the last 18 months, not all VA inpatient encounters are included; 2) Encounters from the Department of [facility] facilities going backup to 280 months. Location Location Details Encounter Type Encounter Number Reason For Visit Attending Provider ADM Date DC Date Status Disposition Source [facility] Outpatient Encounter [id number] 09/28 [facility] OFFICE O/P EST MOD 30 MIN [id number] Diagnos is: ICD-10- CM I48.91 Unspeci fied atrial fibrill atNATE Cooley 10/05 [facility] [place] [facility] Outpatient Encounter [id number] 11/23 [facility] Out[facility] Encounter [id number] 11/26 [facility] Out[facility] Encounter [id number] 11/29 [facility] Outpatient Encounter [id number] 12/03 [facility] COMPRE OPH EXAM EST PT 1/> [id number] Diagnos is: ICD-10- CM H25.813 Combine d forms of age-rel ated catarac t, bilater al MARIXA STEPHEN 06/26 [facility] HEARING AID REPAIR/MOD IFYING [id number] Diagnos is: ICD-10- CM Z46.1 Encount er for fitting and adjustm ent of hearing aid MICHAEL MUHAMMAD L 06/26 [facility] FIT SPECTACLES MONOFOCAL [id number] Diagnos is: ICD-10- CM Z46.0 Encount er for fit/adj st of spectac les and contact lenses MARIXA STEPHEN 06/26 [facility] HEARING AID FITTING/CH ECKING [id number] Diagnos is: ICD-10- CM Z46.1 Encount er for fitting and adjustm ent of hearing aid KEVIN SOSA 08/23 [facility] Outpatient Encounter [id number] 10/01 [facility] OFFICE O/P EST LOW 20 MIN [id number] Diagnos is: ICD-10- CM I10 Essenti al (primar y) hyperte maxion NATE MATA 10/08 [place] [facility] Outpatient Encounter [id number] 10/08 [facility] NQHP OL DIG ASSMT&MGMT 5-10 [id number] Diagnos is: ICD-10- CM Z79.01 alf (curren t) use of anticoa gulants DEVON GALLEGO 11/[address] [facility] [place] Outpatient Encounter [id number] 12/[address] [facility] [place] NQHP OL DIG ASSMT&MGMT 5-10 [id number] Diagnos is: ICD-10- CM Z79.01 alf (curren t) use of anticoa gulants DEVON GALLEGO ERT ALEJANDRO 12/[address] [facility] [place] Outpatient Encounter [id number] 12/[address] [facility] [place] Outpatient Encounter [id number] 12/[address] [facility] [place] Social History Combined list of available smoking, tobacco, and other social history from Department of Defense and Veterans Affairs facilities. Social History Type Response Date Comment [facility] e Tobacco smoking status [facility] VA-TOBACCO NEVER USED CIGARETTES 10/08/2024 [facility] History of tobacco use GA-TOBACCO NEVER USED OTHER TYPE 10/08/2024 [facility] History of tobacco use VA-TOBACCO NEVER USED 10/05/2023 [facility] D History of tobacco use VA-TOBACCO NEVER USED 10/05/2022 [facility] D History of tobacco use VA-TOBACCO NEVER USED 10/06/2021 [facility] D History of tobacco use GA-TOBACCO FORMER USER 09/28/2020 [facility] [place] [facility] History of tobacco use VA-TOBACCO NEVER USED 11/23/2018 [facility] D History of tobacco use LIFETIME NON-TOBACCO USER 01/31/2018 [facility] Advance Directives List of completed, amended, or rescinded Advance Directives on record at Department of Veterans Affairs facilities. An actual copy of the Directive is not included. Date Advance Directive Provider Source 10/10/2019 ADVANCE DIRECTIVE DYLON ABBOTT [facility]
--- OUTSIDE RECORDS SUMMARY | 2025-01-20 09:21 | XMS_ITS ---
Author Name [facility] [place] [facility] [place] [facility] [place] Address [address] [place] [address] Care Team Providers Care Operations Officer Name Role Phone RACHEL MATA Primary Care [...] Alvarez's Name Patient's Relationship to Policy Alvarez [facility] ([facility]) MEDICARE ADVANTAGE [facility] ([facility]) Sep 18, 2019 [id number] Ana María SCHUMACHER PATIENT Selected Encounter This section includes the information on record at [place] for the Encounter. 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 Radiology Reports and Pathology Reports are provided separately, in subsequent sections. Lab Results This section contains the Chemistry/Hematology Results that were resulted 30 days before or 30 daysafter the date of the Encounter. Date/Time Source Result Type Result - Unit Interpretation Reference Range Specimen Type Comment Dec 17, 2024 01:17 PM [facility] CREATININE (eGFR 2020) SERUM Specimen Type: SERUM No comment entered. Ordering Provider: SEAN GALLEGO Report Released Date/Time: Nov 12, 2024 02:18 PM Reporting Lab: [facility] [address] [id number] Performing Lab: [address] [address] CREATININE, Serum 0.75 mg/dL 0.50-1.40 eGFR(CKD-EPI 2020) >90 mL/min >60 Social History: Smoking Status (Most current) and Tobacco Use (All prior to encounter date) This section includes the most current, and the historical, smoking and tobacco- related health factors from the [place] facility where the Encounter took place. Current Smoking Status This section includes the most current smoking, or tobacco-related health factor, from the [place] facility where the Encounter took place. Date/Time Current Smoking Status Comment Reema ity Sep 28, 2020 01:54 PM VA-TOBACCO FORMER USER [facility] Tobacco Use History This section includes a history of the smoking, or tobacco-related health factors, that were collected on or before the date of the Encounter. The data comes from the [place] facility where the Encounter took place. Date/Time Smoking Status/Tobacco Use Comment F acility Sep 28, 2020 01:54 PM VA-TOBACCO QUIT 15 YRS OR MORE [facility] January 31, 2018 01:18 PM LIFETIME NON-TOBACCO USER [facility] Advance Directives: All historical and current Section Date Range: From patient's date of to the date document was created. This section includes ALL of a patient's completed or amended VA Advance and Rescinded Directives. The entries below indicate that a directive exists for the patient, but an actual copy is not included with this document. The data comes from all [place] facilities. Date Advance Directives Provider Source Oct 10, 2019 ADVANCE DIRECTIVE DYLON ABBOTT [place] [facility] Encounter Notes: All associated encounter notes This section contains the clinical notes associated to the Encounter. Date/Time Encounter Note(s) Provider Source Dec 24, 2024 01:55 PM ADDENDUM: LOCAL TITLE: Addendum STANDARD TITLE: ADDENDUM DATE OF NOTE: DEC 24, 2024@13:55:50 ENTRY DATE: DEC 24, 2024@13:55:50 AUTHOR: SEAN GALLEGO EXP COSIGNER: URGENCY: STATUS: COMPLETED [place] in need of renewal of apixaban 5mg BID. does not have an active CC consult for Cardiology. Last rx was ordered by [place] PCP. [facility] has low supply of apixaban and is requesting renewal. Thank you! /luis/ Sean Gallego PharmD Clinical [employer] Signed: 12/24/2024 13:58 Receipt Acknowledged By: 12/24/2024 16:39 /es/ RACHEL MATA MD Primary Care Physician --- Original Document --- 12/13/24 PHARMACY ANTICOAGULATION NOTE: ANTICOAGULATION DOAC MONITORING NOTE SUBJECTIVE: Patient identified through the DOAC population Management Tool based on the following criteria: [ ] Dosing Issue [ ] Critical Drug Interaction [ ] Cancer Treatment [ ] Active NSAID [ X ] Labs Overdue [ ] Prosthetic Valve Replacement [ ] Notable Lab Value [ ] Overdue for Refill [ ] Other: Comments: CBC and Serum creatinine recommended every 12mths for this patient on DOAC therapy OBJECTIVE: Indication for anticoagulation: [ X ] Atrial fibrilation [ ] Atrial flutter [ ] VTE (DVT or PE) [ ] Post-op DVT prophylaxis [ ] Other: Most recent lab values include the following: HGB: HGB Collection DT Specimen Test Name Result Units Ref Range 10/08/2024 11:31 BLOOD HGB 15.2 g/dL 12.8 - 17 PLT: WBC Collection DT Specimen Test Name Result Units Ref Range 10/08/2024 11:31 BLOOD WBC 6.30 K/cmm 4.50 - 11.00 Liver Function Tests Collection DT Spec AST ALT 10/08/2024 11:31 SERUM 21 25 HEIGHT: 66 in [167.6 cm] (10/08/2024 10:44) WEIGHT: 188 lb [85.28 kg] (10/08/2024 10:44) BMI: BMI: 30.4 CREATININE-EGFR - NONE FOUND CRCL IBW: CrCl(est): 75.5 mL/min (Creat:0.84 10/05/23) CRCL ACT: No Creat CRCL ADJ: 75.5 mL/min (10/05/23) ASSESSMENT: overdue labs Action required? [ ] Yes [ X ] No Comments: [facility] had labs that were drawn at [facility] and results found in [facility] had labs that were performed by a lab outside the [place]. These results were verified by reviewing a copy of the outside laboratory report. Patient reports outside Hgb results: Date: December 11, 2024 Results: 15.5 Location: Outside Healthcare Provider Patient reports outside HCT results: Date: December 11, 2024 Results: 45.6 Location: Outside Healthcare Provider Patient reports outside PLT results: Date: December 11, 2024 Results: 155 Location: Outside Healthcare Provider Patient reports outside SCR results: Date: December 11, 2024 Results: 0.76 Location: Outside Healthcare Provider Patient reports outside BUN results: Date: December 11, 2024 Results: 16 Location: Outside Healthcare Provider PLAN: [ X ] No action required, dismiss flag [ ] Will intervene: [ ] Patient education via phone/letter [ ] Schedule phone/qtpo-fe-ujoe follow up [ ] Lab ordered [ ] Discontinue interacting medication [ ] Discontinue DOAC [ ] Change to alternative DOAC [ ] Change DOAC dose [ ] Notify PCP [ ] Consult cardiology/hematology [ ] Other: Time spent: 10 min /luis/ KIAN GUZMAN CPHT Clinical Filt[employer] Crusher Signed: 12/13/2024 09:20 Receipt Acknowledged By: 12/13/2024 12:16 /luis/ Sean Gallego PharmD [employer] 12/13/2024 ADDENDUM STATUS: COMPLETED Labs reviewed. Apixaban 5mg BID remains appropriate. /luis/ Sean Gallego PharmD Clinical [employer] Signed: 12/13/2024 12:16 SEAN GLALEGO [place] [facility] [place] [facility] Dec 13, 2024 09:18 AM PHARMACY MEDICATION MGT NOTE: LOCAL TITLE: PHARMACY ANTICOAGULATION NOTE STANDARD TITLE: PHARMACY MEDICATION MGT NOTE DATE OF NOTE: DEC 13, 2024@09:18 ENTRY DATE: DEC 13, 2024@09:18:17 AUTHOR: KIAN GUZMAN EXP COSIGNER: URGENCY: STATUS: COMPLETED PHARMACY ANTICOAGULATION NOTE Has ADDENDA ANTICOAGULATION DOAC MONITORING NOTE SUBJECTIVE: Patient identified through the DOAC population Management Tool based on the following criteria: [ ] Dosing Issue [ ] Critical Drug Interaction [ ] Cancer Treatment [ ] Active NSAID [ X ] Labs Overdue [ ] Prosthetic Valve Replacement [ ] Notable Lab Value [ ] Overdue for Refill [ ] Other: Comments: CBC and Serum creatinine recommended every 12mths for this patient on DOAC therapy OBJECTIVE: Indication for anticoagulation: [ X ] Atrial fibrilation [ ] Atrial flutter [ ] VTE (DVT or PE) [ ] Post-op DVT prophylaxis [ ] Other: Most recent lab values include the following: HGB: HGB Collection DT Specimen Test Name Result Units Ref Range 10/08/2024 11:31 BLOOD HGB 15.2 g/dL 12.8 - 17 PLT: WBC Collection DT Specimen Test Name Result Units Ref Range 10/08/2024 11:31 BLOOD WBC 6.30 K/cmm 4.50 - 11.00 Liver Function Tests Collection DT Spec AST ALT 10/08/2024 11:31 SERUM 21 25 HEIGHT: 66 in [167.6 cm] (10/08/2024 10:44) WEIGHT: 188 lb [85.28 kg] (10/08/2024 10:44) BMI: BMI: 30.4 CREATININE-EGFR - NONE FOUND CRCL IBW: CrCl(est): 75.5 mL/min (Creat:0.84 10/05/23) CRCL ACT: No Creat CRCL ADJ: 75.5 mL/min (10/05/23) ASSESSMENT: overdue labs Action required? [ ] Yes [ X ] No Comments: had labs that were drawn at [facility] and results found in [facility] had labs that were performed by a lab outside the [place]. These results were verified by reviewing a copy of the outside laboratory report. Patient reports outside Hgb results: Date: December 11, 2024 Results: 15.5 Location: Outside Healthcare Provider Patient reports outside HCT results: Date: December 11, 2024 Results: 45.6 Location: Outside Healthcare Provider Patient reports outside PLT results: Date: December 11, 2024 Results: 155 Location: Outside Healthcare Provider Patient reports outside SCR results: Date: December 11, 2024 Results: 0.76 Location: Outside Healthcare Provider Patient reports outside BUN results: Date: December 11, 2024 Results: 16 Location: Outside Healthcare Provider PLAN: [ X ] No action required, dismiss flag [ ] Will intervene: [ ] Patient education via phone/letter [ ] Schedule phone/gskr-sr-ddei follow up [ ] Lab ordered [ ] Discontinue interacting medication [ ] Discontinue DOAC [ ] Change to alternative DOAC [ ] Change DOAC dose [ ] Notify PCP [ ] Consult cardiology/hematology [ ] Other: Time spent: 10 min /luis/ KIAN GUZMAN CPHT Clinical [employer] Crusher Signed: 12/13/2024 09:20 Receipt Acknowledged By: 12/13/2024 12:16 /franky Gallego PharmD [employer] 12/13/2024 ADDENDUM STATUS: COMPLETED Labs reviewed. Apixaban 5mg BID remains appropriate. /luis/ Sean Gallego PharmD [employer] Signed: 12/13/2024 12:16 12/24/2024 ADDENDUM STATUS: COMPLETED in need of renewal of apixaban 5mg BID. [facility] does not have an active CC consult for Cardiology. Last rx was ordered by [place] PCP. [facility] has low supply of apixaban and is requesting renewal. Thank you! /franky Gallego PharmD Clinical [employer] Signed: 12/24/2024 13:58 Receipt Acknowledged By: * AWAITING SIGNATURE * RACHEL MATAKIAN [facility]
--- OUTSIDE RECORDS SUMMARY | 2025-01-20 09:21 | XMS_ITS | Encounter Summary ---
Author Name [facility] Organization [facility] [place] Address [address] [place] [address] Care Team Providers Care Supervisor Alum Plant Name Role Phone RACHEL MATA Primary Care Provider Unavaildawna e Insurance Providers: All historical and current Section Date Range: From patient's date of to the date document was created. This section includes the names of all active insurance providers for the patient. Insurance Provider Type of Coverage Plan Name Start of Policy Coverage End of Policy Coverage Group Number Member ID Insurance Provider's Telephone Number Policy Alvarez's Name Patient's Relationship to Policy Alvarez [facility] ([facility]) MEDICARE ADVANTAGE [facility] ([facility]) Sep 18, 2019 [id number] Ana María SCHUMACHER PATIENT Selected Encounter This section includes the information on record at [facility] for the Encounter. Date/Time Encounter Type Encounter Description Reason Provider Source Oct 08, 2024 10:30 AM OFFICE O/P EST LOW 20 MIN PRIMARY CARE/MEDICINE ICD-10-CM I10 Essential (primary) hypertension RACHEL MATA Encounter Template Text not used by [facility] Assessments - Encounter Diagnoses This section includes the primary and secondary diagnoses documented for the Encounter. Date/Time Primary/Secondary Diagnosis Diagnosis Name Provider Source Oct 08, 2024 10:57 AM PRIMARY Essential (primary) hypertension RACHEL MATA Oct 08, 2024 10:57 AM SECONDARY Unspecified atrial fibrillation RACHEL MATA Lab Results: +/- 30 days of the encounter This section includes the Chemistry and Hematology Lab Results on record with [facility] for the patient. Radiology Reports and Pathology Reports are provided separately, in subsequent sections. Lab Results This section contains the Chemistry/Hematology Results that were resulted 30 days before or 30 daysafter the date of the Encounter. Date/Time Source Result Type Result - Unit Interpretation Reference Range Specimen Type Comment Oct 08, 2024 11:31 AM [facility] [place] [facility] ALT SERUM Specimen Type: SERUM No comment entered. Ordering Provider: RACHEL MATA Report Released Date/Time: Oct 08, 2024 11:10 AM Reporting Lab: [facility] [place] [facility] [address] [address] Performing Lab: [facility] [place] [address] [address] ALT 25 U/L Oct 08, 2024 11:31 [facility] AST SERUM Specimen Type: SERUM No comment entered. Ordering Provider: RACHEL MATA Report Released Date/Time: Oct 08, 2024 11:10 AM Reporting Lab: [facility] [place] [address] [address] Performing Lab: [facility] [place] [address] [address] AST 21 U/L 5-34 Oct 08, 2024 11:31 AM [facility] [place] [facility] CBC AND DIFF (AUTO) BLOOD Specimen Type: BLOO D No comment entered. Ordering Provider: RACHEL MATA Report Released Date/Time: Oct 08, 2024 11:07 AM Reporting Lab: [facility] [place] [address] [address] Performing Lab: [facility] [place] [address] [address] WBC 6.30 10*3/uL 4.50-11.00 RBC 4.60 10*6/uL 4.23-5.66 HGB 15.2 g/dL 12.8-17 HCT 44.3 39.2-50.4 MCV 96.3 fL 82-99 MCHC 34.3 g/dL 30.8-35.1 PLT 156 10*3/uL 140-360 RDW-CV 12.2 12.0-16.0 MONO, ABS 0.41 10*3/uL 0.30-1.10 MCH 33.0 pg H 26.2-32.6 NEUT % 66.7 43.7-75.8 LYMPH % 23.2 14.0-42.3 MONO % 6.5 5.1-13.7 EOS % 2.4 0.4-6.8 BASO % 1.0 0.1-2.0 NEUT, ABS 4.21 10*3/uL 2.20-7.60 LYMPH, ABS 1.46 10*3/uL 1.00-3.20 EOS, ABS 0.15 10*3/uL 0.03-0.44 BASO, ABS 0.06 10*3/uL 0.01-0.13 IMMATURE GRAN % 0.2 0.0-0.7 IMMATURE GRAN, ABS 0.01 10*3/uL 0.00-0.0 6 NRBC % 0.0 0.0-0.0 NRBC, ABS 0.00 10*3/uL 0.00-0.00 Social History: Smoking Status (Most current) and [...] Date/Time Current Smoking Status Comment Reema ity Oct 08, 2024 10:30 AM VA-TOBACCO NEVER USED OTHER TYPE [place] Tobacco Use History This section includes a history of the smoking, or tobacco-related health factors, that were collected on or before the date of the Encounter. The data comes from the [facility] facility where the Encounter took place. Date/Time Smoking Status/Tobacco Use Comment F acility Oct 08, 2024 10:30 AM VA-TOBACCO NEVER USED OTHER TYPE [place] Oct 05, 2023 10:30 AM VA-TOBACCO NEVER USED [place] Oct 05, 2022 11:00 AM VA-TOBACCO NEVER USED [place] Oct 06, 2021 09:00 AM VA-TOBACCO NEVER USED [place] Nov 23, 2018 10:43 AM VA-TOBACCO NEVER USED [place] Advance Directives: All historical and current Section [...] Provider Source Oct 10, 2019 ADVANCE DIRECTIVE SCARDYLON ADAME [facility] Encounter Notes: All associated encounter notes This section contains the clinical notes associated to the Encounter. Date/Time Encounter Note(s) Provider Source Oct 08, 2024 10:49 AM PREVENTIVE MEDICIN E NURSING NOTE: LOCAL TITLE: CLINICAL REMINDERS/NURSING STANDARD TITLE: PREVENTIVE MEDICINE NURSING NOTE DATE OF NOTE: OCT 08, 2024@10:49 ENTRY DATE: OCT 08, 2024@10:49:38 AUTHOR: JAN WADDELL COSIGNER: URGENCY: STATUS: COMPLETED Advance Directive Screen MH AD: Patient has an Advance Directive on file at this [facility]. No updates are needed at this time. The patient received education about Advance Directives and written notification of his/her rights. Suicide Screen: C-SSRS Screening [place] Suicide Severity Rating Scale (C-SSRS) screener 1. [...] required due to responses to other questions. Homelessness/Food Insecurity Screen: In the past 2 [...] Not worried about housing near future [facility] reports the following: Within the past 12 months, you worried whether your food would run out before you got money to buy more. Never true Within the past 12 months, the food you bought just didn't last and you didn't have money to get more. Never true Depression Screening: Perform PHQ-2 A PHQ-2 screen was performed. The score was 0 which is a negative screen for depression. Over the past two weeks, how often have you been bothered by the following problems? 1. Little interest or pleasure in doing things Not at all 2. Feeling down, depressed, or hopeless Not at all Tobacco Use Screening: The patient has never smoked cigarettes. The patient has never used other types of tobacco. Influenza Immunization: Deferral / Refusal The patient declines to receive the recommended dose of seasonal influenza vaccine. Immunization: INFLUENZA, UNSPECIFIED FORMULATION Refusal Reason: PATIENT DECISION Patient refuses all immunization(s) in the FLU group Date Documented: 10/08/24 10:50 Alcohol Use Screen (AUDIT-C): Alcohol Screen: SCREEN FOR ALCOHOL (AUDIT-C) An alcohol screening test (AUDIT-C) was negative (score=0). 1. How often did you have a drink containing alcohol in the past year? Consider a drink to be a 12 ounce can or bottle of regular beer, 8 ounces of malt liquor, a 5 ounce glass of table wine, or a 1.5 ounce shot of liquor (like scotch, gin, or vodka). Never 2. How many drinks containing alcohol did you have on a typical day when you were drinking in the past year? Response not required due to responses to other questions. 3. How often did you have six or more drinks on one occasion in the past year? Response not required due to responses to other questions. COVID-19 Immunization: Refused Moderna Monovalent COVID-19 vaccine Immunization: COVID-19 (MODERNA), MRNA, LNP-S, PF, 50 MCG/0.5 ML (AGES 12+ YEARS) Refusal Reason: PATIENT DECISION Patient refuses all immunization(s) in the COVID-19 group Date Documented: 10/08/24 10:50 Sexual Orientation: The patient thinks of their sexual orientation as: Straight or Heterosexual RHS Screen: RHS Screen Session Format: Face to Face Environmental Check Screening was not completed at this time due to: Another adult present /es/ JAN WADDELL LPN PACT 10 Signed: 10/08/2024 10:51 JAN WADDELL Oct 08, 2024 06:04 AM PHYSICIAN NOTE: LOCAL TITLE: MD NOTE STANDARD TITLE: PHYSICIAN NOTE DATE OF NOTE: OCT 08, 2024@06:04 ENTRY DATE: OCT 08, 2024@06:04:59 AUTHOR: RACHEL MATA EXP COSIGNER: URGENCY: STATUS: COMPLETED HISTORY OF PRESENT ILLNESS: TANISHA SCHUMACHER is a 73 yo MALE, accompanied by his Veronica (retired RN), who presents at the [facility] for his annual visit. t maintains a nonVA PCP: Mr Samir FLORENTINO (Dr Frias practice) in [place], [place]. Pt utilizes optometry, audiology, and pharmacy services at the [facility]. NonVA Providers: Blade Bender Furnace Tender: Dr Jernigan Dermatology: SANDRA Rice Neurologist: Dr Cage Urologist: Dr Rao Active problems - Computerized Problem List is the source for the followin. Obstructive sleep apnea 2. Long-term current use of anticoagulant 3. Atrial fibrillation 4. Hypertension 5. History of total replacement of left hip joint 6. Benign prostatic hypertrophy 7. Skin cancer 8. History of shingles 9. Colonoscopy Screening 10. History of Carcinoid Tumor 11. NON VA Providers 12. Hyperlipidemia Active and Recently Outpatient Medications (including Supplies): Active Outpatient Medications Status 1) APIXABAN 5MG TAB TAKE ONE TABLET BY MOUTH TWICE DAILY ACTIVE Indication: FOR PREVENTION OF BLOOD CLOTS Active Non-VA Medications Status 1) Non-VA COENZYME Q10 CAP/TAB BY MOUTH ACTIVE 2) Non-VA EZETIMIBE 10MG TAB 10MG BY MOUTH ONCE DAILY ACTIVE 3) Non-VA FINASTERIDE 5MG TAB 5MG BY MOUTH ONCE DAILY ACTIVE 4) Non-VA FISH OIL 1000MG (500MG DHA/EPA) CAP 2000MG BY MOUTH ACTIVE 5) Non-VA METOPROLOL SUCCINATE 25MG SA TAB 25MG BY MOUTH ONCE ACTIVE DAILY 6) Non-VA PRAVASTATIN NA 80MG TAB 80MG BY MOUTH ONCE DAILY ACTIVE 7 Total Medications ALLERGIES: ========= Patient has answered [facility] LAB HISTORY: CBC TREND Collection DT Spec WBC RBC HGB HCT MCV MCH PLT 10/05/2023 11:07 BLOOD 6.62 4.74 15.6 45.2 95.4 32.9 H 154 12/05/2022 07:44 BLOOD 5.93 4.54 14.8 44.3 97.6 32.6 136 L 10/18/2021 10:22 BLOOD 5.76 4.53 14.9 43.7 96.5 32.9 H 165 10/07/2020 13:13 BLOOD 6.93 4.91 16.0 47.6 96.9 32.6 151 HISTORY: PERIOD OF SERVICE - [facility] FROM May TO May COMBAT SERVICE INDICATED: No VITAL SIGNS: Blood Pressure 123/70 (10/08/2024 10:44) Pulse 70 (10/08/2024 10:44) Respiration 16 (10/08/2024 10:44) Pulse Oximetry 97% (10/08/2024 10:44) Temperature 98.6 F [37.0 C] (10/08/2024 10:44) Pain 0 (10/08/2024 10:44) Height 66 in [167.6 cm] (10/08/2024 10:44) Weight 188 lb [85.28 kg] (10/08/2024 10:44) BMI BMI: 30.4 REVIEW OF SYSTEMS: CARDIOVASCULAR: No chest pain, no palps RESPIRATORY: No SOB, no wheezing GASTROINTESTINAL: No abd pain, no N/V/D MUSCULOSKELETAL: No joint pain NEUROLOGIC: No H/A, no weakness EXAMINATION: GENERAL: WD/WN in NAD HEENT: Moist mucosa NECK: Supple, no carotid bruits HEART: RRR, S1-S2, no murmurs LUNGS: CTA B/L ABDOMEN: Soft, NT/ND EXTREMITIES: FROM x 4, no edema NEUROLOGIC: AAO x3, no focal findings PSYCHIATRIC: Good eye contact, affect normal ASSESSMENT/PLAN: 1. Paroxysmal Atrial Fibrillation: dxed December 2019, on eliquis 5mg BID, managed by regional coordinator Dr Carson Jernigan in [place] 2. Hypertension: well controlled on metoprolol succinate 25mg/day 3. Hyperlipidemia: on pravastatin 80mg/QHS, zetia 10mg/day, Fish Oil 2 caps/day, and CoQ10 200mg/day 4. Colonoscopy Screening: completed 02/09/21, he was advised by GI/Dr Ferrell no more screenings necessary 5. Hx of Skin Cancer: both melanoma & BCC, managed by [facility] 6. BPH: on finasteride 5mg/day 7. Sleep Apnea: no longer on CPAP, uses mouth guard FOLLOW UP: 1 year - Annual - vet to bring PCP labs ========= No barriers; Patient understands and agrees to current treatment plan. If pt has any questions, concerns, or changes in current health status he/she will call or come in to the [facility]. Lipid Screening: Patient was educated about cardiac risk factors related to cholesterol control, which includes, all elements of the Lipid Panel including HDL, LDL and Triglycerides. [facility] declined testing at this time. Medication Reconciliation: Outpatient: Has the patient been [...] Remote Allergy/ADR Data available for this patient [facility] [place] [facility] No Known Allergies Med Recon NoGlossary (Tool [...] days. Non-VA Meds Last Documented On: Oct 08, 2024 NOTE The display of VA prescriptions dispensed from another VA or DoD facility (remote) is limited to active outpatient prescription entries matched to National Drug File at the originating site and may not include some items such as investigational drugs, compounds, etc. NOT INCLUDED IN THIS LIST: Medications self-entered by the patient into personal health records (i.e. vushaper) are NOT included in this list. Non-VA medications documented outside this [facility], remote inpatient orders (regardless of status) and remote clinic medications are NOT included in this list. The patient and provider must always discuss medications the patient is taking, regardless of where the medication was dispensed or obtained. ------ OUTPT APIXABAN 5MG TAB (Status = Active) TAKE ONE TABLET BY MOUTH TWICE DAILY FOR PREVENTION OF BLOOD CLOTS Rx# [id number] Last Released: 10/01/24 Qty/Days Supply: 180/90 Rx Expiration Date: 12/05/24 [...] prescribed by Non-VA provider. Non-VA PRAVASTATIN NA 80MG TAB TAKE ONE TABLET BY MOUTH ONCE DAILY Patient wants to buy from Non-VA pharmacy. Medication prescribed by Non-VA provider. ------ SUPPLIES ------ /luis/ RACHEL MATA MD Primary Care Physician Signed: 10/08/2024 11:09 RACHEL MATA [place]
--- OUTSIDE RECORDS SUMMARY | 2025-01-20 09:21 | XMS_ITS | Clinical Summary ---
Author Organization [facility] Address [address] [place] [address] Care Team Providers Care Media Consultant Name Role Phone Mita Rosales MD Primary Care Provider [phone] Allergies No known active allergies Medications Medication Sig Dispensed Refills Start Date End Date Status atorvastatin (LIPITOR) tablet 10 mg Take 1 tablet (10 mg total) by mouth every evening. 0 11/23/2018 Active Mcdowell-3 Fatty Acids (FISH OIL) 1000 MG CAPS [...] this topic Medical Devices Implanted Type Area Garment Supervisor Device Identifier Shelf Expiration Date Model / Serial / Lot Screw Trident Ii 25mm 6.5mm Low Profile Hexagonal Bone - [id number] - [id number] Implanted:Qty: 1 on 07/08/2019 by Nik Corona MD at [facility] Left: Hip [employer] 02/19/2024 [id number] / / [id number] Screw Trident Ii 25mm 6.5mm Low Profile Hexagonal Bone - [id number] - [id number] Implanted:Qty: 1 on 07/08/2019 by Nik Corona MD at [facility] Left: Hip [employer] 03/05/2024 [id number] / / [id number] Shell Trident Ii E 54mm 5 Screw Hole Cluster Tritanium - [id number] - [id number] Implanted:Qty: 1 on 07/08/2019 by Nik Corona MD at [facility] Left: Hip [employer] 03/05/2024 [id number] / / [id number] Insert Trident 0d E 36mm X3 Acetabular Hip - [id number] - [id number] Implanted:Qty: 1 on 07/08/2019 by Nik Corona MD at [facility] Left: Hip [employer] 04/09/2024 [id number] / / [id number] Stem Hip Neck Angle 127 Degree Accolade Ii Sz7 - [id number] - [id number] Implanted:Qty: 1 on 07/08/2019 by Nik Corona MD at [facility] Left: Hip [employer] 03/18/2024 [id number] / / [id number] Head V40 +5mm 36mm Delta Femoral Hip - [id number] - [id number] Implanted:Qty: 1 on 07/08/2019 by Nik Corona MD at [facility] Left: Hip [employer] 05/19/2024 [id number] / / [id number] Advance Directives For more information, please contact: [phone] Latest Code Status on File Code Status [...] way: discussion with patient . Care Teams Media Consultant Relationship Specialty Start Date End Date Mita Rosales MD [address] [place] [address] PCP - General Internal Medicine 06/28/19
--- OUTSIDE RECORDS SUMMARY | 2025-01-20 09:21 | XMS_ITS ---
Author Name [facility] Organization [facility] Address [address] [place] [address] Care Team Providers Care Kier Boiler Name Role Phone RACHEL MATA Primary Care [...] Alvarez's Name Patient's Relationship to Policy Alvarez [facility] ([facility]) MEDICARE ADVANTAGE [facility] ([facility]) Sep 18, 2019 [id number] Ana María SCHUMACHER PATIENT Selected Encounter This section includes the information on record at [place] for the Encounter. Date/Time Encounter Type Encounter Description Reason Provider Source Nov 12, 2024 12:58 PM [facility] DIG ASSMT&MGMT 5-10 CLINICAL PHARMACY ICD-10-CM Z79.01 detention (current) use of anticoagulants [facility] [place] Encounter Template Text not used by [place] Assessments - Encounter Diagnoses This section includes the primary and secondary diagnoses documented for the Encounter. 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 Current Smoking Status This section includes the most current smoking, or tobacco-related health factor, from the [place] facility where the Encounter took place. Date/Time Current Smoking Status Comment Reema cota Sep 28, 2020 01:54 PM VA-TOBACCO FORMER USER [facility] Tobacco Use History This section includes a history of the smoking, or tobacco-related health factors, that were collected on or before the date of the Encounter. The data comes from the [place] facility where the Encounter took place. Date/Time Smoking Status/Tobacco Use Comment F accresencio Sep 28, 2020 01:54 PM [place]-TOBACCO QUIT 15 YRS OR MORE [facility] January 31, 2018 01:18 PM LIFETIME NON-TOBACCO USER [facility] Advance Directives: All historical and current Section Date Range: From patient's date of to the date document was created. This section includes ALL of a patient's completed or amended [place] Advance and Rescinded Directives. The entries below indicate that a directive exists for the patient, but an actual copy is not included with this document. The data comes from all [place] facilities. Date Advance Directives Provider Source Oct 10, 2019 ADVANCE DIRECTIVE DYLON ABBOTT [facility] Encounter Notes: All associated encounter notes This section contains the clinical notes associated to the Encounter. Date/Time Encounter Note(s) Provider Source Nov 12, 2024 12:58 PM PHARMACY MEDICATION MGT NOTE: LOCAL TITLE: PHARMACY ANTICOAGULATION NOTE STANDARD TITLE: PHARMACY MEDICATION MGT NOTE DATE OF NOTE: NOV 12, 2024@12:58 ENTRY DATE: NOV 12, 2024@12:58:54 AUTHOR: KIAN GUZMAN EXP COSIGNER: URGENCY: STATUS: [...] CREATININE-EGFR - NONE FOUND CRCL IBW: CrCl(est): 76.7 mL/min (Creat:0.84 10/05/23) CRCL ACT: No Creat CRCL ADJ: 76.7 mL/min (10/05/23) ASSESSMENT: overdue labs Action required? [ X ] Yes [ ] No Comments: had CBC drawn 09/2024 but SCR still needed. will have [facility] order updated labs. will mail letter to patient asking that they have labs completed within the next 30 days PLAN: [ ] No action required, dismiss flag [ X ] Will intervene: [ X ] Patient education via phone/letter [ ] Schedule phone/[id number] follow up [ X ] Lab ordered [ ] Discontinue interacting medication [ ] Discontinue DOAC [ ] Change to alternative DOAC [ ] Change DOAC dose [ ] Notify PCP [ ] Consult cardiology/hematology [ ] Other: Time spent: 10 min /luis/ KIAN GUZMAN CPHT Clinical Assembler And Tester [employer] Signed: 11/12/2024 13:00 Receipt Acknowledged By: 11/12/2024 14:28 /luis/ Sean Gallego PharmD Clinical Trommel Tender 11/12/2024 ADDENDUM STATUS: COMPLETED Above case reviewed as entered by [facility] Construction Project Administrator. Agree with current assessment and plan of care for this patient's anticoagulation management as noted. /luis/ Sean Gallego PharmD Clinical Trommel Tender Signed: 11/12/2024 14:29 KIAN GUZMAN [facility]L [facility]
--- OUTSIDE RECORDS SUMMARY | 2025-01-20 09:21 | XMS_ITS | Clinical Summary ---
Author Organization [facility] Address [address] [place] [address] Care Team Providers Care Photographic Equipment Inspector Name Role Phone Carson Jernigan MD Unavailable [phone] Rolo Dawson MD Primary Care Provider [phone] Allergies No known active allergies Medications coenzyme [...] erectile dysfunction. Active ezetimibe (ZeTIA) 10 MG tabletIndications:H yperlipidemia, unspecified hyperlipidemia type TAKE 1 TABLET BY MOUTH DAILY 100 tablet 2 4 Active metoPROLOL SUCCINATE (TOPROL-XL) 25 MG 24 hr tabletIndications:P AF (paroxysmal atrial fibrillation) (HCC) TAKE 1 TABLET BY MOUTH DAILY 100 tablet 2 4 Active Multiple Vitamins-Minerals (MULTIVITAMIN ADULT, MINERALS, PO) Take by mouth. Active pravastatin (PRAVACHOL) 80 MG tabletIndications:E levated coronary artery calcium score Take 1 tablet (80 mg total) by mouth daily. 100 tablet 3 4 Active apixaban (Eliquis) 5 MG tabletIndications:P AF (paroxysmal atrial fibrillation) (HCC) Take 1 tablet (5 mg total) by mouth 2 (two) times a day. 180 tablet 3 Active Active Problems Problem Noted Date Diagnosed Date CAROLEE (obstructive sleep apnea) 11/29/2021 Snoring 11/29/2021 Fatigue 11/29/2021 PAF (paroxysmal atrial fibrillation) 01/07/2021 NSVT (nonsustained ventricular tachycardia) 12/18 Hypertrophic cardiomyopathy 01/07/2021 Hyperlipidemia 12/29/2019 Syncope and collapse 12/29/2019 BPH (benign prostatic hyperplasia) 12/29/2019 Osteoarthritis of left hip 07/08/2019 Encounters Date Type Department Care Team Description 12/23/[address] [phone] Carson Jernigan MD 12/17/[address] [address] Carson Jernigan MD Other 12/17/[address] [phone] Carson Jernigan MD 12/16/[address] [phone] Carson Jernigan MD 12/12/2024 10:00 AM EDT Office Visit [facility] [address] [phone] Carson Jernigan MD Pure hypercholesterolemia (Primary Dx); Elevated coronary artery calcium score; Obstructive sleep apnea; Paroxysmal atrial fibrillation (HCC); PINK (dyspnea on exertion); Syncope and collapse; Hypertrophic cardiomyopathy (HCC); PAF (paroxysmal atrial fibrillation) (HCC) 12/11/2024 Travel 11/01/[address] [phone] Carson Jernigan MD 11/01/2024 Orders Only [address] [phone] Carson Jernigan MD Pure hypercholesterolemia (Primary Dx); Paroxysmal atrial fibrillation (HCC); Hypertrophic cardiomyopathy (HCC) 11/01/[address] [facility] [address] [address] Carson Jernigan MD Other from [...] Description 06/26/2025 9:20 AM EDT Office Visit [facility] [address] [address] Carson Jernigan MD [address] [place] [address] Health Maintenance Due Date Last Done Comments [...] AM EDT) Ventricular rate 59 BPM EKG [facility] Atrial rate 59 BPM EKG [facility] P-R interval 254 ms EKG [facility] QRS duration 88 ms EKG [facility] Q-T interval 430 ms EKG [facility] QTC calculation (Bazett) 425 ms EKG [facility] P axis 73 degrees EKG [facility] R axis 5 degrees EKG [facility] T axis -83 degrees EKG [facility] 12/12/2024 10:3 7 AM EDT Narrative EKG [facility] - 12/12/2024 10:45 AM EDT Sinus bradycardia [...] Carson Jernigan MD ECG ORDERABLES Final Result [facility] * Lipid Panel Reflex Direct LDL (12/11/2024 10:54 AM EDT) [facility] Signature Cholesterol, Total 139 <200 mg/dL [facility] Cholesterol, HDL 54 > OR = 40 mg/dL [facility] Triglycerides 87 <150 mg/dL [facility] LDL Cholesterol 68 mg/dL (calc) [facility] Comment: Reference range: <100 Desirable range <100 mg/dL for primary prevention; ?? <70 mg/dL for patients with CHD or diabetic patients with > or = 2 CHD risk factors. LDL-C is now calculated using the Freddy-Manjeet calculation, which is a validated novel method providing better accuracy than the Friedewald equation in the estimation of LDL-C. Freddy SS et al. CÉSAR. 2013;310(19): 4823-3280 (http://education.[employer]/faq/DWA013) Cholesterol/HDL Ratio 2.6 <5.0 (calc) [facility] Non HDL Chol. (LDL+VLDL) 85 <130 mg/dL (calc) [facility] Comment: For patients with diabetes plus 1 major ASCVD risk factor, treating to a non-HDL-C goal of <100 mg/dL (LDL-C of <70 mg/dL) is considered a therapeutic option. Blood Blood specimen / Unknown 12/11/2024 10:54 AM EDT 12/11/2024 10:54 AM EDT Narrative [facility] - 12/11/2024 10:32 PM EDT FASTING:YES FASTING: YES us Carson Jernigan MD LAB BLOOD ORDERABLES Final Res [facility] [address] [place] [phone] * Complete Blood Count, with Differential (12/11/2024 10:54 AM EDT) White Blood Cell Count 6.5 3.8 - 10.8 Thousand/u L [facility] Red Blood Cell Count 4.71 4.20 - 5.80 Million/uL [facility] Hemoglobin 15.5 13.2 - 17.1 g/dL [facility] Hematocrit 45.6 38.5 - 50.0 % [facility] MCV 96.8 80.0 - 100.0 fL [facility] MCH 32.9 27.0 - 33.0 pg [facility] MCHC 34.0 32.0 - 36.0 g/dL [facility] Comment: For adults, a slight decrease in the calculated MCHC value (in the range of 30 to 32 g/dL) is most likely not clinically significant; however, it should be interpreted with caution in correlation with other red cell parameters and the patient's clinical condition. RDW 11.9 11.0 - 15.0 % [facility] Platelet Count 155 140 - 400 Thousand/u L [facility] MPV 10.9 7.5 - 12.5 fL [facility] Abs Neutrophils Auto 4,492 1,500 - 7,800 cells/uL [facility] Abs Lymphocytes Auto 1,378 850 - 3,900 cells/uL [facility] Abs Monocytes Auto 429 200 - 950 cells/uL [facility] Abs Eosinophils Auto 169 15 - 500 cells/uL [facility] Abs Basophils Auto 33 0 - 200 cells/uL [facility] Neutrophils Auto 69.1 % [facility] Lymphocytes Auto 21.2 % [facility] Monocytes Auto 6.6 % [facility] Eosinophils Auto 2.6 % [facility] Basophils Auto 0.5 % [facility] Blood Blood specimen / Unknown 12/11/2024 10:54 AM EDT 12/11/2024 10:54 AM EDT Narrative [facility] - 12/11/2024 10:32 PM EDT FASTING:YES FASTING: YES us Carson Jernigan MD LAB BLOOD ORDERABLES Final Res ult Per[facility] Organization Address City/State/[facility] Co de Phone Number [facility] [address] [place] [address] * Basic metabolic panel (12/11/2024 10:54 AM EDT) Glucose 89 65 - 99 mg/dL [facility] Comment: ? Fasting reference interval Blood Urea Nitrogen (BUN) 16 7 - 25 mg/dL [facility] Creatinine 0.76 0.70 - 1.28 mg/dL [facility] Creatinine w/ eGFR 94 > OR = 60 mL/min/1. 73m2 [facility] BUN/Creatinine Ratio SEE NOTE: 6 - 22 (calc) [facility] Comment: ?? Not Reported: BUN and Creatinine are within ?? reference range. ? Sodium 140 135 - 146 mmol/L [facility] Potassium 4.5 3.5 - 5.3 mmol/L [facility] Chloride 104 98 - 110 mmol/L [facility] CO2 30 20 - 32 mmol/L [facility] Calcium 9.4 8.6 - 10.3 mg/dL [facility] Blood Blood specimen / Unknown 12/11/2024 10:54 AM EDT 12/11/2024 10:54 AM EDT Narrative [facility] - 12/11/2024 10:32 PM EDT FASTING:YES FASTING: YES us Carson Jernigan MD LAB BLOOD ORDERABLES Final Res ult [facility] [address] [place] [phone] * ECHOCARDIOGRAM COMPREHENSIVE (12/11/2024 9:55 AM EDT) [...] Resul t from Last 3 Months Insurance [facility] MEDICARE Care Teams Photographic Equipment Inspector Relationship Specialty Start Date End Date Rolo Dawson MD [address] [facility] [place] [address] PCP - General Family Medicine 01/14/25 Carson Jernigan MD [address] [place] [address] Primary Logistics Associate Cardiovascular Disease 06/21/22
--- OUTSIDE RECORDS SUMMARY | 2025-01-20 09:21 | XMS_ITS | Encounter Summary ---
Author Organization [facility] Address [address] [place] [address] Care Team Providers Care Telephone Station Installer Name Role Phone Mita Rosales MD Primary Care Provider [phone] Carson Jernigan MD Unavailable [phone] Rolo Dawson MD Primary Care Provider [phone] Reason for Visit * Reason Comments Advice Only Encounter Details Date Type Department Care Team (Late st Contact Info) Description 08/31/2022 Telephone [facility] [address] [phone] Carson Jernigan MD [address] [place] [address] Advice Only Social History Tobacco Use [...] Description 06/26/2025 9:20 AM EDT Office Visit [facility] [address] [phone] Carson Jernigan MD [address] [place] [address] documented as of this encounter Visit Diagnoses Not on filedocumented in this encounter Care Teams Telephone Station Installer Relationship Specialty Start Date End Date Mita Rosales MD [address] [place] [address] PCP - General Internal Medicine 04/06/21 01/13/25 Rolo Dawson MD [address] [place] [address] PCP - General Family Medicine 01/14/25 Carson Jernigan MD [address] [place] [id number] Primary Drafter Assistant Cardiovascular Disease 06/21/22 documented as of this encounter
== END 2025-01-20 09:25 | disposition home or self-care (01) ==
LOC: HO.HSMS 08:53
PROVIDERS: PCP Nurse Practitioner Family; Visit Provider Psychiatry & Neurology Neurology
DX: R26.9 Unspecified abnormalities of gait and mobility (principal)
CPT/HCPCS: 99214

== ENCOUNTER → 2025-01-20 08:52 | Outpatient (BNVA) | payer MEDICARE, SELFPAY | PROVIDERS: PCP Nurse Practitioner Family; Visit Provider Psychiatry & Neurology Neurology | DX: R26.9 Unspecified abnormalities of gait and mobility (principal); Z91.81 History of falling | CPT/HCPCS: 99212 ==

== ENCOUNTER 2025-02-07 08:13 | Outpatient (REF) | payer MEDICARE, SELFPAY ==
--- NOTE | ~2025-02-07 | US_ITS ---
EXAMINATION: US LOWER EXTREMITY VENOUS (REFLUX EXAM), BILATERAL CLINICAL INFORMATION: Varices. COMPARISON: None. TECHNIQUE: Color flow triplex imaging and compression Doppler was performed to evaluate both the deep and the superficial systems bilaterally. To evaluate the superficial system, the examination was performed in the upright position. Color-flow Doppler ultrasound and compression ultrasound were utilized. In addition, maneuvers were utilized to demonstrate reflux. FINDINGS: 1. DEEP VENOUS ULTRASOUND OF THE RIGHT LOWER EXTREMITY: Common Femoral Vein: Compressible, normal respiratory variation and augmented flow. Femoral Vein: Compressible, normal color flow and augmentation. Popliteal Vein: Compressible, normal augmentation. Deep Reflux: There is no evidence of reflux in the deep system in either the common femoral vein, superficial femoral or the popliteal vein. There is a 4.5 x 3.4 cm lobulated anechoic lesion without flow on color Doppler interrogation in the right popliteal fossa. 2. SUPERFICIAL ULTRASOUND WITH DOPPLER OF RIGHT LOWER EXTREMITY: GREAT SAPHENOUS VEIN: Saphenofemoral Junction: 0.6 cm; Reflux: 0 ms Proximal Thigh: 0.2 cm; Reflux: 0 ms Mid Thigh: 0.1 cm; Reflux: 0 ms Distal Thigh: 0.2 cm; Reflux: 0 ms At Knee: 0.2 cm; Reflux: 3064 ms Proximal Calf: 0.2 cm; Reflux: 0 ms Mid Calf: 0.2 cm; Reflux: 3304 ms Distal Calf: 0.3 cm; Reflux: 0 ms DUPLICATED MEDIAL GREAT SAPHENOUS VEIN: Diameter: None imaged Reflux: NA DUPLICATED LATERAL GREAT SAPHENOUS VEIN: Diameter: 0.2 cm. Reflux: NA SMALL SAPHENOUS VEIN: Saphenopopliteal Junction: 0.2 cm; Reflux: 0 ms Proximal: 0.2 cm; Reflux: 2004 ms Distal: 0.2 cm; Reflux: 0 ms VEIN OF GIACOMINI: Size: NA Reflux: NA PERFORATORS: Location: None imaged Size: NA Reflux: NA VARICOSITIES: Location: None imaged. Size: NA Reflux: NA 3. DEEP VENOUS ULTRASOUND OF THE LEFT LOWER EXTREMITY: Common Femoral Vein: Compressible, normal respiratory variation and augmented flow. Femoral Vein: Compressible, normal color flow and augmentation. Popliteal Vein: Compressible, normal augmentation. Deep Reflux: There is no evidence of reflux in the deep system in either the common femoral vein, superficial femoral or the popliteal vein. There is no evidence of a Escamilla's cyst. 4. SUPERFICIAL ULTRASOUND WITH DOPPLER OF LEFT LOWER EXTREMITY: GREAT SAPHENOUS VEIN: Saphenofemoral Junction: 0.5 cm; Reflux: 0 ms Proximal Thigh: 0.2 cm; Reflux: 0 ms Mid Thigh: 0.2 cm; Reflux: 0 ms Distal Thigh: 0.2 cm; Reflux: 0 ms At Knee: 0.1 cm; Reflux: 0 ms Proximal Calf: 0.1 cm; Reflux: 0 ms Mid Calf: 0.2 cm; Reflux: 2764 ms Distal Calf: 0.2 cm; Reflux: 0 ms DUPLICATED MEDIAL GREAT SAPHENOUS VEIN: Diameter: None imaged Reflux: NA DUPLICATED LATERAL GREAT SAPHENOUS VEIN: Diameter: None imaged. Reflux: NA SMALL SAPHENOUS VEIN: Saphenopopliteal Junction: 0.1 cm; Reflux: 0 ms Proximal: 0.2 cm; Reflux: 0 ms Distal: 0.2 cm; Reflux: 0 ms VEIN OF GIACOMINI: Size: NA Reflux: NA PERFORATORS: Location: Proximal calf. Size: 0.2 cm. Reflux: NA VARICOSITIES: Location: None Imaged Size: NA Reflux: NA US/US venous insuf bilat IMPRESSION: Right: Venous insufficiency, great saphenous vein at the knee and midcalf. Venous insufficiency, small saphenous vein at the mid calf. No gross varices. 4.5 cm popliteal cyst. Left: Venous insufficiency, great saphenous vein at the mid calf. Perforators without reflux. No gross varices. Electronically signed by: Maury Payne MD 02/07/2025 10:31 AM EDT
--- OUTSIDE RECORDS SUMMARY | 2025-02-07 08:17 | XMS_ITS | Encounter Summary ---
Author Organization [facility] Address [address] [place] [address] Care Team Providers Care Auricular Acupuncturist Name Role Phone Mita Rosales MD Primary Care Provider [phone] Carson Jernigan MD Unavailable [phone] Rolo Dawson MD Primary Care Provider [phone] Encounter Details Date Type Department Care Team (Late st Contact Info) Description 12/20/2022 Scanned Document [facility] [address] [phone] Cardiology, Scan Social History Tobacco [...] Description 06/26/2025 9:20 AM EDT Office Visit [facility] [address] [phone] Carson Jernigan MD [address] [place] [phone] documented as of this encounter Visit Diagnoses Not on filedocumented in this encounter Care Teams Auricular Acupuncturist Relationship Specialty Start Date End Date Mita Rosales MD [address] [place] [address] PCP - General Internal Medicine 04/06/21 01/13/25 Rolo Dawson MD [address] [place] [address] PCP - General Family Medicine 01/14/25 Carson Jernigan MD [address] [place] [address] Primary Distilling Department Supervisor Cardiovascular Disease 06/21/22 documented as of this encounter
== END 2025-02-07 08:14 | disposition home or self-care (01) ==
LOC: HO.US 08:13
PROVIDERS: PCP Nurse Practitioner Family; Visit Provider Nurse Practitioner Family
DX: R60.0 Localized edema (principal)
CPT/HCPCS: 93970

== ENCOUNTER → 2025-02-07 08:16 | Outpatient (BNV) | payer MEDICARE, SELFPAY | PROVIDERS: PCP Nurse Practitioner Family; Visit Provider Radiology Diagnostic Radiology | DX: M71.21 Synovial cyst of popliteal space [Baker], right knee (principal); I87.2 Venous insufficiency (chronic) (peripheral) | CPT/HCPCS: 93970 ==

== ENCOUNTER 2025-02-26 12:55 | Outpatient (REF) | payer MEDICARE, SELFPAY ==
--- NOTE | ~2025-02-26 | US_ITS ---
EXAMINATION: Noninvasive assessment of the bilateral lower extremities . CLINICAL INFORMATION: Decreased pedal pulses. TECHNIQUE: Duplex Doppler techniques with waveform analysis and measurement of velocities in the bilateral common femoral, profunda femoris, superficial femoral, popliteal and tibial arteries were performed. Additionally, ankle pulse volume recordings, ankle pressure measurements and ankle brachial indices were obtained of the lower extremity arterial system bilaterally. The study was performed only at rest. COMPARISON: None FINDINGS: DIRECT DUPLEX DOPPLER FINDINGS: RIGHT LEG: Common femoral artery: 57 cm/s, phasicity: Triphasic. Profunda femoris artery: 43 cm/s, phasicity: Triphasic. Superficial femoral artery (proximal): 70 cm/s, phasicity: Triphasic. Superficial femoral artery (mid): 71 cm/s, phasicity: Triphasic. Superficial femoral artery (distal): 76 cm/s, phasicity: Triphasic. Popliteal artery: 64 cm/s, phasicity: Triphasic. Posterior tibial artery: 65 cm/s, phasicity: Triphasic. Peroneal artery: 50 cm/s, phasicity: Triphasic. Anterior tibial artery: 70 cm/s, phasicity: Triphasic. Dorsalis pedis artery: 13 cm/s, phasicity:Biphasic. There is a 4.2 x 3.6 x 2.1 cm lobulated anechoic lesion in the popliteal fossa without flow on color Doppler interrogation. LEFT LEG: Common femoral artery: 97 cm/s, phasicity: Triphasic. Profunda femoris artery: 69 cm/s, phasicity: Triphasic. Superficial femoral artery (proximal): 65 cm/s, phasicity: Triphasic. Superficial femoral artery (mid): 71 cm/s, phasicity: Triphasic. Superficial femoral artery (distal): 69 cm/s, phasicity: Triphasic. Popliteal artery: 50 cm/s, phasicity: Triphasic. Posterior tibial artery: 69 cm/s, phasicity: Triphasic. Peroneal artery: No color Doppler flow. Anterior tibial artery: 28 cm/s, phasicity: Monophasic. Dorsalis pedis artery: 13 cm/s, phasicity: Monophasic. There is a 2.2 x 2.2 cm anechoic lesion without flow on color Doppler interrogation centered in the popliteal fossa. US/US arterial duplex LE BI IMPRESSION: Right leg: Moderate inflow disease, right dorsalis base artery. 4.2 cm popliteal cyst. 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 2.2 cm popliteal cyst. DIONE Reference: - >1.4 = calcified vessels - 0.9 - 1.4 = normal - no significant arterial disease - 0.7 - 0.89 = mild peripheral arterial disease - 0.51 - 0.69 = moderate peripheral arterial disease - d 0.50 = severe peripheral arterial disease - < .30 = critical arterial disease Electronically signed by: Maury Payne MD 02/26/2025 02:31 PM EDT
--- OUTSIDE RECORDS SUMMARY | 2025-02-26 14:26 | XMS_ITS | Encounter Summary ---
Author Organization [facility] Address [address] [place] [address] Care Team Providers Care Methods Analyst Name Role Phone Mita Rosales MD Primary Care Provider [phone] Carson Jernigan MD Unavailable [phone] Rolo Dawson MD Primary Care Provider [phone] Encounter Details Date Type Department Care Team (Late st Contact Info) Description 12/20/[address] [facility] [address] [phone] Cardiology, Scan Social History Tobacco [...] Description 06/26/2025 9:20 AM EDT Office Visit [facility] [address] [address] Carson Jernigan MD [address] [place] [phone] documented as of this encounter Visit Diagnoses Not on filedocumented in this encounter Care Teams Methods Analyst Relationship Specialty Start Date End Date Mita Rosales MD [address] [place] [address] PCP - General Internal Medicine 04/06/21 01/13/25 Rolo Dawson MD [address] [place] [address] PCP - General Family Medicine 01/14/25 Carson Jernigan MD [address] [place] [address] Primary Extruding Press Operator Cardiovascular Disease 06/21/22 documented as of this encounter
== END 2025-02-26 12:56 | disposition home or self-care (01) ==
LOC: HO.US 12:55
PROVIDERS: PCP Nurse Practitioner Family; Visit Provider Nurse Practitioner Family
DX: R26.9 Unspecified abnormalities of gait and mobility (principal); R09.89 Other specified symptoms and signs involving the circulatory and respiratory systems; R60.0 Localized edema
CPT/HCPCS: 93925

== ENCOUNTER → 2025-02-26 12:57 | Outpatient (BNV) | payer MEDICARE, SELFPAY | PROVIDERS: PCP Nurse Practitioner Family; Visit Provider Radiology Diagnostic Radiology | DX: M71.21 Synovial cyst of popliteal space [Baker], right knee (principal); M71.22 Synovial cyst of popliteal space [Baker], left knee | CPT/HCPCS: 93925 ==

== ENCOUNTER 2025-02-27 08:48 | Outpatient (AMB) | payer MEDICARE, SELFPAY ==
--- NOTE | 2025-02-27 08:59 | A.OFFVIS_ITS ---
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 Patient uses walker to ambulate. No pain or other symptoms. 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 He has had multiple MRIs and imaging for this ongoing weakness, and there has not been any significant findings to indicate why he continues with the weakness. He states this all started several months ago. He states that in the morning that the toes of his left foot, particularly the great toe, turns purple but then goes away quickly when he gets up and moves around. His weakness increases when he attempts to get up from sitting/lying positions; he states his legs feel like they will not hold him. He denies any swelling or pain in his lower extremities. He states he did work in the [employer] industry for >30 years, with heavy lifting and using heavy equipment. He states he tries to walk but has difficulty. He has never smoked and is not a diabetic. FOR[facility]LY [facility], LATER [facility] Medical History Disc degeneration, lumbar White matter disease Gait disorder (~12/2023) Back pain Syncope and collapse Hypertrophic cardiomyopathy Bladder outlet obstruction Urinary hesitancy Weak urinary stream COVID-19 vaccine administered Syncope Eczema NSVT (nonsustained ventricular tachycardia) Paroxysmal A-fib Cardiomyopathy Surgical History History of total hip replacement History of carpal tunnel release History of loop recorder H/O colonoscopy Melanoma History of colon resection Family History Father CAD (coronary artery disease) Type 2 diabetes mellitus Myocardial infarction Mother Breast cancer Social History Household Members: Spouse Housing: House Alcohol intake: never Patient Tobacco Use Status: Never used Tobacco e-Cigarette/Vaping Use: Never Used Second Hand Smoke Exposure: No service: Yes Current occupational status: retired Cognitive needs: No Hearing needs: Yes Vision needs: No Review of Systems Const Reports as per HPI and Denies weakness ENT Reports Normal hearing present and Denies dizziness Card Reports as per HPI, Denies chest pain, Denies chest pain at rest, Denies chest pain with activity, Denies dyspnea and Denies dyspnea on exertion Resp Reports as per HPI, Denies cough, Denies dyspnea and Denies dyspnea on exertion GI Reports as per HPI, Denies abdominal pain, Denies nausea and Denies vomiting Musc Denies numbness Skin/Breast Reports as per HPI, Denies erythema and Denies wounds Neuro Reports Normal hearing present, Denies dizziness, Denies numbness, Denies Sensory deficit (Neuro) and Denies weakness Psych Reports no additional complaints Endo Reports no additional complaints Physical Exam Const General: healthy appearing and no acute distress Orientation/consciousness: patient oriented x3 HEENT Head: Yes normal to inspection Ears: hearing grossly normal bilaterally Mouth: Normal oral and palatal mucosa present Resp Effort & Inspection: normal respiratory effort and able to speak in complete sentences Auscultation: clear to auscultation bilaterally Cardio Jugular venous distension: no JVD Rate: regular rate Rhythm: regular rhythm Heart sounds: S1 normal heart sound present and S2 normal heart sound present Bruits: no abdominal aortic bruits, no carotid bruits, no femoral bruits and no renal bruits Peripheral pulses: Peripheral pulses 2+ throughout GI Inspection: Yes normal to inspection Palpation (GI): No Abdominal aortic bruit present Skin General skin exam: no rashes or lesions noted Wounds: no wounds Hair: normal Neuro General: patient oriented x3 Cranial nerves: Yes Normal hearing present Cognition (Neuro): normal cognition Gait exam (Neuro): Normal gait present Motor exam (neuro): 5/5 motor strength present throughout Sensory Exam: No Sensory deficit (Neuro) Extrem Other: Bilateral lower extremities: no edema noted. No discoloration, injuries, or wounds noted. No varicosities or tortuosities noted. Palpable DP pulses. General: Yes normal to inspection, Yes full ROM, Yes capillary refill normal and Yes normal gait Results Reviewed Results Reviewed: US 02/07/25: Right: Venous insufficiency, great saphenous vein at the knee and midcalf. Venous insufficiency, small saphenous vein at the mid calf. No gross varices. 4.5 cm popliteal cyst. Left: Venous insufficiency, great saphenous vein at the mid calf. Perforators without reflux. No gross varices Arterial Duplex US, 02/26/25: Right leg: Moderate inflow disease, right dorsalis base artery. 4.2 cm popliteal cyst. 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 2.2 cm popliteal cyst. Assessment & Plan Assessment & Plan (1) Weakness: Code(s): R53.1 - Weakness Category: Medical Plan: Rolo is presenting today on a referral from his PCP for concerns of ongoing bilateral lower extremity weakness and intermittent discoloration and swelling of his left foot in the morning. He has recently had a US, on 02/07, which revealed only a small amount of reflux, too small to be causing the symptoms the pt is experiencing and unfortunately too small for us to access and fix. The pt also had an arterial US, performed on 02/26, which revealed inflow dx in the smaller arteries of the left foot, again, likely not causing his symptoms and no treatment is needed. I discussed with him that the symptoms that he continues to have is likely not due to a vascular issue. We discussed to follow back up with his PCP for further evaluation, with possible Neuro or Rheum consults needed. We discussed that if the pt had any vascular concerns in the future, he can reach out to us at any point. Thank you for allowing us to participate in the patient's care. If there are any questions or concerns, please do not hesitate to reach out to us. Coding Level of Care Code New Pt Level 4 (05919) Diagnoses Weakness R53.1 Comment review of and arterial US
--- OUTSIDE RECORDS SUMMARY | 2025-02-27 09:14 | XMS_ITS | Encounter Summary ---
Author Organization [facility] Address [address] [place] [address] Care Team Providers Care Material Assembler Name Role Phone Mita Rosales MD Primary Care Provider [phone] Carson Jernigan MD Unavailable [phone] Rolo Dawson MD Primary Care Provider [phone] Encounter Details Date Type Department Care Team (Late st Contact Info) Description 12/20/2022 Scanned Document [facility] [address] [id number] Cardiology, Scan Social History Tobacco [...] 06/26/2025 9:20 AM EDT Office Visit [facility] [address] [id number] Carson Jernigan MD [address] [place] [address] [phone] documented as of this encounter Visit Diagnoses Not on filedocumented in this encounter Care Teams Material Assembler Relationship Specialty Start Date End Date Mita Rosales MD [address] [place] [address] PCP - General Internal Medicine 04/06/21 01/13/25 Rolo Dawson MD [address] [place] [address] PCP - General Family Medicine 01/14/25 Carson Jernigan MD [address] [place] [address] Primary Pest Control Chemical Technician Cardiovascular Disease 06/21/22 documented as of this encounter
== END 2025-02-27 09:59 | disposition home or self-care (01) ==
LOC: HO.HVS 08:49
PROVIDERS: PCP Nurse Practitioner Family; Visit Provider Physician Assistant Surgical
DX: R53.1 Weakness (principal)
CPT/HCPCS: 99204

== ENCOUNTER → 2025-02-27 08:48 | Outpatient (BNVA) | payer MEDICARE, SELFPAY | PROVIDERS: PCP Nurse Practitioner Family; Visit Provider Physician Assistant Surgical | DX: R53.1 Weakness (principal) | CPT/HCPCS: 99202 ==

== ENCOUNTER 2025-04-04 10:53 | Outpatient (RCR) | payer MEDICARE, SELFPAY ==
[2024-10-17 07:24] VITALS: BP 122/70; PULSE 95; O2SAT 73
--- NOTE | 2024-10-17 12:15 | MHC.PT.EP ---
[facility] [place] Office [place] [facility] [place] [facility] [address] Jose Mora [address] [phone] F: [phone] F: [phone] F: [phone] F: [phone] Physical Therapy Plan of Care Date of Evaluation: Date of Surgery: Diagnosis: PT Eval and treat: M45.50 Low back pain, unspecified, G89.29 Other chronic pain, Chronic lower back pain, CORE [place] signed by Rolo Dawson, 10/14/24 Assessment: Pt is a RHD 73 y/o, male referred to PT from PCP JONATHAN Bourne, date of script 10/14/24 for M54.9 Low back pain unspecified, G89.29 Other chronic pain, chronic lower back pain, CORE [place]. Pt recently had MRI of brain and L/S 10/08/24 (see report). Pt had previous MRI of L/S last year, EMG with abnormal findings (see above). Past question of hydrocephalus>Parkinson were addressed and cleared from neurology at appt last year in 2023. Pt exhibits difficulty walking, history of chronic back pain with Gait disorder (~12/2023) Back pain-History: G37.9 - Demyelinating disease of central nervous system, unspecified Pt had past PT in [facility] 09/22/23-/11/24/23 x 8 visits with positive response. Since that time, pt has reported decline in self HEP program. He has been attending the senior center twice weekly but notes increasing difficulty donning shoes/socks, lack of confidence for bending over, getting up from the floor (used to do so in exercise classes has since stopped). Pt denies recent change in medication. Pt states during a recent phone call conversation a nurse mentioned possibility of a muscle relaxer however he says his pharmacy never received a script for such. He is interested if JONATHAN Dawson would be able to fill or write an order for this. He has purchased walking sticks and he was advised to bring these into his next session. Next follow up with PCP is not until 01/15/25 and neurology appt 01/20/25. At this time therapist is requesting/recommending skilled PT twice weekly x 6 weeks to address low back pain, mobility, and functional tolerance for daily activities. Please follow up with patient re: his inquiry for muscle relaxer/nurse conversation regarding possible script for such. Therapist attempted to connect with [facility] back line via [phone] and [phone] extensions x [phone] attempts for verbal relay with no luck in anyone picking up the phone. Patient was also encouraged to follow up through patient portal to inquire about this as this was something discussed between PCP office. Frequency and Duration: The patient will be seen 2x/week x 6 weeks Short Term Goals: 1. Reduce lower back pain by 25% as evidenced by Oswestry. 2. Sit<>stand 10 times in 30 seconds. (IR: 6 reps with fatigue reported, increased compensation of trunk, weak hips). 3. Complete log roll for bed mobility L>R and R>L with no difficulty MOD I. 4. Pt will demonstrate bridge without sx. Nursing Home Goals: 1. I HEP. 2. Strength hip abd 4/5 (IR: 3/5 with significant compensation of hip flexor bilaterally). 3. Resume senior center exercise activity MOD I with good safety and confidence. 4. Demonstrate suceessful floor recovery MOD I. 5. Reduce low back pain by 50% for ADLS/IADLS. 6. Improvement in ABC scale/ Oswestry scoring. Treatment Plan: Modalities to reduce pain, spasms and effusion. Manual therapy to restore motion and function. Therapeutic exercise to improve strength and flexibility. Neuromuscular re-education for posture and balance. Therapeutic activities to return to functional activities of daily living. Electronically signed by: Meghan Hernandez, PT, DPT Please sign and return to therapist. Thank you for your referral.
--- NOTE | 2025-01-16 15:16 | MHC.PT.OD ---
[facility] [place] [facility] [place] [facility] [place] [facility] [address] Jose Mora [address] [phone] F: [phone] F: [phone] F: [phone] F: [phone] Physical Therapy Daily Note Diagnosis: PT Eval and treat: M45.50 Low back pain, unspecified, G89.29 Other chronic pain, Chronic lower back pain, CORE [place] signed by Rolo Dawson, 10/14/24 Date of Surgery: Date of Evaluation: 10/17/24 Date of Treatment: 01/16/25 Treatments to Date: 7 Cancellations to Date: No Shows to Date: Authorized Visits: 12 Insurance End Date: 02/27/15 Precautions/ Contraindications:Cardiac, gait disorder, hx YANETH, gait disorder 01/09, on Eliquis, Gait disorder (~12/2023) Back pain-History: G37.9 - Demyelinating disease of central nervous system, Subjective: Pt was last seen in PT on 11/12/24, since time of last session patient has been expressing worsening balance, has had a few falls both outside when on uneven terrain/rocks. Pt reports having two falls outside the home. Has stopped exercising in senior center due to fear of falling/feeling unable to complete classes like before. Pt was seen by PCP yesterday. Pt is being referred to physiatry and has a follow up with neurology on January 20. Pt states his back feels stiff, he cannot stand or walk for long periods of time. Feels unsteady upon standing with legs wanting to buckle and give out. When sitting for a prolonged period feels shaky in legs when rising. Pain Score and Location: 3-4 Objective Flowsheet: Tests & Measures [place] [address] Primary Care Office Visit Signed Patient: Rolo Yeboah EMR#: [id number] : 1950Acct:[id number] Age/Sex: 74 / MADM/SER Date: 01/15/25 Loc: HO.HMCCADM/SER Time:1004 Attending Provider: Rolo CAMACHOP-JANICE cc: Rolo Dawson~ Vital Signs 01/15/25 10:16 Height 5 ft 7 in Weight 188 lb BMI 29.4 BP 110/68 Blood Pressure Location Lt brachial Position Sitting Pulse 62 Pulse Source Pulse Oximeter Pulse Oximetry (%) 97 Intake Visit Reasons: Annual PE - see comments Skein Yarn Dyer Helper Required: No Accompanied by: Spouse Allergies No Known Allergies Allergy (Verified 01/15/25 10:16) Tobacco use date assessed: 01/15/25 Fall risk assessment: 2 + Falls in past year Last assessed Fall Risk: 01/15/25 Dental Screening Dental Screen Date: 01/15/25 Did you have a dental visit in the last 12 months?: Yes Did you have a dental problem in the last 6 months where you did not have access to dental care?: No Was dental information given to patient?: Patient has dentist HPI Annual PE - see comments HPI Details History of Present Illness The patient is a 74-year-old male presenting with concerns regarding lower extremity weakness and an abnormal gait. He has a pertinent history of cardiomyopathy and has been experiencing ongoing weakness in his lower extremities. Neurological symptoms, primarily the weakness, have led to an abnormal gait, for which he requires the aid of a cane. He has undergone various diagnostic tests, including MRIs and EMG, that delineated cerebral atrophy with ischemic disease and polyneuropathy. Cervical spine imaging has shown multilevel spondylosis. The patient denies several systemic symptoms but reports intermittent edema in lower extremities. Despite various evaluations, the mobility issues remain a significant concern for the patient. Health Maintenance seeing urology, cardiology, dermatology, neurology, referring to physiatry Social History - The patient is currently using a cane for ambulation due to gait abnormalities and lower extremity weakness. Review of Systems - Neurological: Reports ongoing lower extremity weakness, abnormal gait. - Psychiatric: Denies suicidal or homicidal ideations. - Cardiovascular: Denies chest pain, shortness of breath. - Gastrointestinal: Denies abdominal pain, blood in stools, diarrhea, constipation. - Musculoskeletal: Reports difficulty with mobility, using a cane. - Dermatological: Reports macular lesions on the scalp. - Vascular: Reports intermittent trace edema of the lower extremities. Physical Exam General: Cooperative, healthy appearing, comfortable, no acute distress and well developed Orientation: Patient oriented x3 Limitations: No limitations Head: Normal to inspection Ears: Hearing grossly normal bilaterally Nose: Normal external nose present Face and sinus: Normal facial exam Eyes: Appearance normal, both eyes and all related structures Neck: Normal visual inspection and Yes full ROM Respiratory: Normal respiratory effort and able to speak in complete sentences. Fairly clear to auscultation bilaterally Cardiovascular: Regular rate and rhythm. Normal S1 and S2 GI: Normal to inspection. Soft to palpation and nontender Skin: Several macular lesions noted, especially on the scalp. Slight bluish hue to the lateral aspect of the left foot noted Neuro: Patient oriented x3 Extremities: Abnormal gait, difficulty finding pedal pulses or dorsalis pedis pulses, trace edema in lower extremities, slight bluish hue to the lateral aspect of the left foot noted Results - MRI: Diffuse cerebral atrophy greatest involving the frontal and temporal lobes, consistent with small vessel ischemic disease; showed multilevel cervical spondylosis without significant spinal canal stenosis. 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 - Lumbar MRI: Degenerative changes in lower spine, no spinal canal stenosis. Plan The management focuses on the neurological and vascular aspects highlighted by the lower extremity weakness and gait abnormalities. Given the history and diagnostic findings, we are pursuing further imaging studies to assess peripheral vascular contributions to symptoms. A referral to a special assemblies supervisor will allow a detailed evaluation and rehabilitation planning. The dermatological findings require ongoing monitoring through dermatology consultations to ensure no malignant changes. This will form a comprehensive approach to addressing the multifaceted issues presented. t is restarting PT in the near furture for BLE weakness. Discussion Notes I discussed with the patient the challenges related to the lower extremity weakness and abnormal gait, which has been emotionally taxing for him. We reviewed his neurological history, including previous MRI and EMG findings, and I explained the significance of ischemic changes and polyneuropathy findings. Emphasis was placed on multidisciplinary management, including the planned arterial and venous imaging to further evaluate the vascular contribution to his symptoms. I highlighted the need for ongoing neurology consultations and dermatology follow-ups due to scalp lesions. We also discussed the potential benefits of a special assemblies supervisor referral for additional therapeutic options focusing on mobility improvement and emotional support. Patient Instructions - Continue using cane for stability until further evaluation. - Follow up with neurology and dermatology as advised. - Undergo the recommended arterial and venous imaging studies. - Attend the scheduled appointment with the referred special assemblies supervisor. - Monitor any new or worsening symptoms and report them promptly. [facility] Medical History Disc degeneration, lumbar White matter disease Gait disorder (~12/2023) Back pain Syncope and collapse Hypertrophic cardiomyopathy Bladder outlet obstruction Urinary hesitancy Weak urinary stream COVID-19 vaccine administered Syncope Eczema NSVT (nonsustained ventricular tachycardia) Paroxysmal A-fib Cardiomyopathy Surgical History History of total hip replacement History of carpal tunnel release History of loop recorder H/O colonoscopy Melanoma History of colon resection Family History Father CAD (coronary artery disease) Type 2 diabetes mellitus Myocardial infarction Mother Breast cancer Social History Household Members: Spouse Housing: House Alcohol intake: never Patient Tobacco Use Status: Never used Tobacco e-Cigarette/Vaping Use: Never Used Second Hand Smoke Exposure: No service: Yes Current occupational status: retired Cognitive needs: No Hearing needs: Yes Vision needs: No Questionnaire PHQ-9 Over the last 2 weeks, how often have you been bothered by any of the following problems? 1. Little interest or pleasure in doing things: not at all 2. Feeling down, depressed, or hopeless: several days 3. Trouble falling or staying asleep, or sleeping too much: not at all 4. Feeling tired or having little energy: more than half the days 5. Poor appetite or overeating: not at all 6. Feeling bad about yourself - or that you are a failure or have let yourself or your family down: not at all 7. Trouble concentrating on things, such as reading the newspaper or watching television: not at all 8. Moving or speaking so slowly that other people could have noticed. Or the opposite - being so fidgety or restless that you have been moving around a lot more than usual: nearly every day 9. Thoughts that you would be better off or of hurting yourself in some way: not at all Total score: 6 Depression Screening Interpretation: Negative Depression Screening Done: Yes 38034 - PHQ-9 Billing: Yes Source: Developed by Drs. Nik Donnelly, Tracey B.W. Adalberto Allen and colleagues, with an educational robert from [employer]. Thrive Questionnaire Date Thrive assessed: 01/15/25 I am a: Patient What is your living situation today?: I have a steady place to live Within the past 12 months, did the food you bought not last and you didn't have the money to get more?: Never true Within the past 12 months, did you worry whether your food would run out before you got money to buy more?: Never true Do you have trouble paying for medicines?: No Do you have trouble getting transportation to medical appointments?: No Do you have trouble paying your heating and electricity bill?: No Do you have trouble taking care of your child, family member or friend?: No Do you have trouble with day-to-day activities such as bathing, preparing meals, shopping, managing finances, etc.?: No Are you currently unemployed and looking for a job?: No Are you interested in more education?: No Please select the resources that you would like help with: None Currently or been in a relationship where the following occur: No concerns reported THRIVE Score: 0 AUDIT C Alcohol Use Questionnaire (AUDIT-C) 1. How often do you have a drink containing alcohol?: Monthly or less 2. How many drinks containing alcohol do you have on a typical day when you are drinking?: 1 or 2 3. How often do you have six or more drinks on one occasion?: Never Total Score: 1 Score Reviewed/Action Taken: Yes BRETT-7 AMB Questionnaire BRETT-7 Date BRETT - 7 assessed: 01/15/25 Feeling nervous, anxious, or on edge: 0 = Not at all Not being able to stop or control worryin = Not at all Worrying too much about different things: 0 = Not at all Trouble relaxin = Not at all Being so restless that it is hard to sit still: 0 = Not at all Becoming easily annoyed or irritable: 0 = Not at all Feeling afraid as if something awful might happen: 0 = Not at all Total BRETT-7 score (0-4 normal; 5-9 mild; 10-14 moderate; 15-21 severe): 0 Source: Developed by Drs. Nik Donnelly, Adalberto Quigley and colleagues, with an educational robert from [employer]. BRETT-7 Assessment Billing BRETT-7 Assessment Tool: BRETT-7 Assessment 93873 Physical exam (Primary Care) Vital Signs: Last Vital Signs Pulse 62 01/15/25 10:16 BP 110/68 01/15/25 10:16 Pulse Ox 97 01/15/25 10:16 BMI result Body Mass Index 29.4 Tobacco/Smoking Status: Tobacco use Status Tobacco use date assessed 01/15/25 01/15/25 10:17 Patient Tobacco Use Status Never used Tobacco 01/15/25 10:17 e-Cigarette/Vaping Use Never Used 01/15/25 10:17 PHQ-9: PHQ-9 Score PHQ-9: Total score 6 01/15/25 10:29 Depression Screening Interpretation: Negative Thrive Assessment: Date of Thrive Assessment Date Thrive assessed 01/15/25 01/15/25 10:17 Currently or been in a relationship where the following occur: No concerns reported Coding Level of Care Code Est Pt Prev Care >65y(16230) Diagnoses Gait disorder R26.9 Physical exam Z00.00 Decreased pedal pulses R09.89 Edema of both legs R60.0 Additional Codes BRETT-7 Assessment Billing - BRETT-7 Assessment Tool: BRETT-7 Assessment 89885 ([id number]) PHQ-9 - 51860 - PHQ-9 Billing: Yes ([id number]) Assessment & Plan Assessment & Plan (1) Gait disorder: Onset Date: ~12/2023 Comment: Frontal gait disorder with musculoskeletal component No evidence of parkinsons disease. MRI brain showed extensive white matter changes , mildly enlarged ventricles Lumbar X ray- extensive deg changes Code(s): R26.9 - Unspecified abnormalities of gait and mobility Category: Medical Plan: . (2) Physical exam: Code(s): Z00.00 - Encounter for general adult medical examination without abnormal findings Category: Medical (3) Decreased pedal pulses: Code(s): R09.89 - Other specified symptoms and signs involving the circulatory and respiratory systems Category: Medical (4) Edema of both legs: Code(s): R60.0 - Localized edema Category: Medical Plan . Orders: Orders Complete Blood Count Auto Diff Today Z00.00 - Encounter for general adult medical examination without abnormal findings Comprehensive [place]. Panel Fast Today Z00.00 - Encounter for general adult medical examination without abnormal findings UA CC w/rflx Micro + Cult Today Z00.00 - Encounter for general adult medical examination without abnormal findings Lipid Panel Today Z00.00 - Encounter for general adult medical examination without abnormal findings TSH reflex Free T4 Today Z00.00 - Encounter for general adult medical examination without abnormal findings US arterial duplex LE BI Today R09.89 - Other specified symptoms and signs involving the circulatory and respiratory systems, R26.9 - Unspecified abnormalities of gait and mobility US venous insuf bilat Today R60.0 - Localized edema Referrals Physiatry Referral R26.9 - Unspecified abnormalities of gait and mobility Documented By:Rolo Dawson01/15/25 1015 Signed By:<Electronically signed by Rolo Gotti [facility] Samir>01/15/25 113 Exercises Seated on bike for active warm-up. Heat applied to L/S x 10 minutes at start of session. Skin intact pre post heat application. Reassessment: Pain in lower back all the time, stiffness. Back pain 3/10 Pt reports using massaging heating pad daily, stretches in bed he was previously issued; Pt presents to the office with use of std cane, swaps side of cane depending on what he has access to for rails/supports. L hip flexion 5-/5, R hip flexion 4+/5, L knee ext 4/5 limited by HS for full ROM, R knee 4-/5 limited by HS, ankle DF limited AROM bilaterally, unable to perform full ROM of heel raise bilaterally, L hip abd compensated by hip flexion 4/5, R hip abd compensation with hip flexion but stronger than L, R hip 30 second sit<>stand 7 reps with reliance on UE support, finger to nose accurate B/L, heel to muller, notes some memory impairement, Romberg (-) on foam/ firm. Pt with poor ability to rise from supine <>sitt requires Min A where before was MOD I. Poor eccentric control with transfers. Shorts shuffle gait with foot flat contact, poor DF activation, Flexed posture with rounded shoulders, slumped sitting. Discussed benefit in obtaining bed rail for home. Pt able to transition to quadriped with fairly good ability. Reviewed floor recovery (able to get up from floor with CGA from therapist, noted to knee and get down on R knee- CGA to support patient up. Pt unable to perform SLS on either LE. Difficulty turning with > 5 seconds on L>R side. Pt notes stopping use of bike at home, reports obtaining new restorator for home (encouraged use). Pt not open to using rollator walker however at this time due to gait instability and lack of patient control therapist recommends. Therapist discussed use of bilateral walking poles- pt has. Pt was noted to walk with std cane in R UE (noted to hold and make contact with cane slated on tip of ground- educated re: gait training with std cane for flat contact with cane tip on ground. Education with pt /spouse in recommendation of RW. Education and encouragement to bring walking poles with him for his trip. Positioned in SL pillows for STM to thoracic> lumbar paraspinals R>L increase tissue extensibility to lumbar/thoracic paraspinals. Pt received MHP pre activity to L/S while pedaling on bike for active warm-up. Skin intact pre post activity. Pt brings in new walking poles, educated re: 124 cm length with second length of pole extended all the way. Assessment for walking with adjusted poles. Pt encouraged to use 1>2 poles for longer distance walking for upcoming cruise. Modalities Assessment: 01/16/25; Pt was last seen in PT on 11/12/24 with present for sessions in past and today. Pt went away for a cruise was away in [place] for a few weeks, while away pt expressing worsening balance and strength in R>L LE. Notes need of WC for navigating through airport. Notes decreased tolerance for standing/walking >10 minutes. Pt presents with worsening mobility from evaluation in 11/12, notes he has started using std cane when outside the home. He has reported having two falls outside the home (one on uneven grass, one on yaya surface resulting in /neighbors helping him up). He has been encouraged to use a rollator/RW but does not have and is not currently open to using a walker. Pt was encouraged to go back to seated modified chair exercise classes at the [facility] and resume use of stationary bike at home as he has stopped exercising. He will benefit from PT 2x/week x 3 weeks (6 visits) to address impairments, goals. and mobility deficits. Pt and pt's spouse were educated re: goals, recommendation for use RW vs. std cane, and obtaining bed rail to ease in mobility for home/self care. Pt defers need for shower chair however due to LE instability therapist feels he may benefit to reduce risk of falls. Pt ambulates with R lateral trunk lean, reduction in L UE arm swing, B/L foot flat contact, flexed posture, short step length, and decreased movement motor control of R>L LE. Pt chart noted to have coding of demyelinating disease white matter disease as well as frontal gait disorder. Per last neurology note, Parkinson disease was cleared as cause of sx. Pt with worsening difficulty rising from seated position, poor bed mobility, and with weakness in R>L LE. Pt expresses legs feel heavy, weak and disconnected from body for movement. Patient has been working with PT for some time and since onset patient has shown declining mobiity and gait disorder. Pt reports stiffness in R hip, history of L YANETH in the past. Pt normally very active in exercise/senior center but notes emotional toll on his mental health and concern for functional decline. Therapist is advocating for patient to inquire with neurologist and physiatry re: cause of sx and inquiry potential benefit of any medication which may ease back pain and or impact impairments in his movement patterns. Pt appears to exhibit bradykinesia and decreased amplitude of movment RLE> L LE. DTRs 2+ bilateral patella, bicep 2+ bilaterally, , 1+ tricep B/L. ION: Diffuse cerebral atrophy, greatest involving the frontal and temporal lobes. Findings consistent with small vessel ischemic disease of the white matter as described. No acute intracranial abnormality. Electronically signed by: Nik Carlisle MD 10/08/2024 08:40 AM EST Dictated By:Nik Carlisle MD Signed By:<Electronically signed by Nik Carlisle MD in [place]>10/08/24 0840 11/12/24: Pt will be away for one month in [place]. Pt has good carryover of home program. Pt reissued HEP routine. 11/08/24: Pt challenge with new trial of PWR moves, reports global gains in flexibility and reduction in pain. No new PWR moves added for HEP. 10/30/24: Pt has one more visit remaining before leaving for vacation on a cruise. Greater weakness in proximal L hip. Positive early response reported. 10/22/24: Pt very stiff in ambulation at start of session. Assessment of vitals post bike taken: 130/70 mmHg, HR 69 bpm, Sp02 98%. Pt verbalized relief with IASTM (pt initially prone but shifted to SL position to improve technique/position). Pt verbalized reduction in back pain from 5/10 to <5/10. Pt is a RHD 73 y/o, male referred to PT from PCP JONATHAN Bourne, date of script 10/14/24 for M54.9 Low back pain unspecified, G89.29 Other chronic pain, chronic lower back pain, CORE [place]. Pt recently had MRI of brain and L/S 10/08/24 (see report). Pt had previous MRI of L/S last year, EMG with abnormal findings (see above). Past question of hydrocephalus>Parkinson were addressed and cleared from neurology at appt last year in 2023. Pt exhibits difficulty walking, history of chronic back pain with Gait disorder (~12/2023) Back pain-History: G37.9 - Demyelinating disease of central nervous system, unspecified Pt had past PT in [facility] 09/22/23-/11/24/23 x 8 visits with positive response. Since that time, pt has reported decline in self HEP program. He has been attending the senior center twice weekly but notes increasing difficulty donning shoes/socks, lack of confidence for bending over, getting up from the floor (used to do so in exercise classes has since stopped). Pt denies recent change in medication. Pt states during a recent phone call conversation a nurse mentioned possibility of a muscle relaxer however he says his pharmacy never received a script for such. He is interested if JONATHAN Dawson would be able to fill or write an order for this. He has purchased walking sticks and he was advised to bring these into his next session. Next follow up with PCP is not until 01/15/25 and neurology appt 01/20/25. At this time therapist is requesting/recommending skilled PT twice weekly x 6 weeks to address low back pain, mobility, and functional tolerance for daily activities. Please follow up with patient re: his inquiry for muscle relaxer/nurse conversation regarding possible script for such. Therapist attempted to connect with [facility] [place] via [phone] and [phone] extensions x 3 attempts for verbal relay with no luck in anyone picking up the phone. Patient was also encouraged to follow up through patient portal to inquire about this as this was something discussed between PCP office. Pt verbalizes reduction in back pain since yesterday visit. PT Plan: Await neurology appt 01/20/25, await physiatry consult Short Term Goals: 1. Reduce lower back pain by 25% as evidenced by Oswestry. 2. Sit<>stand 10 times in 30 seconds. (IR: 7 reps with fatigue reported, increased compensation of trunk, weak hips). 3. Complete log roll for bed mobility L>R and R>L with no difficulty MOD I. 4. Pt will demonstrate bridge without sx. 5. Demonstrate floor recovery carryover. Finish Saw Operator Goals: 1. I HEP. 2. Strength hip abd 4/5 (IR: 3/5 with significant compensation of hip flexor bilaterally). 3. Resume senior center exercise activity MOD I with good safety and confidence. 4. Demonstrate suceessful floor recovery MOD I. 5. Reduce low back pain by 50% for ADLS/IADLS. 6. Improvement in ABC scale/ Oswestry scoring. Electronically signed by: Meghan Hernandez, PT, DPT
--- NOTE | 2025-04-07 11:24 | MHC.PT.OD ---
[facility] [place] [facility] [place] [facility] [place] [facility] [address] Jose Mora [address] [phone] F: [phone] F: [phone] F: [phone] F: [phone] Physical Therapy Daily Note Diagnosis: PT Eval and treat: M45.50 Low back pain, unspecified, G89.29 Other chronic pain, Chronic lower back pain, [place] signed by Rolo Dawson, 10/14/24 Date of Surgery: Date of Evaluation: 10/17/24 Date of Treatment: 04/04/25 Treatments to Date: 8 Cancellations to Date: No Shows to Date: Authorized Visits: 8 Insurance End Date: 02/27/15 Precautions/ Contraindications:Cardiac, gait disorder, hx YANETH, gait disorder 01/09, on Eliquis, Gait disorder (~12/2023) Back pain-History: 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 I feel kind of tired today I think from the heat. I got to see the transfusion nurse in a few weeks and then I see my PCP Rolo after. Pain Score and Location: 4-5/10 Lumbar Objective Flowsheet: Tests & Measures Vitals pre activity BP 120/60 mmHg, HR 69 bpm, SP02 98% 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: No Accompanied by: Spouse Allergies No Known Allergies Allergy (Verified 01/15/25 10:16) Tobacco use date assessed: 01/15/25 Fall risk assessment: 2 + Falls in past year Last assessed Fall Risk: 01/15/25 Dental Screening Dental Screen Date: 01/15/25 Did you have a dental visit in the last 12 months?: Yes Did you have a dental problem in the last 6 months where you did not have access to dental care?: No Was dental information given to patient?: Patient has dentist HPI Annual PE - see comments HPI Details History of Present Illness The patient is a 74-year-old male presenting with concerns regarding lower extremity weakness and an abnormal gait. He has a pertinent history of cardiomyopathy and has been experiencing ongoing weakness in his lower extremities. Neurological symptoms, primarily the weakness, have led to an abnormal gait, for which he requires the aid of a cane. He has undergone various diagnostic tests, including MRIs and EMG, that delineated cerebral atrophy with ischemic disease and polyneuropathy. Cervical spine imaging has shown multilevel spondylosis. The patient denies several systemic symptoms but reports intermittent edema in lower extremities. Despite various evaluations, the mobility issues remain a significant concern for the patient. Health Maintenance seeing urology, cardiology, dermatology, neurology, referring to physiatry Social History - The patient is currently using a cane for ambulation due to gait abnormalities and lower extremity weakness. Review of Systems - Neurological: Reports ongoing lower extremity weakness, abnormal gait. - Psychiatric: Denies suicidal or homicidal ideations. - Cardiovascular: Denies chest pain, shortness of breath. - Gastrointestinal: Denies abdominal pain, blood in stools, diarrhea, constipation. - Musculoskeletal: Reports difficulty with mobility, using a cane. - Dermatological: Reports macular lesions on the scalp. - Vascular: Reports intermittent trace edema of the lower extremities. Physical Exam General: Cooperative, healthy appearing, comfortable, no acute distress and well developed Orientation: Patient oriented x3 Limitations: No limitations Head: Normal to inspection Ears: Hearing grossly normal bilaterally Nose: Normal external nose present Face and sinus: Normal facial exam Eyes: Appearance normal, both eyes and all related structures Neck: Normal visual inspection and Yes full ROM Respiratory: Normal respiratory effort and able to speak in complete sentences. Fairly clear to auscultation bilaterally Cardiovascular: Regular rate and rhythm. Normal S1 and S2 GI: Normal to inspection. Soft to palpation and nontender Skin: Several macular lesions noted, especially on the scalp. Slight bluish hue to the lateral aspect of the left foot noted Neuro: Patient oriented x3 Extremities: Abnormal gait, difficulty finding pedal pulses or dorsalis pedis pulses, trace edema in lower extremities, slight bluish hue to the lateral aspect of the left foot noted Results - MRI: Diffuse cerebral atrophy greatest involving the frontal and temporal lobes, consistent with small vessel ischemic disease; showed multilevel cervical spondylosis without significant spinal canal stenosis. 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 - Lumbar MRI: Degenerative changes in lower spine, no spinal canal stenosis. Plan The management focuses on the neurological and vascular aspects highlighted by the lower extremity weakness and gait abnormalities. Given the history and diagnostic findings, we are pursuing further imaging studies to assess peripheral vascular contributions to symptoms. A referral to a transfusion nurse will allow a detailed evaluation and rehabilitation planning. The dermatological findings require ongoing monitoring through dermatology consultations to ensure no malignant changes. This will form a comprehensive approach to addressing the multifaceted issues presented. t is restarting PT in the near furture for BLE weakness. Discussion Notes I discussed with the patient the challenges related to the lower extremity weakness and abnormal gait, which has been emotionally taxing for him. We reviewed his neurological history, including previous MRI and EMG findings, and I explained the significance of ischemic changes and polyneuropathy findings. Emphasis was placed on multidisciplinary management, including the planned arterial and venous imaging to further evaluate the vascular contribution to his symptoms. I highlighted the need for ongoing neurology consultations and dermatology follow-ups due to scalp lesions. We also discussed the potential benefits of a transfusion nurse referral for additional therapeutic options focusing on mobility improvement and emotional support. Patient Instructions - Continue using cane for stability until further evaluation. - Follow up with neurology and dermatology as advised. - Undergo the recommended arterial and venous imaging studies. - Attend the scheduled appointment with the referred transfusion nurse. - Monitor any new or worsening symptoms and report them promptly. [facility] Medical History Disc degeneration, lumbar White matter disease Gait disorder (~12/2023) Back pain Syncope and collapse Hypertrophic cardiomyopathy Bladder outlet obstruction Urinary hesitancy Weak urinary stream COVID-19 vaccine administered Syncope Eczema NSVT (nonsustained ventricular tachycardia) Paroxysmal A-fib Cardiomyopathy Surgical History History of total hip replacement History of carpal tunnel release History of loop recorder H/O colonoscopy Melanoma History of colon resection Family History Father CAD (coronary artery disease) Type 2 diabetes mellitus Myocardial infarction Mother Breast cancer Social History Household Members: Spouse Housing: House Alcohol intake: never Patient Tobacco Use Status: Never used Tobacco e-Cigarette/Vaping Use: Never Used Second Hand Smoke Exposure: No service: Yes Current occupational status: retired Cognitive needs: No Hearing needs: Yes Vision needs: No Questionnaire PHQ-9 Over the last 2 weeks, how often have you been bothered by any of the following problems? 1. Little interest or pleasure in doing things: not at all 2. Feeling down, depressed, or hopeless: several days 3. Trouble falling or staying asleep, or sleeping too much: not at all 4. Feeling tired or having little energy: more than half the days 5. Poor appetite or overeating: not at all 6. Feeling bad about yourself - or that you are a failure or have let yourself or your family down: not at all 7. Trouble concentrating on things, such as reading the newspaper or watching television: not at all 8. Moving or speaking so slowly that other people could have noticed. Or the opposite - being so fidgety or restless that you have been moving around a lot more than usual: nearly every day 9. Thoughts that you would be better off or of hurting yourself in some way: not at all Total score: 6 Depression Screening Interpretation: Negative Depression Screening Done: Yes 19273 - PHQ-9 Billing: Yes Source: Developed by Drs. Nik Donnelly, Tracey Allen, Adalberto Paredes and colleagues, with an educational robert from [employer]. Thrive Questionnaire Date Thrive assessed: 01/15/25 I am a: Patient What is your living situation today?: I have a steady place to live Within the past 12 months, did the food you bought not last and you didn't have the money to get more?: Never true Within the past 12 months, did you worry whether your food would run out before you got money to buy more?: Never true Do you have trouble paying for medicines?: No Do you have trouble getting transportation to medical appointments?: No Do you have trouble paying your heating and electricity bill?: No Do you have trouble taking care of your child, family member or friend?: No Do you have trouble with day-to-day activities such as bathing, preparing meals, shopping, managing finances, etc.?: No Are you currently unemployed and looking for a job?: No Are you interested in more education?: No Please select the resources that you would like help with: None Currently or been in a relationship where the following occur: No concerns reported THRIVE Score: 0 AUDIT C Alcohol Use Questionnaire (AUDIT-C) 1. How often do you have a drink containing alcohol?: Monthly or less 2. How many drinks containing alcohol do you have on a typical day when you are drinking?: 1 or 2 3. How often do you have six or more drinks on one occasion?: Never Total Score: 1 Score Reviewed/Action Taken: Yes BRETT-7 AMB Questionnaire BRETT-7 Date BRETT - 7 assessed: 01/15/25 Feeling nervous, anxious, or on edge: 0 = Not at all Not being able to stop or control worryin = Not at all Worrying too much about different things: 0 = Not at all Trouble relaxin = Not at all Being so restless that it is hard to sit still: 0 = Not at all Becoming easily annoyed or irritable: 0 = Not at all Feeling afraid as if something awful might happen: 0 = Not at all Total BRETT-7 score (0-4 normal; 5-9 mild; 10-14 moderate; 15-21 severe): 0 Source: Developed by Drs. Nik Donnelly, Tracey Allen, Adalberto Paredes and colleagues, with an educational robert from [employer]. BRETT-7 Assessment Billing BRETT-7 Assessment Tool: BRETT-7 Assessment 99486 Physical exam (Primary Care) Vital Signs: Last Vital Signs Pulse 62 01/15/25 10:16 BP 110/68 01/15/25 10:16 Pulse Ox 97 01/15/25 10:16 BMI result Body Mass Index 29.4 Tobacco/Smoking Status: Tobacco use Status Tobacco use date assessed 01/15/25 01/15/25 10:17 Patient Tobacco Use Status Never used Tobacco 01/15/25 10:17 e-Cigarette/Vaping Use Never Used 01/15/25 10:17 PHQ-9: PHQ-9 Score PHQ-9: Total score 6 01/15/25 10:29 Depression Screening Interpretation: Negative Thrive Assessment: Date of Thrive Assessment Date Thrive assessed 01/15/25 01/15/25 10:17 Currently or been in a relationship where the following occur: No concerns reported Coding Level of Care Code Est Pt Prev Care >65y(93672) Diagnoses Gait disorder R26.9 Physical exam Z00.00 Decreased pedal pulses R09.89 Edema of both legs R60.0 Additional Codes BRETT-7 Assessment Billing - BRETT-7 Assessment Tool: BRETT-7 Assessment 32719 ([id number]) PHQ-9 - 08285 - PHQ-9 Billing: Yes ([id number]) Assessment & Plan Assessment & Plan (1) Gait disorder: Onset Date: ~12/2023 Comment: Frontal gait disorder with musculoskeletal component No evidence of parkinsons disease. MRI brain showed extensive white matter changes , mildly enlarged ventricles Lumbar X ray- extensive deg changes Code(s): R26.9 - Unspecified abnormalities of gait and mobility Category: Medical Plan: . (2) Physical exam: Code(s): Z00.00 - Encounter for general adult medical examination without abnormal findings Category: Medical (3) Decreased pedal pulses: Code(s): R09.89 - Other specified symptoms and signs involving the circulatory and respiratory systems Category: Medical (4) Edema of both legs: Code(s): R60.0 - Localized edema Category: Medical Plan . Orders: Orders Complete Blood Count Auto Diff Today Z00.00 - Encounter for general adult medical examination without abnormal findings Comprehensive [facility]. Panel Fast Today Z00.00 - Encounter for general adult medical examination without abnormal findings UA CC w/rflx Micro + Cult Today Z00.00 - Encounter for general adult medical examination without abnormal findings Lipid Panel Today Z00.00 - Encounter for general adult medical examination without abnormal findings TSH reflex Free T4 Today Z00.00 - Encounter for general adult medical examination without abnormal findings US arterial duplex LE BI Today R09.89 - Other specified symptoms and signs involving the circulatory and respiratory systems, R26.9 - Unspecified abnormalities of gait and mobility US venous insuf bilat Today R60.0 - Localized edema Referrals Physiatry Referral R26.9 - Unspecified abnormalities of gait and mobility Documented By:Rolo Dawson01/15/25 1015 Signed By:<Electronically signed by Rolo Gotti V BELT SKIVER- Samir>01/15/25 113 Exercises Seated SCIFIT stepper combo cycle with level 3.0 twin peaks no heat today on L/S Standing PWR step with use of hula for feedback laterally and posteriorly x 10R x 2 sets completed bilaterally, by seated therapeutic rests. Tactile and verbal cues for technique and weight shift/postural correction, PWR! up x 5R each with UE support (pt now able to perform MOD I), PWR rock in stand with reach for number/color combo x 10R each. PWR twist modified with two agility pole reach/step x 2 set 5R each side (completed reach and step overhead with combo movement). DISCUSSED AND EDUCATED PATIENT TO RETURN TO EXERCISE CLASS- PT EDUCATED TO PUT ON FLAT CANE TIP ON WALKING POLES0 THERAPIST TO EDUCATED PATIENT ON ALTERNATIVE OPTION OF SKI POST PT REQUESTING TO TAKE HIS WEIGHT ON SCALE 184.5 LBS. Floor recovery training from mat with chair x 1 attempt with CGA from the back. Pt advised to refrain from this activity for home due to safety concern. Pt able to get up from the ground on the L knee. Positioned in SL pillows for STM to thoracic> lumbar paraspinals R>L increase tissue extensibility to lumbar/thoracic paraspinals. Pt received MHP pre activity to L/S while pedaling on bike for active warm-up. Skin intact pre post activity. Reviewed sequencing ascending/descending stairs (Pt had to correct patient for trying to lead with cane before stepping up with ascending stairs. Patient has poor carryover despite repeated training. Caregiver/spouse training completed as well. Pt educated and shown to keep cane down and push off when climbing stair vs leading with cane in front for step-up. Reviewed stepdown pt required CGA from therapist for exterior step outside side entranec (no rail present). Pt does better descending with L LE first as R LE is overall stronger in stance than L. [address] [place] [address] Ultrasound Report Signed Patient: Rolo Yeboah EMR#: [id number] : 1950Acct:[id number] Age/Sex: 74 / MADM Date: 02/26/25 Loc: HO.US Attending Dr: Rolo Dawson [facility] Ordering Physician: Rolo Dawson [facility] Date of Service: 02/26/25 Procedure(s): US arterial duplex LE BI Accession Number(s): [id number] cc: Rolo Dawson [facility]~ EXAMINATION: Noninvasive assessment of the bilateral lower extremities . CLINICAL INFORMATION: Decreased pedal pulses. TECHNIQUE: Duplex Doppler techniques with waveform analysis and measurement of velocities in the bilateral common femoral, profunda femoris, superficial femoral, popliteal and tibial arteries were performed. Additionally, ankle pulse volume recordings, ankle pressure measurements and ankle brachial indices were obtained of the lower extremity arterial system bilaterally. The study was performed only at rest. COMPARISON: None FINDINGS: DIRECT DUPLEX DOPPLER FINDINGS: RIGHT LEG: Common femoral artery: 57 cm/s, phasicity: Triphasic. Profunda femoris artery: 43 cm/s, phasicity: Triphasic. Superficial femoral artery (proximal): 70 cm/s, phasicity: Triphasic. Superficial femoral artery (mid): 71 cm/s, phasicity: Triphasic. Superficial femoral artery (distal): 76 cm/s, phasicity: Triphasic. Popliteal artery: 64 cm/s, phasicity: Triphasic. Posterior tibial artery: 65 cm/s, phasicity: Triphasic. Peroneal artery: 50 cm/s, phasicity: Triphasic. Anterior tibial artery: 70 cm/s, phasicity: Triphasic. Dorsalis pedis artery: 13 cm/s, phasicity:Biphasic. There is a 4.2 x 3.6 x 2.1 cm lobulated anechoic lesion in the popliteal fossa without flow on color Doppler interrogation. LEFT LEG: Common femoral artery: 97 cm/s, phasicity: Triphasic. Profunda femoris artery: 69 cm/s, phasicity: Triphasic. Superficial femoral artery (proximal): 65 cm/s, phasicity: Triphasic. Superficial femoral artery (mid): 71 cm/s, phasicity: Triphasic. Superficial femoral artery (distal): 69 cm/s, phasicity: Triphasic. Popliteal artery: 50 cm/s, phasicity: Triphasic. Posterior tibial artery: 69 cm/s, phasicity: Triphasic. Peroneal artery: No color Doppler flow. Anterior tibial artery: 28 cm/s, phasicity: Monophasic. Dorsalis pedis artery: 13 cm/s, phasicity: Monophasic. There is a 2.2 x 2.2 cm anechoic lesion without flow on color Doppler interrogation centered in the popliteal fossa. US/US arterial duplex LE BI IMPRESSION: Right leg: Moderate inflow disease, right dorsalis base artery. 4.2 cm popliteal cyst. 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 2.2 cm popliteal cyst. DIONE Reference: - >1.4 = calcified vessels - 0.9 - 1.4 = normal - no significant arterial disease - 0.7 - 0.89 = mild peripheral arterial disease - 0.51 - 0.69 = moderate peripheral arterial disease - d 0.50 = severe peripheral arterial disease - < .30 = critical arterial disease Electronically signed by: Maury Payne MD 02/26/2025 02:31 PM EDT Dictated By:Maury Johnson MD Signed By:<Electronically signed by Maury Wood MD in [place]>02/26/25 1431 [facility] [address] [address] US/US venous insuf bilat IMPRESSION: Right: Venous insufficiency, great saphenous vein at the knee and midcalf. Venous insufficiency, small saphenous vein at the mid calf. No gross varices. 4.5 cm popliteal cyst. Left: Venous insufficiency, great saphenous vein at the mid calf. Perforators without reflux. No gross varices. Electronically signed by: Maury Payne MD 02/07/2025 10:31 AM EDT RP Office Visit Report Signed Patient: Rolo Yeboah EMR#: [id number] : 1950Acct:[id number] Age/Sex: 74 / MADM/SER Date: 01/20/25 Loc: RADHA.HSMSADM/SER Time:851 Attending Provider: Alyssa Cage MD cc: Rolo Dawson [facility]~ Vital Signs 01/20/25 08:54 Height 5 ft 7 in Weight 189 lb BMI 29.6 BP 110/74 Blood Pressure Location Rt brachial Position Sitting Pulse 69 Pulse Source Pulse Oximeter Pulse Oximetry (%) 98 Oxygen Delivery Method Room Air Intake Visit Reasons: follow up Weakness-LVM Intake Note: patient presents for follow up Gait disorder. Allergies No Known Allergies Allergy (Verified 01/20/25 08:56) HPI Comments Details: 74y/o male comes for follow up of balance and gait problems after 18 mths . he had 2 falls since last visit- both in the yard. He has chronic back pain . He had a left hip replacement in 2019 - he did well for about 1 year and after that started noticing that his balance was not as good and he was shuffling his feet. No falls.He has occasional near falls. He denies memory issues ,denies tremors, denies weakness, change in speech etc. SHe denies any urinary issues. He denies any neck issues He has h/o CAROLEE on CPAP He did PT and has been exercising at the [facility] 2times a week and has noticed improvement. [facility] Medical History Disc degeneration, lumbar White matter disease Gait disorder (~12/2023) Back pain Syncope and collapse Hypertrophic cardiomyopathy Bladder outlet obstruction Urinary hesitancy Weak urinary stream COVID-19 vaccine administered Syncope Eczema NSVT (nonsustained ventricular tachycardia) Paroxysmal A-fib Cardiomyopathy Surgical History History of total hip replacement History of carpal tunnel release History of loop recorder H/O colonoscopy Melanoma History of colon resection Family History Father CAD (coronary artery disease) Type 2 diabetes mellitus Myocardial infarction Mother Breast cancer Social History Household Members: Spouse Housing: House Alcohol intake: never Patient Tobacco Use Status: Never used Tobacco e-Cigarette/Vaping Use: Never Used Second Hand Smoke Exposure: No service: Yes Current occupational status: retired Cognitive needs: No Hearing needs: Yes Vision needs: No Physical Exam Vital Signs: Last Vital Signs Pulse 69 01/20/25 08:54 BP 110/74 01/20/25 08:54 Pulse Ox 98 01/20/25 08:54 Oxygen Delivery Method Room Air 01/20/25 08:54 BMI result Body Mass Index 29.6 Const General: cooperative, healthy appearing, comfortable and no acute distress Nutritional Appearance: average body habitus Orientation/consciousness: patient oriented x3 Eyes Pupils: Equal, round and reactive pupils present Neuro Other: gait- mild wide based - small steps , can walk without the cane Mild off balance and stiffness in his back Mild decreased blink and facial expression General: patient oriented x3, tone normal, moves all extremities and no focal motor deficits Cranial nerves: Yes Facial sensation intact/muscles of mastication intact, Yes Equal, round and reactive pupils present, Yes Bilaterally intact EOM present, Yes Nystagmus not present, Yes Normal facial strength present and Yes Midline tongue present Cognition (Neuro): normal cognition Gait exam (Neuro): Ataxic gait present Motor exam (neuro): 5/5 motor strength present throughout and Normal motor muscle tone present throughout Deep tendon reflexes (DTR's): Right triceps reflex intensity grade: 1+, Left triceps reflex intensity grade: 1+, Rt Biceps (C5, C6): 1+, Left biceps reflex intensity grade: 1+, Right brachioradialis reflex intensity grade: 1+, Left brachioradialis reflex intensity grade: 1+, Right patellar reflex intensity grade: 3+ and Left patellar reflex intensity grade: 3+ Coordination: [id number] test normal Results Reviewed Results Reviewed: MRI C spine 10/12 -Multilevel cervical spondylosis without significant spinal canal narrowing. Neural foraminal narrowing is worst and severe bilaterally at C5-6. MRI L spine 09/2024-vertebral bodies maintain normal height and marrow signal intensity. There is slight anterolisthesis of L4 on L5. There is severe degenerative disc disease at this level with disc desiccation, loss of disc height and endplate changes. Milder changes are noted at the remaining levels. At T12-L1,there is a minimal disc bulge. There is no evidence of disc herniation, central spinal stenosis, or neural foraminal narrowing. At L1-2, there is moderate osteoarthritis of the facet joints without evidence of disc herniation, central spinal stenosis, or neural foraminal narrowing. At L2-3, there is mild endplate spurring. There is facet and ligament flavum hypertrophy causing narrowing of the inferior recesses of the bilateral neural foramen, left greater than right. There is no central spinal stenosis. At L3-4, there is a mild disc bulge. There is facet osteoarthritis causing left neural foraminal stenosis and narrowing of the inferior recesses of the right neural foramen. At L4-5, there is osteoarthritis of the facet joints causing left neural foraminal stenosis and narrowing of the inferior recess of the right neural foramen. At L5-S1, there is osteoarthritis of the facet joints without central spinal or neural foraminal stenosis. The conus terminates at the T12-L1 level and demonstrates normal signal intensity. The visualized paraspinal soft tissues are unremarkable. MR/MR lumbar spine wo con Impression: Degenerative changes of the lumbar spine as described. MRI BRain Diffuse cerebral atrophy, greatest involving the frontal and temporal lobes. Findings consistent with small vessel ischemic disease of the white matter as described. No acute intracranial abnormality. Assessment & Plan Assessment & Plan (1) Gait disorder: Onset Date: ~12/2023 Comment: Multifactorial - lumbar cervicla spondylosis , frontal gait disorder No evidence of parkinsons disease. Code(s): R26.9 - Unspecified abnormalities of gait and mobility Category: Medical Plan MRI brain, L spine and C spine - reviewed extensively with patient and his Continue exercises Vit B 12 , TSH , Vit D- normal Continue PT Consider pain management for spondylosis Coding Level of Care Code Modalities Assessment: 04/04/25; Rolo has met STG/LTG, attending 04/25 approved session for PT at this time. He exhibits improved strength for functional mobility compared to a few>months ago. He is now able to stand MOD I without UE support (*inconsistent w/o arms but today he can). He has been educated and shown carryover of floor recovery training and verbalizes improved confidence. He continues to use std cane for ambulation and has resumed use of his stationary bike at home. He was previously holding from participation in exercise classes due to his confidence and balance, however he has returned to these after being encouraged to do so. He will benefit from ongoing use of AD for ambulation. He exhibits short step length, foot flat contact with flexed trunk during ambulation but is doing better than he was a few months ago. He will benefit from ongoing active particpation of senior center exercise classes. He has undergone doppler US both venous and arterial (see [facility] notes). He is awaiting a consultation with physiatry at the end of the month and will be seeing his PCP soon after that. We have reviewed his HEP at length today with emphasis to keep moving. L hip flexion 4-/5, R hip flexion 4-/5, L knee ext 4-/5, 4-/5, L hip abd 3-/5, R hip abd 3/5 with noted compensation of hip flexion in SL. He can bridge with fair<>good clearance. Bed mobility is MOD I. He can roll, and rise up from the mat MOD I. DC pt to I HEP. He has been encouraged to use a RW but has been adamantly against this. 03/28/25: Rolo continues to require use of AD for ambulation. He would benefit most from use of RW but is against this, instead elects to use std cane (despite previous education/recommendation attempt from PT). Anticipate transition to I HEP next session. He has good carryover of home program. 03/17/25: Rolo has resumed participation in senior exercise classes. He continues to use std cane, expressed fatigue post session. Pt would be best served and supported using a RW however he is adamantly against this. He c/o short step length, shuffle step. He has weaker stance phase L LE> R hip abd. Pt has two visits remaining- anticipate transition to I HEP in 2 visits due to plateauing status. 03/07/25: Pt able to perform standing exercises with CGA from behind. R LE more difficult to lift. 02/24/25: Pt fatigues after ~10 reps of standing exercises. He requires CGA from behind and has heavy support on B UE hinkle poles. He requires rest for the L LE faster than R LE. Pt verbalizes greater difficulty with activation of L LE. L LE noted to shuffle more than R. Cues for larger step length. Pt unable to perform reciprocal arm swing without heavy effort. Pt encouraged and educated to go back to using his stationary bike and continue sit<>stand exercises. Today he was able to stand with improved ability from last week; he notes has been working on sit<>stands several times daily at home. He has poor carryover of sequencing for stairs with use of cane and benefitted from review of technique how to ascend/descend when entering back step in and out of the building (therapist walked him out). Pt spouse also educated alongside patient and was educated to ensure carryover/safety. 02/12/25: Pt presents to office with std cane and two walking poles (wanted to assess alternate flat cane tip for walking poles). After assessment/trial of walking poles therapist discouraged use due to gait instabilty and small base pole tips/patient difficulty coordinating movement today. Pt and pt's were once again encouraged to consider use of RW to improve gait stability/safety. Pt has been using std cane outside the home but has not yet returned into exercise class at the [facility]. Pt has had numerous medical appts (venous US completed, awaiting arterial US) which is partially why he states has not returned to exercise class but in anther statement verbalizes fear of falling. Pt admits he has been using pedal cycle every other day but notes his pedal cycle slid on the floor away from him and causes pressure in his back with sitting *more sore today -04/27. Pt and pt's were educated re: putting restorator on the floor against the wall and given theraband to put under legs to prevent sliding. Pt would benefit from ongoing PT 1x/week x 6 more visits to address impairments in balance and strength. I haven't done much lately. I cant do much outside. Pt has stopped taking care of his pool and weeding, Im afraid I might fall. Pt will benefit from continued PT sessions 1x/week x 6 weeks to improve strength, improve confidence/balance for community ambulation, and address goals. L hip flexion 3+/5, R hip flexion 3+/5, knee ext 3+/5 L, R knee ext 3+/5, glute bridge 3/5 fair symmetry, ankle DF 3/5 broke with resistance L, R ankle DF 3-/5. Sit<>stand 30 seconds: (+) Retropulsion and posterior loss of balance x 4 repw in 30 seconds with poor eccentric control, heavy reliance on UE support and trunk flexion. Pt rolling L>R MOD A, R<>L MOD I. Pt with foot flat contact, step length inconsisten and short. Pt needs RW but is against using a RW despite repeated education to use. Pt has been declining over the past few months. Pt was formerly in PT and was able to perform sit<>stand x 20R last fall for HEP and now struggles with standing 1x without posterior LOB despite use of UE support. He was educated to reimplement bridging on the bed and sit<>stand with UE support and present at home for self care. Pt able to recall proper use of cane sequencing for stair climbing- notes prefers to use cane in R UE. 02/04/25: PT PRESENTS WITH BILATERAL WALKING POLES- EDUCATED RE: NEED TO PUT ON FLAT CANE TIP VS SLOPE CANE TIP. COMPLETED PWR STEP, TWIST, UP, AND PREGAIT ACTIVITIES WITH REACHING AND STEPPING TASKS WITH COMBO DUAL TASK OF COLOR/NUMBER/SHAPE IDENTIFIER. PT ABLE TO RISE FROM SEATED POSITION WITH GREATER EASE BUT HAS BOUTS OF INSTABILITY WITH FATIGUE. PT ENCOURAGED TO RESUME EXERCISE CLASSES IN SENIOR CENTER. AWAITING US ON 02/07/25 AND 02/26/25 FOR L LE. PT'S VERONICA PRESENT AND EDUCATED ALONGSIDE PATIENT FOR SESSION. EMAIL OF : [email or web address] COPY OF WALKING STICK RECOMMENDATIONS PLACED. 01/27/25: Pt continues to withhold from participation in senior center activities when therapist asked why patient says I dont feel comfortable walking with my balance/cane yet. Therapist encouraged use of bilateral walking poles (trial in clinic this date with good outcomes) vs std cane due to pt verbalizing confidence/improved upright positioning. Pt not open to using RW at home. Discussed seated HEP program for PWR moves shown at length with . Encouraged ongoing movement/activities to tolerance seated/ stretching program previously issued. Pt awaiting two ultrasounds one arterial one venous in 02/07/25 and 02/26/25. Pt admits L LE gets cold and turns purple when standing in shower. Pt weaker in proximal hip/ stance phase of L LE. 01/22/25: Pt doing better than last week since returning to exercise class. Pt present with std cane. Pt encouraged to work on stretching program previously issued in the past. Pt awaiting physiatry consult set for March. 01/16/25; Pt was last seen in PT on 11/12/24 with present for sessions in past and today. Pt went away for a cruise was away in [place] for a few weeks, while away pt expressing worsening balance and strength in R>L LE. Notes need of WC for navigating through airport. Notes decreased tolerance for standing/walking >10 minutes. Pt presents with worsening mobility from evaluation in 11/12, notes he has started using std cane when outside the home. He has reported having two falls outside the home (one on uneven grass, one on yaya surface resulting in /neighbors helping him up). He has been encouraged to use a rollator/RW but does not have and is not currently open to using a walker. Pt was encouraged to go back to seated modified chair exercise classes at the senior center and resume use of stationary bike at home as he has stopped exercising. He will benefit from PT 2x/week x 3 weeks (6 visits) to address impairments, goals. and mobility deficits. Pt and pt's spouse were educated re: goals, recommendation for use RW vs. std cane, and obtaining bed rail to ease in mobility for home/self care. Pt defers need for shower chair however due to LE instability therapist feels he may benefit to reduce risk of falls. Pt ambulates with R lateral trunk lean, reduction in L UE arm swing, B/L foot flat contact, flexed posture, short step length, and decreased movement motor control of R>L LE. Pt chart noted to have coding of demyelinating disease white matter disease as well as frontal gait disorder. Per last neurology note, Parkinson disease was cleared as cause of sx. Pt with worsening difficulty rising from seated position, poor bed mobility, and with weakness in R>L LE. Pt expresses legs feel heavy, weak and disconnected from body for movement. Patient has been working with PT for some time and since onset patient has shown declining mobiity and gait disorder. Pt reports stiffness in R hip, history of L YANETH in the past. Pt normally very active in exercise/senior center but notes emotional toll on his mental health and concern for functional decline. Therapist is advocating for patient to inquire with neurologist and physiatry re: cause of sx and inquiry potential benefit of any medication which may ease back pain and or impact impairments in his movement patterns. Pt appears to exhibit bradykinesia and decreased amplitude of movment RLE> L LE. DTRs 2+ bilateral patella, bicep 2+ bilaterally, , 1+ tricep B/L. ION: Diffuse cerebral atrophy, greatest involving the frontal and temporal lobes. Findings consistent with small vessel ischemic disease of the white matter as described. No acute intracranial abnormality. Electronically signed by: Nik Carlisle MD 10/08/2024 08:40 AM EST Dictated By:Nik Carlisle MD Signed By:<Electronically signed by Nik Carlisle MD in OV>10/08/24 0840 11/12/24: Pt will be away for one month in [place]. Pt has good carryover of home program. Pt reissued HEP routine. 11/08/24: Pt challenge with new trial of PWR moves, reports global gains in flexibility and reduction in pain. No new PWR moves added for HEP. 10/30/24: Pt has one more visit remaining before leaving for vacation on a cruise. Greater weakness in proximal L hip. Positive early response reported. 10/22/24: Pt very stiff in ambulation at start of session. Assessment of vitals post bike taken: 130/70 mmHg, HR 69 bpm, Sp02 98%. Pt verbalized relief with IASTM (pt initially prone but shifted to SL position to improve technique/position). Pt verbalized reduction in back pain from 5/10 to <5/10. Pt is a RHD 73 y/o, male referred to PT from PCP Rolo Dawson, VAL-, date of script 10/14/24 for M54.9 Low back pain unspecified, G89.29 Other chronic pain, chronic lower back pain, [place]. Pt recently had MRI of brain and L/S 10/08/24 (see report). Pt had previous MRI of L/S last year, EMG with abnormal findings (see above). Past question of hydrocephalus>Parkinson were addressed and cleared from neurology at [facility] last year in 2023. Pt exhibits difficulty walking, history of chronic back pain with Gait disorder (~12/2023) Back pain-History: G37.9 - Demyelinating disease of central nervous system, unspecified Pt had past PT in [facility] 09/22/23-/11/24/23 x 8 visits with positive response. Since that time, pt has reported decline in self HEP program. He has been attending the senior center twice weekly but notes increasing difficulty donning shoes/socks, lack of confidence for bending over, getting up from the floor (used to do so in exercise classes has since stopped). Pt denies recent change in medication. Pt states during a recent phone call conversation a nurse mentioned possibility of a muscle relaxer however he says his pharmacy never received a script for such. He is interested if JONATHAN Dawson would be able to fill or write an order for this. He has purchased walking sticks and he was advised to bring these into his next session. Next follow up with PCP is not until 01/15/25 and neurology appt 01/20/25. At this time therapist is requesting/recommending skilled PT twice weekly x 6 weeks to address low back pain, mobility, and functional tolerance for daily activities. Please follow up with patient re: his inquiry for muscle relaxer/nurse conversation regarding possible script for such. Therapist attempted to connect with [facility] back line via [phone] and [phone] extensions x [phone] attempts for verbal relay with no luck in anyone picking up the phone. Patient was also encouraged to follow up through patient portal to inquire about this as this was something discussed between PCP office. Pt verbalizes reduction in back pain since yesterday visit. BP 120/60mmHG, 94% Sp02, 68 bpm. PT Plan: Pt has met goals of PT at this time. DC to I HEP. Short Term Goals: 1. Reduce lower back pain by 25% as evidenced by Oswestry. MET 2. Sit<>stand 10 times in 30 seconds. (IR: 7 reps with fatigue reported, increased compensation of trunk, weak hips). MET 3. Complete log roll for bed mobility L>R and R>L with no difficulty MOD I MET/ 4. Pt will dmonstrate bridge without sx MET. 5. Demonstrate floor recovery carryover. MET Director Of Instruction Goals: 1. I HEP. 2. Strength hip abd 4/5 (IR: 3/5 with significant compensation of hip flexor bilaterally). 3. Resume senior center exercise activity MOD I with good safety and confidence. 4. Demonstrate suceessful floor recovery MOD I. MET 5. Reduce low back pain by 50% for ADLS/IADLS. MET 6. Improvement in ABC scale/ Oswestry scoring. MET Electronically signed by: Meghan Hernandez PT, DPT
== END 2025-06-12 15:05 | disposition home or self-care (01) ==
LOC: HO.PTS 10:53
PROVIDERS: PCP Nurse Practitioner Family; Visit Provider Nurse Practitioner Family
DX: M54.50 Low back pain, unspecified (principal); G89.29 Other chronic pain
CPT/HCPCS: 97110; 97112; 97116; 97140; 97163; 97164; 97535

== ENCOUNTER 2025-04-17 11:04 | Outpatient (AMB) | payer MEDICARE, SELFPAY ==
--- NOTE | 2025-04-17 11:05 | A.OFFVIS_ITS ---
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 Patient [place] [facility] [place], Dr. Rolo Dawson, he was referred to physical therapy and Neuro. At today's visit he states that for the past five years or so he has had gait and mobility issues. Patient states that he has lower back pain but nothing that radiates, no numbness or tingling. Patient's stated that his balance is off and 3 to 4 months ago he had a fall at home outside. Patient added that he feels that his body is leaning forward a lot and feels that he is going to fall. Allergies No Known Allergies Allergy (Verified 04/17/25 11:14) Medication List - Last Reconciled 04/17/25 by Esmer Garcia MD apixaban 5 mg PO BID coenzyme Q10 (CoQ-10) 100 mg PO DAILY cyclobenzaprine 5 mg PO BEDTIME PRN ezetimibe 10 mg PO DAILY finasteride 5 mg PO DAILY 90 days metoprolol succinate ER 25 mg PO DAILY omega 4-pxq-ztm-fish oil 100-160-1,000 mg (Fish Oil) 1 cap PO DAILY pravastatin 80 mg PO DAILY sildenafil 100 mg PO DAILY PRN 30 days HPI Comments Details: Reviewed notes from Neurology and PCP. 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 No evidence of parkinsons disease. MRI brain showed extensive white matter changes , mildly enlarged ventricles. Neurology suggested referral to pain management for the spondylosis seen on cervical/lumbar imaging. PCP referred to physiatry. Patient also seen by vascular, did not think it was coming from vascular etiology. I have met the patient previously for EMG done 07/05/2026 which showed evidence suggestive of polyneuropathy sensorimotor, demyelinating and axonal features. He presented at that time with shuffling gait, cold sensation on feet, even hands. Denied weakness. No numbness or tingling. Lower back pain. Spondylosis on x-ray. On Eliquis for atrial fibrillation. Denies history of diabetes, thyroid, chronic infections or alcohol drinking. Reviewed cervical MRI images: C5-6 and C6-7 show spondylosis with foraminal stenosis, I think there is some degree of central spinal stenosis or at least flattening of the cord, although that was not mentioned in the report. Reviewed lumbar MRI images: There is severe disc desiccation at L4-5 but without any central spinal stenosis or nerve compression. He does have lower back pain, usually 5/10, relieved with heating pad and vibration. Denies any other pain. Has good and bad days. Bad days because of poor gait and tendency to fall. Last fall 4 months ago, was walking on neighbor's yard. Uses cane with long walks. Does not think arms are weak. No problem with overhead activity. Legs feel heavy after sitting for awhile. Legs do get tired after 15 minutes of walking. Goes to [employer] twice a week which helps. Goes to [employer] [facility] twice a week, ended last week. No bladder/bowel incontinence. [facility] Medical History Disc degeneration, lumbar White matter disease Gait disorder (~12/2023) Back pain Syncope and collapse Hypertrophic cardiomyopathy Bladder outlet obstruction Urinary hesitancy Weak urinary stream COVID-19 vaccine administered Syncope Eczema NSVT (nonsustained ventricular tachycardia) Paroxysmal A-fib Cardiomyopathy Surgical History History of total hip replacement History of carpal tunnel release History of loop recorder H/O colonoscopy Melanoma History of colon resection Family History Father CAD (coronary artery disease) Type 2 diabetes mellitus Myocardial infarction Mother Breast cancer Social History Household Members: Spouse Housing: House Alcohol intake: never Patient Tobacco Use Status: Never used Tobacco e-Cigarette/Vaping Use: Never Used Second Hand Smoke Exposure: No service: Yes Current occupational status: retired Cognitive needs: No Hearing needs: Yes Vision needs: No Review of Systems Const All systems reviewed & are unremarkable except as noted in HPI and below Physical Exam Exam Exam: Constitutional: Patient appears to be in no acute distress, well nourished and well developed. Patient was appropriately conversant and oriented. Good historian. MSK: Inspection reveals appropriate head and neck positioning. No pain with palpation over the neck musculature. Cervical ROM was as expected. Spurling's sign negative. Full shoulder range of motion bilateral. Negative empty can sign. Negative Horton sign. Able to cross/abduct/flex hips, without pain. Walks with bilateral knees bent and almost walking more on his toes. This seems to propel him forward. Needs reminders to walk slowly and to do proper heel strike. Neurological: Reflexes are symmetric and intact bilaterally upper and lower. No increased tone. No atrophy. Strengths are pretty good upper and lower. No footdrop. But that was tested while seated. When he walked, he had difficulty with heel strike. Vital Signs: BMI result Body Mass Index 29.9 Results Reviewed Results Reviewed: I independently reviewed the results of the following: As above EMG 07/05/24: IMPRESSION: 1. This is an abnormal study. 2. 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 3. There is no electrodiagnostic evidence for lumbosacral plexopathy or lumbar radiculopathy. Ordering Physician: Rolo Dawson Date of Service: 10/08/24 Procedure(s): MR lumbar spine wo con Accession Number(s): [id number] cc: Rolo Dawson~ Workstation: [id number] EXAMINATION: MR LUMBAR SPINE WITHOUT IV CONTRAST History: G37.9 - Demyelinating disease of central nervous system, unspecified Technique: Sagittal T1, T2 and STIR, and axial T1 and T2 weighted images of the lumbar spine were obtained per departmental protocol. Comparison: Correlation is made with plain films of the lumbar spine dated 08/17/2023. Findings: The vertebral bodies maintain normal height and marrow signal intensity. There is slight anterolisthesis of L4 on L5. There is severe degenerative disc disease at this level with disc desiccation, loss of disc height and endplate changes. Milder changes are noted at the remaining levels. At T12-L1,there is a minimal disc bulge. There is no evidence of disc herniation, central spinal stenosis, or neural foraminal narrowing. At L1-2, there is moderate osteoarthritis of the facet joints without evidence of disc herniation, central spinal stenosis, or neural foraminal narrowing. At L2-3, there is mild endplate spurring. There is facet and ligament flavum hypertrophy causing narrowing of the inferior recesses of the bilateral neural foramen, left greater than right. There is no central spinal stenosis. At L3-4, there is a mild disc bulge. There is facet osteoarthritis causing left neural foraminal stenosis and narrowing of the inferior recesses of the right neural foramen. At L4-5, there is osteoarthritis of the facet joints causing left neural foraminal stenosis and narrowing of the inferior recess of the right neural foramen. At L5-S1, there is osteoarthritis of the facet joints without central spinal or neural foraminal stenosis. The conus terminates at the T12-L1 level and demonstrates normal signal intensity. The visualized paraspinal soft tissues are unremarkable. MR/MR lumbar spine wo con Impression: Degenerative changes of the lumbar spine as described. Ordering Physician: Rolo Dawson Date of Service: 07/26/24 Procedure(s): MR cervical spine wo con Accession Number(s): [id number] cc: Rolo Dawson~ EXAMINATION: MR CERVICAL SPINE WITHOUT CONTRAST CLINICAL INFORMATION: Tightness in neck, abnormal gait and balance COMPARISON: None available. TECHNIQUE: MRI of the cervical spine was obtained using routine sequences without contrast. FINDINGS: The imaged posterior fossa is unremarkable. Straightening of the normal cervical lordosis. Mild retrolisthesis at C4-5. Diffusely heterogeneous bone marrow signal is degenerative. The vertebral body heights are preserved. Multilevel disc desiccation and disc height loss, worse and severe at C5-6 and C6-7. The visualized spinal cord is normal in caliber. No abnormal cord signal. C2-3: Bilateral facet arthrosis. Mild to moderate left neural foraminal narrowing. No significant spinal canal stenosis. C3-4: Disc osteophyte complex, bilateral uncovertebral hypertrophy, and bilateral facet arthrosis. No significant spinal canal or neural foraminal narrowing. C4-5: Disc osteophyte complex, bilateral uncovertebral hypertrophy, and bilateral facet arthrosis. No significant spinal canal stenosis. C5-6: Disc osteophyte complex, bilateral uncovertebral hypertrophy, and bilateral facet arthrosis. Severe bilateral neural foraminal narrowing. No significant spinal canal stenosis. C6-7: Disc osteophyte complex and bilateral facet arthrosis. No significant spinal canal or neural foraminal narrowing. C7-T1: Disc osteophyte complex, bilateral uncovertebral hypertrophy, and bilateral facet arthrosis. Mild to moderate right greater than left neural foraminal narrowing. No significant spinal canal stenosis. The paravertebral soft tissues are unremarkable. The imaged lung apices are clear. MR/MR cervical spine wo con IMPRESSION: Multilevel cervical spondylosis without significant spinal canal narrowing. Neural foraminal narrowing is worst and severe bilaterally at C5-6. Electronically signed by: Maggy Garza MD 09/27/2024 12:18 PM [facility] I reviewed records from the following: As above Assessment & Plan Assessment & Plan (1) Gait disorder: Onset Date: ~12/2023 Comment: Multifactorial - lumbar cervicla spondylosis , frontal gait disorder No evidence of parkinsons disease. Code(s): R26.9 - Unspecified abnormalities of gait and mobility Category: Medical (2) Polyneuropathy: Code(s): G62.9 - Polyneuropathy, unspecified Category: Medical (3) Lumbar spondylosis: Code(s): M47.816 - Spondylosis without myelopathy or radiculopathy, lumbar region Category: Medical (4) Cervical spondylosis: Code(s): M47.812 - Spondylosis without myelopathy or radiculopathy, cervical region Category: Medical Plan I agree that his gait is multifactorial. But if I were to prioritize, I suspect that polyneuropathy is the main cause why he does not do proper heel strike. We unfortunately do not have clear etiology for the neuropathy. We looked at the cervical and lumbar MRI images together, and there are no signs of myelopathy on exam today. He denies pain. He walks with bent knees, and we suspect he has underlying arthritis. We are deferring knee xrays as it would not change treatment plan. His gait is not the same as a shuffling gait seen in Parkinson patients. 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 Continue the exercises. Keep the cane nearby. Taught him how to practice heel strike. Perhaps refer him back to PT in 3 months. Assessment and plan discussed with patient, and patient was agreeable. All questions were answered thoroughly. Follow up in 3 months. Esmer Garcia MD, BETH Board Certified, [place] [employer] and Rehabilitation (ABPMR) Board Certified, [place] Board [employer] Electrodiagnostic [employer] (ABEM) Coding Level of Care Code Est Pt Level 4 (68884) Diagnoses Gait disorder R26.9 Polyneuropathy G62.9 Lumbar spondylosis M47.816 Cervical spondylosis M47.812
[2025-04-17 11:14] VITALS: BMI 29.9
--- OUTSIDE RECORDS SUMMARY | 2025-04-17 11:55 | XMS_ITS | Clinical Summary ---
Author Organization [facility] Address [address] [place] [address] Care Team Providers Care Top Stop Attacher Name Role Phone Mita Rosales MD Primary Care Provider [phone] Allergies No known active allergies Medications Medication Sig Dispensed Refills Start Date End Date Status atorvastatin (LIPITOR) tablet 10 mg Take 1 tablet (10 mg total) by mouth every evening. 0 11/23/2018 Active Molena-3 Fatty Acids (FISH OIL) 1000 MG CAPS [...] 57 07/09/2024 11:15 AM EDT Temperature 36.6 C (97.8 F) 12/30/2019 12:41 PM EDT Respiratory Rate 21 12/30/2019 12:41 PM EDT [...] 2014 COVID-19 Vaccine ( season) 2024 06/24/2022 RSV Adult > 60+ Yrs or (1 - 1-dose 75+ series) 2024 Influenza Vaccine (#1) 2025 , 06/18/2019, 06/18/2018, Additional history exists DTap / Tdap / Td (2 - [...] this topic Medical Devices Implanted Type Area Blood Bank Attendant Device Identifier Shelf Expiration Date Model / Serial / Lot Screw Trident Ii 25mm 6.5mm Low Profile Hexagonal Bone - [id number] - [id number] Implanted:Qty: 1 on 07/08/2019 by Nik Corona [place] [facility] Left: Hip [employer] 02/19/2024 [id number] / / [id number] Screw Trident Ii 25mm 6.5mm Low Profile Hexagonal Bone - [id number] - [id number] Implanted:Qty: 1 on 07/08/2019 by Nik Corona [place] [facility] [place] [facility] Left: Hip [employer] 03/05/2024 [id number] / / [id number] Shell Trident Ii E 54mm 5 Screw Hole Cluster Tritanium - [id number] - [id number] Implanted:Qty: 1 on 07/08/2019 by Nik Corona MD [place] [facility] [place] [facility] Left: Hip [employer] 03/05/2024 [id number] / / [id number] Insert Trident 0d E 36mm X3 Acetabular Hip - [id number] - [id number] Implanted:Qty: 1 on 07/08/2019 by Nik Corona MD [place] [facility] [place] [facility] Left: Hip [employer] 04/09/2024 [id number] / / [id number] Stem Hip Neck Angle 127 Degree Accolade Ii Sz7 - [id number] - [id number] Implanted:Qty: 1 on 07/08/2019 by Nik Corona MD at [facility] [place] [facility] Left: Hip [employer] 03/18/2024 [id number] / / [id number] Head V40 +5mm 36mm Delta Femoral Hip - [id number] - [id number] Implanted:Qty: 1 on 07/08/2019 by Nik Corona MD at [facility] [place] [facility] Left: Hip [employer] 05/19/2024 [id number] / / [id number] Advance Directives For more information, please contact: [phone] Latest Code Status on File Code Status [...] way: discussion with patient . Care Teams Top Stop Attacher Relationship Specialty Start Date End Date Mita Rosales MD [address] [place] [id number] PCP - General Internal Medicine 06/28/19
--- OUTSIDE RECORDS SUMMARY | 2025-04-17 11:55 | XMS_ITS ---
Author Name [facility] Organization Unknown Results Test Name/Text Value Interpretation Date Range Source Cholest/HDLc SerPl 2.6 (calc) Normal 12/12/2024 - 5 [facility] Cholest SerPl-mCnc 139.0 mg/dL Normal 12/12/2024 - 200 [facility] LDLc SerPl Calc-mCnc 68.0 mg/dL (calc) Normal 12/12/2024 [facility] HDLc SerPl-mCnc 54.0 mg/dL Normal 12/12/2024 - QU EST Trigl SerPl-mCnc 87.0 mg/dL Normal 12/12/2024 - 150 [facility] NonHDLc SerPl-mCnc 85.0 mg/dL (calc) Normal 12/12/2024 - 130 [facility] Potassium SerPl-sCnc 4.5 mmol/L Normal 12/12/2024 3.5 - 5 .3 [facility] Creat SerPl-mCnc 0.76 mg/dL Normal 12/12/2024 0.7 - 1.28 [facility] CO2 SerPl-sCnc 30.0 mmol/L Normal 12/12/2024 20 - 32 [facility] Chloride SerPl-sCnc 104.0 mmol/L Normal 12/12/2024 98 - 1 10 [facility] Glucose SerPl-mCnc 89.0 mg/dL Normal 12/12/2024 65 - 99 [facility] BUN SerPl-mCnc 16.0 mg/dL Normal 12/12/2024 7 - [address] Sodium SerPl-sCnc 140.0 mmol/L Normal 12/12/2024 135 - 14 6 [facility] BUN/Creat SerPl SEE NOTE: Normal 12/12/2024 6 - [address] Calcium SerPl-mCnc 9.4 mg/dL Normal 12/12/2024 8.6 - 10.3 [facility] eGFRcr SerPlBld CKD-EPI 2020 94.0 mL/min/1.73m2 Normal 12/12/2024 - [facility] Platelet # Bld Auto 155.0 Thousand/uL Normal 12/12/2024 1 40 - 400 [facility] MCHC RBC Auto-EntMCnc 34.0 g/dL Normal 12/12/2024 32 - 36 [facility] Basophils NFr Bld Auto 0.5 % Normal 12/12/2024 [facility] Monocytes NFr Bld Auto 6.6 % Normal 12/12/2024 [facility] WBC # Bld Auto 6.5 Thousand/uL Normal 12/12/2024 3.8 - 10 .8 [facility] MCH RBC Qn Auto 32.9 pg Normal 12/12/2024 27 - [address] Hgb Bld-mCnc 15.5 g/dL Normal 12/12/2024 13.2 - 17.1 [facility] RDW RBC Auto 11.9 % Normal 12/12/2024 11 - 15 [facility] Eosinophil # Bld Auto 169.0 cells/uL Normal 12/12/2024 15 - 500 [facility] RBC # Bld Auto 4.71 Million/uL Normal 12/12/2024 4.2 - 5. 8 [facility] PMV Bld Aldair-Valeri 10.9 fL Normal 12/12/2024 7.5 - 12.5 [facility] Lymphocytes NFr Bld Auto 21.2 % Normal 12/12/2024 [facility] Basophils # Bld Auto 33.0 cells/uL Normal 12/12/2024 0 - 200 [facility] Hct VFr Bld Auto 45.6 % Normal 12/12/2024 38.5 - 50 [facility] RBC Auto 96.8 fL Normal 12/12/2024 80 - 100 [facility] Monocytes # Bld Auto 429.0 cells/uL Normal 12/12/2024 200 - 950 [facility] Neutrophils # Bld Auto 4492.0 cells/uL Normal 12/12/2024 1500 - 7800 [facility] Lymphocytes # Bld Auto 1378.0 cells/uL Normal 12/12/2024 850 - 3900 [facility] Neutrophils NFr Bld Auto 69.1 % Normal 12/12/2024 [facility] Eosinophil NFr Bld Auto 2.6 % Normal 12/12/2024 [facility] History of Medication Use Medication Directions Dispensed Refills Start Date End Date [facility] Pravastatin Sodium 80 MG Oral Tablet Pravastatin Sodium 80 MG Oral Tablet QTY: 100 tablet Days: 100 Refills: 0 Written: 06/09/24 Patient Instructions: 06/09/2024 active Ezetimibe 10 MG Oral Tablet Ezetimibe 10 MG Oral Tablet QTY: 100 tablet Days: 100 Refills: 0 Written: 05/15/24 Patient Instructions: 05/15/2024 active Metoprolol Succinate ER 25 MG Oral Tablet Extended Release 24 Hour Metoprolol Succinate ER 25 MG Oral Tablet Extended Release 24 Hour QTY: 100 tablet Days: 100 Refills: 0 Written: 05/15/24 Patient Instructions: 05/15/2024 active pravastatin (PRAVACHOL) 20 MG tablet Take 1 tablet (20 mg total) by mouth daily. 02/07/2023 09/28/2023 active atorvastatin (LIPITOR) 40 MG tablet Take 0.5 tablets (20 mg total) by mouth daily. 08/31/2022 08/31/2022 active Eliquis 5 MG Oral Tablet Eliquis 5 MG Oral Tablet QTY: 0 tablet Days: 0 Refills: 0 Written: 07/01/21 Patient Instructions: 07/01/2021 07/01/2024 aborted metoprolol succinate (TOPROL-XL) 24 hr tablet 25 mg TAKE 1 TABLET BY MOUTH DAILY 10/20/2020 active apixaban (ELIQUIS) 5 MG TABS tablet Take 1 tablet (5 mg total) by mouth every 12 (twelve) hours. 06/09/2020 active Tamsulosin HCl 0.4 MG Oral Capsule Tamsulosin HCl 0.4 MG Oral Capsule QTY: 90 capsule Days: 90 Refills: 0 Written: 12/20/19 Patient Instructions: 12/20/2019 07/01/2021 aborted oxyCODONE HCl 5 MG Oral Tablet oxyCODONE HCl 5 MG Oral Tablet QTY: 15 tablet Days: 7 Refills: 0 Written: 07/14/19 Patient Instructions: 1 tab every 12 hours as needed 07/14/2019 10/21/2019 completed Lipitor 10MG Oral Tablet Lipitor 10 MG Oral Tablet QTY: 0 tablet Days: 0 Refills: 0 Written: 12/03/18 Patient Instructions: 12/03/2018 01/01/2019 aborted atorvastatin (LIPITOR) tablet 10 mg Take 1 tablet (10 mg total) by mouth every evening. 11/23/2018 active amoxicillin (AMOXIL) 500 MG capsule Take 500 mg by mouth as needed (pre dental). active finasteride (PROSCAR) 5 MG tablet Take 1 tablet (5 mg total) by mouth daily. New medication started by urologist 06/20/2019 active [place]-3 Fatty Acids (FISH OIL) 1000 MG CAPS Take 2 caplet by mouth daily. active sildenafil (VIAGRA) 100 MG tablet Take 1 tablet (100 mg total) by mouth daily as needed for erectile dysfunction. active Allergies Allergen Reaction Severity Comment Documented Date Source Statu s NO KNOWN ALLERGIES [facility] Problems Problem Status Onset Date Problem Type Date of Resoluti on Source Low back pain active 2024-08-01 ProblemAct [facility] Lumbar spondylosis active 2024-07-09 ProblemAct [facility] Back muscle spasm active 2024-08-01 ProblemAct [facility] Degeneration of intervertebral disc of lumbar region with discogenic back pain active 2024-07-09 ProblemAct [facility] BPH (benign prostatic hyperplasia) active 2019-12-29 ProblemAct [facility] NSVT (nonsustained ventricular tachycardia) active 2021-01-[address] Hypertrophic cardiomyopathy active 2021-01-07 ProblemAct [facility] Syncope and collapse active 2019-12-29 ProblemAct [facility] CAROLEE (obstructive sleep apnea) active 2021-11-29 ProblemAct [facility] Hyperlipidemia active 2019-12-[address] Snoring active 2021-11-29 ProblemAct [facility] Fatigue active 2021-11-29 ProblemAct [facility] PAF (paroxysmal atrial fibrillation) active 2021-01-07 ProblemAct [facility] Osteoarthritis of left hip active 2019-07-08 ProblemAct [facility] Atrial fibrillation (disorder) active ProblemAct [facility] Hip Joint Replacement Other Means; Hip Joint Replacement By active ProblemAct [facility] Hypertensive disorder, systemic arterial (disorder) active ProblemAct [facility] Hyperlipidemia (disorder) active ProblemAct [facility] Hypertrophic cardiomyopathy (disorder) active ProblemAct CT [facility] Encounters Encounter Type Encounter Reason Primary Diagnosis Location Date Ambulatory Pure hypercholesterolemia, unspecified Pure hypercholesterolemia, unspecified [facility] 12/12/2024 Amb[place] [facility] [employer] [facility] 12/11/2024 Ambulatory Low back pain, unspecified Low back pain, unspecified [facility] 08/07/2024 Ambulatory Low back pain, unspecified Low back pain, unspecified [facility] 08/05/2024 Ambulatory Low back pain, unspecified Low back pain, unspecified [facility] 08/01/2024 Ambulatory Other intervertebral disc degeneration, lumbar region with discogenic back pain only Other intervertebral disc degeneration, lumbar region with discogenic back pain only [facility] 07/09/2024 Ambulatory [facility] 07/09/2024 Ambulatory [facility] 07/09/20 Ambulatory Presence of left artificial hip joint Presence of left artificial hip joint [facility] 07/04/2024 Ambulatory Abnormal findings on diagnostic imaging of heart and coronary circulation Abnormal findings on diagnostic imaging of heart and coronary circulation [facility] 05/30/2024 Ambulatory Obstructive sleep apnea (adult) (pediatric) Obstructive sleep apnea (adult) (pediatric) [facility] 01/08/2024 Ambulatory Abnormal findings on diagnostic imaging of heart and coronary circulation Abnormal findings on diagnostic imaging of heart and coronary circulation [facility] 09/28/2023 Ambulatory Abnormal finding s on diagnostic imaging of heart and coronary circulation [facility] 02/23/2023 Ambulatory [facility] 02/03/2023 Ambulatory Other forms of dyspnea [facility] 02/03/2023 Ambulatory Paroxysmal atria l fibrillation [facility] 01/31/2023 Ambulatory Paroxysmal atria l fibrillation [facility] 12/29/2022 Ambulatory Obstructive slee p apnea (adult) (pediatric) [facility] 09/20/2022 Ambulatory Syncope and collapse [facility] 06/30/2022 Ambulatory Obstructive slee p apnea (adult) (pediatric) [facility] 06/07/2022 Ambulatory [facility] 03/18/2022 Ambulatory Syncope and collapse [facility] 02/16/2022 Ambulatory Syncope and collapse [facility] 01/13/2022 Ambulatory [facility] 12/27/2021 Ambulatory Syncope and collapse [facility] 12/09/2021 Ambulatory Sleep Apnea [facility] 11/29/2021 Ambulatory Syncope and collapse [facility] 11/10/2021 Ambulatory Syncope and collapse [facility] 09/30/2021 Ambulatory Syncope and collapse [facility] 09/02/2021 Ambulatory Syncope and collapse [facility] 07/30/2021 Ambulatory Ventricular tachycardia [facility] 07/15/2021 Ambulatory Syncope and collapse [facility] 07/02/2021 Care Team Organization Name Specialty Phone Email Start Date End Da te [facility] TANISHA WHARTON Primary Care 01/23/2025 [facility] ESPINAS Primary [facility] 12/17/2024 01/11/2025 [facility] 07/29/2024 [facility] Mita Lee [facility] 07/29/2024 [facility] 07/26/2024 [facility] 07/26/2024 [facility] ESPINAS Primary Care [facility] ESP[facility]AS Primary Care 07/10/2024 04/01/2025 [facility] 07/09/2024 [facility] 07/04/2024 [facility] ESPKEITHS,MITA Primary Care 06/30/20222024 [facility] MITA ESPINAS Primary Care 07/15/20212021
--- OUTSIDE RECORDS SUMMARY | 2025-04-17 11:55 | XMS_ITS | Encounter Summary ---
Author Organization Formerly [facility] Address [address] [place] [address] Care Team Providers Care Camelid Fiber Sorter Name Role Phone Mita Rosales MD Primary Care Provider [phone] Carson Jernigan MD Unavailable [phone] Rolo Dawson MD Primary Care Provider [phone] Encounter Details Date Type Department Care Team (Late st Contact Info) Description 12/20/2022 Scanned Document [facility] [address] [address] Cardiology, Scan Social History Tobacco [...] Description 06/26/2025 9:20 AM EDT Office Visit [facility] [address] [address] Carson Jernigan MD [address] [place] [address] [phone] documented as of this encounter Visit Diagnoses Not on filedocumented in this encounter Care Teams Camelid Fiber Sorter Relationship Specialty Start Date End Date Mita Rosales MD [address] [place] [address] PCP - General Internal Medicine 04/06/21 01/13/25 Rolo Dawson MD [address] [place] [address] PCP - General Family Medicine 01/14/25 Carson Jernigan MD [address] [place] [address] Primary Fire Assistant Cardiovascular Disease 06/21/22 documented as of this encounter
--- OUTSIDE RECORDS SUMMARY | 2025-04-17 11:55 | XMS_ITS | Clinical Summary ---
Author Organization [facility] [address] Address [address] [place] [address] Phone Care Team Providers Care Electrical Controls Assembler Name Role Phone Mita Rosales MD Primary Care Provider Active Problems Problem Noted Date Diagnosed Date Low back pain 08/01/2024 Back muscle spasm 08/01/2024 Surgical History Surgery Date Site/Laterality Comments HAND SURGERY Bilateral PROCEDURE:HAND SURGERY;COMMENT:CTR BOWEL RESECTION PROCEDURE:BOWEL RESECTION;COMMENT:ANTERIOR SKIN BIOPSY PROCEDURE:SKIN BIOPSY;COMMENT:MALIG MELANOMA REMOVED FROM BACK COLONOSCOPY PROCEDURE:COLONOSCOPY TOTAL HIP ARTHROPLASTY 07/08/2019 Left PROCEDURE:TOTAL HIP ARTHROPLASTY;COMMENT:Procedure: REPLACEMENT TOTAL HIP; Surgeon: Nik Corona MD; [facility]: [facility] Service: Orthopedics; [...] CMS/HCC V28) 01/07/2021 DX:PAF (paroxysmal atrial fibrillation) ([facility]) Syncope DX:Syncope Family History Medical History Relation [...] Panel) 08/21/2022 Colorectal Cancer Screening: Colonoscopy 08/21/2022 Falls Risk Assessment 08/21/2022 Hepatitis C Screening 08/21/2022 Medicare Annual Wellness Visit 08/21/2022 Social Influencers of Health Screening 08/21/2022 COVID-19 Vaccine ( season) 2024 06/24/2022, 07/12/2021, 12/11/2020, Additional history exists Hypertension/CHF/CAD Annual BMP Blood Test 08/01/2024 02/14/2023, 01/07/2022, 12/30/2019 Depression Screening 09/18/2024 RSV Immunization Adult Patients (1 - 1-dose 75+ series) 2024 Influenza Vaccine (#1) 2025 , 07/15/2022, 07/28/2021, Additional history exists DTaP,Tdap,and Td [...] this topic Medical Devices Implanted Type Area Anesthesiologist/Physician Device Identifier Shelf Expiration Date Model / Serial / Lot Screw Trident Ii 25mm 6.5mm Low Profile Hexagonal Bone - [id number] Implanted:Qty: 1 on 07/08/2019 by Nik Corona MD Left: Hip [employer] 02/19/2024 [id number] / / [id number] Screw Trident Ii 25mm 6.5mm Low Profile Hexagonal Bone - [id number] Implanted:Qty: 1 on 07/08/2019 by Nik Corona MD Left: Hip [employer] 03/05/2024 [id number] / / [id number] Shell Trident Ii E 54mm 5 Screw Hole Cluster Tritanium - [id number] Implanted:Qty: 1 on 07/08/2019 by Nik Corona MD Left: Hip [employer] 03/05/2024 [id number] / / [id number] Insert Trident 0d E 36mm X3 Acetabular Hip - [id number] Implanted:Qty: 1 on 07/08/2019 by Nik Corona MD Left: Hip [employer] 04/09/2024 [id number] / / [id number] Stem Hip Neck Angle 127 Degree Accolade Ii Sz7 - [id number] Implanted:Qty: 1 on 07/08/2019 by Nik Corona MD Left: Hip [employer] 03/18/2024 [id number] / / [id number] Head V40 +5mm 36mm Delta Femoral Hip - [id number] Implanted:Qty: 1 on 07/08/2019 by Nik Corona MD Left: Hip [employer] 05/19/2024 [id number] / / [id number] Insurance [employer] MEDICARE Care Teams Electrical Controls Assembler Relationship Specialty Start Date End Date Mita Rosales MD [address] [place] [address] PCP - General Internal Medicine 06/28/19
--- OUTSIDE RECORDS SUMMARY | 2025-04-17 11:55 | XMS_ITS | Patient Health Record ---
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
== END 2025-04-17 11:50 | disposition home or self-care (01) ==
LOC: HO.HOS 11:04
PROVIDERS: PCP Nurse Practitioner Family; Visit Provider Physical Medicine & Rehabilitation
DX: R26.9 Unspecified abnormalities of gait and mobility (principal); G62.9 Polyneuropathy, unspecified; M47.816 Spondylosis without myelopathy or radiculopathy, lumbar region; M47.812 Spondylosis without myelopathy or radiculopathy, cervical region
CPT/HCPCS: 99204

== ENCOUNTER → 2025-04-17 11:04 | Outpatient (BNVA) | payer MEDICARE, SELFPAY | PROVIDERS: PCP Nurse Practitioner Family; Visit Provider Physical Medicine & Rehabilitation | DX: R26.9 Unspecified abnormalities of gait and mobility (principal); G62.9 Polyneuropathy, unspecified; M47.816 Spondylosis without myelopathy or radiculopathy, lumbar region; M47.812 Spondylosis without myelopathy or radiculopathy, cervical region | CPT/HCPCS: 99202 ==

== ENCOUNTER 2025-05-12 09:37 | Outpatient (REF) | payer MEDICARE, SELFPAY ==
[2025-05-12 11:07] LABS: MANUAL DIFF FLAG NO
[2025-05-12 11:32] LABS: Hematocrit 44.8 % (42.0-52.0); Hemoglobin 15.4 g/dl (14.0-18.0); Imm Gran Abs Auto 0.02 X10*3/uL (0.00-0.03); Imm Gran Pct Auto 0.3 % (0.0-0.4); Lymphocytes Absolute Auto 1.6 X10*3/uL (1.2-4.9); Mean Corpuscular HGB Conc 34.4 g/dl (31.0-36.0); Mean Corpuscular Hemoglobin 33.3 pg (27.0-33.0); Mean Corpuscular Volume 97.0 fL (80.0-98.0); NRBC Abs Auto 0.000 X10*3/uL (0.0-0.012); NRBC Pct Auto 0.0 /100WBC (0.0-0.2); Platelet Count 157 X10*3/uL (160-400); Red Blood Count 4.62 X10*6/uL (4.60-5.80); White Blood Count 6.5 X10*3/uL (4.8-10.8)
[2025-05-12 12:06] LABS: Alanine Aminotransferase 37 U/L (0-40); Albumin Level 4.3 g/dL (3.5-5.0); Alkaline Phosphatase 80 U/L (39-117); Anion Gap 13 (12-20); Aspartate Amino Transferase 32 U/L (5-37); Blood Urea Nitrogen 16 mg/dL (9-16); Calcium 9.1 mg/dL (8.4-10.2); Carbon Dioxide 26 mmol/L (22-29); Chloride 107 mmol/L (96-108); Cholesterol 141 mg/dL (<200); Estimated Glomerular Filt Rate > 60; HDL Cholesterol 48 mg/dL (>40); Potassium 4.6 mmol/L (3.3-5.1); Sodium 141 mmol/L (135-145); Total Protein 7.1 g/dL (6.5-8.0); Triglycerides 108 mg/dL (<150)
== END 2025-05-12 09:38 | disposition home or self-care (01) ==
LOC: HO.WFDLDS 09:37
PROVIDERS: Visit Provider Nurse Practitioner Family
DX: Z00.00 Encounter for general adult medical examination without abnormal findings (principal); Z13.6 Encounter for screening for cardiovascular disorders; Z13.29 Encounter for screening for other suspected endocrine disorder; Z13.0 Encounter for screening for diseases of the blood and blood-forming organs and certain disorders involving the immune mechanism
CPT/HCPCS: 36415; 80053; 80061; 84443; 85025

== ENCOUNTER 2025-05-13 09:01 | Outpatient (AMB) | payer MEDICARE, SELFPAY ==
--- OUTSIDE RECORDS SUMMARY | 2025-04-17 06:54 | XMS_ITS | Continuity of Care Document ---
Author Name [facility] Organization [facility] Care Team Providers Care Manual Qa Tester Name Role Phone [facility] Unavailable Unavailable Problems Combined list of problems from Department of Defense and Veterans Affairs facilities. It does not include entries that were removed or entered in error. Problem Status Onset Date Problem Type Date of Resolution Comments Source Atrial fibrillation Active Condition Sep 29, 2020 Entered By: RACHEL MATA Comment: Dxed 2020 Entered By: RACHEL MATA Comment: Dr Carson [place]ern[place] - [place] [facility] [place] [facility] Benign prostatic [...] Entered By: JAN WADDELL Comment: [facility] Entered By: RACHEL MATA Comment: Dermatololgy - Dr Page ([place] [facility])January 31, 2018 Entered By: RACHEL MATA Comment: Optometry - Dr Zarate 2020 Entered By: RACHEL MATA Comment: Cardiology - Dr Carson Jernigan (in [place]) [facility] [place] [facility] Obstructive sleep apnea Active Condition Oct 05, 2022 Entered By: RACHEL MATA Comment: Dxed 2021 [place] Skin cancer (SNOMED CT [id number]) Active Condition February 01, 2018 Entered By: RACHEL MATA Comment: Melanoma - backMay 2017 Entered By: RACHEL MATA Comment: BCC - right shoulder & neck [facility] [place] [facility] Diagnosis: ICD-10-CM Z79.01 shelter (current) use of anticoagulants Active Diagnosis [facility] [place] [facility] Diagnosis: ICD-10-CM I10 Essential (primary) hypertension Active Diagnosis [place] Diagnosis: ICD-10-CM Z46.1 Encounter for fitting and adjustment of hearing aid [facility] [place] [facility] Diagnosis: ICD-10-CM Z46.0 Encounter for fit/adjst of spectacles and contact lenses Active [facility] [place] [facility] Diagnosis: ICD-10-CM H25.813 Combined forms of age-related cataract, bilateral Active Diagnosis [facility] [place] [facility] Medications Combined list of outpatient medications [...] ON OF BLOOD CLOTS ORAL ACTIVE 12/25/2025 [id number] ROXANA MATA SA 2024 180 [place] APIXABAN 5MG TAB TAKE ONE TABLET BY MOUTH TWICE DAILY FOR PREVENTI ON OF BLOOD CLOTS ORAL DISCONT INUED BY PROVIDE R 12/05/2024 [id number] ROXANA MATA SA 2023 180 [place] COENZYME Q10 CAP/TAB TAKE BY MOUTH ORAL ACTIVE ROXANA MATA SA 2017 [place] EZETIMIBE 10MG TAB TAKE ONE TABLET BY MOUTH ONCE DAILY ORAL ACTIVE ROXANA MATA SA 2022 [facility] FINASTERIDE 5MG TAB TAKE ONE TABLET BY MOUTH ONCE DAILY ORAL ACTIVE ROAXNA MATA SA 2020 [facility] FISH OIL 1000MG (500MG DHA/EPA) CAP,ORAL TAKE 2 CAPSULES BY MOUTH ORAL ACTIVE ROXANA MATA SA 2017 [facility] IELD METOPROLOL SUCCINATE 25MG TAB,SA TAKE ONE TABLET BY MOUTH ONCE DAILY ORAL ACTIVE ROXANA MATA SA 2020 [facility] PRAVASTATIN NA 80MG TAB TAKE ONE TABLET BY MOUTH ONCE DAILY ORAL ACTIVE ROXANA MATA SA 2024 [facility] IELD Immunizations Combined list of available immunizations from the Department of Defense and Veterans Affairs facilities. Immunization Series Date Given Administered By Site Reaction Lot Number CVX Code Drug Drug Abuse Worker Status Comments Source INFLUENZA, UNSPECIFIED FORMULATION 2022 88 complet ed HISTORICA L INFORMATI ON - SOURCE UNSPECIFI ED, [facility] INFLUENZA, UNSPECIFIED FORMULATION 2021 88 complet ed [place] L INFORMATI ON - SOURCE UNSPECIFI ED, [facility] COVID-19 (PFIZER), MRNA, LNP-S, BIVALENT BOOSTER, PF, 30 MCG/0.3 ML DOSE 2021 300 complet ed [facility] L INFORMATI ON - SOURCE UNSPECIFI ED, [facility] INFLUENZA, UNSPECIFIED FORMULATION 2020 88 complet ed [facility] COVID-19 (MODERNA), MRNA, LNP-S, PF, 100 MCG OR 50 MCG DOSE 3 2020 207 complet ed [facility] COVID-19 (MODERNA), MRNA, LNP-S, PF, 100 MCG OR 50 MCG DOSE 2 2020 207 complet ed [facility] COVID-19 (MODERNA), MRNA, LNP-S, PF, 100 MCG OR 50 MCG DOSE 1 2020 207 complet ed [facility] INFLUENZA, UNSPECIFIED FORMULATION 2019 88 complet ed [facility] ZOSTER RECOMBINANT 2 2019 187 complet ed [place] ZOSTER RECOMBINANT 1 2019 187 complet ed [place] INFLUENZA, SEASONAL, INJECTABLE 2018 141 complet ed [facility] [place] [facility] [...] Nov 12, 2024 02:18 PM Reporting Lab: [facility] [place] [facility] [address] [facility] [address] Performing Lab: [facility] [place] [facility] [address] [facility] [address] [facility] [place] CREATININ E (eGFR 2020) GLOMERULAR FILTRATION RATE/1.73 SQ M.PREDICTED [VOLUME RATE/AREA] IN SERUM, PLASMA OR BLOOD BY CREATININE- BASED FORMULA (CKD-EPI 2020) >90mL/ min 60 12/17 Specimen Type: SERUM No comment entered. Ordering Provider: CHU GALLEGO Report Released Date/Time: Nov 12, 2024 02:18 PM Reporting Lab: [facility] [place] [facility] [address] [facility] [address] Performing Lab: [facility] [address] [facility] [address] [facility] ALT ALANINE AMINOTRANSF ERASE [ENZYMATIC ACTIVITY/VO LUME] IN SERUM OR PLASMA 25 U/L 10/08 Specimen Type: SERUM No comment entered. Ordering Provider: RACHEL MATA Report Released Date/Time: Oct 08, 2024 11:10 AM Reporting Lab: [facility] [place] [facility] [address] [facility] [address] Performing Lab: [facility] [place] [facility] [address] [facility] [address] [facility] [place] AST ASPARTATE AMINOTRANSF ERASE [ENZYMATIC ACTIVITY/VO LUME] IN SERUM OR PLASMA 21 U/L 5 - 34 10/08 Specimen Type: SERUM No comment entered. Ordering Provider: RACHEL AMTA Report Released Date/Time: Oct 08, 2024 11:10 AM Reporting Lab: [facility] [place] [address] [facility] [address] Performing Lab: [facility] [place] [facility] [address] [facility] [address] [facility] [place] [facility] CBC AND DIFF (AUTO) LEUKOCYTES [#/VOLUME] IN BLOOD BY AUTOMATED COUNT 6.30 10*3/u L 4.50 - 11.00 10/08 Specimen Type: BLOOD No comment entered. Ordering Provider: RACHEL MATA Report Released Date/Time: Oct 08, 2024 11:07 AM Reporting Lab: [facility] [place] [facility] [address] [facility] [address] Performing Lab: [facility] [place] [facility] [address] [facility] [address] [facility] [place] CBC AND DIFF (AUTO) ERYTHROCYTE S [#/VOLUME] IN BLOOD BY AUTOMATED COUNT 4.60 10*6/u L 4.23 - 5.66 10/08 Specimen Type: BLOOD No comment entered. Ordering Provider: RACHEL MATA Report Released Date/Time: Oct 08, 2024 11:07 AM Reporting Lab: [facility] [place] [facility] [address] [facility] [address] Performing Lab: [facility] [place] [facility] [address] [facility] [address] [facility] [place] [facility] CBC AND DIFF (AUTO) HEMOGLOBIN [MASS/VOLUM E] IN BLOOD 15.2 g/dL 12.8 - 17 10/08 Specimen Type: BLOOD No comment entered. Ordering Provider: RACHEL MATA Report Released Date/Time: Oct 08, 2024 11:07 AM Reporting Lab: [facility] [place] [address] [address] Performing Lab: [facility] [place] [address] [address] [facility] [place] [facility] CBC AND DIFF (AUTO) HEMATOCRIT [VOLUME FRACTION] OF BLOOD BY AUTOMATED COUNT 44.3 39.2 - 50.4 10/08 Specimen Type: BLOOD No comment entered. Ordering Provider: RACHEL MATA Report Released Date/Time: Oct 08, 2024 11:07 AM Reporting Lab: [facility] [place] [address] [address] Performing Lab: [facility] [place] [facility] [address] [facility] [address] [facility] [place] [facility] CBC AND DIFF (AUTO) MCV [ENTITIC VOLUME] BY AUTOMATED COUNT 96.3 fL 82 - 99 10/08 Specimen Type: BLOOD No comment entered. Ordering Provider: RACHEL MATA Report Released Date/Time: Oct 08, 2024 11:07 AM Reporting Lab: [facility] [place] [facility] [address] [facility] [address] Performing Lab: [facility] [place] [address] [address] [facility] [place] [facility] CBC AND DIFF (AUTO) MCHC [MASS/VOLUM E] BY AUTOMATED COUNT 34.3 g/dL 30.8 - 35.1 10/08 Specimen Type: BLOOD No comment entered. Ordering Provider: RACHEL MATA Report Released Date/Time: Oct 08, 2024 11:07 AM Reporting Lab: [facility] [place] [address] [address] Performing Lab: [facility] [place] [facility] [address] [facility] [address] [facility] [place] [facility] CBC AND DIFF (AUTO) PLATELETS [#/VOLUME] IN BLOOD BY AUTOMATED COUNT 156 10*3/u L 140 - 360 10/08 Specimen Type: BLOOD No comment entered. Ordering Provider: RACHEL MATA Report Released Date/Time: Oct 08, 2024 11:07 AM Reporting Lab: [facility] [place] [address] [address] Performing Lab: [facility] [place] [address] [address] [facility] CBC AND DIFF (AUTO) ERYTHROCYTE DISTRIBUTIO N WIDTH [RATIO] BY AUTOMATED COUNT 12.2 12.0 - 16.0 10/08 Specimen Type: BLOOD No comment entered. Ordering Provider: RACHEL MATA Report Released Date/Time: Oct 08, 2024 11:07 AM Reporting Lab: [facility] [place] [address] [address] Performing Lab: [facility] [place] [address] [address] [facility] [place] [facility] CBC AND DIFF (AUTO) MONOCYTES [#/VOLUME] IN BLOOD BY AUTOMATED COUNT 0.41 10*3/u L 0.30 - 1.10 10/08 Specimen Type: BLOOD No comment entered. Ordering Provider: RACHEL MATA Report Released Date/Time: Oct 08, 2024 11:07 AM Reporting Lab: [facility] [place] [address] [address] Performing Lab: [facility] [place] [facility] [address] [facility] [address] [facility] [place] CBC AND DIFF (AUTO) MCH [ENTITIC MASS] BY AUTOMATED COUNT 33.0 pg 26.2 - 32.6 10/08 H Specimen Type: BLOOD No comment entered. Ordering Provider: RACHEL MATA Report Released Date/Time: Oct 08, 2024 11:07 AM Reporting Lab: [facility] [place] [facility] [address] [facility] [address] Performing Lab: [facility] [place] [facility] [address] [facility] [address] [facility] [place] CBC AND DIFF (AUTO) NEUTROPHILS /100 LEUKOCYTES IN BLOOD BY AUTOMATED COUNT 66.7 43.7 - 75.8 10/08 Specimen Type: BLOOD No comment entered. Ordering Provider: RACHEL MATA Report Released Date/Time: Oct 08, 2024 11:07 AM Reporting Lab: [facility] [place] [facility] [address] [facility] [address] Performing Lab: [facility] [place] [facility] [address] [facility] [address] [facility] [place] [facility] CBC AND DIFF (AUTO) LYMPHOCYTES /100 LEUKOCYTES IN BLOOD BY AUTOMATED COUNT 23.2 14.0 - 42.3 10/08 Specimen Type: BLOOD No comment entered. Ordering Provider: RACHEL MATA Report Released Date/Time: Oct 08, 2024 11:07 AM Reporting Lab: [facility] [place] [facility] [address] [facility] [address] Performing Lab: [facility] [place] [facility] [address] [facility] [address] [facility] [place] CBC AND DIFF (AUTO) MONOCYTES/1 00 LEUKOCYTES IN BLOOD BY AUTOMATED COUNT 6.5 5.1 - 13.7 10/08 Specimen Type: BLOOD No comment entered. Ordering Provider: RACHEL MATA Report Released Date/Time: Oct 08, 2024 11:07 AM Reporting Lab: [facility] [place] [facility] [address] [facility] [address] Performing Lab: [facility] [place] [facility] [address] [facility] [address] [facility] [place] [facility] CBC AND DIFF (AUTO) EOSINOPHILS /100 LEUKOCYTES IN BLOOD BY AUTOMATED COUNT 2.4 0.4 - 6.8 10/08 Specimen Type: BLOOD No comment entered. Ordering Provider: RACHEL MATA Report Released Date/Time: Oct 08, 2024 11:07 AM Reporting Lab: [facility] [place] [facility] [address] [facility] [address] Performing Lab: [facility] [place] [facility] [address] [facility] [address] [facility] [place] [facility] CBC AND DIFF (AUTO) BASOPHILS/1 00 LEUKOCYTES IN BLOOD BY AUTOMATED COUNT 1.0 0.1 - 2.0 10/08 Specimen Type: BLOOD No comment entered. Ordering Provider: RACHEL MATA Report Released Date/Time: Oct 08, 2024 11:07 AM Reporting Lab: [facility] [place] [facility] [address] [facility] [address] Performing Lab: [facility] [place] [facility] [address] [facility] [address] [facility] [place] [facility] CBC AND DIFF (AUTO) NEUTROPHILS [#/VOLUME] IN BLOOD BY AUTOMATED COUNT 4.21 10*3/u L 2.20 - 7.60 10/08 Specimen Type: BLOOD No comment entered. Ordering Provider: RACHEL MATA Report Released Date/Time: Oct 08, 2024 11:07 AM Reporting Lab: [facility] [place] [facility] [address] [facility] [address] Performing Lab: [facility] [place] [facility] [address] [facility] [address] [facility] [place] [facility] CBC AND DIFF (AUTO) LYMPHOCYTES [#/VOLUME] IN BLOOD BY AUTOMATED COUNT 1.46 10*3/u L 1.00 - 3.20 10/08 Specimen Type: BLOOD No comment entered. Ordering Provider: RACHEL MATA Report Released Date/Time: Oct 08, 2024 11:07 AM Reporting Lab: [facility] [place] [facility] [address] [facility] [address] Performing Lab: [facility] [place] [facility] [address] [facility] [address] [facility] [place] [facility] CBC AND DIFF (AUTO) EOSINOPHILS [#/VOLUME] IN BLOOD BY AUTOMATED COUNT 0.15 10*3/u L 0.03 - 0.44 10/08 Specimen Type: BLOOD No comment entered. Ordering Provider: RACHEL MATA Report Released Date/Time: Oct 08, 2024 11:07 AM Reporting Lab: [facility] [place] [facility] [address] [facility] [address] Performing Lab: [facility] [place] [facility] [address] [facility] [address] [facility] [place] CBC AND DIFF (AUTO) BASOPHILS [#/VOLUME] IN BLOOD BY AUTOMATED COUNT 0.06 10*3/u L 0.01 - 0.13 10/08 Specimen Type: BLOOD No comment entered. Ordering Provider: RACHEL MATA Report Released Date/Time: Oct 08, 2024 11:07 AM Reporting Lab: [facility] [place] [facility] [address] [facility] [address] Performing Lab: [facility] [place] [facility] [address] [facility] [address] [facility] [place] CBC AND DIFF (AUTO) IMMATURE GRANULOCYTE S/100 LEUKOCYTES IN BLOOD BY AUTOMATED COUNT 0.2 0.0 - 0.7 10/08 Specimen Type: BLOOD No comment entered. Ordering Provider: RACHEL MATA Report Released Date/Time: Oct 08, 2024 11:07 AM Reporting Lab: [facility] [place] [facility] [address] [facility] [address] Performing Lab: [facility] [place] [facility] [address] [facility] [address] [facility] [place] CBC AND DIFF (AUTO) IMMATURE GRANULOCYTE S [#/VOLUME] IN BLOOD 0.01 10*3/u L 0.00 - 0.06 10/08 Specimen Type: BLOOD No comment entered. Ordering Provider: RACHEL MATA Report Released Date/Time: Oct 08, 2024 11:07 AM Reporting Lab: [facility] [place] [address] [address] Performing Lab: [facility] [address] [address] [facility] CBC AND DIFF (AUTO) NRBC % 0.0 0.0 - 0.0 10/08 Specimen Type: BLOOD No comment entered. Ordering Provider: RACHEL MATA Report Released Date/Time: Oct 08, 2024 11:07 AM Reporting Lab: [facility] [address] [address] Per[facility] Lab: [facility] [address] [address] [facility] CBC AND DIFF (AUTO) NRBC, ABS 0.00 10*3/u L 0.00 - 0.00 10/08 Specimen Type: BLOOD No comment entered. Ordering Provider: RACHEL MATA Report Released Date/Time: Oct 08, 2024 11:07 AM Reporting Lab: [facility] [address] [address] [facility] Lab: [place] [facility] [address] [address] [facility] CBC LEUKOCYTES [#/VOLUME] IN BLOOD BY AUTOMATED COUNT 6.62 10*3/u L 4.50 - 11.00 10/05 Specimen Type: BLOOD No comment entered. Ordering Provider: RACHEL MATA Report Released Date/Time: Oct 05, 2023 11:03 AM Reporting Lab: [facility] [address] [address] Per[facility] Lab: [facility] [address] [address] [facility] [place] [facility] CBC ERYTHROCYTE S [#/VOLUME] IN BLOOD BY AUTOMATED COUNT 4.74 10*6/u L 4.23 - 5.66 10/05 Specimen Type: BLOOD No comment entered. Ordering Provider: RACHEL MATA Report Released Date/Time: Oct 05, 2023 11:03 AM Reporting Lab: [facility] [place] [facility] [address] [facility] [address] Performing Lab: [facility] [place] [facility] [address] [facility] [address] [facility] [place] [facility] CBC HEMOGLOBIN [MASS/VOLUM E] IN BLOOD 15.6 g/dL 12.8 - 17 10/05 Specimen Type: BLOOD No comment entered. Ordering Provider: RACHEL MATA Report Released Date/Time: Oct 05, 2023 11:03 AM Reporting Lab: [facility] [place] [facility] [address] [facility] [address] Performing Lab: [facility] [place] [facility] [address] [facility] [address] [place] [facility] [place] [facility] CBC HEMATOCRIT [VOLUME FRACTION] OF BLOOD BY AUTOMATED COUNT 45.2 39.2 - 50.4 10/05 Specimen Type: BLOOD No comment entered. Ordering Provider: RACHEL MATA Report Released Date/Time: Oct 05, 2023 11:03 AM Reporting Lab: [facility] [place] [facility] [address] [facility] [address] Performing Lab: [facility] [place] [facility] [address] [facility] [address] [facility] [place] [facility] CBC MCV [ENTITIC VOLUME] BY AUTOMATED COUNT 95.4 fL 82 - 99 10/05 Specimen Type: BLOOD No comment entered. Ordering Provider: RACHEL MATA Report Released Date/Time: Oct 05, 2023 11:03 AM Reporting Lab: [facility] [place] [facility] [address] [facility] [address] Performing Lab: [facility] [place] [facility] [address] [facility] [address] [facility] [place] [facility] CBC MCHC [MASS/VOLUM E] BY AUTOMATED COUNT 34.5 g/dL 30.8 - 35.1 10/05 Specimen Type: BLOOD No comment entered. Ordering Provider: RACHEL MATA Report Released Date/Time: Oct 05, 2023 11:03 AM Reporting Lab: [facility] [place] [facility] [address] [facility] [address] Performing Lab: [facility] [place] [facility] [address] [facility] [address] [facility] [place] [facility] CBC PLATELETS [#/VOLUME] IN BLOOD BY AUTOMATED COUNT 154 10*3/u L 140 - 360 10/05 Specimen Type: BLOOD No comment entered. Ordering Provider: RACHEL MATA Report Released Date/Time: Oct 05, 2023 11:03 AM Reporting Lab: [facility] [place] [facility] [address] [facility] [address] Performing Lab: [facility] [place] [facility] [address] [facility] [address] [place] [facility] [place] [facility] CBC ERYTHROCYTE DISTRIBUTIO N WIDTH [RATIO] BY AUTOMATED COUNT 12.3 12.0 - 16.0 10/05 Specimen Type: BLOOD No comment entered. Ordering Provider: RACHEL MATA Report Released Date/Time: Oct 05, 2023 11:03 AM Reporting Lab: [facility] [place] [facility] [address] [facility] [address] Performing Lab: [facility] [place] [facility] [address] [facility] [address] [facility] [place] [facility] CBC MCH [ENTITIC MASS] BY AUTOMATED COUNT 32.9 pg 26.2 - 32.6 10/05 H Specimen Type: BLOOD No comment entered. Ordering Provider: RACHEL MATA Report Released Date/Time: Oct 05, 2023 11:03 AM Reporting Lab: [facility] [place] [facility] [address] [facility] [address] Performing Lab: [facility] [place] [facility] [address] [facility] [address] [place] [facility] [place] [facility] CREATININ E (eGFR 2020) CREATININE [MASS/VOLUM E] IN SERUM OR PLASMA 0.84 mg/dL 0.50 - 1.40 10/05 Specimen Type: SERUM No comment entered. Ordering Provider: RACHEL MATA Report Released Date/Time: Oct 05, 2023 11:03 AM Reporting Lab: [facility] [place] [facility] [address] [facility] [address] Performing Lab: [facility] [place] [facility] [address] [facility] [address] [facility] [place] [facility] CREATININ E (eGFR 2020) GLOMERULAR FILTRATION RATE/1.73 SQ M.PREDICTED [VOLUME RATE/AREA] IN SERUM, PLASMA OR BLOOD BY CREATININE- BASED FORMULA (CKD-EPI 2020) >90mL/ min 60 10/05 Specimen Type: SERUM No comment entered. Ordering Provider: RACHEL MATA Report Released Date/Time: Oct 05, 2023 11:03 AM Reporting Lab: [facility] [place] [facility] [address] [facility] [address] Performing Lab: [facility] [place] [facility] [address] [facility] [address] [place] [facility] [place] [facility] Vital Signs Combined list of inpatient and outpatient Vital Signs from Department of Defense and Veterans Affairs, ranging from 12 months to all on record, depending upon the facility. Vital Sign Value Date Comments Source SYSTOLIC BLOOD PRESSURE 123 10/08/19 25 10:44:59 [facility] [place] [facility] DIASTOLIC BLOOD PRESSURE 70 025 10:44:59 [facility] [place] [facility] PULSE OXIMETRY 97 10/08/2024 10:44:59 [facility] WEIGHT 188 10/08/2024 10:44:59 [facility] [place] [facility] BMI 30 kg/m2 10/08/2024 10:44:59 [facility] PAIN 0 10/08/2024 10:44:59 [facility] [...] included; 2) Encounters from the Department of Defense facilities going backup to 280 months. Location Location Details Encounter Type Encounter Number Reason For Visit Attending Provider ADM Date DC Date Status Disposition Source [facility] Outpatient Encounter [id number] 11/23 [facility]counter [id number] 11/26 [facility] Out[facility]counter [id number] 11/29 [facility] Out[facility]counter [id number] 12/03 [facility] [place] 1/ [id number] Diagnos is: ICD-10- CM 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, bilelmer al MARIXA STEPHEN 06/26 [facility] HEARING AID REPAIR/MOD IFYING [id number] Diagnos is: ICD-10- CM Z46.1 Encount er for fitting and adjustm ent of hearing aid MICHAEL MUHAMMADJayshree Salazar 06/26 [facility] FIT SPECTACLES MONOFOCAL [id number] Diagnos is: ICD-10- CM Z46.0 Encount er for fit/adj st of spectac les and contact lenses MARIXA STEPHEN 06/26 [facility] HEARING AID FITTING/CH ECKING [id number] Diagnos is: ICD-10- CM Z46.1 Encount er for fitting and adjustm ent of hearing aid KEVIN SOSAOLIVIA SKINNERE 08/23 [facility] Out[facility] Encounter [id number] 10/01 [facility] OFFICE O/P EST LOW 20 MIN [id number] Diagnos is: ICD-10- CM I10 Essenti al (primar y) hyperte nsion NATE MATA 10/08 [place] [facility] Out[facility] Encounter [id number] 10/08 [facility] NQHP OL DIG ASSMT&MGMT 5-10 [id number] Diagnos is: ICD-10- CM Z79.01 shelter (curren t) use of anticoa gulants DEVON GALLEGO 11/12 [facility] Out[facility] Encounter [id number] 12/11 [facility] NQHP OL DIG ASSMT&MGMT 5-10 [id number] Diagnos is: ICD-10- CM 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 Outpatient Encounter [id number] 12[facility]24 [facility] Social History Combined list of available smoking, tobacco, and other social history from [facility] of [facility] and [facility] facilities. Social History Type Response Date Comment [facility] e Tobacco smoking status [facility]-TOBAC[facility] NEVER USED CIGARETTES 10/08/2024 [place] [facility] of [facility]/08/2024 [place] History of tobacco use [place] NEVER USED 10/05/2023 [facility] History of tobacco use [place]-TOBACCO NEVER USED 10/05/2022 [facility] History of tobacco use [place]-TOBACCO NEVER USED 10/06/2021 [facility] History of tobacco use [place]-TOBACCO FORMER USER 09/28/2020 [facility] History of tobacco use [place]-TOBACCO NEVER USED 11/23/2018 [facility] D History of tobacco use LIFETIME NON-TOBACCO USER 01/31/2018 [facility] Plan of Care List of future care activities from Department of Veterans Affairs facilities. Additional future care activities may be listed in the Assessment and Plan section. Date/Time Care Activity Care Activity Detail Facili ty 10/08/2025 AMBULATORY - MEDICINE AMBULATORY - MEDICI NE [facility] Advance Directives List of completed, amended, or rescinded Advance Directives on record at Department of Veterans Affairs facilities. An actual copy of the Directive is not included. Date Advance Directive Provider Source 10/10/2019 ADVANCE DIRECTIVE [facility]
--- NOTE | 2025-05-13 09:03 | MHC.PC.OV ---
Vital Signs 05/13/25 09:04 Height 5 ft 6 in Weight 186 lb BMI 30.0 BP 120/82 Blood Pressure Location Rt brachial Position Sitting Respiration 16 Pulse 58 Pulse Source Pulse Oximeter Temp 97.8 F Temp Source Oral Pulse Oximetry (%) 98 Oxygen Delivery Method Room Air Intake Visit Reasons: 4m follow up Foot Worker Required: No Accompanied by: Self / Same As Patient Allergies No Known Allergies Allergy (Verified 05/13/25 09:45) Medication List - Last Reconciled 05/13/25 by Rolo Dawson, ROLL REPAIRER- apixaban 5 mg PO BID coenzyme Q10 (CoQ-10) 100 mg PO DAILY cyclobenzaprine 5 mg PO BEDTIME PRN ezetimibe 10 mg PO DAILY finasteride 5 mg PO DAILY 90 days metoprolol succinate ER 25 mg PO DAILY omega 9-ahk-jsp-fish oil 100-160-1,000 mg (Fish Oil) 1 cap PO DAILY pravastatin 80 mg PO DAILY sildenafil 100 mg PO DAILY PRN 30 days Tobacco use date assessed: 05/13/25 Fall risk assessment: 2 + Falls in past year Last assessed Fall Risk: 05/13/25 Dental Screening Dental Screen Date: 05/13/25 Did you have a dental visit in the last 12 months?: Yes Did you have a dental problem in the last 6 months where you did not have access to dental care?: No Was dental information given to patient?: Patient has dentist HPI 4m follow up HPI Details Chief Complaint The patient presents with concerns regarding his abnormal gait. History of Present Illness The patient is a 74-year-old male presenting with an abnormal gait. The gait is described as shuffling and has been evaluated by multiple specialists, including neurology, physiatry, and vascular medicine, with a multifactorial etiology suspected, particularly related to his back. The patient has a history of hard labor for over 37 years, contributing to significant arthritis. He has no signs of cauda equina syndrome or Parkinson's disease, although his gait is somewhat Parkinsonian in nature. Interventions have included the use of a cane for stability and participation in physical therapy, which has provided some benefit. The patient is also starting yoga, which is anticipated to be beneficial. 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 - Exercise: Participating in physical therapy and starting yoga Health Maintenance - Exercise: Starting yoga for improved mobility and stability Review of Systems - Neurological: Reports shuffling gait, denies signs of Parkinson's disease - Musculoskeletal: Reports arthritis Physical Exam General: Cooperative, healthy appearing, comfortable, no acute distress and well developed, uses cane Orientation: Patient oriented x3 Limitations: Uses a cane for stability Head: Normal to inspection Ears: Hearing grossly normal bilaterally Nose: Normal external nose present Face and sinus: Normal facial exam Eyes: Appearance normal, both eyes and all related structures Neck: Normal visual inspection and Yes full ROM Respiratory: Normal respiratory effort and able to speak in complete sentences. Lungs are fairly clear bilaterally Cardiovascular: Regular rate and rhythm. Normal S1 and S2 GI: Normal to inspection. Soft to palpation and nontender Neuro: Patient oriented x3 Extremities: Shuffling type of gait (not parkinsons like), uses a cane for stability, normal to inspection Results Plan 1. Abnormal Gait The patient's abnormal gait, characterized by a shuffling pattern, has been evaluated by multiple specialists, including neurology, physiatry, and vascular medicine. The etiology is suspected to be multifactorial, with significant contributions from his history of hard labor and arthritis. Interventions include the use of a cane for stability and participation in physical therapy, which has provided some benefit. The patient is also starting yoga, which is anticipated to be beneficial for his condition. 2. Arthritis The patient has a history of arthritis, likely exacerbated by his extensive history of hard labor over 37 years. Management includes physical therapy and the introduction of yoga to improve mobility and reduce symptoms. Discussion Notes During the visit, we discussed the multifactorial nature of the patient's abnormal gait, with contributions from his history of hard labor and arthritis. I advised continuing with physical therapy and starting yoga to improve mobility and stability. We will follow up in four to five months to assess progress and adjust the management plan as needed. Patient Instructions - Continue using a cane for stability. - Attend physical therapy sessions regularly. - Start yoga to improve mobility and stability. - Follow up in four to five months for reassessment. [facility] Medical History Disc degeneration, lumbar White matter disease Gait disorder (~12/2023) Back pain Syncope and collapse Hypertrophic cardiomyopathy Bladder outlet obstruction Urinary hesitancy Weak urinary stream COVID-19 vaccine administered Syncope Eczema NSVT (nonsustained ventricular tachycardia) Paroxysmal A-fib Cardiomyopathy Surgical History History of total hip replacement History of carpal tunnel release History of loop recorder H/O colonoscopy Melanoma History of colon resection Family History Father CAD (coronary artery disease) Type 2 diabetes mellitus Myocardial infarction Mother Breast cancer Social History Household Members: Spouse Housing: House Alcohol intake: never Patient Tobacco Use Status: Never used Tobacco e-Cigarette/Vaping Use: Never Used Second Hand Smoke Exposure: No service: Yes Current occupational status: retired Cognitive needs: No Hearing needs: Yes Vision needs: No Questionnaire PHQ-9 Over the last 2 weeks, how often have you been bothered by any of the following problems? 1. Little interest or pleasure in doing things: not at all 3. Trouble falling or staying asleep, or sleeping too much: not at all 4. Feeling tired or having little energy: not at all 5. Poor appetite or overeating: not at all 6. Feeling bad about yourself - or that you are a failure or have let yourself or your family down: not at all 7. Trouble concentrating on things, such as reading the newspaper or watching television: not at all 8. Moving or speaking so slowly that other people could have noticed. Or the opposite - being so fidgety or restless that you have been moving around a lot more than usual: not at all 9. Thoughts that you would be better off or of hurting yourself in some way: not at all Depression Screening Interpretation: Negative Depression Screening Done: Yes 35339 - PHQ-9 Billing: Yes Source: Developed by Drs. Nik Donnelly, Tracey Allen, Adalberto Paredes and colleagues, with an educational robert from [email or web address]. Thrive Questionnaire Date Thrive assessed: 01/15/25 I am a: Patient What is your living situation today?: I have a steady place to live Within the past 12 months, did the food you bought not last and you didn't have the money to get more?: Never true Within the past 12 months, did you worry whether your food would run out before you got money to buy more?: Never true Do you have trouble paying for medicines?: No Do you have trouble getting transportation to medical appointments?: No Do you have trouble paying your heating and electricity bill?: No Do you have trouble taking care of your child, family member or friend?: No Do you have trouble with day-to-day activities such as bathing, preparing meals, shopping, managing finances, etc.?: No Are you currently unemployed and looking for a job?: No Are you interested in more education?: No Please select the resources that you would like help with: None Currently or been in a relationship where the following occur: No concerns reported THRIVE Score: 0 BRETT-7 AMB Questionnaire BRETT-7 Date BRETT - 7 assessed: 05/13/25 Feeling nervous, anxious, or on edge: 0 = Not at all Not being able to stop or control worryin = Not at all Worrying too much about different things: 0 = Not at all Trouble relaxin = Not at all Being so restless that it is hard to sit still: 0 = Not at all Becoming easily annoyed or irritable: 0 = Not at all Feeling afraid as if something awful might happen: 0 = Not at all Total BRETT-7 score (0-4 normal; 5-9 mild; 10-14 moderate; 15-21 severe): 0 Source: Developed by Drs. Nik Donnelly, Tracey Allen, Adalberto Paredes and colleagues, with an educational robert from [email or web address]. BRETT-7 Assessment Billing BRETT-7 Assessment Tool: BRETT-7 Assessment 87996 Physical exam (Primary Care) Vital Signs: Last Vital Signs Temp 97.8 F 05/13/25 09:04 Pulse 58 05/13/25 09:04 Resp 16 05/13/25 09:04 BP 120/82 05/13/25 09:04 Pulse Ox 98 05/13/25 09:04 Oxygen Delivery Method Room Air 05/13/25 09:04 BMI result Body Mass Index 30.0 Tobacco/Smoking Status: Tobacco use Status Tobacco use date assessed 05/13/25 05/13/25 09:11 Patient Tobacco Use Status Never used Tobacco 05/13/25 09:11 e-Cigarette/Vaping Use Never Used 05/13/25 09:11 Depression Screening Interpretation: Negative Thrive Assessment: Date of Thrive Assessment Date Thrive assessed 01/15/25 05/13/25 09:11 Currently or been in a relationship where the following occur: No concerns reported Coding Level of Care Code Est Pt Level 3 (11881) Diagnoses Gait disorder R26.9 Shuffling gait R26.89 Additional Codes BRETT-7 Assessment Billing - BERTT-7 Assessment Tool: BRETT-7 Assessment 12780 ([id number]) PHQ-9 - 38903 - PHQ-9 Billing: Yes ([id number]) Assessment & Plan Assessment & Plan (1) Gait disorder: Onset Date: ~12/2023 Comment: Multifactorial - lumbar cervicla spondylosis , frontal gait disorder No evidence of parkinsons disease. Code(s): R26.9 - Unspecified abnormalities of gait and mobility Category: Medical (2) Shuffling gait: Code(s): R26.89 - Other abnormalities of gait and mobility Category: Medical Plan .
[2025-05-13 09:04] VITALS: BP 120/82; PULSE 58; RESP 16; TEMP 36.6; O2SAT 98
--- OUTSIDE RECORDS SUMMARY | 2025-05-13 09:22 | XMS_ITS | Encounter Summary ---
Author Organization [facility] Address [address] [place] [address] Care Team Providers Care Hatch Boss Name Role Phone Mita Rosales MD Primary Care Provider [phone] Carson Jernigan MD Unavailable [phone] Rolo Dawson MD Primary Care Provider [phone] Encounter Details Date Type Department Care Team (Late st Contact Info) Description 12/20/2022 Scanned Document [facility] [address] [address] Cardiology, Scan Social History Tobacco [...] Description 06/26/2025 9:20 AM EDT Office Visit [facility] [address] [address] Carson Jernigan MD [address] [place] [address] [phone] documented as of this encounter Visit Diagnoses Not on filedocumented in this encounter Care Teams Hatch Boss Relationship Specialty Start Date End Date Mita Rosales MD [address] [place] [address] PCP - General Internal Medicine 04/06/21 01/13/25 Rolo Dawson MD [address] [place] [address] PCP - General Family Medicine 01/14/25 Carson Jernigan MD [address] [place] [address] Primary Housekeeper/Laundry Assistant Cardiovascular Disease 06/21/22 documented as of this encounter
--- OUTSIDE RECORDS SUMMARY | 2025-05-13 09:22 | XMS_ITS | Clinical Summary ---
Author Organization [facility] Address [address] [place] [address] Care Team Providers Care Mold Press Operator Name Role Phone Mita Rosales MD Primary Care Provider [phone] Allergies No known active allergies Medications Medication Sig Dispensed Refills Start Date End Date Status atorvastatin (LIPITOR) tablet 10 mg Take 1 tablet (10 mg total) by mouth every evening. 0 11/23/2018 Active Leicester-3 Fatty Acids (FISH OIL) 1000 MG CAPS [...] this topic Medical Devices Implanted Type Area Highway Construction Inspector Device Identifier Shelf Expiration Date Model / Serial / Lot Screw Trident Ii 25mm 6.5mm Low Profile Hexagonal Bone - [id number] - [id number] Implanted:Qty: 1 on 07/08/2019 by Nik Corona MD at [facility] Left: Hip [employer] 02/19/2024 [id number] / / [id number] Screw Trident Ii 25mm 6.5mm Low Profile Hexagonal Bone - [id number] - [id number] Implanted:Qty: 1 on 07/08/2019 by Nik Corona MD at [facility] Left: Hip [employer] 03/05/2024 [id number] / / [id number] Shell Trident Ii E 54mm 5 Screw Hole Cluster Tritanium - [id number] - [id number] Implanted:Qty: 1 on 07/08/2019 by Nik Corona MD at [facility] Left: Hip [employer] 03/05/2024 702-04-54E / / [id number] Insert Trident 0d E 36mm X3 Acetabular Hip - [id number] - [id number] Implanted:Qty: 1 on 07/08/2019 by Nik Corona MD at [facility] Left: Hip [employer] 04/09/2024 623-00-36E / / [id number] Stem Hip Neck Angle 127 Degree Accolade Ii Sz7 - [id number] - [id number] Implanted:Qty: 1 on 07/08/2019 by Nik Corona MD at [facility] Left: Hip [employer] 03/18/2024 [id number] / / [id number] Head V40 +5mm 36mm Delta Femoral Hip - [id number] - [id number] Implanted:Qty: 1 on 07/08/2019 by Nik Corona MD at [facility] Left: Hip [employer] 05/19/2024 6570-0-236 / / [id number] Advance Directives For more information, please contact: [phone] Latest Code Status on File Code Status [...] way: discussion with patient . Care Teams Mold Press Operator Relationship Specialty Start Date End Date Mita Rosales MD [address] [place] [address] PCP - General Internal Medicine 06/28/19
--- OUTSIDE RECORDS SUMMARY | 2025-05-13 09:22 | XMS_ITS | Patient Health Record ---
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
--- OUTSIDE RECORDS SUMMARY | 2025-05-13 09:22 | XMS_ITS | Encounter Summary ---
Author Organization [facility] Address [address] [place] [address] Care Team Providers Care Funeral Home Manager Name Role Phone Mita Rosales MD Primary Care Provider [phone] Carson Jernigan MD Unavailable [phone] Rolo Dawson MD Primary Care Provider [phone] Reason for Visit * Reason Comments Advice Only Encounter Details Date Type Department Care Team (Late st Contact Info) Description 08/31/2022 Telephone [facility] [address] [address] Carson Jernigan MD [address] [place] [address] Advice Only Social History Tobacco Use [...] AM EDT Office Visit [facility] [address] [address] Carson Jernigan MD [address] [place] [address] documented as of this encounter Visit Diagnoses Not on filedocumented in this encounter Care Teams Funeral Home Manager Relationship Specialty Start Date End Date Mita Rosales MD [address] [place] [address] PCP - General Internal Medicine 04/06/21 01/13/25 Rolo Dawson MD [address] [place] [address] PCP - General Family Medicine 01/14/25 Carson Jernigan MD [address] [place] [address] Primary Employee Counselor Cardiovascular Disease 06/21/22 documented as of this encounter
--- OUTSIDE RECORDS SUMMARY | 2025-05-13 09:22 | XMS_ITS | Encounter Summary ---
Author Organization [facility] Address [address] [place] [address] Care Team Providers Care Call Center Specialist Name Role Phone Carson Jernigan MD Unavailable [phone] Rolo Dawson MD Primary Care Provider [phone] Encounter Details Date Type Department Care Team (Late st Contact Info) Description 02/27/2025 Scanned Document [facility] [address] [address] Cardiology, Scan Social History Tobacco [...] Description 06/26/2025 9:20 AM EDT Office Visit [address] [address] Carson Jernigan MD [address] [place], [place] [phone] documented as of this encounter Visit Diagnoses Not on filedocumented in this encounter Care Teams Call Center Specialist Relationship Specialty Start Date End Date Rolo Dawson MD [address] [place] [address] PCP - General Family Medicine 01/14/25 Carson Jernigan MD [address] [place] [address] Primary Director Post Cardiovascular Disease 06/21/22 documented as of this encounter
--- OUTSIDE RECORDS SUMMARY | 2025-05-13 09:22 | XMS_ITS | Clinical Summary ---
Author Organization [facility] Address [address] [place] [address] Care Team Providers Care Bottle Carrier Name Role Phone Carson Jernigan MD Unavailable [phone] Rolo Dawson MD Primary Care Provider [phone] Allergies No known active allergies Medications coenzyme [...] daily as needed for erectile dysfunction. Active Multiple Vitamins-Minerals (MULTIVITAMIN ADULT, MINERALS, PO) Take by mouth. Active pravastatin (PRAVACHOL) 80 MG tabletIndications:E levated coronary artery calcium score Take 1 tablet (80 mg total) by mouth daily. 100 tablet 3 4 Active apixaban (Eliquis) 5 MG tabletIndications:P AF (paroxysmal atrial fibrillation) (HCC) Take 1 tablet (5 mg total) by mouth 2 (two) times a day. 180 tablet 3 5 Active ezetimibe (ZeTIA) 10 MG tabletIndications:H yperlipidemia, unspecified hyperlipidemia type TAKE 1 TABLET BY MOUTH DAILY 100 tablet 2 5 Active metoPROLOL SUCCINATE (TOPROL-XL) 25 MG 24 hr tabletIndications:H yperlipidemia, unspecified hyperlipidemia type,PAF (paroxysmal atrial fibrillation) (HCC) TAKE 1 TABLET BY MOUTH DAILY 100 tablet 2 Active Active Problems Problem Noted Date Diagnosed Date CAROLEE (obstructive sleep apnea) 11/29/2021 Snoring 11/29/2021 Fatigue 11/29/2021 PAF (paroxysmal atrial fibrillation) 01/07/2021 NSVT (nonsustained ventricular tachycardia) 12/18 Hypertrophic cardiomyopathy 01/07/2021 Hyperlipidemia 12/29/2019 Syncope and collapse 12/29/2019 BPH (benign prostatic hyperplasia) 12/29/2019 Osteoarthritis of left hip 07/08/2019 Encounters Date Type Department Care Team Description 02/27/2025 Scanned Document [facility] [address] [address] Cardiology, Scan from Last 3 Months Family History Medical [...] 59 12/12/2024 10:30 AM EDT Temperature 36.6 C (97.9 F) 01/08/2024 1:23 PM EDT Respiratory Rate - - Oxygen Saturation 99% [...] 06/26/2025 9:20 AM EDT Office Visit [facility] [place] [address] [place] [address] Carosn Jernigan MD [address] [place] [address] Health Maintenance Due Date Last Done Comments Hepatitis C Virus Screening 1950 DTaP/Tdap/Td Vaccines (1 - Tdap) 1968 Colonoscopy 1994 Pneumococcal Vaccines 50+ (1 of 1 - PCV) 12/05/1999 Zoster (Shingles) Vaccine (1 of 2) 12/05/1999 COVID-19 Vaccine ( - season) 2024 06/24/2022, 07/12/2021, 12/11/2020, Additional history exists RSV Vaccine 60 years and older and Patients (1 - 1-dose 75+ series) 2024 Influenza Vaccine 04/18/2025 06/27/2023, , 07/28/2021, Additional history exists Hepatitis B Vaccines Aged Out No long er eligible based on patient's age to complete this topic Insurance [facility] MEDICARE Care Teams Bottle Carrier Relationship Specialty Start Date End Date Rolo Dawson MD [address] [facility] [place] [address] PCP - General Family Medicine 01/14/25 Carson Jernigan MD [address] [place] [address] Primary Web Site Manager Cardiovascular Disease 06/21/22
--- OUTSIDE RECORDS SUMMARY | 2025-05-13 09:22 | XMS_ITS | Clinical Summary ---
Author Organization [facility] [address] [facility] Address [address] [place] [address] Phone Care Team Providers Care Heel Stiffener Name Role Phone Mita Rosales MD Primary Care Provider [phone] Active Problems Problem Noted Date Diagnosed Date Low back pain 08/01/2024 Back muscle spasm 08/01/2024 Surgical History Surgery Date Site/Laterality Comments HAND SURGERY Bilateral PROCEDURE:HAND SURGERY;COMMENT:CTR BOWEL RESECTION PROCEDURE:BOWEL RESECTION;COMMENT:ANTERIOR SKIN BIOPSY PROCEDURE:SKIN BIOPSY;COMMENT:MALIG MELANOMA REMOVED FROM BACK COLONOSCOPY PROCEDURE:COLONOSCOPY TOTAL HIP ARTHROPLASTY 07/08/2019 Left PROCEDURE:TOTAL HIP ARTHROPLASTY;COMMENT:Procedure: REPLACEMENT TOTAL HIP; Surgeon: Nik Corona MD; [facility] Service: Orthopedics; Laterality: [...] CMS/HCC V28) 01/07/2021 DX:PAF (paroxysmal atrial fibrillation) ([facility]) Syncope DX:Syncope Family History Medical History Relation [...] this topic Medical Devices Implanted Type Area Supervisor Lead Refinery Device Identifier Shelf Expiration Date Model / Serial / Lot Screw Trident Ii 25mm 6.5mm Low Profile Hexagonal Bone - [id number] Implanted:Qty: 1 on 07/08/2019 by Nik Corona MD Left: Hip [employer] 02/19/2024 [id number] / / [id number] Screw Trident Ii 25mm 6.5mm Low Profile Hexagonal Bone - [id number] Implanted:Qty: 1 on 07/08/2019 by Nik Corona MD Left: Hip [employer] 03/05/2024 [id number] / / [id number] Shell Trident Ii E 54mm 5 Screw Hole Cluster Tritanium - [id number] Implanted:Qty: 1 on 07/08/2019 by Nik Corona MD Left: Hip [employer] 03/05/2024 702-04-54E / / [id number] Insert Trident 0d E 36mm X3 Acetabular Hip - [id number] Implanted:Qty: 1 on 07/08/2019 by Nik Corona MD Left: Hip [employer] 04/09/2024 623-00-36E / / [id number] Stem Hip Neck Angle 127 Degree Accolade Ii Sz7 - [id number] Implanted:Qty: 1 on 07/08/2019 by Nik Corona MD Left: Hip [employer] 03/18/2024 [id number] / / [id number] Head V40 +5mm 36mm Delta Femoral Hip - [id number] Implanted:Qty: 1 on 07/08/2019 by Nik Corona MD Left: Hip [employer] 05/19/2024 6570-0-236 / / [id number] Insurance [employer] MEDICARE Care Teams Heel Stiffener Relationship Specialty Start Date End Date Mita Rosales MD [address] [place] [address] PCP - General Internal Medicine 06/28/19
--- OUTSIDE RECORDS SUMMARY | 2025-05-13 09:22 | XMS_ITS | Encounter Summary ---
Author Organization [facility] Address [address] [place] [address] Care Team Providers Care Electronic Test Technician Name Role Phone Mita Rosales MD Primary Care Provider [phone] Carson Jernigan MD Unavailable [phone] Rolo Dawson MD Primary Care Provider [phone] Encounter Details Date Type Department Care Team (Late st Contact Info) Description 07/02/2024 Scanned Document [facility] [address] [address] Cardiology, Scan Social History Tobacco [...] Description 06/26/2025 9:20 AM EDT Office Visit [facility] [address] [address] Carson Jernigan MD [address] [place] [address] [phone] documented as of this encounter Visit Diagnoses Not on filedocumented in this encounter Care Teams Electronic Test Technician Relationship Specialty Start Date End Date Mita Rosales MD [address] [place] [address] PCP - General Internal Medicine 04/06/21 01/13/25 Rolo Dawson MD [address] [place] [address] PCP - General Family Medicine 01/14/25 Carson Jernigan MD [address] [place] [address] Primary Retail Sales Assistant Cardiovascular Disease 06/21/22 documented as of this encounter
--- OUTSIDE RECORDS SUMMARY | 2025-05-13 09:22 | XMS_ITS | Encounter Summary ---
Author Organization [facility] Address [address] [place] [address] Care Team Providers Care Nuclear Weapons Mechanical Specialist Name Role Phone Mita Rosales MD Primary Care Provider [phone] Carson Jernigan MD Unavailable [phone] Rolo Dawson MD Primary Care Provider [phone] Encounter Details Date Type Department Care Team (Late st Contact Info) Description 01/08/2024 Scanned Document [facility] Pulmonary [address] [phone] Pulmonary, Scan Social History Tobacco Use Types [...] Description 06/26/2025 9:20 AM EDT Office Visit [facility] [place] [address] [phone] Carson Jernigan MD [address] [place] [phone] documented as of this encounter Visit Diagnoses Not on filedocumented in this encounter Care Teams Nuclear Weapons Mechanical Specialist Relationship Specialty Start Date End Date Mita Rosales MD [address] [place] [address] PCP - General Internal Medicine 04/06/21 01/13/25 Rolo Dawson MD [address] [place] [address] PCP - General Family Medicine 01/14/25 Carson Jernigan MD [address] [place] [address] Primary Log Snaker Cardiovascular Disease 06/21/22 documented as of this encounter
--- OUTSIDE RECORDS SUMMARY | 2025-05-13 09:22 | XMS_ITS | Encounter Summary ---
Author Organization [facility] Address [address] [place] [address] Care Team Providers Care Planing Machine Operator Name Role Phone Mita Rosales MD Primary Care Provider [phone] Carson Jernigan MD Unavailable [phone] Rolo Dawson MD Primary Care Provider [phone] Encounter Details Date Type Department Care Team (Late st Contact Info) Description 12/09/2021 Scanned Document [facility] & Vascular [address] [address] Cardiology, Scan Social History Tobacco [...] 06/26/2025 9:20 AM EDT Office Visit [facility] Vascular [address] [phone] Carson Jernigan MD [address] [place] [address] documented as of this encounter Visit Diagnoses Not on filedocumented in this encounter Care Teams Planing Machine Operator Relationship Specialty Start Date End Date Mita Rosales MD [address] [place] [address] PCP - General Internal Medicine 04/06/21 01/13/25 Rolo Dawson MD [address] [place] [address] PCP - General Family Medicine 01/14/25 Carson Jernigan MD [address] [place] [address] Primary Crm Consultant Cardiovascular Disease 06/21/22 documented as of this encounter
== END 2025-05-13 09:49 | disposition home or self-care (01) ==
LOC: HO.HMCC 09:02
PROVIDERS: PCP Nurse Practitioner Family; Visit Provider Nurse Practitioner Family
DX: R26.9 Unspecified abnormalities of gait and mobility (principal); R26.89 Other abnormalities of gait and mobility

== ENCOUNTER 2025-05-13 09:01 | Outpatient (REF) | payer MEDICARE, SELFPAY ==
[2025-05-13 13:47] LABS: Appearance Urine Clear; Glucose Urine UA Negative (Negative); PH 6.5 (5.0-9.0); Specific Gravity - Urine 1.020 (1.005-1.025); UMIC TRIGGER UACC YES
[2025-05-13 13:52] LABS: UACC Culture Trigger YES
== END 2025-05-13 09:02 | disposition home or self-care (01) ==
LOC: HO.HMGCLDS 09:01
PROVIDERS: PCP Nurse Practitioner Family; Visit Provider Nurse Practitioner Family
DX: Z00.00 Encounter for general adult medical examination without abnormal findings (principal); R26.9 Unspecified abnormalities of gait and mobility; R26.89 Other abnormalities of gait and mobility; Z79.01 Long term (current) use of anticoagulants; Z79.899 Other long term (current) drug therapy
CPT/HCPCS: 81001; 87086; 96127; 99212

== ENCOUNTER 2025-08-13 09:04 | Outpatient (REF) | payer MEDICARE, SELFPAY ==
--- OUTSIDE RECORDS SUMMARY | 2025-08-13 09:45 | XMS_ITS | Clinical Summary ---
Author Organization [facility] Address [address] [place] [address] Care Team Providers Care Water And Sewer Systems Superintendent Name Role Phone Mita Rosales MD Primary Care Provider [phone] Allergies No known active allergies Medications Medication Sig Dispensed Refills Start Date End Date Status atorvastatin (LIPITOR) tablet 10 mg Take 1 tablet (10 mg total) by mouth every evening. 0 11/23/2018 Active [place]-3 Fatty Acids (FISH OIL) 1000 MG CAPS [...] Screening (Colonoscopy) 1994 Fall Risk Assessment 2014 RSV Adult > 60+ Yrs or (1 - 1-dose 75+ series) 2024 COVID-19 Vaccine (2 - 2024- season) 2025 06/24/2022 Influenza Vaccine (#1) 2025 , 06/18/2019, 06/18/2018, [...] this topic Medical Devices Implanted Type Area Cupola Patcher Helper Device Identifier Shelf Expiration Date Model / Serial / Lot Screw Trident Ii 25mm 6.5mm Low Profile Hexagonal Bone - [id number] - [id number] Implanted:Qty: 1 on 07/08/2019 by Nik Corona MD at [facility] Left: Hip [employer] 02/19/2024 [id number] / / [id number] Screw Trident Ii 25mm 6.5mm Low Profile Hexagonal Bone - [id number] - [id number] Implanted:Qty: 1 on 07/08/2019 by Nik Corona MD at [facility] Left: Hip [employer] 03/05/2024 [id number] / / [id number] Shell Trident Ii E 54mm 5 Screw Hole Cluster Tritanium - [id number] - [id number] Implanted:Qty: 1 on 07/08/2019 by Nik Corona MD at [facility] Left: Hip [employer] 03/05/2024 702-04-54E / / [id number] Insert Trident 0d E 36mm X3 Acetabular Hip - [id number] - [id number] Implanted:Qty: 1 on 07/08/2019 by Nik Corona MD at [facility] Left: Hip [employer] 04/09/2024 623-00-36E / / [id number] Stem Hip Neck Angle 127 Degree Accolade Ii Sz7 - [id number] - [id number] Implanted:Qty: 1 on 07/08/2019 by Nik Corona MD at [facility] Left: Hip [employer] 03/18/2024 [id number] / / [id number] Head V40 +5mm 36mm Delta Femoral Hip - [id number] - [id number] Implanted:Qty: 1 on 07/08/2019 by Nik Corona MD at [facility] Left: Hip [employer] 05/19/2024 6570-0-236 / / [id number] Advance Directives For more information, please contact: [phone] Latest Code Status on File Code Status [...] way: discussion with patient . Care Teams Water And Sewer Systems Superintendent Relationship Specialty Start Date End Date Mita Rosales MD [address] [place] [address] PCP - General Internal Medicine 06/28/19
--- OUTSIDE RECORDS SUMMARY | 2025-08-13 09:45 | XMS_ITS | Clinical Summary ---
Author Organization [facility] Address [address] [place] [address] Care Team Providers Care Special Warfare Operator Name Role Phone Carson Jernigan MD Unavailable [phone] Rolo Dawson MD Primary Care Provider [phone] Allergies No known active allergies Medications coenzyme [...] by mouth daily as needed for erectile dysfunction . Active Multiple Vitamins-Minerals (MULTIVITAMIN ADULT, MINERALS, PO) Take by mouth. Active apixaban (Eliquis) 5 MG tabletIndications: PAF (paroxysmal atrial fibrillation) (HCC) Take 1 tablet (5 mg total) by mouth 2 (two) times a day. 180 tablet 3 12/18/19 25 Active ezetimibe (ZeTIA) 10 MG tabletIndications: Hyperlipidemia, unspecified hyperlipidemia type TAKE 1 TABLET BY MOUTH DAILY 100 tablet 2 01/24/20 25 Active metoPROLOL SUCCINATE (TOPROL-XL) 25 MG 24 hr tabletIndications: Hyperlipidemia, unspecified hyperlipidemia type,PAF (paroxysmal atrial fibrillation) (HCC) TAKE 1 TABLET BY MOUTH DAILY 100 tablet 2 01/24/20 25 Active pravastatin (PRAVACHOL) 80 MG tabletIndications: Elevated coronary artery calcium score Take 1 tablet (80 mg total) by mouth daily. 100 tablet 08/04/20 25 Active pravastatin (PRAVACHOL) 80 MG tabletIndications: Elevated coronary artery calcium score Take 1 tablet (80 mg total) by mouth daily. 100 tablet 3 08/14/20 24 025 Discontinued Active Problems Problem Noted Date Diagnosed Date CAROLEE (obstructive sleep apnea) 11/29/2021 Snoring 11/29/2021 Fatigue 11/29/2021 PAF (paroxysmal atrial fibrillation) 01/07/2021 NSVT (nonsustained ventricular tachycardia) 12/18 Hypertrophic cardiomyopathy 01/07/2021 Hyperlipidemia 12/29/2019 Syncope and collapse 12/29/2019 BPH (benign prostatic hyperplasia) 12/29/2019 Osteoarthritis of left hip 07/08/2019 Encounters Date Type Department Care Team Description 06/26/2025 9:20 AM EDT Office Visit [facility] Heart & Vascular [address] [address] Carson Jernigan MD Pure hypercholesterolemia (Primary Dx); Paroxysmal atrial fibrillation (HCC); Hypertrophic cardiomyopathy (HCC); Elevated coronary artery calcium score; PINK (dyspnea on exertion); PAF (paroxysmal atrial fibrillation) (HCC); Obstructive sleep apnea; Syncope and collapse; Nonsustained ventricular tachycardia (HCC) from Last 3 Months Family History Medical [...] Sign Reading Time Taken Comments Blood Pressure 120/78 06/26/2025 9:38 AM EDT Pulse 59 06/26/2025 9:16 AM EDT Temperature 36.6 C (97.9 F) 01/08/2024 1:23 PM EDT Respiratory Rate - - Oxygen Saturation 95% 06/26/2025 9:16 AM EDT Inhaled Oxygen Concentration - - Weight 85.3 kg (188 lb) 06/26/2025 9:16 AM EDT Height 170.2 cm (5' 7 ) 06/26/2025 9:16 AM EDT Body Mass Index 29.44 06/26/2025 9:16 AM EDT Plan of Treatment Health Maintenance Due Date Last Done Comments Advance Care Planning 1950 Hepatitis C Virus Screening 1950 DTaP/Tdap/Td Vaccines (1 - Tdap) 1968 Colonoscopy 1994 Pneumococcal Vaccines 50+ (1 of 1 - PCV) 12/05/1999 Zoster (Shingles) Vaccine (1 of 2) 12/05/1999 RSV Vaccine 50 years and older and Patients (1 - 1-dose 75+ series) 2024 Influenza Vaccine 04/18/2025 06/27/2023, , 07/28/2021, Additional history exists COVID-19 Vaccine ( season) 2025 06/24/2022, 07/12/2021, 12/11/2020, Additional history exists Hepatitis B Vaccines Aged Out No long er eligible based on patient's age to complete this topic Procedures Procedure Name Priority Date/Time Associated Diagnosis Comments ECG 12-LEAD Routine 06/26/2025 9:04 AM EDT Elevated coronary artery calcium score from Last 3 Months Results * ECG 12 lead (06/26/2025 9:04 AM EDT) Ventricular rate 59 BPM EKG [facility] Atrial rate 59 BPM EKG [facility] P-R interval 296 ms EKG [facility] QRS duration 76 ms EKG [facility] Q-T interval 434 ms EKG [facility] QTC calculation (Bazett) 429 ms EKG [facility] P axis 69 degrees EKG [facility] R axis -33 degrees EKG [facility] T axis -79 degrees EKG [facility] 06/26/2025 9:04 AM EDT Narrative EKG [facility] - 06/26/2025 9:31 AM EDT Sinus bradycardia with 1st degree A-V block Left axis deviation ST & Marked T wave abnormality, consider anterolateral ischemia Abnormal ECG When compared with ECG of 12-Dec-2024 10:37, QRS axis Shifted left T wave inversion less evident in Inferior leads T wave inversion more evident in Anterior leads Confirmed by MD Jernigan Vincent ([id number]) on 06/26/2025 9:31:15 AM Procedure Note Carson Jernigan MD - 06/26/2025 Sinus bradycardia with 1st degree A-V block Left axis deviation ST & Marked T wave abnormality, consider anterolateral ischemia Abnormal ECG When compared with ECG of 12-Dec-2024 10:37, QRS axis Shifted left T wave inversion less evident in Inferior leads T wave inversion more evident in Anterior leads Confirmed by MD Jernigan Vincent ([id number]) on 06/26/2025 9:31:15 AM us Carson Jernigan MD ECG ORDERABLES Final Result Performing Organization Address City/State/[facility] Co de Phone Number EKG [facility] from Last 3 Months Insurance [facility] MEDIC[facility] Care Teams Special Warfare Operator Relationship Specialty Start Date End Date Rolo Dawson MD [address] [facility] [place] [address] PCP - General Family Medicine 01/14/25 Carson Jernigan MD [address] [place] [address] Primary Welt Pocket Machine Operator Cardiovascular Disease 06/21/22
--- OUTSIDE RECORDS SUMMARY | 2025-08-13 09:45 | XMS_ITS | Encounter Summary ---
Author Organization [facility] Address [address] [place] [address] Care Team Providers Care Founder And Chief Technical Officer Name Role Phone Mita Rosales MD Primary Care Provider [phone] Carson Jernigan MD Unavailable [phone] Rolo Dawson MD Primary Care Provider [phone] Encounter Details Date Type Department Care Team (Late st Contact Info) Description 12/20/2022 Scanned Document [facility] [place] [address] [place] [phone] Cardiology, Scan Social History Tobacco Use Types [...] as of this encounter Plan of Treatment Not on file documented as of this encounter Visit Diagnoses Not on filedocumented in this encounter Care Teams Founder And Chief Technical Officer Relationship Specialty Start Date End Date Mita Rosales MD [address] [place] [address] PCP - General Internal Medicine 04/06/21 01/13/25 Rolo Dawson MD [address] [place] [address] PCP - General Family Medicine 01/14/25 Carson Jernigan MD [address] [place] [address] Primary Bead Builder Cardiovascular Disease 06/21/22 documented as of this encounter
--- OUTSIDE RECORDS SUMMARY | 2025-08-13 09:45 | XMS_ITS | Encounter Summary ---
Author Organization [facility] Address [address] [place] [address] Care Team Providers Care Forestry Pilot Name Role Phone Mita Rosales MD Primary Care Provider [phone] Carson Jernigan MD Unavailable [phone] Rolo Dawson MD Primary Care Provider [phone] Encounter Details Date Type Department Care Team (Late st Contact Info) Description 12/09/[address] [facility] [place] [facility] & V[facility] [place] [address] [place] [phone] Cardiology, Scan Social History Tobacco Use Types [...] on filedocumented in this encounter Care Teams Forestry Pilot Relationship Specialty Start Date End Date Mita Rosales MD [address] [place] [address] PCP - General Internal Medicine 04/06/21 01/13/25 Rolo Dawson MD [address] [facility] [place] [address] PCP - General Family Medicine 01/14/25 Carson Jernigan MD [address] [place] [address] Primary Building Supervisor Cardiovascular Disease 06/21/22 documented as of this encounter
--- OUTSIDE RECORDS SUMMARY | 2025-08-13 09:46 | XMS_ITS | Clinical Summary ---
Author Organization [facility] [address] [facility] Building Address [address] [place] [address] Phone Care Team Providers Care Pressure Test Operator Name Role Phone Mita Rosales MD [...] TOTAL HIP; Surgeon: Nik Corona MD; Location: [facility] Service: Orthopedics; [...] CMS/HCC V28) 01/07/2021 DX:PAF (paroxysmal atrial fibrillation) ([facility]) Syncope DX:Syncope Family History Medical [...] Health Maintenance Due Date Last Done Comments Colorectal Cancer Screening: Colonoscopy 1950 Abdominal Aortic Aneurysm (AAA) Screen 08/21/2022 Cholesterol Screening (Lipid Panel) 08/21/2022 Falls Risk Assessment 08/21/2022 Hepatitis C Screening 08/21/2022 Medicare Annual Wellness Visit 08/21/2022 Social Influencers of Health Screening 08/21/2022 Hypertension/CHF/CAD Annual BMP Blood Test 08/01/2024 02/14/2023, 01/07/2022, 12/30/2019 Depression Screening 09/18/2024 RSV Immunization Adult Patients (1 - 1-dose 75+ series) 2024 COVID-19 Vaccine ( - season) 2025 06/24/2022, 07/12/2021, 12/11/2020, Additional history exists Influenza Vaccine (#1) 2025 , 07/15/2022, 07/28/2021, [...] this topic Medical Devices Implanted Type Area Coordinator Of Genetic Services Device Identifier Shelf Expiration Date Model / Serial / Lot Screw Trident Ii 25mm 6.5mm Low Profile Hexagonal Bone - [id number] Implanted:Qty: 1 on 07/08/2019 by Nik Corona MD Left: Hip [employer] 02/19/2024 [id number] / / [id number] Screw Trident Ii 25mm 6.5mm Low Profile Hexagonal Bone - [id number] Implanted:Qty: 1 on 07/08/2019 by Nik Corona MD Left: Hip [employer] 03/05/2024 [id number] / / [id number] Shell Trident Ii E 54mm 5 Screw Hole Cluster Tritanium - [id number] Implanted:Qty: 1 on 07/08/2019 by Nik Corona MD Left: Hip [employer] 03/05/2024 702-04-54E / / [id number] Insert Trident 0d E 36mm X3 Acetabular Hip - [id number] Implanted:Qty: 1 on 07/08/2019 by Nik Corona MD Left: Hip [employer] 04/09/2024 623-00-36E / / [id number] Stem Hip Neck Angle 127 Degree Accolade Ii Sz7 - [id number] Implanted:Qty: 1 on 07/08/2019 by Nik Corona MD Left: Hip [employer] 03/18/2024 [id number] / / [id number] Head V40 +5mm 36mm Delta Femoral Hip - [id number] Implanted:Qty: 1 on 07/08/2019 by Nik Corona MD Left: Hip [employer] 05/19/2024 6570-0-236 / / [id number] Insurance [employer] MEDICARE Care Teams Pressure Test Operator Relationship Specialty Start Date End Date Mita Rosales MD [address] [place] [address] PCP - General Internal Medicine 06/28/19
--- OUTSIDE RECORDS SUMMARY | 2025-08-13 09:46 | XMS_ITS | Patient Health Record ---
Author Organization [facility] Address [address] [place] [phone] Care Team Providers Care E Commerce Project Manager Name Role Phone TANISHA WHARTON Primary Care Provider Celso Sequeira Jr Unavailable Reason For Referral No Information Medications Medication SIG (Take, Route, Frequency, Duration) Notes Start Date End Date Status Fish Oil 1000 MG Capsule 1 capsule Orall y Once a day Active MiraLax (colon prep) 8.3 ounce ((238) grams mixed with Gatorade or Crystal Light orally begin at 5:00 p.m. the day before the procedure; Duration: 1 day 01/11/2021 Active Eliquis 5 MG Tablet Orally Active Tamsulosin HCl 0.4 MG Capsule Extended Release Orally Act sandee Finasteride 1 MG Tablet Orally Active Metoprolol Succinate ER 25 MG Tablet Extended Release 24 Hour Orally Active CoQ10 100 MG Capsule 1 capsule with a me al Orally Once a day Active Lipitor 10 MG Tablet 1 tablet Orally Onc e a day Active Immunizations Vaccine Route Administration Date Status Comme nts Influenza Unknown 01/11/2021 Administered Social History Social History Additional Details Category Social Info Options Details Miscellaneous: Marital status: Occupation: retired/Part dasia e work each year working the [employer] Problems Problem Type SNOMED Code ICD Code Onset Dates Problem Status W/U Status Risk Notes Problem Colon cancer screening (643033891) Colon cancer screening (Z12.11) Active confirmed Problem Already on aspirin (496455503) nursing home current use of aspirin (Z79.82) Active confirmed Problem Benign carcinoid tumor of rectum (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
--- OUTSIDE RECORDS SUMMARY | 2025-08-13 09:46 | XMS_ITS | Encounter Summary ---
Author Organization [address] [address] Care Team Providers Care Cableman Name Role Phone Mita Rosales MD Primary Care Provider [phone] Carson Jernigan MD Unavailable [phone] Rolo Dawson MD Primary Care Provider [phone] Encounter Details Date Type Department Care Team (Late st Contact Info) Description 01/08/[address] [facility] Pulmonary [place] [phone] Pulmonary, Scan Social History Tobacco Use Types [...] on filedocumented in this encounter Care Teams Cableman Relationship Specialty Start Date End Date Mita Rosales MD [address] [place] [address] PCP - General Internal Medicine 04/06/21 01/13/25 Rolo Dawson MD [address] [place] [address] PCP - General Family Medicine 01/14/25 Carson Jernigan MD [address] [place] [address] Primary Business Education Teacher Cardiovascular Disease 06/21/22 documented as of this encounter
--- OUTSIDE RECORDS SUMMARY | 2025-08-13 09:46 | XMS_ITS | Encounter Summary ---
Author Organization [facility] Address [address] [place] [address] Care Team Providers Care Maintainer Plant Name Role Phone Mita Rosales MD Primary Care Provider [phone] Carson Jernigan MD Unavailable [phone] Rolo Dawson MD Primary Care Provider [phone] Encounter Details Date Type Department Care Team (Late st Contact Info) Description 07/02/2024 Scanned Document [facility] Heart & Vascular [place] [address] [place] [phone] Cardiology, Scan Social History Tobacco Use Types [...] on filedocumented in this encounter Care Teams Maintainer Plant Relationship Specialty Start Date End Date Mita Rosales MD [address] [place] [address] PCP - General Internal Medicine 04/06/21 01/13/25 Rolo Dawson MD [address] [place] [address] PCP - General Family Medicine 01/14/25 Carson Jernigan MD [address] [place] [address] Primary Black Oxide Operator Cardiovascular Disease 06/21/22 documented as of this encounter
--- OUTSIDE RECORDS SUMMARY | 2025-08-13 09:46 | XMS_ITS | Encounter Summary ---
Author Organization [facility] Address [address] [place] [address] Care Team Providers Care Professor Of Industrial Technology Name Role Phone Carson Jernigan MD Unavailable [phone] Rolo Dawson MD Primary Care Provider [phone] Encounter Details Date Type Department Care Team (Late st Contact Info) Description 02/27/2025 Scanned Document [facility] Heart & Vascular [facility] [address] [place] [phone] Cardiology, Scan Social History Tobacco Use Types [...] on filedocumented in this encounter Care Teams Professor Of Industrial Technology Relationship Specialty Start Date End Date Rolo Dawson MD [address] [facility] [place] [address] PCP - General Family Medicine 01/14/25 Carson Jernigan MD [address] [place] [address] Primary Pit Clerk Cardiovascular Disease 06/21/22 documented as of this encounter
[2025-08-13 12:49] LABS: PSA,Total (Free>4and<10) 10.66 ng/mL (0.00-4.00)
[2025-08-13 18:24] LABS: Appearance Urine Clear; Glucose Urine UA Negative (Negative); PH 5.5 (5.0-9.0); Specific Gravity - Urine 1.025 (1.005-1.025)
== END 2025-08-13 09:05 | disposition home or self-care (01) ==
LOC: HO.WFDLDS 09:04
PROVIDERS: Referring Provider Urology; Visit Provider Nurse Practitioner Family
DX: L03.032 Cellulitis of left toe (principal); L84 Corns and callosities; R39.12 Poor urinary stream; Z00.00 Encounter for general adult medical examination without abnormal findings; Z12.5 Encounter for screening for malignant neoplasm of prostate
CPT/HCPCS: 36415; 81003; 84153; 99212

== ENCOUNTER 2025-08-13 09:51 | Outpatient (AMB) | payer MEDICARE, SELFPAY ==
[2025-08-13 09:55] VITALS: BP 122/66; PULSE 61; TEMP 36.5; O2SAT 96; BMI 30.3
--- NOTE | 2025-08-13 09:55 | MHC.OFFWIV ---
Intake Vital Signs 08/13/25 09:55 Height 5 ft 6 in Weight 188 lb BMI 30.3 BP 122/66 Blood Pressure Location Lt brachial Position Sitting Pulse 61 Pulse Source Pulse Oximeter Temp 97.7 F Temp Source Oral Pulse Oximetry (%) 96 Oxygen Delivery Method Room Air Intake Visit Reasons: EP Pain coming from toes/ left foot Intake Note: Patient presents c/o painful callous in between two small toes on left foot x2 weeks. Patient Tobacco Use Status: Never used Tobacco Allergies No Known Allergies Allergy (Verified 08/13/25 09:59) HPI HPI Comments History of Present Illness Details Patient is a 74yo M who presents to office with L foot/toe pain present for visit States at least 2 weeks + irritation between 4/5th digit on foot + callus formation Can't be seen by dermatology until October Using gauze between digits without relief No discharge + aching pain No pain scale given Worse with ambulation No improving factors No fever or chills Not taking any medicine for pain PFSH Medical History (Updated 08/13/25 @ 10:18 by Meghan Sinha PA-C) CAROLEE (obstructive sleep apnea) Disc degeneration, lumbar White matter disease Gait disorder (~12/2023) Back pain Syncope and collapse Hypertrophic cardiomyopathy Bladder outlet obstruction Urinary hesitancy Weak urinary stream COVID-19 vaccine administered Syncope Eczema NSVT (nonsustained ventricular tachycardia) Paroxysmal A-fib Cardiomyopathy Surgical History History of total hip replacement History of carpal tunnel release History of loop recorder H/O colonoscopy Melanoma History of colon resection Family History Father CAD (coronary artery disease) Type 2 diabetes mellitus Myocardial infarction Mother Breast cancer Social History Household Members: Spouse Housing: House Alcohol intake: never Patient Tobacco Use Status: Never used Tobacco e-Cigarette/Vaping Use: Never Used Second Hand Smoke Exposure: No service: Yes Current occupational status: retired Cognitive needs: No Hearing needs: Yes Vision needs: No Review of Systems Const Denies chills, Denies fever(s) and Denies weakness Skin/Breast Reports erythema, Reports skin pain and Reports skin swelling Neuro Denies paresthesias and Denies weakness Physical Exam Exam Exam: General: Non-toxic, NAD. Speaking full sentences. Skin: Warm dry throughout. Slight erythema overlying the digits 4/5 on L foot. + dry callus to outter surface of 4th digit that makes contact with 5th digit No discharge or drainage. No streaking of erythema No FB noted or lacerations Eye: EOMI Cardiac:LLE DP pulse intact. Cap refill < 2 seconds MSK: + ROM digits L foot. + ttp 5th digit and on callus of 4th digit. Neurology: Alert. No aphasia or facial droop. Gait without abnormality Psych: Good mood and affect Vital Signs: Last Vital Signs Temp 97.7 F 08/13/25 09:55 Pulse 61 08/13/25 09:55 BP 122/66 08/13/25 09:55 Pulse Ox 96 08/13/25 09:55 Oxygen Delivery Method Room Air 08/13/25 09:55 BMI result Body Mass Index 30.3 Assessment & Plan Assessment & Plan (1) Callus between toes: Code(s): L84 - Corns and callosities Plan: Pt seen and evaluated podiatry referral given; may call back for referral to [facility] if [place] can not get in sooner Xerform placed between toes and discussed wound care instructions for change of dressing (2) Cellulitis: Code(s): L03.90 - Cellulitis, unspecified Qualifiers: Laterality: left Site of cellulitis: extremity Site of cellulitis of extremity: toe Qualified Code(s): L03.032 - Cellulitis of left toe Plan: placed on keflex Twice daily. Taker with food and avoid alcohol Pt and gave verba understanding and had no additional questions Orders: Referrals Podiatry Referral L03.90 - Cellulitis, unspecified, L84 - Corns and callosities Medications: New cephalexin 500 mg PO BID 14 caps 0RF Coding Level of Care Code Est Pt Level 3 (49885) Diagnoses Callus between toes L84 Cellulitis of toe of left foot L03.032 Laterality: left Site of cellulitis: extremity Site of cellulitis of extremity: toe
== END 2025-08-13 10:20 | disposition home or self-care (01) ==
PROVIDERS: PCP Nurse Practitioner Family; Visit Provider Physician Assistant
DX: L84 Corns and callosities (principal); L03.032 Cellulitis of left toe

== ENCOUNTER 2025-08-28 09:06 | Outpatient (AMB) | payer MEDICARE, SELFPAY ==
--- NOTE | 2025-08-28 09:24 | MHC.OFFVIS ---
Intake Visit Reasons: 1y/PSA/PVR/ UA / SET Intake Note: Patient is Present for 1 YR Follow Up Urology Medication: Finasteride, Sildenafil Antibiotic Allergies: None Blood Thinners: Apixaban TODAY'S PVR: 316 ML'S Labs done : 08/13/25 Total PSA 10.66 Comfort Station Supervisor Required: No Accompanied by: Self / Same As Patient Allergies No Known Allergies Allergy (Verified 08/28/25 09:25) HPI Comments Details: Rolo SCHUMACHER is a very pleasant male. He is a patient of Dr. Hurtado. He is seen in the office today for the following urologic conditions. - Lower urinary tract symptoms - primarily incomplete bladder emptying 12 month follow-up PSA elevated Accompanied by Discussed prostate biopsy Prescription provided Prior Shy bladder in office - PVR 270 cc Does describe double voiding now on a consistent basis Used to work the [employer] at the [employer] Lower urinary tract symptoms Primarily incomplete emptying Previously had been on bethanechol without much effect Elevated PSA/Abnormal JONI:? He presents for ?further evaluation of elevated PSA.? Current management is?Finasteride ? Laboratory investigations include?04/05 4.9 ?12/05 2.2, 05/08 2.5, 06/09 2.9, 06/10 4.5, 08/12 10.6 ? Prostate Cancer Risk Calculator?5-10% high risk, Discussed use of 5AR to help differentiate prostate cancer from benign disease. He would like to try this and understands the small risk associated with a delay in diagnosis.? Symptoms include?06/06 , weak stream, straining, nocturia, x 1, and are worsening ?01/05 Improved stream.? Overall symptoms are?moderate.? Therapeutic plan will be?Review PSA 1 year.? [facility] Medical History (Updated 08/28/25 @ 09:59 by Benjamin Rao MD) CAROLEE (obstructive sleep apnea) Disc degeneration, lumbar White matter disease Gait disorder (~12/2023) Back pain Syncope and collapse Hypertrophic cardiomyopathy Bladder outlet obstruction Urinary hesitancy Weak urinary stream COVID-19 vaccine administered Syncope Eczema NSVT (nonsustained ventricular tachycardia) Paroxysmal A-fib Cardiomyopathy Surgical History History of total hip replacement History of carpal tunnel release History of loop recorder H/O colonoscopy Melanoma History of colon resection Family History Father CAD (coronary artery disease) Type 2 diabetes mellitus Myocardial infarction Mother Breast cancer Social History Household Members: Spouse Housing: House Alcohol intake: never Patient Tobacco Use Status: Never used Tobacco e-Cigarette/Vaping Use: Never Used Second Hand Smoke Exposure: No service: Yes Current occupational status: retired Cognitive needs: No Hearing needs: Yes Vision needs: No Review of Systems Const Denies chills and Denies fever(s) Card Reports no additional complaints and Denies syncope Resp Denies cough GI Denies abdominal pain and Denies heartburn Reports as per HPI and Denies change in libido Neuro Denies syncope Psych Denies change in libido Endo Denies change in libido Physical Exam Const General: cooperative, healthy appearing, comfortable and no acute distress Orientation/consciousness: patient oriented x3 HEENT Face and sinus: Yes normal facial exam Mouth: moist mucous membranes Neck Neck: Yes normal visual inspection, Yes full ROM and Yes trachea midline Chest Chest palpation & inspection: normal inspection of the chest Resp Effort & Inspection: normal respiratory effort, able to speak in complete sentences and no respiratory distress GI Inspection: Yes normal to inspection Back/Spine/Pelvis Cervical Spine: normal cervical lordosis Thoracic/Lumbar Spine: thoracic and lumbar spine normal to inspection Skin General skin exam: no rashes or lesions noted Neuro General: patient oriented x3, gait normal, tone normal and moves all extremities Extrem General: Yes normal to inspection and Yes capillary refill normal Office Procedures Post Void Residual Post Residual Void Post Void Residual (PVR): 316 [id number] Void Residual by ultrasound Results AMB Urinalysis, Automated UA Leukoctes 125 Margaret/uL Last Edit by JODIE Donato on 08/28/25 09:37 UA Nitrite Negative Last Edit by JODIE Donato on 08/28/25 09:37 UA Urobilinogen 0.2 mg/dL Last Edit by Lauren Colon, [facility] on 08/28/25 09:37 UA Protein 0 mg/dL Last Edit by Lauren Colon, [facility] on 08/28/25 09:37 UA pH 6.0 Last Edit by Lauren Colon, [facility] on 08/28/25 09:37 UA Blood 25 Ranjeet/uL Last Edit by Lauren Colon, [facility] on 08/28/25 09:37 UA Specific [place] 1.025 Last Edit by Lauren Colon, [facility] on 08/28/25 09:37 UA Ketone Negative Last Edit by Lauren Colon, [facility] on 08/28/25 09:37 UA Bilirubin 0 mg/dL Last Edit by Lauren Colon, [facility] on 08/28/25 09:37 UA Glucose 0 mg/dL Last Edit by Lauren Colon, [facility] on 08/28/25 09:37 Results Reviewed Results Reviewed: Laboratory Last Values Urine pH (Auto) 6.0 08/28/25 09:36 Specific [place] (Auto) 1.025 08/28/25 09:36 Urine Protein (Auto) 0 mg/dL 08/28/25 09:36 Glucose (UA)(Auto) 0 mg/dL 08/28/25 09:36 Urine Ketones (Auto) Negative 08/28/25 09:36 Urine Blood (Auto) 25 Ranjeet/uL 08/28/25 09:36 Urine Nitrite (Auto) Negative 08/28/25 09:36 Urine Bilirubin (Auto) 0 mg/dL 08/28/25 09:36 Urine Urobilinogen (Auto) 0.2 mg/dL 08/28/25 09:36 Leukocyte Esterase (Auto) 125 Margaret/uL 08/28/25 09:36 Assessment & Plan Assessment & Plan (1) Elevated PSA: Code(s): R97.20 - Elevated prostate specific antigen [PSA] Category: Medical Plan Risks and benefits regarding trans rectal ultrasound with prostate biopsy were discussed. Options of continued surveillance, no treatment and biopsy were offered. The risks include but are not limited to, urinary tract infection, sepsis, difficulty urinating, bleeding into the rectum or bladder that requires intervention and transfusion,and failure to diagnose prostate cancer. The patient understands the options and the risks involved. They wish to proceed. Printed information was provided to ensure he remains off anticoagulation for the appropriate length of time. He may require cardiology or PCP clearance. An antibiotic will be administered prior to, and following the procedure Orders: Orders AMB Post Void Residual by ultrasound Today N40.1 - Benign prostatic hyperplasia with lower urinary tract symptoms AMB Urinalysis Automated Today N13.8 - Other obstructive and reflux uropathy, N40.1 - Benign prostatic hyperplasia with lower urinary tract symptoms Urine Culture Today N39.0 - Urinary tract infection, site not specified Medications: New levofloxacin take 1 tablet day before procedure, 1 tablet day of procedure and 1 tablet day after procedure 500 mg PO DAILY 3 tabs 0RF 3 days R97.20 - Elevated prostate specific antigen [PSA] Patient Instructions: This note is constructed using voice recognition software. While every effort has been made to ensure accuracy salad counter attendant errors may have been included. Imaging studies, laboratory and physical exam results were discussed and reviewed in detail. No major barriers to patient understanding were identified. An opportunity to ask questions regarding the treatment plan was provided. All questions were answered. The patient expressed understanding and agreement with the above treatment plan. The patient is aware they should contact our office by phone for worsening of their current condition or the appearance of new urologic symptoms. Compliance is encouraged with any medications and followup testing that is ordered. It is a privilege to participate in the urologic care of your patient. If you have any questions or concerns regarding treatment for the above conditions, or other urologic issues, please do not hesitate to contact me. The office telephone contact is [phone]. Sincerely, Dr Benjamin Rao MD, [facility] - Urology Compassionate Specialist Care for the Genitourinary System Coding Level of Care Code Est Pt Level 4 (51994) Add On Problem Visit Only Diagnoses Elevated PSA R97.20 CPT Codes Post Residual Void - PVR CPT Code: 44794-Wpki Void Residual by ultrasound ([id number])
== END 2025-08-28 10:27 | disposition home or self-care (01) ==
LOC: HO.HUSH 09:07
PROVIDERS: PCP Nurse Practitioner Family; Visit Provider Urology
DX: N40.1 Benign prostatic hyperplasia with lower urinary tract symptoms (principal); N13.8 Other obstructive and reflux uropathy; R97.20 Elevated prostate specific antigen [PSA]
CPT/HCPCS: 99214; G2211

== ENCOUNTER 2025-08-28 09:06 | Outpatient (REF) | payer MEDICARE, SELFPAY | END 2025-08-28 09:07 | disposition home or self-care (01) | LOC: HO.LAB 09:06 | PROVIDERS: PCP Nurse Practitioner Family; Visit Provider Urology | DX: R97.20 Elevated prostate specific antigen [PSA] (principal); N39.0 Urinary tract infection, site not specified; N40.1 Benign prostatic hyperplasia with lower urinary tract symptoms; N13.8 Other obstructive and reflux uropathy | CPT/HCPCS: 51798; 81003; 87086; 87088; 87186; 99212 ==